=== PATIENT | female | born 1990 | race American Indian/Alaskan Native ===

== ENCOUNTER 2018-05-05 17:46 | Emergency (ER) | payer OTHER, SELFPAY ==
--- NOTE | 2018-05-05 17:47 | ED.FEMALEGU ---
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 She denies any urinary symptoms. No flank pain. No nausea or vomiting. Positive p.o. intake. She denies any vaginal discharge or bleeding. She denies any changes in sexual partners. She reports that her last menstrual period was last month. She denies any relievers or stressors of the pain. Pain is limited to the pelvic region. No other concerns or complaints at this time. Related Data Home Medications Medication Instructions Recorded Confirmed methocarbamol 750 mg PO QIDP PRN #0 02/27/17 Previous Rx's Medication Instructions Recorded ibuprofen 600 mg PO Q6HP PRN #20 tab 11/20/16 hydrocodone-acetaminophen [Mecca] 1 tab PO Q6HP PRN #10 tab 02/27/17 fluticasone 1 spray INTRANASAL BID #16 gm 12/24/17 loratadine [Claritin] 10 mg PO QDAY 30 Days #0 tab 12/24/17 Allergies Allergy/AdvReac Type Severity Reaction Status Date / Time latex [LATEX] Allergy Unknown Unverified 02/05/18 12:24 oxycodone [OXYCODONE] AdvReac Mild ITCHY Unverified 02/05/18 12:24 Review of Systems <LUCIE Stewart - Last Filed: 05/05/18 22:24> Review of Systems Constitutional Denies chills, Denies fever(s), Denies lethargy and Denies weakness Eyes Denies change in vision, Denies eye discharge, Denies irritation and Denies loss of vision ENT Ears, Nose, Mouth, and Throat: Denies change in voice, Denies neck pain and Denies sore throat Cardiovascular Denies chest pain, Denies irregular heart rhythm, Denies lightheadedness, Denies palpitations, Denies dyspnea, Denies dyspnea on exertion and Denies orthopnea Respiratory Denies cough, Denies dyspnea, Denies dyspnea on exertion and Denies wheezing Gastrointestinal Comments: Pelvic pain Genitourinary Denies hematuria, Denies flank pain, Denies urinary incontinence and Denies urinary urgency Musculoskeletal Denies neck pain Integumentary/Breasts Denies pruritus, Denies erythema, Denies rash and Denies wounds Neurologic Denies confusion, Denies loss of vision and Denies weakness Psychiatric Denies anxiety, Denies confusion, Denies depression, Denies homicidal ideation and Denies suicidal ideation Endocrine Denies palpitations Hematologic/Lymphatic Denies easy bruising Allergic/Immunologic Denies wheezing Exam <LUCIE Stewart - Last Filed: 05/05/18 22:24> Initial Vital Signs Initial Vital Signs: Vital Signs Temperature 98.5 F 05/05/18 17:52 Pulse Rate 105 H 05/05/18 17:52 Respiratory Rate 18 05/05/18 17:52 Blood Pressure 106/71 05/05/18 17:52 Pulse Oximetry 100 05/05/18 17:52 Const General: cooperative and well developed Nutritional Appearance: well nourished Orientation: alert, awake, oriented x3 and not confused HENMT Face and sinus: no sinus tenderness Mouth: oral mucosae normal and moist mucous membranes Eyes Conjunctivae: conjunctivae normal Sclera: sclerae normal Pupils: PERRL EOM: EOM intact bilaterally Resp Effort & Inspection: normal respiratory effort, able to speak in complete sentences, no respiratory distress and no use of accessory muscles Auscultation: clear to auscultation bilaterally, no rales, no rhonchi and no wheezes Cardio Rate: regular rate Rhythm: regular rhythm Heart Sounds: no click, no gallops, no murmurs and no rubs GI Inspection: non-distended Palpation: soft, no hepatosplenomegaly, No guarding, No pulsatile mass and tender (Tenderness to pelvic region) Auscultation: normal bowel sounds Skin General: no rashes or lesions noted, No jaundice and No petechiae <Lance Boswell DO - Last Filed: 05/05/18 23:30> Initial Vital Signs Initial Vital Signs: Vital Signs Temperature 98.5 F 05/05/18 17:52 Pulse Rate 105 H 05/05/18 17:52 Respiratory Rate 18 05/05/18 17:52 Blood Pressure 106/71 05/05/18 17:52 Pulse Oximetry 100 05/05/18 17:52 Course <LUCIE Stewart - Last Filed: 05/05/18 22:24> Orders Ordered: ED Orders 05/05/18 18:15 US pelvic complete Stat 05/05/18 19:15 Complete Blood Count AUTO DIFF Stat Comprehensive Metabolic Panel Stat 05/05/18 20:05 CT abdomen pelvis w con Stat Vital Signs - 8 hr 05/05/18 17:52 Temperature 98.5 F Pulse Rate 105 H Respiratory Rate 18 Blood Pressure 106/71 Pulse Oximetry 100 <Lance Boswell DO - Last Filed: 05/05/18 23:30> Orders Ordered: ED Orders 05/05/18 18:15 US pelvic complete Stat 05/05/18 19:15 Complete Blood Count AUTO DIFF Stat Comprehensive Metabolic Panel Stat 05/05/18 20:05 CT abdomen pelvis w con Stat Vital Signs - 8 hr 05/05/18 17:52 Temperature 98.5 F Pulse Rate 105 H Respiratory Rate 18 Blood Pressure 106/71 Pulse Oximetry 100 MDM - Female Genitourinary <LUCIE Stewart - Last Filed: 05/05/18 22:24> Lab Data Result diagrams: 05/05/18 19:15 05/05/18 19:15 Lab Results 05/05/18 05/05/18 Range/Units 19:15 19:15 WBC 13.7 H (4.5-11.0) X10^3/uL RBC 4.62 (4.0-5.2) X10^6/uL Hgb 13.1 (12.0-16.0) g/dL Hct 39.0 (36-46) % MCV 84.5 (80-100) fL MCH 28.4 (26-34) PG MCHC 33.6 (30-36) % RDW 13.6 (11.6-14.8) % Plt Count 334 (150-400) X10^3/uL Neut % (Auto) 60.0 (50-75) % Lymph % (Auto) 28.4 (25-40) % Labette % (Auto) 5.8 (3-14) % Eos % (Auto) 5.1 H (2-4) % Baso % (Auto) 0.7 (0-2) % Neut # (Auto) 8300 H (2025-1907) /uL Sodium 140 (137-145) mmol/L Potassium 3.7 (3.4-5.1) mmol/L Chloride 107 (98-107) mmol/L Carbon Dioxide 25 (22-32) mmol/L BUN 9 (7-17) mg/dL Creatinine 0.70 (0.52-1.04) mg/dL Estimated GFR > 60.0 (>60) mL/min BUN/Creatinine Ratio 12.9 (6-22) Glucose 92 (70-100) mg/dL Calcium 8.4 (8.4-10.2) mg/dL Total Bilirubin 0.4 (0.2-1.3) mg/dL AST 27 (14-36) IU/L ALT 39 (9-52) IU/L Alkaline Phosphatase 100 (38-126) U/L Total Protein 6.8 (6.3-8.2) g/dL Albumin 3.8 (3.5-5.0) g/dL Globulin 3.0 (1.7-4.1) g/dL Albumin/Globulin Ratio 1.3 (1.0-2.8) Imaging Data CT scan - abdomen: Radiologist's impression: PROCEDURE: CT ABDOMEN PELVIS W CON INDICATIONS: Bilateral lower abdominal pain, elevated white count TECHNIQUE: After the administration of intravenous contrast, 5 mm thick sections acquired from the diaphragm to the symphysis. 5 mm coronal and sagittal reformats were acquired. For radiation dose reduction, the following was used: automated exposure control, adjustment of mA and/or kV according to patient size. COMPARISON: None. FINDINGS: Image quality: Excellent. ABDOMEN: Lung bases: Lung bases are clear. Heart size is normal. Solid organs: Liver is normal in size and enhancement. Gallbladder is surgically absent. Biliary system is non dilated. Pancreas enhances normally. Spleen is normal in size and enhancement. No adrenal nodules. Kidneys demonstrate normal size and enhancement, without hydronephrosis. Peritoneum and bowel: Bowel loops demonstrate normal wall thickness and caliber. No free fluid or air. Normal appendix. Nodes and vessels: No retroperitoneal or mesenteric adenopathy by size criteria. Aorta and inferior vena cava are normal in size. Miscellaneous: No ventral hernias. PELVIS: Genitourinary: Urinary bladder is decompressed. Miscellaneous: No inguinal hernias or adenopathy. Bones: No suspicious bony lesions. No vertebral body compression fractures. IMPRESSION: 1. No acute process. 2. Normal appendix. Dictated by: Gwendolyn Gamez M.D. on 05/05/2018 at 20:45 Approved by: Gwendolyn Gamez M.D. on 05/05/2018 at 20: pelvic us: Radiologist's impression: MDM Narrative Medical decision making narrative: CBC shows elevated white count of 13.7. Urinalysis was negative for urinary tract infection. CBC and Chem panel were otherwise unremarkable. Pelvic ultrasound was obtained and was negative for any acute findings. Due to elevated white count CT of the abdomen was obtained and was also negative for any acute findings. test was negative. Patient denies any vaginal discharge however discussed with patient do a pelvic to rule out bacterial vaginosis and PID patient requested to actually be able to see her primary care provider in the next couple of days for pelvic exam. [id number] Tylenol Motrin as needed for any discomfort. Differential of starting menstrual cycle causing her discomfort. For any worsening symptoms return to the emergency room. <Lance Boswell DO - Last Filed: 05/05/18 23:30> Lab Data Lab Results 05/05/18 05/05/18 Range/Units 19:15 19:15 WBC 13.7 H (4.5-11.0) X10^3/uL RBC 4.62 (4.0-5.2) X10^6/uL Hgb 13.1 (12.0-16.0) g/dL Hct 39.0 (36-46) % MCV 84.5 (80-100) fL MCH 28.4 (26-34) PG MCHC 33.6 (30-36) % RDW 13.6 (11.6-14.8) % Plt Count 334 (150-400) X10^3/uL Neut % (Auto) 60.0 (50-75) % Lymph % (Auto) 28.4 (25-40) % Labette % (Auto) 5.8 (3-14) % Eos % (Auto) 5.1 H (2-4) % Baso % (Auto) 0.7 (0-2) % Neut # (Auto) 8300 H (3157-4145) /uL Sodium 140 (137-145) mmol/L Potassium 3.7 (3.4-5.1) mmol/L Chloride 107 (98-107) mmol/L Carbon Dioxide 25 (22-32) mmol/L BUN 9 (7-17) mg/dL Creatinine 0.70 (0.52-1.04) mg/dL Estimated GFR > 60.0 (>60) mL/min BUN/Creatinine Ratio 12.9 (6-22) Glucose 92 (70-100) mg/dL Calcium 8.4 (8.4-10.2) mg/dL Total Bilirubin 0.4 (0.2-1.3) mg/dL AST 27 (14-36) IU/L ALT 39 (9-52) IU/L Alkaline Phosphatase 100 (38-126) U/L Total Protein 6.8 (6.3-8.2) g/dL Albumin 3.8 (3.5-5.0) g/dL Globulin 3.0 (1.7-4.1) g/dL Albumin/Globulin Ratio 1.3 (1.0-2.8) Discharge Plan Departure Patient Disposition: Home, Self-Care Clinical Impression: Pelvic pain Discharge Date/Time: 05/05/18 21:31 Interventions: ED Discharge Assessment Last Done: 05/05/18 21:29 Instructions: DI for Pelvic Pain Activity Restrictions/Additional Instructions: Laboratory results indicate elevated serum white count which could indicate infection or inflammation. Other laboratory results and imaging were unremarkable. test was negative. Follow up with her primary care provider in the next couple of days for further evaluation such as a pelvic exam to rule out infection to the pelvic region. Other causes of the discomfort may be due to starting a menstrual cycle. Use [id number] Tylenol Motrin as needed for any discomfort. Return emergency room for any worsening symptoms. Prescriptions: No Action ibuprofen 600 MG tablet 600 mg PO Q6HP PRNQty: 20 RF: 0 methocarbamol 750 MG tablet 750 mg PO QIDP PRNQty: 0 RF: 0 hydrocodone-acetaminophen [Mecca] 5 MG/325 MG tablet 1 tab PO Q6HP PRNQty: 10 RF: 0 fluticasone 16 GM spray,suspension 1 spray Intranasal BID Qty: 16 RF: 0 loratadine [Claritin] 10 MG tablet 10 mg PO QDAY 30 Days Qty: 0 RF: 0 Referrals: [facility] [Provider Group] <Lance Boswell DO - Last Filed: 05/05/18 23:30> Cosign ED Attending Joseature Attestation: I was immediately available in the department for consultation. Documentation has been reviewed. I agree with assessment and plan.
[2018-05-05 17:52] VITALS: BP 106/71; PULSE 105; RESP 18; TEMP 36.9; O2SAT 100
--- NOTE | 2018-05-05 18:01 | PC.NURSE ---
States she is feeling crampy in her pelvic area and is 3 days late for her period - is sexually active - breasts are tender
--- NOTE | 2018-05-05 18:15 | DI.US.S_ITS ---
PROCEDURE: US PELVIC COMPLETE INDICATIONS: Left pelvic pain TECHNIQUE: Real-time scanning was performed of the pelvic organs, with image documentation. Additional endovaginal scanning was necessary due to incomplete visualization of the adnexal and endometrial structures by transabdominal scanning. COMPARISON: None. FINDINGS: Transabdominal scanning: Limited scanning through the kidneys shows no hydronephrosis. No pathologic free abdominal or pelvic fluid. Endovaginal scanning: Uterus: Uterus is normal in size at 8.3 x 4.0 x 5.4 cm. The endometrium measures 15 mm in combined thickness. Ovaries: Right ovary is within normal limits. Left ovary not seen. IMPRESSION: Nonvisualization of the left ovary. Otherwise negative pelvic ultrasound. Dictated by: Gwendolyn Gamez M.D. on 05/05/2018 at 19:35 Approved by: Gwendolyn Gamez M.D. on 05/05/2018 at 19:36
[2018-05-05 19:25] LABS: Add Manual Diff / Slide Review NO; Basophils Percent Auto 0.7 % (0-2); Eosinophils Percent Auto 5.1 % (2-4); Hemoglobin 13.1 g/dL (12.0-16.0); Lymphocytes Percent Auto 28.4 % (25-40); Mean Corpuscular HGB Conc 33.6 % (30-36); Mean Corpuscular Hemoglobin 28.4 PG (26-34); Mean Corpuscular Volume 84.5 fL (80-100); Monocytes Percent Auto 5.8 % (3-14); Neutrophils Absolute Auto 8300 /uL (3000-5900); Platelet Count 334 X10^3/uL (150-400); Red Blood Cell Count 4.62 X10^6/uL (4.0-5.2); Red Cell Distribution Width 13.6 % (11.6-14.8); White Blood Cell Count 13.7 X10^3/uL (4.5-11.0)
[2018-05-05 19:33] LABS: Alanine Aminotransferase 39 IU/L (9-52); Albumin 3.8 g/dL (3.5-5.0); Albumin Globulin Ratio 1.3 (1.0-2.8); Alkaline Phosphatase 100 U/L (38-126); Aspartate Aminotransferase 27 IU/L (14-36); BUN Creatinine Ratio 12.9 (6-22); Bilirubin Total 0.4 mg/dL (0.2-1.3); Blood Urea Nitrogen 9 mg/dL (7-17); Calcium 8.4 mg/dL (8.4-10.2); Carbon Dioxide 25 mmol/L (22-32); Chloride 107 mmol/L (98-107); Estimated Glomerular Filt Rate > 60.0 mL/min (>60); Glucose 92 mg/dL (70-100); HEMOLYSIS < 15 (0-50); Potassium 3.7 mmol/L (3.4-5.1); Sodium 140 mmol/L (137-145); Total Protein 6.8 g/dL (6.3-8.2)
--- NOTE | 2018-05-05 20:05 | DI.CT.S_ITS ---
PROCEDURE: CT ABDOMEN PELVIS W CON INDICATIONS: Bilateral lower abdominal pain, elevated white count TECHNIQUE: After the administration of intravenous contrast, 5 mm thick sections acquired from the diaphragm to the symphysis. 5 mm coronal and sagittal reformats were acquired. For radiation dose reduction, the following was used: automated exposure control, adjustment of mA and/or kV according to patient size. COMPARISON: None. FINDINGS: Image quality: Excellent. ABDOMEN: Lung bases: Lung bases are clear. Heart size is normal. Solid organs: Liver is normal in size and enhancement. Gallbladder is surgically absent. Biliary system is non dilated. Pancreas enhances normally. Spleen is normal in size and enhancement. No adrenal nodules. Kidneys demonstrate normal size and enhancement, without hydronephrosis. Peritoneum and bowel: Bowel loops demonstrate normal wall thickness and caliber. No free fluid or air. Normal appendix. Nodes and vessels: No retroperitoneal or mesenteric adenopathy by size criteria. Aorta and inferior vena cava are normal in size. Miscellaneous: No ventral hernias. PELVIS: Genitourinary: Urinary bladder is decompressed. Miscellaneous: No inguinal hernias or adenopathy. Bones: No suspicious bony lesions. No vertebral body compression fractures. IMPRESSION: 1. No acute process. 2. Normal appendix. Dictated by: Gwendolyn Gamez M.D. on 05/05/2018 at 20:45 Approved by: Gwendolyn Gamez M.D. on 05/05/2018 at 20:47
== END 2018-05-05 21:31 | disposition home or self-care (01) ==
PROVIDERS: Emergency Provider Nurse Practitioner Family
DX: R10.2 Pelvic and perineal pain (principal)
CPT/HCPCS: 36591; 74177; 76830; 76856; 80053; 81003; 81025; 85025; 99282; 99284

== ENCOUNTER 2018-05-15 15:27 | Emergency (ER) | payer OTHER, SELFPAY ==
[2018-05-15 15:47] VITALS: BP 112/73; PULSE 91; RESP 18; TEMP 36.4; O2SAT 99
--- NOTE | 2018-05-15 16:18 | ED.FEMALEGU ---
HPI - Female Genitourinary General Chief complaint: Vaginal Bleeding Stated complaint: VAG BLEEDING Time Seen by Provider: 05/15/18 16:18 Source: patient Mode of arrival: ambulatory Limitations: no limitations History of Present Illness HPI Narrative: Patient is a 27-year-old female who presents with vaginal bleeding she says that she is about 5 weeks she [facility] a [facility]. She has some mild cramping as well. No nausea or vomiting. She actually had a pelvic ultrasound and a CT which were all negative on 05/05/2018. She had a negative test at that time. Complaint: vaginal bleeding Related Data Home Medications Medication Instructions Recorded Confirmed No Known Home Medications 05/15/18 05/15/18 Allergies Allergy/AdvReac Type Severity Reaction Status Date / Time latex [LATEX] Allergy Unknown Verified 05/15/18 15:52 oxycodone [OXYCODONE] AdvReac Mild ITCHY Verified 05/15/18 15:52 Review of Systems Review of Systems GENERAL: Denies chills, fatigue, malaise, fever, sweats, travel HEENT: Denies sinus pain, ear pain, sore throat, difficulty swallowing, neck pain RESPIRATORY: Denies dyspnea, cough, wheezing, hemoptysis, sputum. CARDIOVASCULAR: Denies chest pain, palpitations, orthopnea, edema GASTROINTESTINAL: Denies nausea, vomiting, abdominal pain, diarrhea, constipation, melena. : Denies dysuria, frequency, incontinence, hematuria, urinary retention, flank pain. 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 12 point review of systems is negative except for those stated above and HPI All systems reviewed & are unremarkable except as noted in HPI and below PFSH Social History Smoking Status: Former smoker Comment: A AB1 Mc 1 Exam Initial Vital Signs Initial Vital Signs: Vital Signs Temperature 97.5 F L 05/15/18 15:47 Pulse Rate 91 H 05/15/18 15:47 Respiratory Rate 18 05/15/18 15:47 Blood Pressure 112/73 05/15/18 15:47 Pulse Oximetry 99 05/15/18 15:47 GENERAL: Well-appearing, well-nourished and in no acute distress. HEENT: Head atraumatic,EOMI, pupils reactive, face symmetric CARDIOVASCULAR: Regular rate and rhythm without murmurs, rubs or gallops. RESPIRATORY: Breath sounds equal bilaterally, no wheezes rales or rhonchi. ABDOMEN: Soft, obese mild lower suprapubic pain no without guarding or rebound EXTREMITIES: Normal range of motion, no clubbing or edema. Neurovascularly intact NEUROLOGICAL: Alert and oriented x4.Normal gait and speech. SKIN: Warm, dry, no laceration, no petechiae, no rashes or lesions. Course Orders Ordered: ED Orders 05/15/18 16:30 Urine Microscopic Stat 05/15/18 16:42 US OB <= 14 weeks fetus Stat 05/15/18 16:57 ABO RH Type Stat Complete Blood Count AUTO DIFF Stat Comprehensive Metabolic Panel Stat HCG Quantitative Stat Vital Signs - 8 hr 05/15/18 15:47 Temperature 97.5 F L Pulse Rate 91 H Respiratory Rate 18 Blood Pressure 112/73 Pulse Oximetry 99 MDM - Female Genitourinary Lab Data Result diagrams: 05/15/18 16:57 05/15/18 16:57 Lab Results 05/15/18 05/15/18 05/15/18 Range/Units 16:30 16:57 16:57 WBC 12.2 H (4.5-11.0) X10^3/uL RBC 4.15 (4.0-5.2) X10^6/uL Hgb 11.7 L (12.0-16.0) g/dL Hct 35.4 L (36-46) % MCV 85.4 (80-100) fL MCH 28.2 (26-34) PG MCHC 33.1 (30-36) % RDW 14.4 (11.6-14.8) % Plt Count 327 (150-400) X10^3/uL Neut % (Auto) 62.1 (50-75) % Lymph % (Auto) 27.7 (25-40) % Delta % (Auto) 5.7 (3-14) % Eos % (Auto) 3.7 (2-4) % Baso % (Auto) 0.8 (0-2) % Neut # (Auto) 7600 H (8347-1424) /uL Sodium 139 (137-145) mmol/L Potassium 3.7 (3.4-5.1) mmol/L Chloride 106 (98-107) mmol/L Carbon Dioxide 26 (22-32) mmol/L BUN 9 (7-17) mg/dL Creatinine 0.80 (0.52-1.04) mg/dL Estimated GFR > 60.0 (>60) mL/min BUN/Creatinine Ratio 11.3 (6-22) Glucose 90 (70-100) mg/dL Calcium 8.6 (8.4-10.2) mg/dL Total Bilirubin 0.2 (0.2-1.3) mg/dL AST 18 (14-36) IU/L ALT 37 (9-52) IU/L Alkaline Phosphatase 80 (38-126) U/L Total Protein 6.8 (6.3-8.2) g/dL Albumin 3.8 (3.5-5.0) g/dL Globulin 3.0 (1.7-4.1) g/dL Albumin/Globulin Ratio 1.3 (1.0-2.8) HCG, Quant 59133 mIU/mL Urine RBC 1-5/hpf (0-5/HPF) Urine WBC 0-1/hpf (0-5/HPF) Ur Squamous Epith Cells 0-1 /hpf Urine Bacteria None seen (None) Ur Culture Indicated? Cult not indicated Micro UA Comment Not Reportable Blood Type 05/15/18 Range/Units 16:57 WBC (4.5-11.0) X10^3/uL RBC (4.0-5.2) X10^6/uL Hgb (12.0-16.0) g/dL Hct (36-46) % MCV (80-100) fL MCH (26-34) PG MCHC (30-36) % RDW (11.6-14.8) % Plt Count (150-400) X10^3/uL Neut % (Auto) (50-75) % Lymph % (Auto) (25-40) % Delta % (Auto) (3-14) % Eos % (Auto) (2-4) % Baso % (Auto) (0-2) % Neut # (Auto) (7519-4543) /uL Sodium (137-145) mmol/L Potassium (3.4-5.1) mmol/L Chloride (98-107) mmol/L Carbon Dioxide (22-32) mmol/L BUN (7-17) mg/dL Creatinine (0.52-1.04) mg/dL Estimated GFR (>60) mL/min BUN/Creatinine Ratio (6-22) Glucose (70-100) mg/dL Calcium (8.4-10.2) mg/dL Total Bilirubin (0.2-1.3) mg/dL AST (14-36) IU/L ALT (9-52) IU/L Alkaline Phosphatase (38-126) U/L Total Protein (6.3-8.2) g/dL Albumin (3.5-5.0) g/dL Globulin (1.7-4.1) g/dL Albumin/Globulin Ratio (1.0-2.8) HCG, Quant mIU/mL Urine RBC (0-5/HPF) Urine WBC (0-5/HPF) Ur Squamous Epith Cells Urine Bacteria (None) Ur Culture Indicated? Micro UA Comment Blood Type O Positive Imaging Data Pelvic US: Radiologist's impression: PROCEDURE: US OB <= 14 WEEKS FETUS INDICATIONS: spotting preg pain OUTSIDE/PRIOR DATING DATA: Last menstrual period (LMP): 04/05/2018. LMP-based estimated date of delivery (DOREEN): 01/10/2019. First dating scan (date and location): 05/15/2018. Estimated date of delivery (DOREEN) from first dating scan: 01/06/2019. TECHNIQUE: Real-time scanning was performed of the fetus and maternal pelvic organs, with image documentation. Endovaginal scanning was also performed to better visualize the fetus and maternal ovaries. COMPARISON: None. FINDINGS: Embryo: There is an intrauterine gestational sac and a normal appearing yolk sac. No pole is identified. Estimated gestational age is a 6 weeks and 2 days based on the MGSD. Measurement variability in dating: +/- 4 weeks by LMP, +/- 7 days by mean sac diameter (use before 6 weeks gestation if crown-rump length not able to be measured), +/- 5 days by crown-rump length (up to 8 weeks 6 days gestation), +/- 7 days by crown-rump length (up to 13 weeks 6 days gestation). Maternal organs: Right ovary is normal. There is a 1.6 cm corpus with a cyst in the left ovary. Limited images through the kidneys demonstrate no hydronephrosis. IMPRESSION: 1. A single living intrauterine gestation with the estimated gestational age of 6 weeks 2 days. A pole is not visualized. There is a normal-appearing yolk sac. Please correlate with quantitative serum beta hCG. Followup imaging may be obtained if clinically indicated. 2. A corpus luteal cyst in the left ovary. Dictated by: Britta Ash M.D. on 05/15/2018 at 19:10 Approved by: Britta Ash M.D. on 05/15/2018 at 19:13 Discharge Plan Departure Patient Disposition: Home, Self-Care Clinical Impression: , threatened Discharge Date/Time: 05/15/18 18:44 Interventions: ED Discharge Assessment Last Done: 05/15/18 18:44 Instructions: Threatened Activity Restrictions/Additional Instructions: [facility] [id number] *You have been diagnosed with threatened *What to do: You should have a off labs rechecked in 2 days they should be going up -Pelvic rest- nothing in or out of vagina *Continue to take medications as directed *Follow up with your primary care provider in 2-3 days, 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
--- NOTE | 2018-05-15 16:42 | DI.US.S_ITS ---
PROCEDURE: US OB <= 14 WEEKS FETUS INDICATIONS: spotting preg pain OUTSIDE/PRIOR DATING DATA: Last menstrual period (LMP): 04/05/2018. LMP-based estimated date of delivery (DOREEN): 01/10/2019. First dating scan (date and location): 05/15/2018. Estimated date of delivery (DOREEN) from first dating scan: 01/06/2019. TECHNIQUE: Real-time scanning was performed of the fetus and maternal pelvic organs, with image documentation. Endovaginal scanning was also performed to better visualize the fetus and maternal ovaries. COMPARISON: None. FINDINGS: Embryo: There is an intrauterine gestational sac and a normal appearing yolk sac. No pole is identified. Estimated gestational age is a 6 weeks and 2 days based on the MGSD. Measurement variability in dating: +/- 4 weeks by LMP, +/- 7 days by mean sac diameter (use before 6 weeks gestation if crown-rump length not able to be measured), +/- 5 days by crown-rump length (up to 8 weeks 6 days gestation), +/- 7 days by crown-rump length (up to 13 weeks 6 days gestation). Maternal organs: Right ovary is normal. There is a 1.6 cm corpus with a cyst in the left ovary. Limited images through the kidneys demonstrate no hydronephrosis. IMPRESSION: 1. A single living intrauterine gestation with the estimated gestational age of 6 weeks 2 days. A pole is not visualized. There is a normal-appearing yolk sac. Please correlate with quantitative serum beta hCG. Followup imaging may be obtained if clinically indicated. 2. A corpus luteal cyst in the left ovary. Dictated by: Britta Ash M.D. on 05/15/2018 at 19:10 Approved by: Britta Ash M.D. on 05/15/2018 at 19:13
[2018-05-15 17:00] LABS: Bacteria Urine None Seen
[2018-05-15 17:09] LABS: Add Manual Diff / Slide Review NO; Basophils Percent Auto 0.8 % (0-2); Eosinophils Percent Auto 3.7 % (2-4); Hematocrit 35.4 % (36-46); Hemoglobin 11.7 g/dL (12.0-16.0); Lymphocytes Percent Auto 27.7 % (25-40); Mean Corpuscular HGB Conc 33.1 % (30-36); Mean Corpuscular Hemoglobin 28.2 PG (26-34); Mean Corpuscular Volume 85.4 fL (80-100); Monocytes Percent Auto 5.7 % (3-14); Neutrophils Absolute Auto 7600 /uL (3000-5900); Neutrophils Percent Auto 62.1 % (50-75); Platelet Count 327 X10^3/uL (150-400); Red Blood Cell Count 4.15 X10^6/uL (4.0-5.2); Red Cell Distribution Width 14.4 % (11.6-14.8); White Blood Cell Count 12.2 X10^3/uL (4.5-11.0)
[2018-05-15 17:12] LABS: Culture Indicated Urine Cult Not Indicated; RBC Urine 1-5/HPF (0-5/HPF); Squamous Epithelial Cell Urine 0-1 /HPF; WBC Urine 0-1/HPF (0-5/HPF)
[2018-05-15 17:21] LABS: Alanine Aminotransferase 37 IU/L (9-52); Albumin 3.8 g/dL (3.5-5.0); Albumin Globulin Ratio 1.3 (1.0-2.8); Alkaline Phosphatase 80 U/L (38-126); Aspartate Aminotransferase 18 IU/L (14-36); BUN Creatinine Ratio 11.3 (6-22); Bilirubin Total 0.2 mg/dL (0.2-1.3); Blood Urea Nitrogen 9 mg/dL (7-17); Calcium 8.6 mg/dL (8.4-10.2); Carbon Dioxide 26 mmol/L (22-32); Chloride 106 mmol/L (98-107); Estimated Glomerular Filt Rate > 60.0 mL/min (>60); Glucose 90 mg/dL (70-100); HEMOLYSIS < 15 (0-50); Potassium 3.7 mmol/L (3.4-5.1); Sodium 139 mmol/L (137-145); Total Protein 6.8 g/dL (6.3-8.2)
[2018-05-15 17:38] LABS: HCG Quantitative /Beta subunit 14449 mIU/mL
--- NOTE | 2018-05-15 18:24 | ED_ITS ---
HPI - Female Genitourinary General Chief complaint: Vaginal Bleeding Stated complaint: VAG BLEEDING Time Seen by Provider: 05/15/18 16:18 Source: patient Mode of arrival: ambulatory Limitations: no limitations History of Present Illness HPI Narrative: Patient is a 27-year-old female who presents with vaginal bleeding she says that she is about 5 weeks she [facility] a [facility]. She has some mild cramping as well. No nausea or vomiting. She actually had a pelvic ultrasound and a CT which were all negative on 2017. She had a negative test at that time. Complaint: vaginal bleeding Related Data Home Medications Medication Instructions Recorded Confirmed No Known Home Medications 05/15/18 05/15/18 Allergies Allergy/AdvReac Type Severity Reaction Status Date / Time latex [LATEX] Allergy Unknown Verified 05/15/18 15:52 oxycodone [OXYCODONE] AdvReac Mild ITCHY Verified 05/15/18 15:52 Review of Systems Review of Systems GENERAL: Denies chills, fatigue, malaise, fever, sweats, travel HEENT: Denies sinus pain, ear pain, sore throat, difficulty swallowing, neck pain RESPIRATORY: Denies dyspnea, cough, wheezing, hemoptysis, sputum. CARDIOVASCULAR: Denies chest pain, palpitations, orthopnea, edema GASTROINTESTINAL: Denies nausea, vomiting, abdominal pain, diarrhea, constipation, melena. : Denies dysuria, frequency, incontinence, hematuria, urinary retention, flank pain. SPINNING MULE TENDER: See HPI MUSCULOSKELETAL: Denies weakness, joint pain, or bony pain SKIN: No rash, no erythema, no pruritus NEUROLOGIC: Denies weakness, dizziness, headache, numbness, change in speech, confusion PSYCHIATRIC: No concerning psychosocial issues. 12 point review of systems is negative except for those stated above and HPI All systems reviewed & are unremarkable except as noted in HPI and below PFSH Social History Smoking Status: Former smoker Comment: A AB1 Mc 1 Exam Initial Vital Signs Initial Vital Signs: Vital Signs Temperature 97.5 F L 05/15/18 15:47 Pulse Rate 91 H 05/15/18 15:47 Respiratory Rate 18 05/15/18 15:47 Blood Pressure 112/73 05/15/18 15:47 Pulse Oximetry 99 05/15/18 15:47 GENERAL: Well-appearing, well-nourished and in no acute distress. HEENT: Head atraumatic,EOMI, pupils reactive, face symmetric CARDIOVASCULAR: Regular rate and rhythm without murmurs, rubs or gallops. RESPIRATORY: Breath sounds equal bilaterally, no wheezes rales or rhonchi. ABDOMEN: Soft, obese mild lower suprapubic pain no without guarding or rebound EXTREMITIES: Normal range of motion, no clubbing or edema. Neurovascularly intact NEUROLOGICAL: Alert and oriented x4.Normal gait and speech. SKIN: Warm, dry, no laceration, no petechiae, no rashes or lesions. Course Orders Ordered: ED Orders 05/15/18 16:30 Urine Microscopic Stat 05/15/18 16:42 US OB <= 14 weeks fetus Stat 05/15/18 16:57 ABO RH Type Stat Complete Blood Count AUTO DIFF Stat Comprehensive Metabolic Panel Stat HCG Quantitative Stat Vital Signs - 8 hr 05/15/18 15:47 Temperature 97.5 F L Pulse Rate 91 H Respiratory Rate 18 Blood Pressure 112/73 Pulse Oximetry 99 MDM - Female Genitourinary Lab Data Result diagrams: 05/15/18 16:57 05/15/18 16:57 Lab Results 05/15/18 05/15/18 05/15/18 Range/Units 16:30 16:57 16:57 WBC 12.2 H (4.5-11.0) X10^3/uL RBC 4.15 (4.0-5.2) X10^6/uL Hgb 11.7 L (12.0-16.0) g/dL Hct 35.4 L (36-46) % MCV 85.4 (80-100) fL MCH 28.2 (26-34) PG MCHC 33.1 (30-36) % RDW 14.4 (11.6-14.8) % Plt Count 327 (150-400) X10^3/uL Neut % (Auto) 62.1 (50-75) % Lymph % (Auto) 27.7 (25-40) % [place] % (Auto) 5.7 (3-14) % Eos % (Auto) 3.7 (2-4) % Baso % (Auto) 0.8 (0-2) % Neut # (Auto) 7600 H (2800-0080) /uL Sodium 139 (137-145) mmol/L Potassium 3.7 (3.4-5.1) mmol/L Chloride 106 (98-107) mmol/L Carbon Dioxide 26 (22-32) mmol/L BUN 9 (7-17) mg/dL Creatinine 0.80 (0.52-1.04) mg/dL Estimated GFR > 60.0 (>60) mL/min BUN/Creatinine Ratio 11.3 (6-22) Glucose 90 (70-100) mg/dL Calcium 8.6 (8.4-10.2) mg/dL Total Bilirubin 0.2 (0.2-1.3) mg/dL AST 18 (14-36) IU/L ALT 37 (9-52) IU/L Alkaline Phosphatase 80 (38-126) U/L Total Protein 6.8 (6.3-8.2) g/dL Albumin 3.8 (3.5-5.0) g/dL Globulin 3.0 (1.7-4.1) g/dL Albumin/Globulin Ratio 1.3 (1.0-2.8) HCG, Quant 55636 mIU/mL Urine RBC 1-5/hpf (0-5/HPF) Urine WBC 0-1/hpf (0-5/HPF) Ur Squamous Epith Cells 0-1 /hpf Urine Bacteria None seen (None) Ur Culture Indicated? Cult not indicated Micro UA Comment Not Reportable Blood Type 05/15/18 Range/Units 16:57 WBC (4.5-11.0) X10^3/uL RBC (4.0-5.2) X10^6/uL Hgb (12.0-16.0) g/dL Hct (36-46) % MCV (80-100) fL MCH (26-34) PG MCHC (30-36) % RDW (11.6-14.8) % Plt Count (150-400) X10^3/uL Neut % (Auto) (50-75) % Lymph % (Auto) (25-40) % [place] % (Auto) (3-14) % Eos % (Auto) (2-4) % Baso % (Auto) (0-2) % Neut # (Auto) (3037-1357) /uL Sodium (137-145) mmol/L Potassium (3.4-5.1) mmol/L Chloride (98-107) mmol/L Carbon Dioxide (22-32) mmol/L BUN (7-17) mg/dL Creatinine (0.52-1.04) mg/dL Estimated GFR (>60) mL/min BUN/Creatinine Ratio (6-22) Glucose (70-100) mg/dL Calcium (8.4-10.2) mg/dL Total Bilirubin (0.2-1.3) mg/dL AST (14-36) IU/L ALT (9-52) IU/L Alkaline Phosphatase (38-126) U/L Total Protein (6.3-8.2) g/dL Albumin (3.5-5.0) g/dL Globulin (1.7-4.1) g/dL Albumin/Globulin Ratio (1.0-2.8) HCG, Quant mIU/mL Urine RBC (0-5/HPF) Urine WBC (0-5/HPF) Ur Squamous Epith Cells Urine Bacteria (None) Ur Culture Indicated? Micro UA Comment Blood Type O Positive Imaging Data Pelvic US: Radiologist's impression: PROCEDURE: US OB <= 14 WEEKS FETUS INDICATIONS: spotting preg pain OUTSIDE/PRIOR DATING DATA: Last menstrual period (LMP): 04/05/2018. LMP-based estimated date of delivery (DOREEN): 01/10/2019. First dating scan (date and location): 05/15/2018. Estimated date of delivery (DOREEN) from first dating scan: 01/06/2019. TECHNIQUE: Real-time scanning was performed of the fetus and maternal pelvic organs, with image documentation. Endovaginal scanning was also performed to better visualize the fetus and maternal ovaries. COMPARISON: None. FINDINGS: Embryo: There is an intrauterine gestational sac and a normal appearing yolk sac. No pole is identified. Estimated gestational age is a 6 weeks and 2 days based on the MGSD. Measurement variability in dating: +/- 4 weeks by LMP, +/- 7 days by mean sac diameter (use before 6 weeks gestation if crown-rump length not able to be measured), +/ - 5 days by crown-rump length (up to 8 weeks 6 days gestation), +/- 7 days by crown-rump length (up to 13 weeks 6 days gestation). Maternal organs: Right ovary is normal. There is a 1.6 cm corpus with a cyst in the left ovary. Limited images through the kidneys demonstrate no hydronephrosis. IMPRESSION: 1. A single living intrauterine gestation with the estimated gestational age of 6 weeks 2 days. A pole is not visualized. There is a normal-appearing yolk sac. Please correlate with quantitative serum beta hCG. Followup imaging may be obtained if clinically indicated. 2. A corpus luteal cyst in the left ovary. Dictated by: Britta Ash M.D. on 05/15/2018 at 19:10 Approved by: Britta Ash M.D. on 05/15/2018 at 19:13 Discharge Plan Departure Patient Disposition: Home, Self-Care Clinical Impression: , threatened Discharge Date/Time: 05/15/18 18:44 Interventions: ED Discharge Assessment Last Done: 05/15/18 18:44 Instructions: Threatened Activity Restrictions/Additional Instructions: [facility]= [id number] *You have been diagnosed with threatened *What to do: You should have a off labs rechecked in 2 days they should be going up -Pelvic rest- nothing in or out of vagina *Continue to take medications as directed *Follow up with your primary care provider in 2-3 days, 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
[2018-05-15 18:36] VITALS: BP 117/57; PULSE 88; RESP 18; O2SAT 100
== END 2018-05-15 18:44 | disposition home or self-care (01) ==
PROVIDERS: Emergency Provider Emergency Medicine
DX: O20.0 Threatened abortion (principal); Z3A.01 Less than 8 weeks gestation of pregnancy
CPT/HCPCS: 36415; 76801; 76817; 80053; 81003; 81015; 81025; 84702; 85025; 86900; 86901; 99282; 99284

== ENCOUNTER 2018-06-17 23:43 | Emergency (ER) | payer OTHER, SELFPAY ==
[2018-06-17 23:53] VITALS: BP 111/65; PULSE 90; RESP 16; TEMP 36.7; O2SAT 100; BMI 52.8
[2018-06-18 03:06] LABS: Add Manual Diff / Slide Review NO; Basophils Percent Auto 0.7 % (0-2); Hematocrit 35.4 % (36-46); Hemoglobin 12.2 g/dL (12.0-16.0); Lymphocytes Percent Auto 25.5 % (25-40); Mean Corpuscular HGB Conc 34.4 % (30-36); Mean Corpuscular Hemoglobin 28.8 PG (26-34); Mean Corpuscular Volume 83.7 fL (80-100); Monocytes Percent Auto 5.2 % (3-14); Neutrophils Absolute Auto 8300 /uL (3000-5900); Neutrophils Percent Auto 63.6 % (50-75); Platelet Count 324 X10^3/uL (150-400); Red Blood Cell Count 4.23 X10^6/uL (4.0-5.2); Red Cell Distribution Width 13.9 % (11.6-14.8)
[2018-06-18] MEDS: ONDANSETRON 4 MG/2 ML INJ IV (03:08)
[2018-06-18] MEDS: SODIUM CHLORIDE 0.9% 1,000 ML 1000 ML IV (03:08)
[2018-06-18 03:20] LABS: WBC Urine None Seen (0-5/HPF)
[2018-06-18 03:22] LABS: Blood Urea Nitrogen 6 mg/dL (7-17); Calcium 8.6 mg/dL (8.4-10.2); Carbon Dioxide 23 mmol/L (22-32); Chloride 106 mmol/L (98-107); Estimated Glomerular Filt Rate > 60.0 mL/min (>60); Glucose 101 mg/dL (70-100); HEMOLYSIS < 15 (0-50); Potassium 4.1 mmol/L (3.4-5.1); Sodium 139 mmol/L (137-145)
[2018-06-18 03:27] LABS: Ketones (Beta-Hydroxybutyrate) 0.068 mmol/L (<0.27)
[2018-06-18 03:41] LABS: RBC Urine 1-5/HPF (0-5/HPF); Squamous Epithelial Cell Urine 1-5 /HPF
[2018-06-18 03:42] LABS: Bacteria Urine Few (2-10); Culture Indicated Urine Cult Not Indicated
[2018-06-18] MEDS: ONDANSETRON 4 MG ODT PREPACK 1 BOTTLE MISC (04:11)
--- NOTE | 2018-06-18 04:11 | ED_ITS ---
HPI - General Chief complaint: OB/Uterine Contractions Stated complaint: 10 weeks , fever vomiting Time Seen by Provider: 06/17/18 23:58 Source: patient and family Mode of arrival: ambulatory Limitations: no limitations History of Present Illness HPI Narrative: Patient is a at 10 weeks with a chief complaint of nausea and vomiting for the past 6 weeks. She has become dizzy, weak and lightheaded upon standing. She denies fever or chills. She has had no diarrhea or constipation. She denies dysuria, frequency or urgency. She is under the care of Dr. Wang Related Data Previous Rx's Medication Instructions Recorded ondansetron [Zofran ODT] 4 mg PO Q6H PRN #14 tab 06/18/18 Allergies Allergy/AdvReac Type Severity Reaction Status Date / Time latex [LATEX] Allergy Unknown Verified 05/15/18 15:52 oxycodone [OXYCODONE] AdvReac Mild ITCHY Verified 05/15/18 15:52 Review of Systems Review of Systems All systems reviewed & are unremarkable except as noted in HPI and below Constitutional Denies chills, Denies fever(s), Denies lethargy and Denies weakness Eyes Denies change in vision, Denies eye discharge, Denies irritation and Denies loss of vision ENT Ears, Nose, Mouth, and Throat: Denies change in voice, Denies neck pain and Denies sore throat Cardiovascular Denies chest pain, Denies irregular heart rhythm, Denies lightheadedness, Denies palpitations, Denies dyspnea, Denies dyspnea on exertion and Denies orthopnea Respiratory Denies cough, Denies dyspnea, Denies dyspnea on exertion and Denies wheezing Gastrointestinal Gastrointestinal: Denies abdominal pain, Denies change in bowel habits, Denies diarrhea, Reports nausea and Reports vomiting Genitourinary Denies hematuria, Denies flank pain, Denies urinary incontinence and Denies urinary urgency Musculoskeletal Denies neck pain Integumentary/Breasts Denies pruritus, Denies erythema, Denies rash and Denies wounds Neurologic Denies confusion, Denies loss of vision and Denies weakness Psychiatric Denies anxiety, Denies confusion, Denies depression, Denies homicidal ideation and Denies suicidal ideation Endocrine Denies palpitations Hematologic/Lymphatic Denies easy bruising Allergic/Immunologic Denies wheezing PMFSH - Past Medical History Medical history: Reports non-contributory Surgical history: Reports non-contributory IT INTEGRATION ARCHITECT history: Reports Spontaneous Psychiatric history: Reports no psych history Family history: Reports no significant family history Exam Initial Vital Signs Initial Vital Signs: Vital Signs Temperature 98.0 F 06/17/18 23:53 Pulse Rate 90 06/17/18 23:53 Respiratory Rate 16 06/17/18 23:53 Blood Pressure 111/65 06/17/18 23:53 Pulse Oximetry 100 06/17/18 23:53 Const General: cooperative and well developed Nutritional Appearance: well nourished Orientation: alert, awake, oriented x3 and not confused HENID Head: normocephalic and atraumatic Ears: external ears normal and TM's normal bilaterally Nose: external nose normal and No nasal discharge Face and sinus: sinuses nontender, face symmetric, no sinus tenderness and No dry mucous membranes Mouth: oral mucosae normal and moist mucous membranes Teeth and gingiva: dentition normal Throat: tonsils normal and uvula midline Eyes General: appearance normal, both eyes and all related structures Eyelids: eyelids normal Conjunctivae: conjunctivae normal Sclera: sclerae normal Pupils: PERRL EOM: EOM intact bilaterally Neck Neck: normal visual inspection, trachea midline, No lymphadenopathy, No midline deformity and No JVD Lymphatic: No lymphedema Chest Chest: normal inspection of the chest Resp Effort & Inspection: normal respiratory effort, able to speak in complete sentences, no respiratory distress and no use of accessory muscles Auscultation: clear to auscultation bilaterally, no rales, no rhonchi and no wheezes Cardio Rate: regular rate Rhythm: regular rhythm Heart Sounds: no click, no gallops, no murmurs and no rubs Pulses: normal peripheral pulses GI Inspection: non-distended Palpation: soft, no hepatosplenomegaly, No guarding, No pulsatile mass and No tender Auscultation: normal bowel sounds Back/Spine/Pelvis Back: No CVA tenderness Cervical Spine: cervical ROM normal and No pain with cervical ROM Thoracic/Lumbar Spine: thoracic and lumbar spine normal to inspection Skin General: no rashes or lesions noted, No jaundice and No petechiae Neuro General: alert, oriented x3, gait normal and no focal motor deficits Speech: speech normal Extrem General: full ROM, no clubbing, cyanosis or edema, no pedal edema and no calf tenderness Psych Appearance: well kempt Mental Status: mental status grossly normal Attitude: cooperative Thought Content: normal and suicidality Judgment: judgment good Course Orders Ordered: ED Orders 06/18/18 02:48 Urine Microscopic Stat 06/18/18 02:55 Basic Metabolic Panel Stat Complete Blood Count AUTO DIFF Stat Ketones (Beta-Hydroxybutyrate) Stat Ondansetron HCl (Zofran) 4 mg IV Q4HR PRN PRN Reason: Nausea And Vomiting Last Admin: 06/18/18 03:08 Dose: 4 mg Discontinued Medications Sodium Chloride (Normal Saline 0.9%) 1,000 mls @ 1,000 mls/hr IV BOLUS ONE Stop: 06/18/18 03:36 Last Admin: 06/18/18 03:08 Dose: 1,000 mls/hr Ondansetron HCl (Zofran Odt Prepack) 1 bottle MISC SEEINSTR ONE Stop: 06/18/18 02:38 Vital Signs - 8 hr 06/17/18 23:53 Temperature 98.0 F Pulse Rate 90 Respiratory Rate 16 Blood Pressure 111/65 Pulse Oximetry 100 MDM - OB/Uterine Contractions Medical Records Attestation: I reviewed the patient's medical records. Lab Data Result diagrams: 06/18/18 02:55 06/18/18 02:55 Lab Results 06/18/18 06/18/18 06/18/18 Range/Units 02:48 02:55 02:55 WBC 13.0 H (4.5-11.0) X10^3/uL RBC 4.23 (4.0-5.2) X10^6/uL Hgb 12.2 (12.0-16.0) g/dL Hct 35.4 L (36-46) % MCV 83.7 (80-100) fL MCH 28.8 (26-34) PG MCHC 34.4 (30-36) % RDW 13.9 (11.6-14.8) % Plt Count 324 (150-400) X10^3/uL Neut % (Auto) 63.6 (50-75) % Lymph % (Auto) 25.5 (25-40) % [place] % (Auto) 5.2 (3-14) % Eos % (Auto) 5.0 H (2-4) % Baso % (Auto) 0.7 (0-2) % Neut # (Auto) 8300 H (2204-6252) /uL Sodium (137-145) mmol/L Potassium (3.4-5.1) mmol/L Chloride (98-107) mmol/L Carbon Dioxide (22-32) mmol/L BUN (7-17) mg/dL Creatinine (0.52-1.04) mg/dL Estimated GFR (>60) mL/min BUN/Creatinine Ratio (6-22) Glucose (70-100) mg/dL Calcium (8.4-10.2) mg/dL Urine RBC 1-5/hpf (0-5/HPF) Urine WBC None seen (0-5/HPF) Ur Squamous Epith Cells 1-5 /hpf Urine Bacteria Few (2-10) H (None) Ur Culture Indicated? Cult not indicated Micro UA Comment Not Reportable Ketones 0.068 (<0.27) mmol/L 06/18/18 Range/Units 02:55 WBC (4.5-11.0) X10^3/uL RBC (4.0-5.2) X10^6/uL Hgb (12.0-16.0) g/dL Hct (36-46) % MCV (80-100) fL MCH (26-34) PG MCHC (30-36) % RDW (11.6-14.8) % Plt Count (150-400) X10^3/uL Neut % (Auto) (50-75) % Lymph % (Auto) (25-40) % [place] % (Auto) (3-14) % Eos % (Auto) (2-4) % Baso % (Auto) (0-2) % Neut # (Auto) (0778-4330) /uL Sodium 139 (137-145) mmol/L Potassium 4.1 (3.4-5.1) mmol/L Chloride 106 (98-107) mmol/L Carbon Dioxide 23 (22-32) mmol/L BUN 6 L (7-17) mg/dL Creatinine 0.60 (0.52-1.04) mg/dL Estimated GFR > 60.0 (>60) mL/min BUN/Creatinine Ratio 10.0 (6-22) Glucose 101 H (70-100) mg/dL Calcium 8.6 (8.4-10.2) mg/dL Urine RBC (0-5/HPF) Urine WBC (0-5/HPF) Ur Squamous Epith Cells Urine Bacteria (None) Ur Culture Indicated? Micro UA Comment Ketones (<0.27) mmol/L Discharge Plan Departure Patient Disposition: Home Clinical Impression: Vomiting Instructions: DI for Vomiting -- Adult Activity Restrictions/Additional Instructions: 1. Drink plenty of fluids with frequent small sips. 2. For the next 24 hours a clear liquid diet is advised. After that please employ a brat diet which would include bananas, rice, apples, toast. 3. Please take medications as directed. Your prescription has been electronically transmitted to the with [facility] based on prior preference 4. Please follow-up with your doctor in the next 1-2 days. Call the office for an appointment. 5. Please return to the emergency Department for any worsening or persistent symptoms, such as increasing pain or fever. Prescriptions: New ondansetron [Zofran ODT] 4 mg tablet,disintegrating 4 mg PO Q6H PRN (Reason: nausea and vomiting) Qty: 14 RF: 0
[2018-06-18 04:46] VITALS: BP 112/60; PULSE 90; RESP 14; TEMP 36.7; O2SAT 100
== END 2018-06-18 04:18 | disposition home or self-care (01) ==
PROVIDERS: Emergency Provider Emergency Medicine
DX: O21.9 Vomiting of pregnancy, unspecified (principal); Z3A.10 10 weeks gestation of pregnancy
CPT/HCPCS: 36591; 80048; 81003; 81015; 82009; 85025; 96361; 96374; 99283; 99284; J2405

== ENCOUNTER → 2018-07-23 17:02 | Outpatient (CLI) | payer MEDICAID, SELFPAY | PROVIDERS: Visit Provider Obstetrics & Gynecology | DX: Z34.82 Encounter for supervision of other normal pregnancy, second trimester (principal) | CPT/HCPCS: 87086 ==

== ENCOUNTER → 2018-08-25 13:49 | Outpatient (CLI) | payer MEDICAID, SELFPAY ==
--- NOTE | 2018-08-25 14:24 | DI.US.S_ITS ---
PROCEDURE: US OB >= 14 WEEKS FETUS INDICATIONS: Anatomy Survey OUTSIDE/PRIOR DATING DATA: Last menstrual period (LMP): 04/05/18. LMP-based estimated date of delivery (DOREEN): 01/10/19. First dating scan (date and location): 05/15/18. Estimated date of delivery (DOREEN) from first dating scan: 01/06/19. TECHNIQUE: Real-time scanning was performed of the fetus, with image documentation and biometric measurements. Endovaginal scanning: Not requested. COMPARISON: [facility], , OB <= 14 WEEKS FETUS, 06/27/2018, 13:26. FINDINGS: General: A single living intrauterine gestation is present. Presentation: Breech. Placenta: Placental position is posterior, without previa. Amniotic fluid index: 13.5 cm, normal range is 5-24 cm. heart rate: 153 beats per minute. Maternal cervical canal: 5.7 cm long. Normal lower limit is 2.5 cm. biometrics: Biparietal diameter: 19 weeks 6 days Head circumference: 20 weeks 4 days Abdominal circumference: 20 weeks 2 days Femur length: 20 weeks 5 days Estimated gestational age from initial scan: 20 weeks 3 days Composite gestational age from present scan: 20 weeks 3 days Estimated weight and percentile: 356 g, 47 percentile Measurement variability for biometric dating: +/- 7 days from 14 weeks to 15 weeks 6 days gestation, +/- 10 days from 16 weeks to 21 weeks 6 days gestation, +/- 2 weeks from 22 weeks to 27 weeks 6 days gestation, +/- 3 weeks for 28 weeks gestation or later. weight reference: 4500 g or EFW >90/95% is considered macrosomia or large for gestational age. EFW <10% is small for gestational age. EFW 5% or less is considered intra-uterine growth restriction. Anatomic survey: Neuro: Ventricles are non-dilated at less than 10 mm. Cisterna magna is normal at 3-11 mm. Cerebellum is normal in size and morphology. Nuchal skin fold: Normal at less than 6 mm between 14-21 weeks gestational age. Face: Nose and lips, facial profile are normal. Spine: No evidence for spina bifida. Heart: 4-chambered heart is present, with normal ventricular outflow tracts. Diaphragm: Diaphragm is intact. Stomach: Left-sided stomach is present. Kidneys: No hydronephrosis. Normal is less than 5 mm in 2nd trimester, less than 7 mm in 3rd trimester. Cord: 3-vessel cord has orthotopic insertion. Bladder: Normal in size. Extremities: All 4 extremities identified. IMPRESSION: Normal interval growth and normal anatomic survey. Dictated by: Jayjay Mar [facility] Interpreted: Cuate Gore MD on 08/27/2018 at 16:57 Approved by: Cuate Gore M.D. on 08/27/2018 at 17:19
== END ==
PROVIDERS: Visit Provider Obstetrics & Gynecology
DX: Z34.82 Encounter for supervision of other normal pregnancy, second trimester (principal); Z36.89 Encounter for other specified antenatal screening; Z3A.20 20 weeks gestation of pregnancy
CPT/HCPCS: 76811

== ENCOUNTER → 2018-08-28 11:44 | Outpatient (CLI) | payer MEDICAID, SELFPAY ==
[2018-08-28 12:33] LABS: Add Manual Diff / Slide Review NO; Basophils Percent Auto 0.5 % (0-2); Eosinophils Percent Auto 2.3 % (2-4); Hematocrit 35.4 % (36-46); Hemoglobin 11.8 g/dL (12.0-16.0); Lymphocytes Percent Auto 21.7 % (25-40); Mean Corpuscular HGB Conc 33.2 % (30-36); Mean Corpuscular Hemoglobin 28.9 PG (26-34); Mean Corpuscular Volume 86.9 fL (80-100); Monocytes Percent Auto 4.7 % (3-14); Neutrophils Absolute Auto 8000 /uL (3000-5900); Neutrophils Percent Auto 70.8 % (50-75); Platelet Count 373 X10^3/uL (150-400); Red Blood Cell Count 4.08 X10^6/uL (4.0-5.2); Red Cell Distribution Width 13.5 % (11.6-14.8); White Blood Cell Count 11.3 X10^3/uL (4.5-11.0)
[2018-08-28 15:27] LABS: Hepatitis B Surface Antigen NEGATIVE s/c (NEGATIVE); Rubella Antibody IgG 15.4 IU/mL (>15)
[2018-08-28 15:36] LABS: HIV 1 and 2 Antibody NEGATIVE (NEGATIVE); Hep C Virus Ab w/Reflex Quant NEGATIVE s/c (NEGATIVE)
[2018-08-29 14:55] LABS: HSV 2 IGG AB 6.79 index (< 0.90)
[2018-08-30 15:43] LABS: RPR Screen Nonreactive (Nonreactive)
[2018-09-04 15:48] LABS: AFP, Serum 47.5 ng/mL; Calc Gestational Age 20.7; Cigarette Smoker N; Donated Egg NOT GIVEN; Donor Egg Age NOT GIVEN; Estriol, Free 1.53 ng/mL; Inhibin A, Dimeric 145 pg/mL; Maternal Ethnicity OTHER; Maternal Weight 281 lbs; Number of Fetuses 1; Previous Pregnancy Down Syndro NOT GIVEN; hCG, MoM 0.57; hCG, Serum 8.1 IU/mL
== END ==
PROVIDERS: Visit Provider Obstetrics & Gynecology
DX: Z34.91 Encounter for supervision of normal pregnancy, unspecified, first trimester (principal); Z34.82 Encounter for supervision of other normal pregnancy, second trimester; Z3A.20 20 weeks gestation of pregnancy
CPT/HCPCS: 36415; 80055; 82105; 82677; 84702; 86336; 86695; 86696; 86703; 86787; 86803; 86850; 86900; 86901; 87086

== ENCOUNTER 2018-09-09 23:41 | Emergency (ER) | payer MEDICAID, SELFPAY ==
[2018-09-09 23:54] VITALS: BP 119/78; PULSE 101; RESP 20; TEMP 37.1; O2SAT 100
--- NOTE | 2018-09-10 00:48 | ED.EAR ---
HPI - Ear Problem General Chief complaint: Ear Stated complaint: right ear pain Time Seen by Provider: 09/10/18 00:39 Source: patient Mode of arrival: ambulatory Limitations: no limitations History of Present Illness HPI Narrative: this is a 27-year-old female comes to the emergency department with complaint of right ear pain. Patient states she has had upper respiratory symptoms with nasal congestion, no fevers, no chills that she is aware of. She feels like something might be draining out of the right ear but has not seen any actual drainage. Patient states symptoms have been going on for the last day or 2. Had feels like her sounds like she is underwater. The left side not causing any issues. Patient has had no sinus pressure. She has had other sick contacts. She has not had prior ear infections or issues. She is 5 months . She has had some nausea but states this has been more related to her . No rashes or skin changes. She has had a mild headache. Related Data Previous Rx's Medication Instructions Recorded ondansetron [Zofran ODT] 4 mg PO Q6H PRN #14 tab 06/18/18 amoxicillin 500 mg PO TID #30 cap 09/10/18 fluticasone [Flonase Allergy 1 spray NASAL DAILY PRN #9.9 gram 09/10/18 Relief] Allergies Allergy/AdvReac Type Severity Reaction Status Date / Time latex [LATEX] Allergy Unknown Verified 05/15/18 15:52 oxycodone [OXYCODONE] AdvReac Mild ITCHY Verified 05/15/18 15:52 Review of Systems Review of Systems All systems reviewed & are unremarkable except as noted in HPI and below Constitutional Denies chills, Denies fever(s) and Reports headache(s) ENT Ears, Nose, Mouth, and Throat: Reports dizziness, Reports headache(s), Reports nasal congestion, Denies sinus pain, Denies sinus pressure, Denies sore throat and Denies throat swelling Cardiovascular Denies chest pain and Denies dyspnea Respiratory Denies chest congestion, Reports cough, Denies excessive phlegm production and Denies dyspnea Gastrointestinal Gastrointestinal: Denies abdominal pain, Denies change in stool character, Denies constipation, Denies diarrhea and Reports nausea Genitourinary Denies other (urinary issues) Integumentary/Breasts Denies rash Neurologic Reports dizziness and Reports headache(s) Allergic/Immunologic Denies throat swelling [facility] Social History Smoking Status: Former smoker Exam Narrative Exam Narrative: GEN: Obese, well-appearing female, alert and oriented x 3, patient appears to be in mild distress. HEENT: Atraumatic, pupils are equal round reactive to light, extraocular movements are intact, mild nasal congestion, right TM is bulging with some opacification by fluid. Left TM is also bulging with opacification of the TM with fluid. There is pain with motion of the right ear, there is no swelling of the ear canal or erythema with the external canal, patient has some erythema of the right TM, there is no conjunctival pallor. Throat is clear without any exudates, erythema, tonsillar enlargement or uvular deviation, no sinus tenderness. HEART: Regular rate and rhythm without murmur, clicks, rubs. LUNGS:Lungs clear to auscultation, no wheezes, rales, crackles, chest moves symmetrically ABD:bowel sounds normal, gravid, soft, non-tender, no guarding, rebound, rigidity, no masses noted, no hepatosplenomegaly MSCL: Non-tender NEURO: CN 2-12 intact Initial Vital Signs Initial Vital Signs: Vital Signs Temperature 98.8 F 09/09/18 23:54 Pulse Rate 101 H 09/09/18 23:54 Respiratory Rate 20 09/09/18 23:54 Blood Pressure 119/78 09/09/18 23:54 Pulse Oximetry 100 09/09/18 23:54 Course Orders Ordered: Discontinued Medications Amoxicillin ( Trimox 250mg Prepack) 1 bottle [facility] SEEINSTR ONE Stop: 09/10/18 00:55 Last Admin: 09/10/18 01:00 Dose: 1 bottle Vital Signs - 8 hr 09/09/18 23:54 Temperature 98.8 F Pulse Rate 101 H Respiratory Rate 20 Blood Pressure 119/78 Pulse Oximetry 100 Discharge Plan Departure Patient Disposition: Home Clinical Impression: Acute ear infection, URI (upper respiratory infection) Discharge Date/Time: 09/10/18 01:05 Interventions: ED Discharge Assessment Last Done: 09/10/18 01:05 Instructions: Middle Ear Infection Activity Restrictions/Additional Instructions: Follow-up in the next 3-5 days if her symptoms are not completely resolving. Return to the emergency department for persistent fevers, increasing ear pain, drainage from the ear, swelling of the ear or face, difficulty swallowing or other new or concerning symptoms. You may use Flonase 1-2 sprays to bilateral nostrils in the morning or evening. Take amoxicillin until completely finished. You may take Tylenol up to a 1000 mg every 8 hr as needed for pain Prescriptions: New amoxicillin 500 mg capsule 500 mg PO TID Qty: 30 RF: 0 fluticasone [Flonase Allergy Relief] 50 mcg/actuation spray,suspension 1 spray NASAL DAILY PRN (Reason: nasal congestion) Qty: 9.9 RF: 0 No Action ondansetron [Zofran ODT] 4 mg tablet,disintegrating 4 mg PO Q6H PRN (Reason: nausea and vomiting) Qty: 14 RF: 0
[2018-09-10] MEDS: AMOXICILLIN 250 MG PREPACK 1 BOTTLE MISC (01:00)
== END 2018-09-10 01:05 | disposition home or self-care (01) ==
PROVIDERS: Emergency Provider Emergency Medicine
DX: H66.91 Otitis media, unspecified, right ear (principal); J06.9 Acute upper respiratory infection, unspecified
CPT/HCPCS: 99282

== ENCOUNTER → 2018-11-04 10:28 | Outpatient (CLI) | payer MEDICAID, SELFPAY ==
[2018-11-04 12:12] LABS: Hematocrit 35.4 % (36-46); Hemoglobin 11.6 g/dL (12.0-16.0)
[2018-11-04 12:24] LABS: GTT (PREG) 1 Hour PP 50gm Dose 96 mg/dL (76-139)
== END ==
PROVIDERS: Visit Provider Obstetrics & Gynecology
DX: Z34.82 Encounter for supervision of other normal pregnancy, second trimester (principal)
CPT/HCPCS: 36415; 82950; 85014; 85018

== ENCOUNTER 2018-11-07 20:46 | Outpatient (CLI) | payer MEDICAID, SELFPAY ==
--- NOTE | 2018-11-07 | DI.US.S_ITS ---
PROCEDURE: US OB TRANSVAGINAL INDICATIONS: VAGINAL PAIN ? CERVICAL LENGTH OUTSIDE/PRIOR DATING DATA: Last menstrual period (LMP): 04/05/18. LMP-based estimated date of delivery (DOREEN): 01/10/19. First dating scan (date and location): 05/15/18. Estimated date of delivery (DOREEN) from first dating scan: 01/09/19. TECHNIQUE: Real-time scanning was performed of the fetus, with image documentation. COMPARISON: [facility], , OB >= 14 WEEKS FETUS, 10/01/2018, 12:17. [facility], US OB >= 14 WEEKS FETUS, 08/25/2018, 14:33. [facility], , US OB <= 14 WEEKS FETUS, 06/27/2018, 13:26. FINDINGS: This is a limited exam for cervical length only. Cervical length measures 4.3 cm. IMPRESSION: Limited exam demonstrating cervical length of 4.3 cm. Dictated by: Asha Chavez M.D. on 11/07/2018 at 22:25 Approved by: Asha Chavez M.D. on 11/07/2018 at 22:28
== END 2018-11-07 22:15 | disposition home or self-care (01) ==
LOC: OB 11-10 14:49
PROVIDERS: Visit Provider Family Medicine
DX: Z34.83 Encounter for supervision of other normal pregnancy, third trimester (principal); Z3A.30 30 weeks gestation of pregnancy; R10.2 Pelvic and perineal pain
CPT/HCPCS: 59025; 76817; G0378; G0379

== ENCOUNTER 2018-12-10 20:57 | Outpatient (CLI) | payer MEDICAID, SELFPAY | END 2018-12-10 21:35 | disposition home or self-care (01) | LOC: OB 12-11 11:40 | PROVIDERS: PCP Obstetrics & Gynecology | DX: O36.8130 Decreased fetal movements, third trimester, not applicable or unspecified (principal); Z3A.35 35 weeks gestation of pregnancy | CPT/HCPCS: 59025; G0378; G0379 ==

== ENCOUNTER 2018-12-14 16:23 | Outpatient (CLI) | payer MEDICAID, SELFPAY ==
[2018-12-14] MEDS: MORPHINE 10 MG/ML INJ IM (17:25)
== END 2018-12-14 17:30 | disposition home or self-care (01) ==
LOC: LABOR 17:19 → OB 12-15 13:11
PROVIDERS: PCP Obstetrics & Gynecology
DX: O60.03 Preterm labor without delivery, third trimester (principal); Z3A.36 36 weeks gestation of pregnancy
CPT/HCPCS: 59025; G0378; G0379; J2270

== ENCOUNTER → 2018-12-16 11:03 | Outpatient (CLI) | payer MEDICAID, SELFPAY ==
[2018-12-17 14:31] LABS: Strep Grp B PCR POS for Grp B Strep
== END ==
PROVIDERS: PCP Obstetrics & Gynecology; Visit Provider Obstetrics & Gynecology
DX: Z34.83 Encounter for supervision of other normal pregnancy, third trimester (principal)
CPT/HCPCS: 87653

== ENCOUNTER 2018-12-24 05:13 | Outpatient (CLI) | payer MEDICAID, SELFPAY | END 2018-12-24 06:15 | disposition home or self-care (01) | LOC: OB 12:56 | PROVIDERS: PCP Obstetrics & Gynecology; Visit Provider Obstetrics & Gynecology | DX: O47.1 False labor at or after 37 completed weeks of gestation (principal); Z3A.37 37 weeks gestation of pregnancy | CPT/HCPCS: 59025; 59050; G0378; G0379 ==

== ENCOUNTER 2018-12-28 01:05 | Outpatient (CLI) | payer MEDICAID, SELFPAY ==
--- NOTE | 2018-12-28 09:12 | PM.OBTRLD ---
Visit Information Visit Information Date of evaluation: 12/28/18 Primary OB Provider: Glory Wang On-call OB Provider: Neyda Ford Reason for Evaluation: Yes rule out labor [facility] Social History Smoking Status: Former smoker Evaluation Evaluation Baseline heart rate: 140 Variability: Moderate (11-25) monitor accelerations: Present monitor decelerations: Absent Contraction Frequency (minutes): 0 Cervical dilation (cm): 3 Cervical effacement (%): 70 station: -1 Diagnosis, Plan/Disposition Final Diagnosis (1) Premature uterine contractions, antepartum: Current Visit: No Status: Acute Plan/Disposition Plan: Patient with no active contractions and no change in her cervix. OB Disposition: home
--- NOTE | 2018-12-28 09:16 | P.TNLD_ITS ---
Visit Information Visit Information Date of evaluation: 12/28/18 Primary OB Provider: Glory Wang On-call OB Provider: Neyda Ford Reason for Evaluation: Yes rule out [facility] Social History Smoking Status: Former smoker Evaluation Evaluation Baseline heart rate: 140 Variability: Moderate (11-25) monitor accelerations: Present monitor decelerations: Absent Contraction Frequency (minutes): 0 Cervical dilation (cm): 3 Cervical effacement (%): 70 station: -1 Diagnosis, Plan/Disposition Final Diagnosis (1) Premature uterine contractions, antepartum: Current Visit: No Status: Acute Plan/Disposition Plan: Patient with no active contractions and no change in her cervix. OB Disposition: home
== END 2018-12-28 02:00 | disposition home or self-care (01) ==
LOC: LABOR 01:14 → OB 12-29 10:51
PROVIDERS: PCP Obstetrics & Gynecology; Visit Provider Specialist
DX: O47.03 False labor before 37 completed weeks of gestation, third trimester (principal); Z3A.33 33 weeks gestation of pregnancy
CPT/HCPCS: 59025; G0378; G0379

== ENCOUNTER 2018-12-31 10:43 | Inpatient (IN) | payer MEDICAID, SELFPAY ==
[2018-12-31] MEDS: LACTATED RINGERS 1,000 ML 125 ML IV ×2 (11:35→15:05)
[2018-12-31] MEDS: PENICILLIN G POTASSIUM 5,000,000 UNIT in DEXTROSE 5% IN WATER 250 ML IV (11:35)
[2018-12-31 12:02] LABS: Add Manual Diff / Slide Review NO; Basophils Absolute Auto 100 /uL (0-100); Basophils Percent Auto 0.4 % (0-2); Eosinophils Absolute Auto 400 /uL (0-450); Eosinophils Percent Auto 3.3 % (2-4); Hematocrit 35.5 % (36-46); Hemoglobin 11.5 g/dL (12.0-16.0); Lymphocytes Absolute Auto 2400 /uL (1100-4500); Lymphocytes Percent Auto 17.8 % (25-40); Mean Corpuscular HGB Conc 32.5 % (30-36); Mean Corpuscular Hemoglobin 27.2 PG (26-34); Mean Corpuscular Volume 83.8 fL (80-100); Monocytes Absolute Auto 700 /uL (0-900); Monocytes Percent Auto 5.5 % (3-14); Neutrophils Absolute Auto 9900 /uL (1500-7000); Platelet Count 387 X10^3/uL (150-400); Red Blood Cell Count 4.24 X10^6/uL (4.0-5.2); Red Cell Distribution Width 15.2 % (11.6-14.8); White Blood Cell Count 13.5 X10^3/uL (4.5-11.0)
[2018-12-31 14:25] VITALS: BP 124/60
[2018-12-31] MEDS: OXYTOCIN PREMIX 30 UNIT/500 ML PLAST..BAG IV (14:48)
[2018-12-31] MEDS: PENICILLIN G POTASSIUM 3,000,000 UNIT/50 ML FROZ.PIGGY 100 UNIT IV (15:33)
[2018-12-31] MEDS: IBUPROFEN 600 MG TABLET PO (19:54)
[2018-12-31] MEDS: DERMOPLAST SPRAY 20% 60 ML 1 SPRAY TOP (23:23)
[2019-01-01] MEDS: IBUPROFEN 600 MG TABLET PO ×2 (02:38→15:00)
[2019-01-01 06:45] LABS: Hematocrit 32.7 % (36-46); Hemoglobin 10.7 g/dL (12.0-16.0)
--- NOTE | 2019-01-01 09:51 | P.PN_ITS ---
Subjective Date Patient Seen: 01/01/19 Time Patient Seen: 09:50 Interval history: Baby boy is a one day . Has Latched this morning. Objective Labs Result Diagrams: 01/01/19 06:20 Labs: Laboratory Results - last 24 hr 12/31/18 12/31/18 01/01/19 11:45 11:45 06:20 WBC 13.5 H RBC 4.24 Hgb 11.5 L 10.7 L Hct 35.5 L 32.7 L MCV 83.8 MCH 27.2 MCHC 32.5 RDW 15.2 H Plt Count 387 Neut % (Auto) 73.0 Lymph % (Auto) 17.8 L [place] % (Auto) 5.5 Eos % (Auto) 3.3 Baso % (Auto) 0.4 Neut # (Auto) 9900 H Lymph # (Auto) 2400 [place] # (Auto) 700 Eos # (Auto) 400 Baso # (Auto) 100 Blood Type O Positive Antibody Screen Negative
--- NOTE | 2019-01-01 12:25 | PM.OBHP.1 ---
OB HPI Date/Time Date of admission: 12/31/18 Date Patient Seen: 12/31/18 Time Patient Seen: 13:00 History of Present Condition Chief complaint: LABOR AND DELIVERY : 4 Para: 1 Estimated Date of Delivery: 01/10/19 Estimated Gestational Age (weeks): 38+4 Narrative: Ni Rios is a 28 year old female 4 para 1 at 38-,4/7 weeks gestation who presents in active labor No leakage of fluid. History of Present care: good care, initiated at week # (11), number of visits (10) and pounds weight gain (10#) Dating criteria: LMP confirmed by 1st trimester US Ultrasounds: normal 1st trimester US and normal mid trimester US Obstetrical complications: none Medical complications: none Preadmission Labs Blood type: O (+) positive -: Antibody screen: negative, GBS status: positive, HBsAG: negative, HIV: negative, HSV 1: positive, HSV 2: positive and RPR/VDLR: negative -: Chlamydia screen: not detected and Gonorrhea screen: not detected -: Rubella: equivocal and Varicella: immune HCT: 35.4 HCAB: negative PAP: Normal Quad screen: Normal Urine: Negative 1 hr GTT: 96 Prior (ies) History: 2 SABs 08/20/14 7#7oz [address] Wang Evaluation Evaluation Baseline heart rate: 135 Variability: Moderate (11-25) monitor accelerations: Present monitor decelerations: Absent Contraction Frequency (minutes): 3 Uterine Contraction Intensity: Strong/Firm Category of Tracing: I Cervical dilation (cm): 5 Cervical effacement (%): 100 station: -1 Laboratory results: Laboratory Tests 12/31/18 12/31/18 01/01/19 11:45 11:45 06:20 WBC 13.5 H RBC 4.24 Hgb 11.5 L 10.7 L Hct 35.5 L 32.7 L MCV 83.8 MCH 27.2 MCHC 32.5 RDW 15.2 H Plt Count 387 Neut % (Auto) 73.0 Lymph % (Auto) 17.8 L [place] % (Auto) 5.5 Eos % (Auto) 3.3 Baso % (Auto) 0.4 Neut # (Auto) 9900 H Lymph # (Auto) 2400 [place] # (Auto) 700 Eos # (Auto) 400 Baso # (Auto) 100 Blood Type O Positive Antibody Screen Negative PFSH Social History Smoking Status: Former smoker Meds Home Medications Medication Instructions Recorded Confirmed Type fluticasone [Flonase Allergy 1 spray NASAL DAILY PRN #9.9 gram 09/10/18 12/31/18 Rx Relief] ibuprofen 600 mg PO TID PRN #30 tab 01/01/19 Rx Allergies Allergy/AdvReac Type Severity Reaction Status Date / Time latex [LATEX] Allergy Unknown Verified 05/15/18 15:52 oxycodone [OXYCODONE] AdvReac Mild ITCHY Verified 05/15/18 15:52 Exam Vital Signs (past 8 hours): Generally: Patient comfortable with epidural Lungs: Clear to auscultation bilaterally Cardiovascular: Regular rate and rhythm Fundal height: 40 cm Estimated weight 7 and 0.5 lb Extremities: Trace edema, negative [place] Objective Labs Result Diagrams: 01/01/19 06:20 Labs: Laboratory Results - last 24 hr 12/31/18 01/01/19 11:45 06:20 Hgb 10.7 L Hct 32.7 L Blood Type O Positive Antibody Screen Negative
--- NOTE | 2019-01-01 12:34 | PM.OBPRVD ---
Delivery date: 12/31/18 Intrapartal events: None Cervical ripening method: none Induction method: none Delivery augmentation: pitocin Delivery monitor: external FHT and external uterine Route of delivery: Episiotomy description: None L&D Laceration Description: Superficial (Right labial and perineal) Delivery repair: chromic Estimated blood loss (mL): 150 Anesthesia type: Epidural Complications: None Narrative: Artificial rupture of membranes was performed at 1638 when patient was at 9 cm. She progressed to complete dilation at 4:51 p.m.. Patient pushed with 2-3 contractions and had a spontaneous vaginal delivery at 5:30 p.m. of a live male infant. No nuchal cord. The remainder of the body delivered without difficulty and was placed on mom's abdomen. The cord was double clamped and cut. Cord bloods were obtained. The placenta delivered intact with a 3 vessel cord at 5:35 p.m.. Apgars 9 at 1 min and 9 at 5 min. Estimated blood loss 150 cc. Patient had a superficial tear of the right labia and perineum. This was repaired in the usual fashion with 3 0 chromic. Hemostasis was achieved. Weight 7 lb 6.49 oz. Epidural analgesia. and bottle feeding. Mom and infant stable to recovery. Plan for aftercare: To routine care
--- NOTE | 2019-01-01 12:37 | PM.OBDS.1 ---
Discharge Providers Date of admission: 12/31/18 10:43 Discharge Date: 01/01/19 Primary care physician: Glory Wang MD Consults: 12/31/18 17:44 Consult to Livestock Nutrition Territory Manager Routine Comment: Discharge provider: Glory Wang MD Summary Date Patient Seen: 01/01/19 Time Patient Seen: 12:37 Procedures: Epidural analgesia Artificial rupture of membranes Spontaneous vaginal delivery Repair of superficial right labial and perineal lacerations Hospital Course: Patient is a 28-year-old 2 para 2 who presented in active labor on 07/03/2018. She was 5 cm on admission. She received an epidural for pain management. She was augmented with Pitocin when contractions spaced after the epidural. She had an artificial rupture of membranes at 9 cm. She had a spontaneous vaginal delivery without complication. She had superficial lacerations which were repaired. Her course was unremarkable and she is discharged home on postop day # 1. Peripartum Data Delivery Method: Natural Vaginal Laceration description: Superficial (Right labial and perineal) Episiotomy description: None Procedures: Spontaneous vaginal delivery Repair of right labial and perineal superficial lacerations Artificial rupture membranes Pitocin augmentation of labor Epidural analgesia complications: none Discharge Diagnosis (1) 38 weeks gestation of : Status: Acute (2) Active labor: Status: Acute (3) Normal spontaneous vaginal delivery: Status: Acute Status at Discharge Cognitive/behavioral status at discharge: oriented Functional status at discharge: independent ambulation Overall status at discharge: patient is progressing back to baseline Time Spent with Patient Total time spent providing and/or coordinating discharge services: Less than 30 minutes Objective Labs Result Diagrams: 01/01/19 06:20 Labs: Laboratory Results - last 24 hr 12/31/18 01/01/19 11:45 06:20 Hgb 10.7 L Hct 32.7 L Blood Type O Positive Antibody Screen Negative Discharge Plan Discharge Plan Patient Disposition: Home Discharge comment: Call with fever, chills or bleeding vaginally more than a pad in an hour Discharge Med Rec/Prescriptions Prescriptions: New ibuprofen 600 mg tablet 600 mg PO TID PRN (Reason: pain) Qty: 30 RF: 2 Continued fluticasone [Flonase Allergy Relief] 50 mcg/actuation spray,suspension 1 spray NASAL DAILY PRN (Reason: nasal congestion) Qty: 9.9 RF: 0 Discontinued hydrocodone-acetaminophen [[place]] 5-325 mg tablet 1 tab PO Q4-6H PRN (Reason: pain with contractions ) Qty: 14 RF: 0 Follow up/Referrals: Glory Wang MD [Primary Care Provider] - 6 Weeks Provider Discharge Instructions Diet: Diet as Tolerated Activity: No intercourse Skin/Wound/Dressing Care Report to your healthcare provider any signs of infection, such as:: chills, fever, increased pain and unusual drainage Visit Report/Discharge Packet Instructions: DI for Labor and Delivery, Vaginal Discharge Data Primary Care Provider: Glory Wang Attending Provider: Glory Wang Admit Date/Time: 12/31/18 10:43
[2019-01-01 20:39] VITALS: BP 124/60; PULSE 78; RESP 16; TEMP 36.9
== END 2019-01-01 20:15 | disposition home or self-care (01) | DRG 807 ==
PROVIDERS: Admitting Provider Obstetrics & Gynecology; PCP Obstetrics & Gynecology; Visit Provider Obstetrics & Gynecology
DX: O99.824 Streptococcus B carrier state complicating childbirth (principal); Z37.0 Single live birth; Z3A.38 38 weeks gestation of pregnancy; O70.0 First degree perineal laceration during delivery
CPT/HCPCS: 01967; 36415; 59050; 59409; 85014; 85018; 85025; 86850; 86900; 86901; G0379; J2540; J2590

== ENCOUNTER 2019-05-16 23:20 | Emergency (ER) | payer MEDICAID, SELFPAY ==
[2019-05-16 23:25] VITALS: BP 116/79; PULSE 102; RESP 16; TEMP 36.7; O2SAT 100; BMI 48.0
[2019-05-16 23:47] VITALS: PULSE 88
--- NOTE | 2019-05-17 00:27 | ED_ITS ---
HPI - GI Bleed General Chief complaint: GI Bleed Stated complaint: blood in stool this evening Time Seen by Provider: 05/17/19 00:13 Source: patient Mode of arrival: ambulatory Limitations: no limitations History of Present Illness HPI Narrative: Patient is a 28-year-old female who presents with blood in stool. She had a bowel movement she said the stool was blood streaked and also when she wiped she had blood on toilet paper. She has no abdominal pain cramping dizziness lightheadedness nausea or vomiting. MD complaint: blood on toilet paper and blood streaked stool Related Data Previous Rx's Medication Instructions Recorded fluticasone propionate [Flonase 1 spray NASAL DAILY PRN #9.9 gram 09/10/18 Allergy Relief] ibuprofen 600 mg PO TID PRN #30 tab 01/01/19 medroxyprogesterone 10 mg tablet 10 mg PO DAILY #60 tab 02/04/19 Allergies Allergy/AdvReac Type Severity Reaction Status Date / Time latex [LATEX] Allergy Unknown Verified 05/15/18 15:52 oxycodone [OXYCODONE] AdvReac Mild ITCHY Verified 05/15/18 15:52 Review of Systems Review of Systems GENERAL: Denies chills, fatigue, malaise, fever, sweats, travel HEENT: Denies sinus pain, ear pain, sore throat, difficulty swallowing, neck pain RESPIRATORY: Denies dyspnea, cough, wheezing, hemoptysis, sputum. CARDIOVASCULAR: Denies chest pain, palpitations, orthopnea, edema GASTROINTESTINAL: See HPI : Denies dysuria, frequency, incontinence, hematuria, urinary retention, flank pain. MUSCULOSKELETAL: Denies weakness, joint pain, or bony pain SKIN: No rash, no erythema, no pruritus NEUROLOGIC: Denies weakness, dizziness, headache, numbness, change in speech, confusion PSYCHIATRIC: No concerning psychosocial issues. 12 point review of systems is negative except for those stated above and HPI [facility] Medical History Patient denies significant medical history (Acute) Social History Smoking Status: Current every day smoker Social History Smoking Status: Current every day smoker Exam Initial Vital Signs Initial Vital Signs: Vital Signs Temperature 98.0 F 05/16/19 23:25 Pulse Rate 102 H 05/16/19 23:25 Respiratory Rate 16 05/16/19 23:25 Blood Pressure 116/79 05/16/19 23:25 Pulse Oximetry 100 05/16/19 23:25 GENERAL: Overweight well-appearing young female no acute distress HEENT: Head atraumatic,EOMI, pupils reactive, CARDIOVASCULAR: Regular rate and rhythm without murmurs, rubs or gallops. RESPIRATORY: Breath sounds equal bilaterally, no wheezes rales or rhonchi. ABDOMEN: Soft, nontender. Normoactive bowel sounds all 4 quadrants. No guarding or rebound. RECTAL: Hemorrhoid noted Hemoccult-negative, no stool no gross blood EXTREMITIES: Normal range of motion, no clubbing or edema. Neurovascularly intact NEUROLOGICAL: Alert and oriented x4.Normal gait and speech. Cranial nerves II through XII grossly intact. SKIN: Warm, dry, no laceration, no petechiae, no rashes or lesions. Course Vital Signs - 8 hr 05/16/19 23:25 05/16/19 23:47 05/17/19 00:43 Temperature 98.0 F Pulse Rate 102 H 88 94 H Respiratory Rate 16 16 Blood Pressure 116/79 118/68 Pulse Oximetry 100 99 MDM - GI Bleed MDM Narrative Medical decision making narrative: At this time patient is hemodynamically stable. She had 1 episode of blood on the toilet paper and stool streaked. This is likely fissure and she has a notable hemorrhoid. At this time there is no indication for any blood work or further testing. Discharge Plan Departure Patient Disposition: Home Clinical Impression: Hemorrhoids Qualifiers: Hemorrhoid type: unspecified Qualified Code(s): K64.9 - Unspecified hemorrhoids Discharge Date/Time: 05/17/19 00:43 Interventions: ED Discharge Assessment Last Done: 05/17/19 00:43 Instructions: DI for Hemorrhoids Activity Restrictions/Additional Instructions: *You have been diagnosed with hemorrhoids *What to do: Waiting today was probably from her hemorrhoid. *Continue to take medications as directed May use a and D ointment [id number] take as directed MiraLax take once daily to help keep stool soft *Follow up with your primary care provider in 2-3 days *Return to ER if you should have multiple bowel movements in blood. Abdominal pain, dizziness lightheadedness or any new, worsening or concerning symptoms Prescriptions: No Action medroxyprogesterone [Provera] 10 mg tablet 10 mg PO DAILY Qty: 60 RF: 1 fluticasone propionate [Flonase Allergy Relief] 50 mcg/actuation spray,suspension 1 spray NASAL DAILY PRN (Reason: nasal congestion) Qty: 9.9 RF: 0 ibuprofen 600 mg tablet 600 mg PO TID PRN (Reason: pain) Qty: 30 RF: 2 Referrals: Glory Wang MD [Primary Care Provider] -
[2019-05-17 00:43] VITALS: BP 118/68; PULSE 94; RESP 16; O2SAT 99
== END 2019-05-17 00:43 | disposition home or self-care (01) ==
PROVIDERS: Emergency Provider Emergency Medicine; PCP Obstetrics & Gynecology
DX: K64.9 Unspecified hemorrhoids (principal)
CPT/HCPCS: 99282

== ENCOUNTER 2019-12-16 00:24 | Emergency (ER) | payer MEDICAID, SELFPAY ==
[2019-12-16 00:35] VITALS: BP 124/72; PULSE 100; RESP 18; TEMP 36.7; O2SAT 99
--- NOTE | 2019-12-16 00:46 | ED_ITS ---
HPI - General Chief complaint: Abdominal Pain Stated complaint: stabbing pain in right side /unknown lengt Time Seen by Provider: 12/16/19 00:44 Source: patient Mode of arrival: Ambulatory Limitations: no limitations History of Present Illness HPI Narrative: This is a 29-year-old female comes emergency department with complaint of lower abdominal pain. Patient states pain started several days ago and has been slowly increasing. She states occasionally feels stabbing. Patient states no fevers. No nausea or vomiting. She has not had any changes with bowel movements no black or bloody stools. No dysuria, frequency or urgency. She denies any vaginal bleeding or discharge. She states she took a home test the end of October. She states her last menstrual period was October 26, 2019. She has follow-up arranged for December 28 but has not seen can doffer or had any care so far. She has P5 with two prior deliveries and two unsuccessful pregnancies. Patient denies any other medical issues. States she has had her gallbladder removed. States she is allergic to Percocet but can take Tylenol without issue. No tobacco, alcohol or illicit. Patient : Yes Expected Date of Delivery: 08/01/20 Related Data Previous Rx's Medication Instructions Recorded fluticasone propionate [Flonase 1 spray NASAL DAILY PRN #9.9 gram 09/10/18 Allergy Relief] ibuprofen 600 mg PO TID PRN #30 tab 01/01/19 medroxyprogesterone 10 mg tablet 10 mg PO DAILY #60 tab 02/04/19 Allergies Allergy/AdvReac Type Severity Reaction Status Date / Time latex [LATEX] Allergy Unknown Verified 05/15/18 15:52 oxycodone [OXYCODONE] AdvReac Mild ITCHY Verified 05/15/18 15:52 Review of Systems Review of Systems ROS Unobtainable: All systems reviewed & are unremarkable except as noted in HPI and below PMFSH - Past Medical History Medical history: Reports no medical history Surgical history: Reports cholecystectomy Patient : Yes Expected Date of Delivery: 08/01/20 Psychiatric history: Reports no psych history Family History Family history: Reports no significant family history Exam Narrative Exam Narrative: GENERAL: Alert and oriented x three, obese female in mild distress HEENT: Head normocephalic, atraumatic, EOMI, pupils reactive, face symmetric, moist mucous membranes NECK: Supple, full range of motion CARDIOVASCULAR: Regular rate and rhythm without murmurs, rubs or gallops. RESPIRATORY: Breath sounds equal bilaterally, no wheezes rales or rhonchi. ABDOMEN: Soft, positive for right lower abdominal tenderness. Normoactive bowel sounds all 4 quadrants. No guarding or rebound, rigidity, no mass : No CVA tenderness EXTREMITIES: Normal range of motion, no clubbing or edema. Neurovascularly intact NEUROLOGICAL: Cranial nerves II through XII grossly intact. Moving all extremities SKIN: Warm, dry, no petechiae, no rashes or lesions. Initial Vital Signs Initial Vital Signs: Vital Signs Temperature 98.1 F 12/16/19 00:35 Pulse Rate 100 H 12/16/19 00:35 Respiratory Rate 18 12/16/19 00:35 Blood Pressure 124/72 12/16/19 00:35 Pulse Oximetry 99 12/16/19 00:35 Course Orders Ordered: ED Orders 12/16/19 00:44 Urine Culture Stat Urine Microscopic Stat 12/16/19 00:58 US OB <= 14 weeks fetus Stat 12/16/19 01:00 ABO RH Type Stat Complete Blood Count AUTO DIFF Stat Comprehensive Metabolic Panel Stat HCG Quantitative /Beta subunit Stat Vital Signs Vital signs: Vital Signs - 8 hr 12/16/19 00:35 Temperature 98.1 F Pulse Rate [Left] 100 H Respiratory Rate 18 Blood Pressure [Left Arm] 124/72 Pulse Oximetry 99 MDM - OB/Uterine Contractions Lab Data Attestation: I reviewed the patient's lab results. Result diagrams: 12/16/19 01:00 12/16/19 01:00 Labs: Lab Results 12/16/19 12/16/19 12/16/19 Range/Units 00:44 01:00 01:00 WBC 11.5 H (4.5-11.0) X10^3/uL RBC 4.31 (4.0-5.2) X10^6/uL Hgb 11.8 L (12.0-16.0) g/dL Hct 35.8 L (36-46) % MCV 83.1 (80-100) fL MCH 27.4 (26-34) PG MCHC 32.9 (30-36) % RDW 14.6 (11.6-14.8) % Plt Count 396 (150-400) X10^3/uL Neut % (Auto) 59.7 (50-75) % Lymph % (Auto) 28.3 (25-40) % [place] % (Auto) 6.0 (3-14) % Eos % (Auto) 4.9 H (2-4) % Baso % (Auto) 1.1 (0-2) % Neut # (Auto) 6900 (2241-0856) /uL Lymph # (Auto) 3300 (9861-6226) /uL [place] # (Auto) 700 (0-900) /uL Eos # (Auto) 600 H (0-450) /uL Baso # (Auto) 100 (0-100) /uL Sodium 139 (137-145) mmol/L Potassium 3.4 (3.4-5.1) mmol/L Chloride 107 (98-107) mmol/L Carbon Dioxide 27 (22-32) mmol/L BUN 6 L (7-17) mg/dL Creatinine 0.80 (0.52-1.04) mg/dL Estimated GFR > 60.0 (>60) mL/min BUN/Creatinine Ratio 7.5 (6-22) Glucose 100 (70-100) mg/dL Calcium 8.1 L (8.4-10.2) mg/dL Total Bilirubin 0.2 (0.2-1.3) mg/dL AST 23 (14-36) IU/L ALT 16 (<35) IU/L Alkaline Phosphatase 102 (38-126) U/L Total Protein 7.3 (6.3-8.2) g/dL Albumin 3.7 (3.5-5.0) g/dL Globulin 3.6 (1.7-4.1) g/dL Albumin/Globulin Ratio 1.0 (1.0-2.8) HCG, Quant mIU/mL Urine RBC 0-1/hpf (0-5/HPF) Urine WBC 1-5/hpf (0-5/HPF) Ur Squamous Epith Cells 1-5 /hpf (0-5/HPF) Urine Bacteria Few (2-10) H (None) Ur Culture Indicated? Specimen cultured Blood Type 12/16/19 12/16/19 Range/Units 01:00 01:00 WBC (4.5-11.0) X10^3/uL RBC (4.0-5.2) X10^6/uL Hgb (12.0-16.0) g/dL Hct (36-46) % MCV (80-100) fL MCH (26-34) PG MCHC (30-36) % RDW (11.6-14.8) % Plt Count (150-400) X10^3/uL Neut % (Auto) (50-75) % Lymph % (Auto) (25-40) % [place] % (Auto) (3-14) % Eos % (Auto) (2-4) % Baso % (Auto) (0-2) % Neut # (Auto) (5094-7656) /uL Lymph # (Auto) (0693-9421) /uL [place] # (Auto) (0-900) /uL Eos # (Auto) (0-450) /uL Baso # (Auto) (0-100) /uL Sodium (137-145) mmol/L Potassium (3.4-5.1) mmol/L Chloride (98-107) mmol/L Carbon Dioxide (22-32) mmol/L BUN (7-17) mg/dL Creatinine (0.52-1.04) mg/dL Estimated GFR (>60) mL/min BUN/Creatinine Ratio (6-22) Glucose (70-100) mg/dL Calcium (8.4-10.2) mg/dL Total Bilirubin (0.2-1.3) mg/dL AST (14-36) IU/L ALT (<35) IU/L Alkaline Phosphatase (38-126) U/L Total Protein (6.3-8.2) g/dL Albumin (3.5-5.0) g/dL Globulin (1.7-4.1) g/dL Albumin/Globulin Ratio (1.0-2.8) HCG, Quant 3931.4 mIU/mL Urine RBC (0-5/HPF) Urine WBC (0-5/HPF) Ur Squamous Epith Cells (0-5/HPF) Urine Bacteria (None) Ur Culture Indicated? Blood Type O Positive Point of Care Testing Test Results Positive Urine Dip Bedside Urine Glucose Negative Bedside Urine Bilirubin - Negative Bedside Urine Ketone - Negative Urine Specific [place] 1.015 Bedside Urine Occult Blood +/- Bedside Urine pH 6.0 Bedside Urine Protein +/- 15 Bedside Urine Urobilinogen +/- 1mg Bedside Urine Nitrite - Negative Bedside Urine Leukocytes ++ 125 Esterase Imaging Data US - OB: Radiologist's Impression: Intrauterine gestational sac at 5 weeks 5 days without identified yolk sac or pole yolk sac should be identified 5 weeks 5 days on transvaginal, follow-up will require assess for viability. Left ovaries not identified. No adnexal masses. No free fluid. Cervix is closed. MDM Narrative Medical decision making narrative: Patient has a wbc of 11.5 patient is often elevated on prior visits, with hgb of 11.8 that is consistent with priors. She has elevated eosinophils at 4.9. Patient's electrolytes and renal function are normal, LFTs are normal range. HCG is 3931, patient ultrasound shows a gestational sac and is dated at 5 weeks and 5 days although by dates per patient she would be 7 weeks. Discussed with patient, plan for follow up with OB. Recommended closer follow up with abdominal pain and to call for follow up, serial imaging of . Discussed findings with patient, watchful waiting and we did discuss there is some discrepancies between dates putting into question the viability of but is not definitive. Patient has no active bleeding. Discharge Plan Departure Patient Disposition: Home Clinical Impression: Abdominal pain affecting Discharge Date/Time: 12/16/19 02:58 Instructions: DI for Abdominal Pain -- Early Activity Restrictions/Additional Instructions: Follow up with your recreation therapy aides teacher, call this morning for an earlier appointment than December 28. I would recommend in the next week for serial imaging and recheck. There is not a clear cause of your abdominal pain today, this may be related to your or possibly other causes such as early appendictis or other causes. Continue with vitamins. You may take tylenol up to 1000mg every 8 hours as needed for pain. Return to ER for fevers greater 100.4 F, new or worsening abdominal pain, vaginal bleeding, passing out, lightheadedness, new chest pain or shortness of breath, black or bloody stools persistent vomiting or other new or concerning symptoms. Prescriptions: No Action medroxyprogesterone [Provera] 10 mg tablet 10 mg PO DAILY Qty: 60 RF: 1 fluticasone propionate [Flonase Allergy Relief] 50 mcg/actuation spray,suspension 1 spray NASAL DAILY PRN (Reason: nasal congestion) Qty: 9.9 RF: 0 ibuprofen 600 mg tablet 600 mg PO TID PRN (Reason: pain) Qty: 30 RF: 2 Referrals: Glory Wang MD [Primary Care Provider] -
--- NOTE | 2019-12-16 00:58 | DI.US.S_ITS ---
PROCEDURE: US OB <= 14 WEEKS FETUS INDICATIONS: PAIN OUTSIDE/PRIOR DATING DATA: Last menstrual period (LMP): 10/26/2019. LMP-based estimated date of delivery (DOREEN): 08/01/2020. First dating scan (date and location): 12/16/2019 [facility]. Estimated date of delivery (DOREEN) from first dating scan: 08/12/2020. TECHNIQUE: Real-time scanning was performed of the fetus and maternal pelvic organs, with image documentation. Endovaginal scanning was also performed to better visualize the fetus and maternal ovaries. COMPARISON: [facility], , US PELVIC COMPLETE, 02/04/2019, 16:35. [facility], , US OB <= 14 WEEKS FETUS, 06/27/2018, 13:26. FINDINGS: Embryo: Intrauterine gestational sac measuring 0.9 cm. This corresponds to estimated gestational age of 5 weeks 5 days. pole or yolk sac not identified at this time. No perigestational hemorrhage demonstrated. Measurement variability in dating: +/- 4 weeks by LMP, +/- 7 days by mean sac diameter (use before 6 weeks gestation if crown-rump length not able to be measured), +/- 5 days by crown-rump length (up to 8 weeks 6 days gestation), +/- 7 days by crown-rump length (up to 13 weeks 6 days gestation). Maternal organs: Ovaries are within normal limits. Right corpus luteum measuring 1.7 cm. Limited images through the kidneys demonstrate no hydronephrosis. IMPRESSION: 1. Intrauterine gestational sac with an estimated gestational age of 5 weeks 5 days. No pole or yolk sac demonstrated at this time. Recommend short term interval followup ultrasound to document the crown-rump length. 2. No perigestational hemorrhage demonstrated. This report is concordant with the overnight preliminary interpretation. Dictated by: Ramesh Martínez M.D. on 12/16/2019 at 8:43 Approved by: Ramesh Martínez M.D. on 12/16/2019 at 8:47
[2019-12-16 01:19] LABS: Add Manual Diff / Slide Review NO; Basophils Absolute Auto 100 /uL (0-100); Basophils Percent Auto 1.1 % (0-2); Eosinophils Absolute Auto 600 /uL (0-450); Eosinophils Percent Auto 4.9 % (2-4); Hematocrit 35.8 % (36-46); Hemoglobin 11.8 g/dL (12.0-16.0); Lymphocytes Absolute Auto 3300 /uL (1100-4500); Lymphocytes Percent Auto 28.3 % (25-40); Mean Corpuscular HGB Conc 32.9 % (30-36); Mean Corpuscular Hemoglobin 27.4 PG (26-34); Mean Corpuscular Volume 83.1 fL (80-100); Monocytes Absolute Auto 700 /uL (0-900); Neutrophils Absolute Auto 6900 /uL (1500-7000); Neutrophils Percent Auto 59.7 % (50-75); Platelet Count 396 X10^3/uL (150-400); Red Blood Cell Count 4.31 X10^6/uL (4.0-5.2); Red Cell Distribution Width 14.6 % (11.6-14.8); White Blood Cell Count 11.5 X10^3/uL (4.5-11.0)
[2019-12-16 01:32] LABS: Bacteria Urine Few (2-10); Culture Indicated Urine Specimen Cultured; RBC Urine 0-1/HPF (0-5/HPF); Squamous Epithelial Cell Urine 1-5 /HPF (0-5/HPF); WBC Urine 1-5/HPF (0-5/HPF)
[2019-12-16 01:34] LABS: Alanine Aminotransferase 16 IU/L (<35); Albumin 3.7 g/dL (3.5-5.0); Alkaline Phosphatase 102 U/L (38-126); Aspartate Aminotransferase 23 IU/L (14-36); BUN Creatinine Ratio 7.5 (6-22); Bilirubin Total 0.2 mg/dL (0.2-1.3); Blood Urea Nitrogen 6 mg/dL (7-17); Calcium 8.1 mg/dL (8.4-10.2); Carbon Dioxide 27 mmol/L (22-32); Chloride 107 mmol/L (98-107); Estimated Glomerular Filt Rate > 60.0 mL/min (>60); Globulin 3.6 g/dL (1.7-4.1); Glucose 100 mg/dL (70-100); HEMOLYSIS < 15 (0-50); Potassium 3.4 mmol/L (3.4-5.1); Sodium 139 mmol/L (137-145); Total Protein 7.3 g/dL (6.3-8.2)
[2019-12-16 01:52] LABS: HCG Quantitative /Beta subunit 3931.4 mIU/mL
== END 2019-12-16 02:58 | disposition home or self-care (01) ==
PROVIDERS: Emergency Provider Emergency Medicine; PCP Obstetrics & Gynecology
DX: O26.891 Other specified pregnancy related conditions, first trimester (principal); R10.30 Lower abdominal pain, unspecified; Z3A.01 Less than 8 weeks gestation of pregnancy
CPT/HCPCS: 76801; 76817; 80053; 81003; 81015; 81025; 84702; 85025; 86900; 86901; 87086; 99284

== ENCOUNTER → 2019-12-18 11:23 | Outpatient (CLI) | payer MEDICAID, SELFPAY ==
[2019-12-18 13:06] LABS: HCG Quantitative /Beta subunit 5670.8 mIU/mL
== END ==
PROVIDERS: PCP Obstetrics & Gynecology; Referring Provider Obstetrics & Gynecology; Visit Provider Obstetrics & Gynecology
DX: O26.899 Other specified pregnancy related conditions, unspecified trimester (principal); R10.9 Unspecified abdominal pain; Z3A.01 Less than 8 weeks gestation of pregnancy
CPT/HCPCS: 36415; 84702

== ENCOUNTER → 2019-12-21 15:23 | Outpatient (CLI) | payer MEDICAID, SELFPAY ==
[2019-12-21 18:23] LABS: HCG Quantitative /Beta subunit 8380 mIU/mL
== END ==
PROVIDERS: PCP Obstetrics & Gynecology; Referring Provider Obstetrics & Gynecology; Visit Provider Obstetrics & Gynecology
DX: O26.899 Other specified pregnancy related conditions, unspecified trimester (principal); R10.9 Unspecified abdominal pain
CPT/HCPCS: 36415; 84702

== ENCOUNTER 2019-12-28 07:03 | Emergency (ER) | payer MEDICAID, SELFPAY ==
[2019-12-28 07:10] VITALS: BP 123/57; PULSE 97; RESP 19; TEMP 37.1; O2SAT 98; BMI 51.3
--- NOTE | 2019-12-28 07:10 | ED.GENADULT ---
HPI - General Adult General Chief complaint: OB/Uterine Contractions Stated complaint: miscarriage/bleeding sent by md Time Seen by Provider: 12/28/19 07:05 Source: patient Mode of arrival: Ambulatory Limitations: no limitations History of Present Illness HPI narrative: 29-year-old female with 2 prior spontaneous abortions. Is Rh positive per prior note here for evaluation of vaginal bleeding that started 5-6 hours ago. Is also having cramping. No urinary or bowel symptoms. Related Data Previous Rx's Medication Instructions Recorded fluticasone propionate [Flonase 1 spray NASAL DAILY PRN #9.9 gram 09/10/18 Allergy Relief] Allergies Allergy/AdvReac Type Severity Reaction Status Date / Time latex [LATEX] Allergy Unknown Verified 12/21/19 14:22 oxycodone [OXYCODONE] AdvReac Mild ITCHY Verified 12/21/19 14:22 Review of Systems Constitutional Constitutional: Denies fever(s) Cardiovascular Cardiovascular: Denies chest pain and Denies dyspnea Respiratory Respiratory: Denies dyspnea Gastrointestinal Gastrointestinal: Reports cramping and Denies vomiting Genitourinary Genitourinary: Denies dysuria and Reports vaginal discharge Musculoskeletal Musculoskeletal: Denies myalgias and Denies arthralgias Integumentary/Breasts Skin/Breast: Denies rash Hematologic/Lymphatic Hematologic/Lymphatic: Denies easy bleeding and Denies easy bruising Patient History Medical History 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) Patient denies significant medical history (Acute) Surgical History History of dilatation and curettage (Acute ~2014) History of dilation and curettage (Acute ~2012) Hx of cholecystectomy (Acute) Family History (Updated 12/21/19 @ 14:16 by Omayra Arango RN) Family/Other Stroke Grandmother Diabetes mellitus Social History Smoking Status: Current every day smoker Smoking Status: Current every day smoker alcohol intake frequency: holidays/special occasions only Substance Use Type: does not use Exam Initial Vital Signs Initial Vital Signs: Vital Signs Temperature 98.7 F 12/28/19 07:10 Pulse Rate 97 H 12/28/19 07:10 Respiratory Rate 19 12/28/19 07:10 Blood Pressure 123/57 L 12/28/19 07:10 Pulse Oximetry 98 12/28/19 07:10 Const General: cooperative and comfortable Limitations: mental status not altered HENCT Head: normal to inspection and normocephalic Resp Effort & Inspection: normal respiratory effort Cardio Rate: regular rate GI Inspection: non-distended Palpation: soft Other: Bleeding from the vaginal vault. No clots in the cervix. No other lacerations. Skin Lesions: no lesions Rashes: no rashes Extrem General: normal to inspection Psych Appearance: grossly normal and well kempt Course Orders Ordered: ED Orders 12/28/19 07:19 US pelvic complete Stat 12/28/19 07:32 Basic Metabolic Panel Stat Complete Blood Count AUTO DIFF Stat HCG Quantitative /Beta subunit Stat Vital Signs Vital signs: Vital Signs - 8 hr 12/28/19 07:10 Temperature 98.7 F Pulse Rate 97 H Respiratory Rate 19 Blood Pressure 123/57 L Pulse Oximetry 98 Medical Decision Making Lab Data Lab results reviewed: Yes I reviewed the patient's lab results. Result diagrams: 12/28/19 07:32 12/28/19 07:32 Labs: Lab Results 12/28/19 12/28/19 12/28/19 Range/Units 07:32 07:32 07:32 WBC 11.2 H (4.5-11.0) X10^3/uL RBC 4.05 (4.0-5.2) X10^6/uL Hgb 11.2 L (12.0-16.0) g/dL Hct 33.7 L (36-46) % MCV 83.4 (80-100) fL MCH 27.7 (26-34) PG MCHC 33.2 (30-36) % RDW 14.6 (11.6-14.8) % Plt Count 382 (150-400) X10^3/uL Neut % (Auto) 64.2 (50-75) % Lymph % (Auto) 24.7 L (25-40) % [place] % (Auto) 5.6 (3-14) % Eos % (Auto) 4.6 H (2-4) % Baso % (Auto) 0.9 (0-2) % Neut # (Auto) 7200 H (3328-2051) /uL Lymph # (Auto) 2800 (7932-7453) /uL [place] # (Auto) 600 (0-900) /uL Eos # (Auto) 500 H (0-450) /uL Baso # (Auto) 100 (0-100) /uL Sodium 141 (137-145) mmol/L Potassium 3.6 (3.4-5.1) mmol/L Chloride 109 H (98-107) mmol/L Carbon Dioxide 25 (22-32) mmol/L BUN 9 (7-17) mg/dL Creatinine 0.80 (0.52-1.04) mg/dL Estimated GFR > 60.0 (>60) mL/min BUN/Creatinine Ratio 11.3 (6-22) Glucose 119 H (70-100) mg/dL Calcium 8.5 (8.4-10.2) mg/dL HCG, Quant 5846.9 mIU/mL Imaging Data US - OB: Radiologist's Impression: [place] [address] Ultrasound Report Signed Patient: Ni Rios RMR#: [id number] : 1990Acct:[id number] Age/Sex: te of Service: 12/28/19 Loc: ED Accession Number: [id number] Procedure: US pelvic complete Ordering Provider: Alessandro Izquierdo D.O. PROCEDURE: US PELVIC COMPLETE INDICATIONS: AB IN PROGRESS TECHNIQUE: Real-time scanning was performed of the pelvic organs, with image documentation. Additional endovaginal scanning was necessary due to incomplete visualization of the adnexal and endometrial structures by transabdominal scanning. COMPARISON: [facility], US, US OB <= 14 WEEKS FETUS, 12/21/2019, 14:58. [facility], US, US PELVIC COMPLETE, 02/04/2019, 16:35. FINDINGS: Transabdominal scanning: Limited scanning through the kidneys shows no hydronephrosis. No pathologic free abdominal or pelvic fluid. Endovaginal scanning: Uterus: Uterus is normal in size at 10.0 x 4.2 x 5.1 cm. in the lower uterine segment, there is probable clot measuring 4.3 x 1.6 x 2.8 cm. No intrauterine . Previously, there was a irregular gestational sac in the uterus. Ovaries: None visualized. No ectopic identified. IMPRESSION: Spontaneous in progress. Dictated by: Jared Murguia M.D. on 12/28/2019 at 8:44 Approved by: Jared Murguia M.D. on 12/28/2019 at 8:5 MDM Narrative Medical decision making narrative: Patient's vital signs unremarkable. Not anemic. She is Rh positive so no indication for RhoGAM. Ultrasound does show what looks like a miscarriage in progress. I did discuss this with the patient. We did discuss the expected course of her symptoms over the next several hours/days. We did discuss return precautions and follow-up instructions. She expressed understanding and agreement. She does have follow-up with OB in 48 hours already scheduled. Discharge Plan Departure Patient Disposition: Home Clinical Impression: Miscarriage Instructions: DI for Miscarriage Activity Restrictions/Additional Instructions: Keep your scheduled medical appointments. Expect some continued bleeding over the next 24-48 hours. If you start to get lightheaded or have bleeding more than 4 pads an hour for multiple hours in a row please return to the emergency department. Prescriptions: No Action fluticasone propionate [Flonase Allergy Relief] 50 mcg/actuation spray,suspension 1 spray NASAL DAILY PRN (Reason: nasal congestion) Qty: 9.9 RF: 0 Referrals: Glory Wang MD [Primary Care Provider] -
--- NOTE | 2019-12-28 07:19 | DI.US.S_ITS ---
PROCEDURE: US PELVIC COMPLETE INDICATIONS: AB IN PROGRESS TECHNIQUE: Real-time scanning was performed of the pelvic organs, with image documentation. Additional endovaginal scanning was necessary due to incomplete visualization of the adnexal and endometrial structures by transabdominal scanning. COMPARISON: [facility], US, US OB <= 14 WEEKS FETUS, 12/21/2019, 14:58. [facility], US, US PELVIC COMPLETE, 02/04/2019, 16:35. FINDINGS: Transabdominal scanning: Limited scanning through the kidneys shows no hydronephrosis. No pathologic free abdominal or pelvic fluid. Endovaginal scanning: Uterus: Uterus is normal in size at 10.0 x 4.2 x 5.1 cm. in the lower uterine segment, there is probable clot measuring 4.3 x 1.6 x 2.8 cm. No intrauterine . Previously, there was a irregular gestational sac in the uterus. Ovaries: None visualized. No ectopic identified. IMPRESSION: Spontaneous in progress. Dictated by: Jared Murguia M.D. on 12/28/2019 at 8:44 Approved by: Jared Murguia M.D. on 12/28/2019 at 8:54
[2019-12-28 07:54] LABS: Add Manual Diff / Slide Review NO; Basophils Absolute Auto 100 /uL (0-100); Basophils Percent Auto 0.9 % (0-2); Eosinophils Absolute Auto 500 /uL (0-450); Eosinophils Percent Auto 4.6 % (2-4); Hematocrit 33.7 % (36-46); Hemoglobin 11.2 g/dL (12.0-16.0); Lymphocytes Absolute Auto 2800 /uL (1100-4500); Lymphocytes Percent Auto 24.7 % (25-40); Mean Corpuscular HGB Conc 33.2 % (30-36); Mean Corpuscular Hemoglobin 27.7 PG (26-34); Mean Corpuscular Volume 83.4 fL (80-100); Monocytes Absolute Auto 600 /uL (0-900); Monocytes Percent Auto 5.6 % (3-14); Neutrophils Absolute Auto 7200 /uL (1500-7000); Neutrophils Percent Auto 64.2 % (50-75); Platelet Count 382 X10^3/uL (150-400); Red Blood Cell Count 4.05 X10^6/uL (4.0-5.2); Red Cell Distribution Width 14.6 % (11.6-14.8); White Blood Cell Count 11.2 X10^3/uL (4.5-11.0)
[2019-12-28 08:03] LABS: BUN Creatinine Ratio 11.3 (6-22); Blood Urea Nitrogen 9 mg/dL (7-17); Calcium 8.5 mg/dL (8.4-10.2); Carbon Dioxide 25 mmol/L (22-32); Chloride 109 mmol/L (98-107); Estimated Glomerular Filt Rate > 60.0 mL/min (>60); Glucose 119 mg/dL (70-100); HEMOLYSIS < 15 (0-50); Potassium 3.6 mmol/L (3.4-5.1); Sodium 141 mmol/L (137-145)
[2019-12-28 08:20] LABS: HCG Quantitative /Beta subunit 5846.9 mIU/mL
[2019-12-28 09:20] VITALS: BP 127/80; PULSE 96; RESP 18; O2SAT 100
== END 2019-12-28 09:31 | disposition home or self-care (01) ==
PROVIDERS: Emergency Provider Emergency Medicine; PCP Obstetrics & Gynecology
DX: O03.9 Complete or unspecified spontaneous abortion without complication (principal)
CPT/HCPCS: 36415; 76830; 76856; 80048; 84702; 85025; 99281; 99284

== ENCOUNTER → 2019-12-31 15:24 | Outpatient (CLI) | payer MEDICAID, SELFPAY ==
--- NOTE | 2019-12-31 15:26 | DI.US.S_ITS ---
PROCEDURE: US PELVIC COMPLETE INDICATIONS: S/P SAB 12/26, PT STILL CRAMPING, EVAL RPOC, ?POC CLOT ON US TECHNIQUE: Real-time scanning was performed of the pelvic organs, with image documentation. Additional endovaginal scanning was necessary due to incomplete visualization of the adnexal and endometrial structures by transabdominal scanning. COMPARISON: [facility], , OB >= 14 WEEKS FETUS, 12/31/2019, 14:58. [facility], OB TRANSVAGINAL, 11/07/2018, 21:44. [facility], OB <= 14 WEEKS FETUS, 12/16/2019, 1:24. [facility], OB <= 14 WEEKS FETUS, 12/21/2019, 14:58. [facility], PELVIC COMPLETE, 12/28/2019, 8:10. [facility], PELVIC COMPLETE, 02/04/2019, 16:35. FINDINGS: Transabdominal scanning: Limited scanning through the kidneys shows no hydronephrosis. No pathologic free abdominal or pelvic fluid. Endovaginal scanning: Uterus: Uterus is normal in size at 4.0 x 5.6 x 9.7 cm. there is a masslike structure within the endometrial canal, virtually identical in appearance to that present 12/28/19. This raises concern that there are retained products of conception including potential molar . Ovaries: Not seen. IMPRESSION: There is a prominently abnormal appearance to the endometrial canal, raising concern for retained products of conception given what appears to be low-level internal blood flow within a masslike structure previously identified and virtually identical in appearance to the abnormality present in this area. Maximal dimension is 2.7 cm. Molar is a potential etiology of this finding. Findings discussed in detail with . Dictated by: Jason Bustamante M.D. on 12/31/2019 at 16:56 Approved by: Jason Bustamante M.D. on 12/31/2019 at 17:13
== END ==
PROVIDERS: PCP Obstetrics & Gynecology; Referring Provider Obstetrics & Gynecology; Visit Provider Obstetrics & Gynecology
DX: O03.9 Complete or unspecified spontaneous abortion without complication (principal)
CPT/HCPCS: 76830; 76856

== ENCOUNTER 2020-01-01 12:01 | Day surgery (SDC) | payer MEDICAID, SELFPAY ==
[2020-01-01] VITALS (10 sets, daily range): BP systolic 101–117; BP diastolic 48–78; PULSE 79–90; RESP 12–16; TEMP 36.1–36.3; O2SAT 99–100; BMI 52.5
--- NOTE | 2020-01-01 | PATH_ITS ---
[facility] Accession Number: [id number] . 01 Material submitted: . product of conception - PRODUCTS OF CONCEPTION . 01 Clinical history: . SUCTION D/C . 02 Diagnosis: Products Of Conception: Scant, degenerated products of conception identified. [facility] 01/04/2020 1019 Local . 02 Electronically signed: . Delia Whyte MD, Pathologist NPI- [id number] . 01 Gross description: . Received in formalin, labeled products of conception, are multiple fragments of red-brown spongy tissue (20 grams, 6.5 x 5.5 x 1.5 cm in aggregate. No tissue is identified. Can Line Operator tissue is submitted in cassettes A1-A4. ([id number]) /MRV 01/03/2020 2117 Local . 02 Pathologist provided ICD-10: O02.1 . 02 CPT . 984167 Performed at: 01 [facility] [address] [facility], [place], [place] [id number] MD Malik Steele MD Phone: [phone] Performed at: 02 [facility] [address] [place], [place] [id number] MD Sara Marroquin MD Phone: [phone]
--- NOTE | 2020-01-01 13:10 | PM.PREOP ---
Pre-operative Note Interval Note History & Physical reviewed/Exam performed by Physician: Yes Changes to H&P: No H&P completed within 30 days and has changed as indicated here:: Patient denied changes to H&P. We discussed the procedure of a suction D&C and the risks of perforation of the uterus with damage to bowel and bladder, bleeding, and infection. We discussed the alternative of vaginal cytotec. The patient vocalized understanding and wishes to proceed with D&C.
[2020-01-01] MEDS: ACETAMINOPHEN 325 MG TABLET 975 MG PO (13:15)
[2020-01-01] MEDS: SCOPOLAMINE 1 PATCH TOP (13:16)
[2020-01-01] MEDS: CELECOXIB 200 MG CAPSULE 400 MG PO (13:16)
[2020-01-01 13:17] LABS: Add Manual Diff / Slide Review NO; Basophils Absolute Auto 100 /uL (0-100); Basophils Percent Auto 0.7 % (0-2); Eosinophils Absolute Auto 500 /uL (0-450); Eosinophils Percent Auto 5.2 % (2-4); Hematocrit 29.7 % (36-46); Hemoglobin 9.8 g/dL (12.0-16.0); Lymphocytes Absolute Auto 2700 /uL (1100-4500); Lymphocytes Percent Auto 30.1 % (25-40); Mean Corpuscular HGB Conc 33.1 % (30-36); Mean Corpuscular Hemoglobin 27.4 PG (26-34); Mean Corpuscular Volume 82.8 fL (80-100); Monocytes Absolute Auto 600 /uL (0-900); Monocytes Percent Auto 6.4 % (3-14); Neutrophils Absolute Auto 5200 /uL (1500-7000); Neutrophils Percent Auto 57.6 % (50-75); Platelet Count 385 X10^3/uL (150-400); Red Blood Cell Count 3.59 X10^6/uL (4.0-5.2); Red Cell Distribution Width 14.4 % (11.6-14.8)
[2020-01-01] MEDS: LACTATED RINGERS 1,000 ML 42 ML IV (13:17)
[2020-01-01] MEDS: GABAPENTIN 300 MG CAPSULE PO (13:19)
--- NOTE | 2020-01-01 13:27 | SUR.OPER ---
Lithotomy on padded OR bed, head on pillow, arms secured on padded arm boards at <90 degrees abduction. Legs secured in padded yellow fins stirrups.
[2020-01-01] MEDS: DOXYCYCLINE 100 MG VIAL INJ (13:58)
--- NOTE | 2020-01-01 14:23 | PM.OP.1 ---
Operative Date/Time/Diagnoses Date of procedure: 01/01/20 Time of procedure: 14:23 Pre-op diagnosis: incomplete Post-op diagnosis: same Procedure & Clinicians Procedure: suction dilation and curettage Same procedure as scheduled: Yes Indications: cramping, bleeding, products of conception on ultrasound Surgeon: Pauly Street Click Yes if Unassisted: Yes Anesthesia Type: General Operative Notes Findings: Normal vulva, vagina. Cervix dilated to 1cm, with products of conception protruding from cervical os. Specimen(s): other (products of conception) Estimated Blood Loss (mL): 50 Blood products transfused: none Procedure in detail: After informed consent was obtained, the patient was taken to the operating room. She was placed in the dorsal lithotomy position and prepped and draped in the normal sterile fashion. Wallace speculum was inserted into the vagina, and the above findings noted. Products of conception were noted to be protruding from the dilated cervix, and ring forceps was used to gently grasp these and tease them out. Clot and products of conception measuring 1 cm x 3 cm in total were removed from the cervix. The cervix was grasped on the anterior lip with a single tooth tenaculum, and was noted to be already dilated 1 cm. A 6 mm suction curette tip was gently inserted into the uterus and advanced slowly to the fundus. Suction was applied until the green and used to remove a small amount of clot and products of conception remaining in the uterus in 2 passes. The suction tip was removed, and gentle curettage performed. A further pass with the suction curette produced no further clots and minimal further bleeding. The tenaculum was removed from the cervix with spontaneous hemostasis at the tenaculum sites. Bimanual exam of the uterus was limited by body habitus, but the uterus felt <6 weeks in size. There was minimal further bleeding. The speculum was removed from the vagina, and the patient taken to PACU in stable condition. All counts were correct. The patient received 100 mg of doxycycline prior to the procedure, and 100 mg of doxycycline postoperatively. Complications: none Post-operative Condition: stable Disposition: same day surgery Plan for aftercare: Routine post D&C discharge instructions discussed. Patient and partner vocalized understanding, will call with any new symptoms and follow up in the office in 1-2 weeks.
[2020-01-01] MEDS: DOXYCYCLINE HYCLATE 100 MG TABLET PO (14:45)
--- NOTE | 2020-01-01 14:50 | SUR.PHASEI ---
Patient awake but drowsy. Tolerating PO juice without difficulty. VSS. Denies pain at this time.
== END 2020-01-01 15:45 | disposition home or self-care (01) ==
PROVIDERS: Obstetrics & Gynecology; PCP Obstetrics & Gynecology; Referring Provider Obstetrics & Gynecology; Visit Provider Obstetrics & Gynecology
PROC: (CPT 58120; principal; 2020-01-01 14:00)
DX: O02.1 Missed abortion (principal); F17.210 Nicotine dependence, cigarettes, uncomplicated; Z3A.00 Weeks of gestation of pregnancy not specified
CPT/HCPCS: 59820; 85025; J1100; J2250; J2405; J2704

== ENCOUNTER → 2020-01-19 16:11 | Outpatient (CLI) | payer MEDICAID, SELFPAY | PROVIDERS: PCP Obstetrics & Gynecology; Visit Provider Physician Assistant | DX: J02.9 Acute pharyngitis, unspecified (principal) | CPT/HCPCS: 87070; 87147 ==

== ENCOUNTER → 2020-04-13 11:36 | Outpatient (CLI) | payer MEDICAID, SELFPAY ==
[2020-04-13 13:10] LABS: Add Manual Diff / Slide Review NO; Basophils Absolute Auto 100 /uL (0-100); Basophils Percent Auto 0.6 % (0-2); Eosinophils Absolute Auto 300 /uL (0-450); Eosinophils Percent Auto 3.3 % (2-4); Hematocrit 34.5 % (36-46); Hemoglobin 11.4 g/dL (12.0-16.0); Lymphocytes Absolute Auto 2600 /uL (1100-4500); Lymphocytes Percent Auto 28.1 % (25-40); Mean Corpuscular HGB Conc 33.1 % (30-36); Mean Corpuscular Hemoglobin 24.8 PG (26-34); Monocytes Absolute Auto 500 /uL (0-900); Monocytes Percent Auto 5.1 % (3-14); Neutrophils Absolute Auto 5800 /uL (1500-7000); Neutrophils Percent Auto 62.9 % (50-75); Platelet Count 389 X10^3/uL (150-400); Red Cell Distribution Width 17.7 % (11.6-14.8); White Blood Cell Count 9.2 X10^3/uL (4.5-11.0)
[2020-04-13 13:24] LABS: Hemoglobin A1C% w Est Avg Glu 5.1 % (4.0-6.0)
[2020-04-13 15:06] LABS: Urine N gonorrhoeae NOT DETECTED
[2020-04-13 15:09] LABS: Urine Chlamydia NOT DETECTED
[2020-04-14 04:40] LABS: RPR Screen Non Reactive (Non Reactive)
[2020-04-14 08:11] LABS: Varicella IgG Antibody 725 index (Immune >165)
[2020-04-14 16:02] LABS: Hepatitis B Surface Antigen NEGATIVE s/c (NEGATIVE); Rubella Antibody IgG 16.7 IU/mL (>15)
[2020-04-14 16:17] LABS: HIV 1 & 2 Ab/Ag 4th Gen Combo NEGATIVE (NEGATIVE); Hep C Virus Ab w/Reflex Quant NEGATIVE s/c (NEGATIVE)
== END ==
PROVIDERS: Visit Provider Obstetrics & Gynecology
DX: Z34.81 Encounter for supervision of other normal pregnancy, first trimester (principal); Z11.3 Encounter for screening for infections with a predominantly sexual mode of transmission; Z3A.09 9 weeks gestation of pregnancy
CPT/HCPCS: 36415; 80055; 83036; 86787; 86803; 86850; 86900; 86901; 87389; 87491; 87591

== ENCOUNTER → 2020-05-11 11:21 | Outpatient (CLI) | payer MEDICAID, SELFPAY ==
[2020-05-11 12:45] LABS: Appearance Urine UA CLEAR; Bilirubin Urine UA NEGATIVE (NEGATIVE); Color Urine UA YELLOW; Glucose Urine UA NEGATIVE (Negative); Ketones Urine UA NEGATIVE (NEGATIVE); Leukocyte Esterase Urine UA NEGATIVE (NEGATIVE); Nitrite Urine UA NEGATIVE (Negative); Occult Blood Urine UA 3+ (Negative); Protein Urine UA 1+ (Negative); Specific Gravity Urine UA 1.015 (1.000-1.035); Urobilinogen Urine UA 0.2 E.U./dL (0.2)
[2020-05-11 12:50] LABS: Bacteria Urine None Seen; WBC Urine None Seen (0-5/HPF)
[2020-05-11 12:54] LABS: Culture Indicated Urine Cult Not Indicated; RBC Urine 10-30/HPF (0-5/HPF)
== END ==
PROVIDERS: Referring Provider Obstetrics & Gynecology; Visit Provider Obstetrics & Gynecology
DX: Z34.81 Encounter for supervision of other normal pregnancy, first trimester (principal); Z36.0 Encounter for antenatal screening for chromosomal anomalies; Z3A.13 13 weeks gestation of pregnancy
CPT/HCPCS: 36415; 81003; 81015; 84163; 84702; 87086

== ENCOUNTER → 2020-06-03 15:54 | Outpatient (CLI) | payer MEDICAID, SELFPAY ==
[2020-06-03 16:38] LABS: Add Manual Diff / Slide Review NO; Basophils Absolute Auto 0 /uL (0-100); Basophils Percent Auto 0.3 % (0-2); Eosinophils Absolute Auto 200 /uL (0-450); Eosinophils Percent Auto 2.4 % (2-4); Hematocrit 32.9 % (36-46); Hemoglobin 11.3 g/dL (12.0-16.0); Lymphocytes Absolute Auto 2800 /uL (1100-4500); Lymphocytes Percent Auto 27.3 % (25-40); Mean Corpuscular HGB Conc 34.5 % (30-36); Mean Corpuscular Hemoglobin 26.8 PG (26-34); Mean Corpuscular Volume 77.6 fL (80-100); Monocytes Absolute Auto 600 /uL (0-900); Monocytes Percent Auto 5.7 % (3-14); Neutrophils Absolute Auto 6600 /uL (1500-7000); Neutrophils Percent Auto 64.3 % (50-75); Platelet Count 381 X10^3/uL (150-400); Red Blood Cell Count 4.23 X10^6/uL (4.0-5.2); Red Cell Distribution Width 16.5 % (11.6-14.8); White Blood Cell Count 10.2 X10^3/uL (4.5-11.0)
[2020-06-03 16:52] LABS: Aspartate Aminotransferase 13 IU/L (14-36); BUN Creatinine Ratio 6.3 (6-22); Blood Urea Nitrogen 4 mg/dL (7-17); Estimated Glomerular Filt Rate > 60.0 mL/min (>60); Uric Acid 2.8 mg/dL (2.5-6.2)
[2020-06-03 17:47] LABS: Creatinine Urine Random 340.3 mg/dL; Protein (Total) Urine Random 20 mg/dL (0-12); Protein Creatinine Ratio Urine 0.05 GRAM/24H
== END ==
PROVIDERS: Referring Provider Obstetrics & Gynecology; Visit Provider Obstetrics & Gynecology
DX: Z34.90 Encounter for supervision of normal pregnancy, unspecified, unspecified trimester (principal)
CPT/HCPCS: 36415; 82570; 84156; 84450; 84550; 85025

== ENCOUNTER → 2020-06-29 13:52 | Outpatient (CLI) | payer MEDICAID, SELFPAY ==
--- NOTE | 2020-06-29 13:53 | DI.US.S_ITS ---
PROCEDURE: US OB >= 14 WEEKS FETUS INDICATIONS: 20 week anatomy scan OUTSIDE/PRIOR DATING DATA: Last menstrual period (LMP): Not available. LMP-based estimated date of delivery (DOREEN): Not available . First dating scan (date and location): This study . Estimated date of delivery (DOREEN) from first dating scan: 11/12/19 . TECHNIQUE: Real-time scanning was performed of the fetus, with image documentation and biometric measurements. Endovaginal scanning: Not needed COMPARISON: [facility], OB >= 14 WEEKS FETUS, 06/03/2020, 15:42. [facility], , OB >= 14 WEEKS FETUS, 12/31/2019, 14:58. FINDINGS: General: A single living intrauterine gestation is present. Presentation: Breech. Placenta: Placental position is anterior fundal , without previa. Lower placental edge 2 cm or less from internal cervical os qualifies as low lying placenta. Amniotic fluid index: 12.0 cm, normal range is 5-24 cm. heart rate: 147 beats per minute. Maternal cervical canal: 5.4 cm long. Normal lower limit is 2.5 cm. biometrics: Biparietal diameter: 4.9 cm, 20 weeks 5 days Head circumference: 18.4 cm, 20 weeks 5 days Abdominal circumference: 16.5 cm, 21 weeks 4 days Femur length: 3.7 cm, 21 weeks 4 days Estimated gestational age from initial scan: not applicable. Composite gestational age from present scan: 20 weeks 1 day Estimated weight and percentile: 426 g, 89th percentile Measurement variability for biometric dating: +/- 7 days from 14 weeks to 15 weeks 6 days gestation, +/- 10 days from 16 weeks to 21 weeks 6 days gestation, +/- 2 weeks from 22 weeks to 27 weeks 6 days gestation, +/- 3 weeks for 28 weeks gestation or later. weight reference: 4500 g or EFW >90/95% is considered macrosomia or large for gestational age. EFW <10% is small for gestational age. EFW 5% or less is considered intra-uterine growth restriction. Anatomic survey: Neuro: Ventricles are non-dilated at less than 10 mm. Cisterna magna is normal at 3-11 mm. Cerebellum is normal in size and morphology. Nuchal skin fold: Normal at less than 6 mm between 14-21 weeks gestational age. Face: Nose and lips, facial profile are normal. Spine: No evidence for spina bifida. Heart: 4-chambered heart is present, with normal ventricular outflow tracts. Diaphragm: Diaphragm is intact. Stomach: Left-sided stomach is present. Kidneys: No hydronephrosis. Normal is less than 5 mm in 2nd trimester, less than 7 mm in 3rd trimester. Cord: 3-vessel cord has orthotopic insertion. Bladder: Normal in size. Extremities: All 4 extremities identified. IMPRESSION: Normal survey of anatomy. Normal amniotic fluid volume. The delivery date is projected to be centered on 11/12/20. Breech presentation at this time. Dictated by: Jason Bustamante M.D. on 06/30/2020 at 11:40 Approved by: Jason Bustamante M.D. on 06/30/2020 at 11:49
== END ==
PROVIDERS: Referring Provider Obstetrics & Gynecology; Visit Provider Obstetrics & Gynecology
DX: Z34.82 Encounter for supervision of other normal pregnancy, second trimester (principal); Z3A.20 20 weeks gestation of pregnancy
CPT/HCPCS: 76811

== ENCOUNTER → 2020-08-26 14:21 | Outpatient (CLI) | payer MEDICAID, SELFPAY ==
[2020-08-26 16:24] LABS: Hematocrit 30.1 % (36-46); Hemoglobin 9.7 g/dL (12.0-16.0)
[2020-08-26 17:26] LABS: GTT (PREG) 1 Hour PP 50gm Dose 113 mg/dL (76-139)
== END ==
PROVIDERS: PCP Obstetrics & Gynecology; Referring Provider Obstetrics & Gynecology; Visit Provider Obstetrics & Gynecology
DX: Z34.82 Encounter for supervision of other normal pregnancy, second trimester (principal); Z3A.24 24 weeks gestation of pregnancy
CPT/HCPCS: 36415; 82950; 85014; 85018

== ENCOUNTER 2020-08-31 16:35 | Outpatient (CLI) | payer MEDICAID, SELFPAY ==
--- NOTE | 2020-08-31 17:02 | PM.OBTRLD ---
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) Migraine (Acute) Normal spontaneous vaginal delivery (Inactive) Patient denies significant medical history (Acute) (spontaneous vaginal delivery) (Acute ~2018) Surgical History (Updated 04/05/20 @ 14:13 by Omayra Arango, RN) History of dilatation and curettage (Acute ~2014) History of dilation and curettage (Acute ~2012) Hx of cholecystectomy (Acute ~2014) S/P dilatation and curettage (Acute ~01/01/20) S/P foot surgery, right (Acute ~2011) Family History (Updated 04/05/20 @ 14:08 by Omayra Arango, PEREZ) Family/Other Stroke Myocardial infarction Grandmother Unknown whether patient has any health problems Family estrangement Grandmother Diabetes mellitus Myocardial infarction Grandfather Unknown whether patient has any health problems Father Family estrangement Unknown whether patient has any health problems Grandmother Unknown whether patient has any health problems Family estrangement Mother Rheumatoid arthritis Social History marital status: number of children: 2 household members: spouse and children pets and animals: Yes (outside cat and a dog) education level: high school (completing HS currently) occupational status: unemployed current occupational exposures/hazards: No Previous occupational history: prior employment at the [employer] special edy needs: No Smoking Status: Current every day smoker (smoked right up until 03/23 Viability) Tobacco: How many years used: 11 second hand exposure: No alcohol intake: former (pre- : rare occasions) substance use type: does not use Review of Systems Review of Systems Narrative: Patient was in the car and had a gush of fluid that she was concerned might be leakage of bag of water. She was also concerned because she felt something quite low in her pelvis like a hand. No further leakage since the initial gush. No abdominal pain or bleeding. Good movement. No contractions. She is occasionally having issues with constipation. Exam Narrative Exam Narrative: Ultrasound was performed and the fetus is in the breech position with normal amniotic fluid. Speculum exam does not reveal any fluid in the vagina. AmniSure was performed and is negative. Cervix is long, close, presenting part is high. Evaluation Evaluation Baseline heart rate: 140 Variability: Moderate (11-25) monitor accelerations: Present monitor decelerations: Absent Contraction Frequency (minutes): 0 Category of Tracing: Reactive Cervical dilation (cm): 0 Cervical effacement (%): 0 station: -4 Non-invasive Membranes Rupture Test: negative Diagnosis, Plan/Disposition Final Diagnosis (1) False labor: Status: Acute Plan/Disposition Plan: No evidence of rupture membranes or labor. Patient was discharged home. Call for any concerns otherwise keep her normal OB appointment. OB Disposition: home
== END 2020-08-31 17:20 | disposition home or self-care (01) ==
LOC: LABOR 16:48 → OB 09-01 10:02
PROVIDERS: PCP Obstetrics & Gynecology; Referring Provider Specialist; Visit Provider Specialist
DX: O26.893 Other specified pregnancy related conditions, third trimester (principal); N89.8 Other specified noninflammatory disorders of vagina; O26.23 Pregnancy care for patient with recurrent pregnancy loss, third trimester; O32.1XX0 Maternal care for breech presentation, not applicable or unspecified; Z3A.29 29 weeks gestation of pregnancy
CPT/HCPCS: 59025; 76815; 84112; G0378; G0379

== ENCOUNTER 2020-09-30 18:35 | Outpatient (CLI) | payer MEDICAID, SELFPAY | END 2020-09-30 19:58 | disposition home or self-care (01) | LOC: LABOR 19:10 → OB 10-03 10:36 | PROVIDERS: Referring Provider Obstetrics & Gynecology; Visit Provider Obstetrics & Gynecology | DX: O26.23 Pregnancy care for patient with recurrent pregnancy loss, third trimester (principal); O21.9 Vomiting of pregnancy, unspecified; N89.8 Other specified noninflammatory disorders of vagina; Z3A.33 33 weeks gestation of pregnancy | CPT/HCPCS: 59025; 84112; G0378; G0379 ==

== ENCOUNTER → 2020-10-18 16:24 | Outpatient (CLI) | payer MEDICAID, SELFPAY ==
[2020-10-19 13:06] LABS: Strep Grp B PCR POS for Grp B Strep
== END ==
PROVIDERS: Visit Provider Obstetrics & Gynecology
DX: Z34.83 Encounter for supervision of other normal pregnancy, third trimester (principal); Z3A.36 36 weeks gestation of pregnancy
CPT/HCPCS: 87653

== ENCOUNTER 2020-11-01 17:25 | Outpatient (CLI) | payer MEDICAID, SELFPAY ==
--- NOTE | 2020-11-01 18:09 | PM.OBTRLD ---
Visit Information Visit Information Date of evaluation: 11/01/20 Primary OB Provider: Pauly Street Reason for Evaluation: Yes non-stress test Comments/Additional reasons for admission: Patient sent for NST due to inability to feel movement. 06/04 BPP in clinic. Vital Signs Vital Signs: 107/64, hr 102 PFSH Medical History HSV-2 (herpes simplex virus 2) infection Migraine Normal spontaneous vaginal delivery Patient denies significant medical history (spontaneous vaginal delivery) (~2018) Surgical History History of dilatation and curettage (~2014) History of dilation and curettage (~2012) Hx of cholecystectomy (~2014) S/P dilatation and curettage (~01/01/20) S/P foot surgery, right (~2011) Family History Family/Other Stroke Myocardial infarction Grandmother Unknown whether patient has any health problems Family estrangement Grandmother Diabetes mellitus Myocardial infarction Grandfather Unknown whether patient has any health problems Father Family estrangement Unknown whether patient has any health problems Grandmother Unknown whether patient has any health problems Family estrangement Mother Rheumatoid arthritis Social History marital status: number of children: 2 household members: spouse and children pets and animals: Yes (outside cat and a dog) education level: high school (completing HS currently) occupational status: unemployed current occupational exposures/hazards: No Previous occupational history: prior employment at the [employer] special edy needs: No Smoking Status: Current every day smoker (smoked right up until 03/23 Viability) Tobacco: How many years used: 11 second hand exposure: No alcohol intake: former (pre- : rare occasions) substance use type: does not use Evaluation Evaluation Baseline heart rate: 150 Variability: Moderate (11-25) monitor accelerations: Present monitor decelerations: Absent Category of Tracing: Reactive Status: Category l Diagnosis, Plan/Disposition Plan/Disposition Plan: Home with routine precautions. Importance of presenting with decreased movement, loss of fluid, vaginal bleeding, or frequent contractions stressed. Planning induction at 39 weeks. OB Disposition: home
== END 2020-11-01 17:58 | disposition home or self-care (01) ==
LOC: OB 11-03 08:41
PROVIDERS: Referring Provider Obstetrics & Gynecology; Visit Provider Obstetrics & Gynecology
DX: O36.8130 Decreased fetal movements, third trimester, not applicable or unspecified (principal); Z3A.38 38 weeks gestation of pregnancy
CPT/HCPCS: 59025; G0378; G0379

== ENCOUNTER → 2020-11-04 13:34 | Outpatient (CLI) | payer MEDICAID, SELFPAY ==
[2020-11-04 14:11] LABS: COVID19 -Nasal RAPID Negative (Negative)
== END ==
PROVIDERS: Visit Provider Obstetrics & Gynecology
DX: Z20.822 Contact with and (suspected) exposure to COVID-19 (principal); Z01.812 Encounter for preprocedural laboratory examination
CPT/HCPCS: 87635; C9803

== ENCOUNTER 2020-11-07 05:02 | Inpatient (IN) | payer MEDICAID, SELFPAY ==
[2020-11-07] MEDS: LACTATED RINGERS 1,000 ML 100 ML IV (05:46)
[2020-11-07] MEDS: PENICILLIN G POTASSIUM 5,000,000 UNIT in DEXTROSE 5% IN WATER 250 ML IV (05:46)
[2020-11-07 05:53] LABS: Add Manual Diff / Slide Review NO; Basophils Absolute Auto 100 /uL (0-100); Basophils Percent Auto 0.7 % (0-2); Eosinophils Absolute Auto 200 /uL (0-450); Eosinophils Percent Auto 1.6 % (2-4); Hematocrit 34.3 % (36-46); Hemoglobin 10.7 g/dL (12.0-16.0); Lymphocytes Absolute Auto 3100 /uL (1100-4500); Lymphocytes Percent Auto 22.1 % (25-40); Mean Corpuscular HGB Conc 31.3 % (30-36); Mean Corpuscular Hemoglobin 23.7 PG (26-34); Mean Corpuscular Volume 75.7 fL (80-100); Monocytes Absolute Auto 600 /uL (0-900); Monocytes Percent Auto 4.3 % (3-14); Neutrophils Absolute Auto 10100 /uL (1500-7000); Neutrophils Percent Auto 71.3 % (50-75); Platelet Count 488 X10^3/uL (150-400); Red Blood Cell Count 4.53 X10^6/uL (4.0-5.2); Red Cell Distribution Width 16.6 % (11.6-14.8); White Blood Cell Count 14.1 X10^3/uL (4.5-11.0)
--- NOTE | 2020-11-07 10:48 | P.PCNOB_ITS ---
Labor & Delivery Delivery date: 11/07/20 Intrapartal events: Acceleration and Deceleration Delivery augmentation: rupture of membranes Delivery monitor: external FHT and external uterine Route of delivery: L&D Laceration Description: Perineal - 1st Degree Estimated blood loss (mL): 300 Anesthesia Type: Epidural Narrative: This patient presented for her scheduled induction of labor, in active labor. She received no augmentation and progressed rapidly to fully dilated, with the reassuring status. She was found to be fully dilated, +2, intact, and had AROM for thin meconium. After 1 contraction 2nd stage, the patient was delivered of a healthy baby girl, Apgars 8 and 9, weight 6 lb 11 oz, shoulders delivered with ease and no nuchal cord. The infant was immediately placed on the maternal abdomen, and delayed cord clamping for 45 seconds was undertaken. Placenta delivered shortly after delivery, intact and with a three-vessel cord. The patient had persistent lower uterine segment atony, and received 0.2 micro g of IM Methergine along with 30 milliunits of Pitocin in 500 cc of lactated Ringer's. A first-degree perineal laceration was spontaneously hemostatic with no sutures required. The patient's intrapartum and immediate recovery were otherwise uncomplicated. [place] Baby Becky Anne: Infant gender: Female Presentation: vertex Position: Left Occiput Anterior Placenta delivery description: Spontaneous Cord Vessel Description: 3 Vessels score (1 min): 8 score (5 min): 9 Plan for aftercare: Routine care
--- NOTE | 2020-11-07 10:48 | P.HPOB_ITS ---
OB HPI Date/Time Date of admission: 11/07/20 Date Patient Seen: 11/07/20 Time Patient Seen: 09:00 History of Present Condition Chief complaint: Evaluation of Labor : 6 Para: 2 Estimated Date of Delivery: 11/12/20 Estimated Gestational Age (weeks): 39 Narrative: Ni Rios is a 30 year old 032 at 39 weeks 1 day presenting in active labor. The patient had been previously scheduled for induction, but presented a few hours before her scheduled induction was to begin and made rapid change. The patient denies loss of fluid or vaginal bleeding, denies preeclampsia symptoms, and has had a otherwise complicated by morbid obesity though no diabetes or hypertension. She is proven to 7 lb 8 oz, and this baby is approximately the same. She has a history of 2 otherwise uncomplicated vaginal deliveries and 3 SABs. Patient had negative integrated screen during this . History of Present care: good care Dating criteria: LMP confirmed by 1st trimester US Ultrasounds: normal 1st trimester US and normal mid trimester US Preadmission Labs Blood type: O (+) positive -: Antibody screen: negative, GBS status: positive, HBsAG: negative, HIV: negative, HSV 1: positive (Patient started on Valtrex at 36 weeks), HSV 2: positive and RPR/VDLR: negative -: Chlamydia screen: not detected and Gonorrhea screen: not detected -: Rubella: immune and Varicella: immune PAP: Normal Integrated screen: Normal Urine: No growth 1 hr GTT: 113 Prior (ies) History: G1: 03/30/13, 10 wk SAB G2: 08/20/14, 39 wks, 7#9, Female, epidural G3: 10/28/14, SAB, 8 weeks G4: 12/31/18, , 38+4, 7#6, M G5: 12/28/19, SAB, 8 weeks Evaluation Evaluation Baseline heart rate: 140 Variability: Moderate (11-25) monitor accelerations: Present monitor decelerations: Absent Contraction Frequency (minutes): 3 Uterine Contraction Intensity: Strong/Firm Category of Tracing: Reactive Status: Category l Cervical dilation (cm): 10 Cervical effacement (%): 100 station: +3 Laboratory results: Laboratory Tests 11/07/20 11/07/20 05:05 05:05 WBC 14.1 H RBC 4.53 Hgb 10.7 L Hct 34.3 L MCV 75.7 L MCH 23.7 L MCHC 31.3 RDW 16.6 H Plt Count 488 H Neut % (Auto) 71.3 Lymph % (Auto) 22.1 L [place] % (Auto) 4.3 Eos % (Auto) 1.6 L Baso % (Auto) 0.7 Neut # (Auto) 69061 H Lymph # (Auto) 3100 [place] # (Auto) 600 Eos # (Auto) 200 Baso # (Auto) 100 Blood Type O Positive Antibody Screen Negative Comments: AROM for thin mec just prior to delivery [facility] Medical History HSV-2 (herpes simplex virus 2) infection Migraine Normal spontaneous vaginal delivery Patient denies significant medical history (spontaneous vaginal delivery) (~2018) Surgical History History of dilatation and curettage (~2014) History of dilation and curettage (~2012) Hx of cholecystectomy (~2014) S/P dilatation and curettage (~01/01/20) S/P foot surgery, right (~2011) Family History Family/Other Stroke Myocardial infarction Grandmother Unknown whether patient has any health problems Family estrangement Grandmother Diabetes mellitus Myocardial infarction Grandfather Unknown whether patient has any health problems Father Family estrangement Unknown whether patient has any health problems Grandmother Unknown whether patient has any health problems Family estrangement Mother Rheumatoid arthritis Social History marital status: number of children: 2 household members: spouse and children pets and animals: Yes (outside cat and a dog) education level: high school (completing HS currently) occupational status: unemployed current occupational exposures/hazards: No Previous occupational history: prior employment at the [employer] special edy needs: No Smoking Status: Former smoker Tobacco: How many years used: 11 second hand exposure: No alcohol intake: former (pre- : rare occasions) substance use type: does not use Meds Home Medications and Allergies Home Medications Medication Instructions Recorded Confirmed Type prenat.vits,drew,zsr-olwn-prpon 1 tab PO DAILY 04/05/20 07/29/20 History ondansetron 4 mg disintegrating 4 mg PO Q8H PRN #20 tab 04/13/20 07/29/20 Rx tablet valacyclovir 500 mg tablet 500 mg PO DAILY #60 tab 10/18/20 11/07/20 Rx Allergies Allergy/AdvReac Type Severity Reaction Status Date / Time latex [LATEX] Allergy Severe Hives and Verified 11/07/20 05:21 Rash oxycodone [OXYCODONE] AdvReac Mild ITCHY Verified 11/07/20 05:21 Review of Systems Constitutional Constitutional: Reports system reviewed and no additional complaints, except as documented Cardiovascular Cardiovascular: Reports system reviewed and no additional complaints, except as documented Respiratory Respiratory: Reports system reviewed and no additional complaints, except as documented Gastrointestinal Gastrointestinal: Reports system reviewed and no additional complaints, except as documented Genitourinary Genitourinary: Reports system reviewed and no additional complaints, except as documented Neurologic Neurologic: Reports system reviewed and no additional complaints, except as documented Exam Vital Signs (past 8 hours): 110s-130s/70s-80s Resp Effort & Inspection: normal respiratory effort Auscultation: clear to auscultation bilaterally Cardio Rate: regular rate Rhythm: regular rhythm GI Inspection: large pannus External Female Exam: normal external appearance Objective Labs Result Diagrams: 11/07/20 05:05 Labs: Laboratory Results - last 24 hr 11/07/20 11/07/20 05:05 05:05 WBC 14.1 H RBC 4.53 Hgb 10.7 L Hct 34.3 L MCV 75.7 L MCH 23.7 L MCHC 31.3 RDW 16.6 H Plt Count 488 H Neut % (Auto) 71.3 Lymph % (Auto) 22.1 L [place] % (Auto) 4.3 Eos % (Auto) 1.6 L Baso % (Auto) 0.7 Neut # (Auto) 31480 H Lymph # (Auto) 3100 [place] # (Auto) 600 Eos # (Auto) 200 Baso # (Auto) 100 Blood Type O Positive Antibody Screen Negative Assessment and Plan Assessment and Plan Assessment and Plan narrative: This patient presented in labor, progressed rapidly, and had an uncomplicated vaginal delivery of a healthy baby girl. Patient is for routine care.
[2020-11-07] MEDS: ACETAMINOPHEN 325 MG TABLET 650 MG PO (23:40)
[2020-11-07] MEDS: IBUPROFEN 600 MG TABLET PO (23:40)
[2020-11-08] MEDS: ACETAMINOPHEN 325 MG TABLET 650 MG PO ×2 (06:11→11:52)
[2020-11-08] MEDS: IBUPROFEN 600 MG TABLET PO ×2 (06:12→11:51)
--- NOTE | 2020-11-08 07:52 | PM.OBDS.1 ---
Discharge Providers Provider Date of admission: 11/07/20 05:02 Discharge Date: 11/08/20 Primary care physician: Doctor Derek MD Consults: 11/08/20 10:47 Consult to Sculpture Instructor Routine Comment: Discharge provider: Pauly Street MD Summary Hospital Course Date Patient Seen: 11/08/20 Time Patient Seen: 07:45 Procedures: Hospital Course: This patient was admitted in early labor, and progressed rapidly and spontaneously. After a short 2nd stage, she was delivered of a healthy baby girl without complication, apgars 8+9, weight 6#11oz. She had no intrapartum or immediate complications, and was discharged on PPD#1 wit routine precautions. Peripartum Data Infant Delivery Method: Natural Vaginal Laceration Description: Perineal - 1st Degree Procedures: complications: none [place] 1: Disposition of : home Discharge Diagnosis (1) Vaginal delivery: Status: Acute Status at Discharge Cognitive/behavioral status at discharge: oriented Functional status at discharge: independent ambulation Overall status at discharge: patient is progressing back to baseline Time Spent with Patient Time attestation: Total time spent providing and/or coordinating discharge services: Objective Labs Result Diagrams: 11/07/20 05:05 Exam Vital Signs (past 8 hours): 115/73, HR 89, afebrile Const General: cooperative, healthy appearing and comfortable Resp Effort & Inspection: normal respiratory effort Cardio Rate: regular rate Rhythm: regular rhythm GI Inspection: large pannus and obesity Palpation: soft and No tender Other: fundus firm, uterus well contraction. Relation to umbilicus c/b large pannus. Extrem General: normal to inspection (no edema, no redness, non tender) Discharge Plan Discharge Plan Patient Disposition: Home Discharge orders & Medications Prescriptions: Continued valacyclovir [Valtrex] 500 mg tablet 500 mg PO DAILY Qty: 60 RF: 0 ondansetron 4 mg tablet,disintegrating 4 mg PO Q8H PRN (Reason: nausea and vomiting) Qty: 20 RF: 0 prenat.vits,drew,[id number] Tablet 1 tab PO DAILY RF: 0 Follow up/Referrals: Pauly Street MD [Physician] - 6 Weeks (Follow up with Dr. Street on SaturdayDecember 20 at 2:00pm) Diet/Activity/Treatments Diet: Regular Activity: Nothing in the vagina for 6 weeks. Avoid heavy lifting for 6 weeks. If you have increasing bleeding, fevers, chills, nausea, vomiting, headaches, visual changes, or any other symptoms or concerns, call the clinic or come to the emergency room. Skin/Wound/Dressing Care Report to your healthcare provider any signs of infection, such as:: chills, fever, night sweats, increased pain, unusual drainage and unusual redness Visit Report/Discharge Packet Instructions: Labor and Delivery, Vaginal Stand Alone Forms: Discharge: Care Discharge Data Primary Care Provider: Miscellaneous,Doctor
[2020-11-08] MEDS: valACYclovir 500 MG TABLET PO (09:15)
[2020-11-08] MEDS: PRENATAL VIT,CALC/IRON/FOLIC 1 TABLET 1 TAB PO (09:15)
== END 2020-11-08 12:50 | disposition home or self-care (01) | DRG 806 ==
PROVIDERS: Admitting Provider Obstetrics & Gynecology; Referring Provider Obstetrics & Gynecology; Visit Provider Obstetrics & Gynecology
DX: O99.824 Streptococcus B carrier state complicating childbirth (principal); O98.32 Other infections with a predominantly sexual mode of transmission complicating childbirth; Z37.0 Single live birth; B00.9 Herpesviral infection, unspecified; Z3A.39 39 weeks gestation of pregnancy; O70.0 First degree perineal laceration during delivery; O77.0 Labor and delivery complicated by meconium in amniotic fluid
CPT/HCPCS: 01967; 36415; 59050; 59409; 85025; 86850; 86900; 86901; G0379; J2540

== ENCOUNTER 2021-12-22 23:52 | Emergency (ER) | payer MEDICAID, SELFPAY ==
[2021-12-23] VITALS: BP 150/76; PULSE 105; RESP 18; TEMP 37.2; O2SAT 99; BMI 49.4
--- NOTE | 2021-12-23 00:34 | ED_ITS ---
HPI - URI/Sore Throat General Chief Complaint: Upper Respiratory Symptoms Stated Complaint: cold chills, headaches, balance issue Time Seen by Provider: 12/22/21 23:53 Source: patient Mode of arrival: Ambulatory History of Present Illness HPI Narrative: 31F daily smoker without chronic medical history presents with and child with a chief complaint of about 24 hours nasal congestion, runny nose, sore throat with difficulty swallowing, body aches and fatigue. She denies any exposure to those with known COVID. She denies any chest pain significant cough or chest pain. She denies nausea, vomiting or diarrhea. She had her 1st 2 vaccinations but is boosted against COVID yet. Other family members have similar symptoms Related Data Home Medications Medication Instructions Recorded Confirmed prenat.vits,drew,fav-utps-iyjhy 1 tab PO DAILY 04/05/20 11/07/20 Previous Rx's Medication Instructions Recorded ondansetron 4 mg disintegrating 4 mg PO Q8H PRN #20 tab 04/13/20 tablet valacyclovir 500 mg tablet 500 mg PO DAILY #60 tab 10/18/20 (Valtrex) Allergies Allergy/AdvReac Type Severity Reaction Status Date / Time latex [LATEX] Allergy Severe Hives and Verified 11/07/20 05:21 Rash oxycodone [OXYCODONE] AdvReac Mild ITCHY Verified 11/07/20 05:21 Review of Systems Review of Systems Narrative: GENERAL: See HPI HEENT: See HPI RESPIRATORY: See HPI CARDIOVASCULAR: Denies chest pain, palpitations, orthopnea, edema, GASTROINTESTINAL: See HPI : Denies dysuria, frequency, incontinence, hematuria, urinary retention. MUSCULOSKELETAL: denies weakness, joint pain, or bony pain SKIN: Denies rash, skin lesions, or other NEUROLOGIC: Denies weakness, headache, numbness, change in speech, confusion, seizures, incoordination. PSYCHIATRIC: No concerning psychosocial issues. 12 point review of systems is negative except for those stated above Patient History Medical History HSV-2 (herpes simplex virus 2) infection Migraine Normal spontaneous vaginal delivery Patient denies significant medical history (spontaneous vaginal delivery) (~2018) Surgical History History of dilatation and curettage (~2014) History of dilation and curettage (~2012) Hx of cholecystectomy (~2014) S/P dilatation and curettage (~01/01/20) S/P foot surgery, right (~2011) Family History Family/Other Stroke Myocardial infarction Grandmother Unknown whether patient has any health problems Family estrangement Grandmother Diabetes mellitus Myocardial infarction Grandfather Unknown whether patient has any health problems Father Family estrangement Unknown whether patient has any health problems Grandmother Unknown whether patient has any health problems Family estrangement Mother Rheumatoid arthritis Social History marital status: number of children: 2 household members: spouse and children pets and animals: Yes (outside cat and a dog) education level: high school (completing HS currently) occupational status: unemployed current occupational exposures/hazards: No Previous occupational history: prior employment at the [employer] needs: No Smoking Status: Current every day smoker Tobacco: How many years used: 11 second hand exposure: No alcohol intake: former (pre- : rare occasions) substance use type: does not use Smoking Status: Current every day smoker alcohol intake frequency: holidays/special occasions only Substance Use Type: does not use Exam Narrative Exam Narrative: GENERAL: [31 year old patient appears stated age. Well-developed patient, in mild distress. HEAD: Atraumatic. Normocephalic. EYES: Pupils equal round and reactive. Extraocular motions intact. No scleral icterus. No injection or drainage. ENT: Nose without bleeding, purulent drainage. Throat without erythema, tonsillar hypertrophy or exudate. Airway patent. NECK: Trachea midline. Non tender CARDIOVASCULAR: Regular rate and rhythm without murmurs, gallops, or rubs. RESPIRATORY: Clear to auscultation. Breath sounds equal bilaterally. No wheezes, rales, or rhonchi. GASTROINTESTINAL: Abdomen soft, non-tender, nondistended. EXTREMITIES: No edema or joint tenderness. BACK: Nontender without deformity or crepitance. No flank tenderness. NEURO: AOx3. SKIN: No rash or erythema of visible areas Initial Vital Signs Initial Vital Signs: Vital Signs Temperature 99 F 12/23/21 00:00 Pulse Rate 105 H 12/23/21 00:00 Respiratory Rate 18 12/23/21 00:00 Blood Pressure 150/76 H 12/23/21 00:00 Pulse Oximetry 99 12/23/21 00:00 Course Orders Ordered: ED Orders 12/23/21 00:15 Covid-19 + FLU A/B by PCR Stat Vital Signs Vital signs: Vital Signs - 8 hr 12/23/21 00:00 Temperature 99 F Pulse Rate 105 H Respiratory Rate 18 Blood Pressure 150/76 H Pulse Oximetry 99 MDM - URI/Sore Throat Lab Data Labs: Lab Results 12/23/21 Range/Units 00:15 SARS-CoV-2 (PCR) Positive H (Negative) Influenza A (RT-PCR) Flu a negative (NEGATIVE) Influenza B (RT-PCR) Flu b negative (NEGATIVE) Point of Care Testing Rapid Strep A Negative MDM Narrative Medical decision making narrative: Reassuring history and physical exam. She has stable vitals and a very reassuri ng story. She is well hydrated demonstrates no signs of respiratory distress. She has no increased work of breathing, conversational dyspnea, hypoxemia or need for supplemental oxygen. There is no indication of the significant workup and certainly not hospitalization. Return precautions discussed and questions answered to her apparent satisfaction Discharge Plan Departure Patient Disposition: Home Clinical Impression: COVID-19 Instructions: Coronavirus Disease 2019 Activity Restrictions/Additional Instructions: *You have been diagnosed with [ COVID-19] *What to do: * per recommendations from the CDC and the [facility] Department of Health * stay home except to get medical care. Restrict activities outside your home, except for getting medical care. Do not go to work, school, or public areas. Avoid using public transportation, ride sharing, or taxis. * separate yourself from other people in your home. * call ahead before visiting your doctor * Wear a facemask * Cover your coughs and sneezes * Clean your hands often * Avoid sharing household items * Clean all high-touch services every day * Monitor your symptoms and seek prompt medical attention if your illness is worsening, particularly with difficulty in breathing. You may discontinue your isolation when: 1. You have been fever-free for at least 24 hours without the use of fever reducing medication, AND 2. Your symptoms are getting better, AND 3. At least 5 days have passed since symptoms first appeared 4. If you have fever, continue to stay home until fever resolves Individuals with laboratory confirmed COVID-19 who have not had any symptoms may discontinue home isolation when at least 5 days have passed since the date of their first COVID-19 diagnostic test and have had no subsequent illness You should notifiy any friends and family that have been in close contact *If up to date on COVID Vaccines, then they do not need to quarantine unless symptoms develop. Get tested on day 5 (or sooner if symptoms develop). Take precautions and watch for symptoms until day 10 *If NOT up to date on COVID Vaccines, then CDC recommends quarantine for at least 5 full days. Wear a well fitted mask at home if you must be around others. If they develop symptoms they should get tested. If they remain asymptomatic they should get tested on day 5. They should take precautions and monitor for symptoms until day 10. Prescriptions: No Action valacyclovir [Valtrex] 500 mg tablet 500 mg PO DAILY Qty: 60 0RF Rx Instructions: Take once daily until after delivery. ondansetron 4 mg tablet,disintegrating 4 mg PO Q8H PRN (Reason: nausea and vomiting) Qty: 20 0RF Rx Instructions: Take one as needed, no more often than every 8 hours. prenat.vits,drew,[id number] Tablet 1 tab PO DAILY 0RF Referrals: Miscellaneous,Doctor, MD [Primary Care Provider] -
--- NOTE | 2021-12-23 00:43 | PC.NURSE ---
pt resp even and unlabored, no drooling or muffled voice, pt appears in nad
[2021-12-23 01:05] LABS: Influenza A - CEPHEID Flu A NEGATIVE (NEGATIVE); Influenza B - CEPHEID Flu B NEGATIVE (NEGATIVE)
[2021-12-23 01:10] LABS: COVID-19 CEPHEID PCR (VTM/NP) POSITIVE (Negative)
== END 2021-12-23 01:22 | disposition home or self-care (01) ==
PROVIDERS: Emergency Provider Emergency Medicine
DX: U07.1 COVID-19 (principal)
CPT/HCPCS: 87635; 87880; 99282; C9803

== ENCOUNTER 2022-07-15 00:30 | Emergency (ER) | payer MEDICAID, SELFPAY ==
[2022-07-15 00:40] VITALS: BP 147/86; PULSE 104; RESP 16; TEMP 36.2; O2SAT 100; BMI 48.4
--- NOTE | 2022-07-15 01:15 | ED_ITS ---
HPI - General Adult General Chief complaint: OB/Uterine Contractions Stated complaint: 12 weeks /cramping Time Seen by Provider: 07/15/22 00:51 Source: patient Mode of arrival: Ambulatory History of Present Illness HPI narrative: 31-year-old at approximately 12 weeks gestational age presents with pelvic cramping. 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 Approximately 2 hours prior to the end of her shift she was having significant increased lower abdominal cramping and was unable to have anybody come in and cover her. When she was done with work she came to the emergency department for further evaluation. She describes significant bilateral low pelvic cramping without specific back pain. She is having no vaginal discharge bleeding or fluid leaking. She describes no fevers cough chest pain, palpitations, vomiting or diarrhea. Related Data Home Medications Medication Instructions Recorded Confirmed prenat.vits,drew,[id number] 1 tab PO DAILY 04/05/20 06/19/22 Previous Rx's Medication Instructions Recorded ondansetron 4 mg disintegrating 4 mg PO Q6H PRN nausea and 06/19/22 tablet vomiting #20 tabs Allergies Allergy/AdvReac Type Severity Reaction Status Date / Time latex [LATEX] Allergy Severe Hives and Verified 06/19/22 11:34 Rash oxycodone [OXYCODONE] AdvReac Mild ITCHY Verified 06/19/22 11:34 Review of Systems Review of Systems Narrative: Remainder of complete review of systems is otherwise unremarkable except for that included in the HPI. Patient History Medical History (Updated 07/15/22 @ 02:27 by Deisi Cisneros MD) Anxiety as acute reaction to exceptional stress Costochondritis COVID-19 HSV-2 (herpes simplex virus 2) infection Migraine Normal spontaneous vaginal delivery (spontaneous vaginal delivery) (~2018) Surgical History History of dilatation and curettage (~2014) History of dilation and curettage (~2012) Hx of cholecystectomy (~2014) S/P dilatation and curettage (~01/01/20) S/P foot surgery, right (~2011) Family History Family/Other Stroke Myocardial infarction End stage renal failure on dialysis Grandmother Unknown whether patient has any health problems Family estrangement Grandmother Diabetes mellitus Myocardial infarction Grandfather Unknown whether patient has any health problems Father Family estrangement Unknown whether patient has any health problems Grandmother Unknown whether patient has any health problems Family estrangement Mother Rheumatoid arthritis Social History marital status: number of children: 3 household members: spouse, family (brother, parents) and children lives independently: Yes housing: house pets and animals: Yes (outside dog) education level: high school (completing HS currently) occupational status: employed current occupational exposures/hazards: Yes Previous occupational history: prior employment at [employer] special edy needs: No seatbelt use: always water heater temp set < 120 deg: Yes working smoke detector in home: Yes fire extinguisher in home: Yes carbon monox detector in home: Yes firearms in home: No do you feel safe at home: Yes Smoking Status: Former smoker Tobacco: How many years used: 11 second hand exposure: No alcohol intake: former (pre- : rare occasions) substance use type: does not use during the past year weight has: increased > 10 lbs well-balanced diet: rarely or never daily servings fruits/ve-1 (Encouraged to apply for WIC ) caffeine: Yes (Aware of 200 mg limit) Type(s) of exercise: none Smoking Status: Former smoker alcohol intake frequency: holidays/special occasions only Substance Use Type: does not use Exam Initial Vital Signs Initial Vital Signs: Vital Signs Temperature 97.1 F L 07/15/22 00:40 Pulse Rate 104 H 07/15/22 00:40 Respiratory Rate 16 07/15/22 00:40 Blood Pressure 147/86 H 07/15/22 00:40 Pulse Oximetry 100 07/15/22 00:40 Oxygen Delivery Method 07/15/22 00:40 General: Healthy appearing, moderate pain, more comfortable with both knees pulled up to her abdomen. Exceptionally fatigued and actually falls asleep mid sentence. HEENT: Moist mucous membranes, normal sclera with reactive pupils, Respiratory: Lungs are clear to auscultation, no wheezing no rales no rhonchi. Full and symmetrical air movement Cardiac: Regular rate and rhythm no murmurs no bruits Abdomen: Soft, obese, mild lower abdominal tenderness without rebound or guar ding, good bowel tones, no flank pain Skin: Warm and dry, no rashes Neurologic: Grossly neurologically intact with no obvious asymmetries or abnormalities Extremities: No trauma, well perfused Psych: Cooperative, appropriate insight and affect Course Orders Ordered: ED Orders 07/15/22 01:29 US OB <= 14 weeks fetus Stat 07/15/22 01:50 Beta HCG, Quant [HCG Quantitative /Beta subunit] Stat Complete Blood Count AUTO DIFF Stat Comprehensive Metabolic Panel Stat Discontinued Medications Acetaminophen (Acetaminophen 325 Mg Tablet) 975 mg PO NOW ONE Stop: 07/15/22 01:30 Last Admin: 07/15/22 01:42 Dose: 975 mg Documented By: MARIYA Sodium Chloride (Normal Saline 0.9%) 1,000 mls @ 1,000 mls/hr IV BOLUS ONE Stop: 07/15/22 02:28 Last Admin: 07/15/22 01:43 Dose: 1,000 mls/hr Documented By: MARIYA Vital Signs Vital signs: Vital Signs - 8 hr 07/15/22 00:40 07/15/22 02:46 Temperature 97.1 F L Pulse Rate 104 H 97 H Respiratory Rate 16 16 Blood Pressure 147/86 H 128/64 Pulse Oximetry 100 96 Oxygen Delivery Method Room Air Room Air Medical Decision Making Lab Data Result diagrams: 07/15/22 01:50 07/15/22 01:50 Labs: Lab Results 07/15/22 07/15/22 Range/Units 01:50 01:50 WBC 11.4 H (4.5-11.0) X10^3/uL RBC 4.34 (4.0-5.2) X10^6/uL Hgb 12.1 (12.0-16.0) g/dL Hct 35.8 L (36-46) % MCV 82.5 (80-100) fL MCH 27.8 (26-34) PG MCHC 33.7 (30-36) % RDW 14.1 (11.6-14.8) % Plt Count 332 (150-400) X10^3/uL Neut % (Auto) 66.9 (50-75) % Lymph % (Auto) 23.6 L (25-40) % [place] % (Auto) 6.1 (3-14) % Eos % (Auto) 2.4 (2-4) % Baso % (Auto) 1.0 (0-2) % Neut # (Auto) 7600 H (9779-3053) /uL Lymph # (Auto) 2700 (3760-1767) /uL [place] # (Auto) 700 (0-900) /uL Eos # (Auto) 300 (0-450) /uL Baso # (Auto) 100 (0-100) /uL Sodium 137 (137-145) mmol/L Potassium 3.6 (3.4-5.1) mmol/L Chloride 104 (98-107) mmol/L Carbon Dioxide 23 (22-32) mmol/L BUN 7 (7-17) mg/dL Creatinine 0.72 (0.52-1.04) mg/dL Estimated GFR > 60 (>60) mL/min BUN/Creatinine Ratio 9.7 (6-22) Glucose 83 (70-100) mg/dL Calcium 8.4 (8.4-10.2) mg/dL Total Bilirubin 0.4 (0.2-1.3) mg/dL AST 14 (14-36) IU/L ALT 10 (<35) IU/L Alkaline Phosphatase 133 H (38-126) U/L Total Protein 7.8 (6.3-8.2) g/dL Albumin 3.8 (3.5-5.0) g/dL Globulin 4.0 (1.7-4.1) g/dL Albumin/Globulin Ratio 1.0 (1.0-2.8) HCG, Quant 31917 mIU/mL Urine Dip Bedside Urine Glucose Negative Bedside Urine Bilirubin - Negative Bedside Urine Ketone - Negative Urine Specific [place] 1.010 Bedside Urine Occult Blood ++ Bedside Urine pH 6.0 Bedside Urine Protein - Negative Bedside Urine Urobilinogen - Negative Bedside Urine Nitrite - Negative Bedside Urine Leukocytes - Negative Esterase Point of care testing: Urine Dip Bedside Urine Glucose Negative Bedside Urine Bilirubin - Negative Bedside Urine Ketone - Negative Urine Specific [place] 1.010 Bedside Urine Occult Blood ++ Bedside Urine pH 6.0 Bedside Urine Protein - Negative Bedside Urine Urobilinogen - Negative Bedside Urine Nitrite - Negative Bedside Urine Leukocytes - Negative Esterase Imaging Data Pelvic ultrasound: Radiologist's Impression: Preliminary: Viable intrauterine consistent with no days. Ovaries were not able to be visualized. MDM Narrative Medical decision making narrative: 31-year-old woman who presents with low abdominal cramping after a long work shift. Pelvic ultrasound reveals viable intrauterine fetus with no obvious explanations for the pain. She does not have any obvious infection, kidney function is unremarkable. She does not have a surgical abdomen on re- examination. She is significantly relieved to find that she has a viable intrauterine fetus. She has previous pattern of miscarriage, miscarriage and was concerned that that pattern was repeating. After ruling out other significant pathology most likely explanation is a combination of low back strain and long work shift along with significant fatigue and at 12 weeks of . Reassurance is given we discussed using Tylenol for pain control and returning to the emergency department if there are new symptoms. She is safe for home discharge Discharge Plan Departure Patient Disposition: Home Clinical Impression: Pelvic cramping, Low back pain Instructions: DI for Low Back Pain Activity Restrictions/Additional Instructions: Thank you for coming in today Your baby looks like it is doing just fine. There is a normal heartbeat and no evidence of miscarriage. Your blood work was reassuring, I do not see signs of overwhelming infection. 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 I am going to suggest that you go home and could had a good night's sleep. It is okay to use Tylenol for this pain. If you find that it is getting worse or your having new symptoms please feel free to return to the emergency department Prescriptions: No Action prenat.vits,drew,[id number] Tablet 1 tab PO DAILY ondansetron 4 mg tablet,disintegrating 4 mg PO Q6H PRN (Reason: nausea and vomiting) Qty: 20 2RF Referrals: Glory Wang MD [Primary Care Provider] - Visit Report Forms: Patient Portal/API
--- NOTE | 2022-07-15 01:29 | DI.US.S_ITS ---
PROCEDURE: US OB <= 14 WEEKS FETUS INDICATIONS: CRAMPING OUTSIDE/PRIOR DATING DATA: Last menstrual period (LMP): 04/21/2022. LMP-based estimated date of delivery (DOREEN): 01/26/2023. First dating scan (date and location): 06/19/2022. Estimated date of delivery (DOREEN) from first dating scan: 01/31/2023. TECHNIQUE: Real-time scanning was performed of the fetus and maternal pelvic organs, with image documentation. Endovaginal scanning was also performed to better visualize the fetus and maternal ovaries. COMPARISON: [facility], , OB <= 14 WEEKS FETUS, 06/19/2022, 12:20. FINDINGS: Single live intrauterine consistent of a gestational sac containing yolk sac and pole. [place]-rump length 5.0 cm corresponding with an 11 week 5 day gestation. heart rate 153 beats per minute. No evidence of subchorionic bleed. IMPRESSION: 1. Single live intrauterine corresponds with an 11 week 5 day gestation Note: Final report is concordant with preliminary interpretation by [facility], [facility] Approved by: Abiel Smith M.D. on 07/15/2022 at 6:31
[2022-07-15] MEDS: ACETAMINOPHEN 325 MG TABLET 975 MG PO (01:42)
[2022-07-15] MEDS: SODIUM CHLORIDE 0.9% 1,000 ML 1000 ML IV (01:43)
[2022-07-15 02:01] LABS: Add Manual Diff / Slide Review NO; Basophils Absolute Auto 100 /uL (0-100); Eosinophils Absolute Auto 300 /uL (0-450); Eosinophils Percent Auto 2.4 % (2-4); Hematocrit 35.8 % (36-46); Hemoglobin 12.1 g/dL (12.0-16.0); Lymphocytes Absolute Auto 2700 /uL (1100-4500); Lymphocytes Percent Auto 23.6 % (25-40); Mean Corpuscular HGB Conc 33.7 % (30-36); Mean Corpuscular Hemoglobin 27.8 PG (26-34); Mean Corpuscular Volume 82.5 fL (80-100); Monocytes Absolute Auto 700 /uL (0-900); Monocytes Percent Auto 6.1 % (3-14); Neutrophils Absolute Auto 7600 /uL (1500-7000); Neutrophils Percent Auto 66.9 % (50-75); Platelet Count 332 X10^3/uL (150-400); Red Blood Cell Count 4.34 X10^6/uL (4.0-5.2); Red Cell Distribution Width 14.1 % (11.6-14.8); White Blood Cell Count 11.4 X10^3/uL (4.5-11.0)
[2022-07-15 02:11] LABS: Alanine Aminotransferase 10 IU/L (<35); Albumin 3.8 g/dL (3.5-5.0); Alkaline Phosphatase 133 U/L (38-126); Aspartate Aminotransferase 14 IU/L (14-36); BUN Creatinine Ratio 9.7 (6-22); Bilirubin Total 0.4 mg/dL (0.2-1.3); Blood Urea Nitrogen 7 mg/dL (7-17); Calcium 8.4 mg/dL (8.4-10.2); Carbon Dioxide 23 mmol/L (22-32); Chloride 104 mmol/L (98-107); Estimated Glomerular Filt Rate > 60 mL/min (>60); Glucose 83 mg/dL (70-100); HEMOLYSIS < 15 (0-50); Potassium 3.6 mmol/L (3.4-5.1); Sodium 137 mmol/L (137-145); Total Protein 7.8 g/dL (6.3-8.2)
[2022-07-15 02:46] VITALS: BP 128/64; PULSE 97; RESP 16; O2SAT 96
[2022-07-15 02:52] LABS: HCG Quantitative /Beta subunit 35556 mIU/mL
== END 2022-07-15 02:47 | disposition home or self-care (01) ==
PROVIDERS: Emergency Provider Emergency Medicine; PCP Obstetrics & Gynecology
DX: O26.91 Pregnancy related conditions, unspecified, first trimester (principal); R10.2 Pelvic and perineal pain; M54.50 Low back pain, unspecified; Z3A.12 12 weeks gestation of pregnancy
CPT/HCPCS: 36415; 76801; 76817; 80053; 81003; 84702; 85025; 99284

== ENCOUNTER → 2022-07-20 10:02 | Outpatient (CLI) | payer MEDICAID, SELFPAY ==
[2022-07-20 11:13] LABS: Bilirubin Urine UA NEGATIVE (NEGATIVE); Glucose Urine UA NEGATIVE (Negative); Ketones Urine UA NEGATIVE (NEGATIVE); Leukocyte Esterase Urine UA NEGATIVE (NEGATIVE); Nitrite Urine UA NEGATIVE (Negative); Occult Blood Urine UA 2+ (Negative); Protein Urine UA TRACE (Negative); Urobilinogen Urine UA 0.2 E.U./dL (0.2)
[2022-07-20 11:22] LABS: Appearance Urine UA Slightly Cloudy; Color Urine UA Amber; pH Urine UA 6.5 (4.5-8.0)
[2022-07-20 11:23] LABS: Amorphous Sediment Urine 2+; Bacteria Urine None Seen; Culture Indicated Urine Cult Not Indicated; Mucus Urine 1+ (Negative); RBC Urine 1-5/HPF (0-5/HPF); Squamous Epithelial Cell Urine 1-5 /HPF (0-5/HPF); WBC Urine 0-1/HPF (0-5/HPF)
[2022-07-20 12:12] LABS: Add Manual Diff / Slide Review NO; Basophils Absolute Auto 0 /uL (0-100); Basophils Percent Auto 0.3 % (0-2); Eosinophils Absolute Auto 300 /uL (0-450); Eosinophils Percent Auto 3.3 % (2-4); Hemoglobin 12.2 g/dL (12.0-16.0); Lymphocytes Absolute Auto 2500 /uL (1100-4500); Lymphocytes Percent Auto 27.8 % (25-40); Mean Corpuscular HGB Conc 34.8 % (30-36); Mean Corpuscular Hemoglobin 28.5 PG (26-34); Mean Corpuscular Volume 81.9 fL (80-100); Monocytes Absolute Auto 400 /uL (0-900); Monocytes Percent Auto 4.7 % (3-14); Neutrophils Absolute Auto 5800 /uL (1500-7000); Neutrophils Percent Auto 63.9 % (50-75); Platelet Count 381 X10^3/uL (150-400); Red Blood Cell Count 4.28 X10^6/uL (4.0-5.2); Red Cell Distribution Width 13.6 % (11.6-14.8)
[2022-07-20 13:34] LABS: Hepatitis B Surface Antigen NEGATIVE s/c (NEGATIVE); Rubella Antibody IgG 17.8 IU/mL (>15)
[2022-07-20 13:53] LABS: HIV 1 & 2 Ab/Ag 4th Gen Combo NEGATIVE (NEGATIVE); Hep C Virus Ab w/Reflex Quant NEGATIVE s/c (NEGATIVE)
[2022-07-21 07:26] LABS: RPR Screen Non Reactive (Non Reactive)
[2022-07-21 09:26] LABS: Varicella IgG Antibody 776 index (Immune >165)
== END ==
PROVIDERS: Referring Provider Obstetrics & Gynecology; Visit Provider Obstetrics & Gynecology
DX: Z34.81 Encounter for supervision of other normal pregnancy, first trimester (principal)
CPT/HCPCS: 36415; 80055; 81003; 81015; 86787; 86803; 86850; 86900; 86901; 87086; 87389

== ENCOUNTER 2022-07-26 22:03 | Emergency (ER) | payer MEDICAID, SELFPAY ==
[2022-07-26 22:10] VITALS: BP 112/54; PULSE 99; RESP 18; TEMP 36.2; O2SAT 95; BMI 49.2
--- NOTE | 2022-07-26 22:14 | DI.US.S_ITS ---
PROCEDURE: US OB <= 14 WEEKS FETUS INDICATIONS: 13 weeks, left sided pain OUTSIDE/PRIOR DATING DATA: Last menstrual period (LMP): 04/21/2022. LMP-based estimated date of delivery (DOREEN): 01/26/2023. First dating scan (date and location): 06/19/2022. Estimated date of delivery (DOREEN) from first dating scan: 01/31/2023. TECHNIQUE: Real-time scanning was performed of the fetus and maternal pelvic organs, with image documentation. Endovaginal scanning was also performed to better visualize the fetus and maternal ovaries. COMPARISON: [facility], , OB <= 14 WEEKS FETUS, 06/19/2022, 12:20. formerly [facility], OB <= 14 WEEKS FETUS, 07/15/2022, 1:56. [facility], , OB <= 14 WEEKS FETUS, 07/20/2022, 10:01. FINDINGS: Embryo: There is an intrauterine redemonstrated with a pole demonstrating a crown-rump length of 7.2 cm corresponding to gestational age of 13 weeks 2 days. There is heart motion with a rate of 173 beats per minute. No discrete subchorionic hematoma. Maternal organs: The right ovary demonstrates a slightly thick-walled cystic measuring approximately 1.7 cm likely representing a corpus luteal cyst. The left ovary was not discretely visualized. The maternal left kidney demonstrates no hydronephrosis. IMPRESSION: 1. Single living intrauterine demonstrating interval growth with composite gestational age of 13 weeks 2 days. 2. Maternal left ovary not visualized. We strive to produce accurate, complete, and clear reports of imaging services. To assist us in improving patient care, this report was composed using standard report templates and voice recognition software. Therefore, it may contain abnormal punctuation, insertions and/or omissions. Occasional wrong-word or sound-alike substitutions may occur. Though we review the report and make efforts to correct it, we do recommend that the report be read carefully in proper context to recognize any text inaccuracies. Dictated by: Malik Allison M.D. on 07/27/2022 at 1:58 Approved by: Malik Allison M.D. on 07/27/2022 at 2:02
[2022-07-26 22:23] LABS: Add Manual Diff / Slide Review NO; Basophils Absolute Auto 100 /uL (0-100); Eosinophils Absolute Auto 300 /uL (0-450); Eosinophils Percent Auto 2.7 % (2-4); Hematocrit 34.2 % (36-46); Hemoglobin 11.8 g/dL (12.0-16.0); Lymphocytes Absolute Auto 3200 /uL (1100-4500); Lymphocytes Percent Auto 25.9 % (25-40); Mean Corpuscular HGB Conc 34.5 % (30-36); Mean Corpuscular Hemoglobin 28.3 PG (26-34); Mean Corpuscular Volume 82.1 fL (80-100); Monocytes Absolute Auto 600 /uL (0-900); Monocytes Percent Auto 4.6 % (3-14); Neutrophils Absolute Auto 8200 /uL (1500-7000); Neutrophils Percent Auto 65.8 % (50-75); Platelet Count 374 X10^3/uL (150-400); Red Blood Cell Count 4.17 X10^6/uL (4.0-5.2); White Blood Cell Count 12.4 X10^3/uL (4.5-11.0)
[2022-07-26 22:36] LABS: Alanine Aminotransferase 10 IU/L (<35); Albumin 3.8 g/dL (3.5-5.0); Alkaline Phosphatase 127 U/L (38-126); Aspartate Aminotransferase 20 IU/L (14-36); BUN Creatinine Ratio 9.6 (6-22); Bilirubin Total 0.3 mg/dL (0.2-1.3); Blood Urea Nitrogen 8 mg/dL (7-17); Calcium 7.9 mg/dL (8.4-10.2); Carbon Dioxide 18 mmol/L (22-32); Chloride 110 mmol/L (98-107); Estimated Glomerular Filt Rate > 60 mL/min (>60); Globulin 3.8 g/dL (1.7-4.1); Glucose 105 mg/dL (70-100); HEMOLYSIS < 15 (0-50); Potassium 3.7 mmol/L (3.4-5.1); Sodium 137 mmol/L (137-145); Total Protein 7.6 g/dL (6.3-8.2)
[2022-07-26 23:08] LABS: HCG Quantitative /Beta subunit 29532 mIU/mL
--- NOTE | 2022-07-26 23:32 | ED_ITS ---
HPI - Abdominal Pain General Chief Complaint: Abdominal Pain Stated Complaint: lt sided bad pain Time Seen by Provider: 07/26/22 22:13 Source: patient Mode of arrival: Wheelchair History of Present Illness HPI narrative: 31-year-old female former smoker at 13 weeks presents with a chief complaint of some left-sided abdominal pain with associated nausea. She states that she was at work when there were some clients that became aggressive and yelling and she came a bit upset when she was trying to separate them and started developing some left-sided abdominal pain. She denies any trauma was not kicked, punched or pushed over. She states that the pain just sort of came on. She denies any obvious provocation, palliation or radiation. She is nauseated but no more so than normal. She denies any vomiting or diarrhea. She has no vaginal bleeding or leakage of fluid. She denies dysuria, frequency or urgency. Related Data Home Medications Medication Instructions Recorded Confirmed prenat.vits,drew,[id number] 1 tab PO DAILY 04/05/20 07/20/22 Previous Rx's Medication Instructions Recorded ondansetron 4 mg disintegrating 4 mg PO Q6H PRN nausea and 06/19/22 tablet vomiting #20 tabs Allergies Allergy/AdvReac Type Severity Reaction Status Date / Time latex [LATEX] Allergy Severe Hives and Verified 07/20/22 09:43 Rash oxycodone [OXYCODONE] AdvReac Mild ITCHY Verified 07/20/22 09:43 Review of Systems Review of Systems Narrative: GENERAL: Denies chills, fatigue, malaise, fever, sweats. HEENT: Denies sinus pain, ear pain, sore throat, difficulty swallowing, dizziness. RESPIRATORY: Denies dyspnea, cough, wheezing, hemoptysis, sputum. CARDIOVASCULAR: Denies chest pain, palpitations, orthopnea, edema, GASTROINTESTINAL: See HPI : Denies dysuria, frequency, incontinence, hematuria, urinary retention. MUSCULOSKELETAL: denies weakness, joint pain, or bony pain SKIN: Denies rash, skin lesions, or other NEUROLOGIC: Denies weakness, headache, numbness, change in speech, confusion, seizures, incoordination. PSYCHIATRIC: No concerning psychosocial issues. 12 point review of systems is negative except for those stated above Patient History Medical History Anxiety as acute reaction to exceptional stress Costochondritis COVID-19 HSV-2 (herpes simplex virus 2) infection Migraine Normal spontaneous vaginal delivery (spontaneous vaginal delivery) (~2018) Surgical History History of dilatation and curettage (~2014) History of dilation and curettage (~2012) Hx of cholecystectomy (~2014) S/P dilatation and curettage (~01/01/20) S/P foot surgery, right (~2011) Family History Family/Other Stroke Myocardial infarction End stage renal failure on dialysis Grandmother Unknown whether patient has any health problems Family estrangement Grandmother Diabetes mellitus Myocardial infarction Grandfather Unknown whether patient has any health problems Father Family estrangement Unknown whether patient has any health problems Grandmother Unknown whether patient has any health problems Family estrangement Mother Rheumatoid arthritis Social History marital status: number of children: 3 household members: spouse, family (brother, parents) and children lives independently: Yes housing: house pets and animals: Yes (outside dog) education level: high school (completing HS currently) occupational status: employed current occupational exposures/hazards: Yes Previous occupational history: prior employment at the [employer] special edy needs: No seatbelt use: always water heater temp set < 120 deg: Yes working smoke detector in home: Yes fire extinguisher in home: Yes carbon monox detector in home: Yes firearms in home: No do you feel safe at home: Yes Smoking Status: Former smoker Tobacco: How many years used: 11 second hand exposure: No alcohol intake: former (pre- : rare occasions) substance use type: does not use during the past year weight has: increased > 10 lbs well-balanced diet: rarely or never daily servings fruits/ve-1 (Encouraged to apply for WIC ) caffeine: Yes (Aware of 200 mg limit) Type(s) of exercise: none Smoking Status: Former smoker alcohol intake frequency: holidays/special occasions only Substance Use Type: does not use Exam Narrative Exam Narrative: GENERAL: [31] year old patient appears stated age. Well-developed patient, in mild distress. HEAD: Atraumatic. Normocephalic. EYES: Pupils equal round and reactive. Extraocular motions intact. No scleral icterus. No injection or drainage. ENT: Nose without bleeding, purulent drainage. Throat without erythema, tonsillar hypertrophy or exudate. Airway patent. NECK: Trachea midline. Non tender CARDIOVASCULAR: Regular rate and rhythm without murmurs, gallops, or rubs. RESPIRATORY: Clear to auscultation. Breath sounds equal bilaterally. No wheezes, rales, or rhonchi. GASTROINTESTINAL: Abdomen soft, non-tender, nondistended. EXTREMITIES: No edema or joint tenderness. BACK: Nontender without deformity or crepitance. No flank tenderness. NEURO: AOx3. SKIN: No rash or erythema of visible areas Initial Vital Signs Initial Vital Signs: Vital Signs Temperature 97.1 F L 07/26/22 22:10 Pulse Rate 99 H 07/26/22 22:10 Respiratory Rate 18 07/26/22 22:10 Blood Pressure 112/54 L 07/26/22 22:10 Pulse Oximetry 95 07/26/22 22:10 Oxygen Delivery Method 07/26/22 22:10 Course Orders Ordered: ED Orders 07/26/22 22:14 US OB <= 14 weeks fetus Stat 07/26/22 22:15 Complete Blood Count AUTO DIFF Stat Comprehensive Metabolic Panel Stat HCG Quantitative /Beta subunit Stat Vital Signs Vital signs: Vital Signs - 8 hr 07/26/22 22:10 07/26/22 23:44 07/26/22 23:45 Temperature 97.1 F L Pulse Rate 99 H 80 Respiratory Rate 18 Blood Pressure 112/54 L 102/51 L 102/51 L Pulse Oximetry 95 100 Oxygen Delivery Method Room Air 07/26/22 23:45 07/27/22 00:00 07/27/22 00:00 Temperature Pulse Rate 82 81 Respiratory Rate Blood Pressure 103/55 L Pulse Oximetry 100 100 Oxygen Delivery Method 07/27/22 00:30 07/27/22 00:30 07/27/22 01:00 Temperature Pulse Rate 82 Respiratory Rate Blood Pressure 117/56 L 117/57 L Pulse Oximetry 100 Oxygen Delivery Method 07/27/22 01:00 07/27/22 01:30 07/27/22 01:30 Temperature Pulse Rate 83 81 Respiratory Rate Blood Pressure 121/61 Pulse Oximetry 99 98 Oxygen Delivery Method 07/27/22 02:32 Temperature Pulse Rate 80 Respiratory Rate 18 Blood Pressure 118/64 Pulse Oximetry 98 Oxygen Delivery Method Room Air MDM - Abdominal Pain Lab Data Result diagrams: 07/26/22 22:15 07/26/22 22:15 Labs: Lab Results 07/26/22 07/26/22 07/26/22 Range/Units 22:15 22:15 22:15 WBC 12.4 H (4.5-11.0) X10^3/uL RBC 4.17 (4.0-5.2) X10^6/uL Hgb 11.8 L (12.0-16.0) g/dL Hct 34.2 L (36-46) % MCV 82.1 (80-100) fL MCH 28.3 (26-34) PG MCHC 34.5 (30-36) % RDW 14.0 (11.6-14.8) % Plt Count 374 (150-400) X10^3/uL Neut % (Auto) 65.8 (50-75) % Lymph % (Auto) 25.9 (25-40) % [place] % (Auto) 4.6 (3-14) % Eos % (Auto) 2.7 (2-4) % Baso % (Auto) 1.0 (0-2) % Neut # (Auto) 8200 H (0651-4648) /uL Lymph # (Auto) 3200 (4490-2589) /uL [place] # (Auto) 600 (0-900) /uL Eos # (Auto) 300 (0-450) /uL Baso # (Auto) 100 (0-100) /uL Sodium 137 (137-145) mmol/L Potassium 3.7 (3.4-5.1) mmol/L Chloride 110 H (98-107) mmol/L Carbon Dioxide 18 L (22-32) mmol/L BUN 8 (7-17) mg/dL Creatinine 0.83 (0.52-1.04) mg/dL Estimated GFR > 60 (>60) mL/min BUN/Creatinine Ratio 9.6 (6-22) Glucose 105 H (70-100) mg/dL Calcium 7.9 L (8.4-10.2) mg/dL Total Bilirubin 0.3 (0.2-1.3) mg/dL AST 20 (14-36) IU/L ALT 10 (<35) IU/L Alkaline Phosphatase 127 H (38-126) U/L Total Protein 7.6 (6.3-8.2) g/dL Albumin 3.8 (3.5-5.0) g/dL Globulin 3.8 (1.7-4.1) g/dL Albumin/Globulin Ratio 1.0 (1.0-2.8) HCG, Quant 46315 mIU/mL Point of care testing: Urine Dip Bedside Urine Glucose Negative Bedside Urine Bilirubin - Negative Bedside Urine Ketone - Negative Urine Specific [place] 1.020 Bedside Urine Occult Blood + Bedside Urine pH 6.0 Bedside Urine Protein + 30 Bedside Urine Urobilinogen - Negative Bedside Urine Nitrite - Negative Bedside Urine Leukocytes - Negative Esterase Imaging Data US - OB: Radiologist's Impression: Ni Rios??31??F??1990 ? Allergy/Adv: latex, oxycodone Close Ultrasound (Signed) Malik Allison - 07/26/22 Ultrasound (Signed) Abiel Smith - 07/15/22 DI Result CC 08/10/20 Ultrasound (Signed) Jason Bustamante - 06/29/20 Pelvis Ultrasound (Signed) Jason Bustamante - 12/31/19 Pelvis Ultrasound (Signed) Jared Murguia - 12/28/19 Ultrasound (Signed) Ramesh Martínez - 12/16/19 Transvaginal Ultrasound (Signed) Asha Chavez - 11/07/18 Ultrasound (Signed) Cuate Gore - 08/25/18 Ultrasound (Signed) Bry Ash - 05/15/18 Abdomen/Pelvis CT (Signed) Gwendolyn Gamez - 05/05/18 Pelvis Ultrasound (Signed) Gwendolyn Gamez - 05/05/18 Launch?[address] [address] Ultrasound Report Signed Patient: Ni Rios MR#: [id number] : 1990 Acct:[id number] Age/Sex: 31 / F Date of Service: 07/26/22 Loc: ED Accession Number: [id number] ?? Procedure: US OB <= 14 weeks fetus Ordering Provider: Lance Boswell D.O. PROCEDURE:? US OB <= 14 WEEKS FETUS ? INDICATIONS:? 13 weeks, left sided pain ? OUTSIDE/PRIOR DATING DATA:? Last menstrual period (LMP):? 04/21/2022.? LMP-based estimated date of delivery (DOREEN):? 01/26/2023.? First dating scan (date and location):? 06/19/2022.? Estimated date of delivery (DOREEN) from first dating scan:? 01/31/2023. ? TECHNIQUE:? Real-time scanning was performed of the fetus and maternal pelvic organs, with image documentation.? Endovaginal scanning was also performed to better visualize the fetus and maternal ovaries.? ? COMPARISON:? [facility], OB <= 14 WEEKS FETUS, 06/19/2022, 12:20.? [facility] OB <= 14 WEEKS FETUS, 07/15/2022, 1:56.? [facility], OB <= 14 WEEKS FETUS, 07/20/2022, 10:01. ? FINDINGS:? ? Embryo:? There is an intrauterine redemonstrated with a pole demonstrating a crown-rump length of 7.2 cm corresponding to gestational age of 13 weeks 2 days.? There is heart motion with a rate of 173 beats per minute. No discrete subchorionic hematoma. ? Maternal organs:? The right ovary demonstrates a slightly thick-walled cystic measuring approximately 1.7 cm likely representing a corpus luteal cyst.? The left ovary was not discretely visualized.? The maternal left kidney demonstrates no hydronephrosis. ? ? IMPRESSION:? ? 1. Single living intrauterine demonstrating interval growth with composite gestational age of 13 weeks 2 days. ? 2. Maternal left ovary not visualized. ? We strive to produce accurate, complete, and clear reports of imaging services. To assist us in improving patient care, this report was composed using standard report templates and voice recognition software. Therefore, it may contain abnormal punctuation, insertions and/or omissions. Occasional wrong-word or sound-alike substitutions may occur. Though we review the report and make efforts to correct it, we do recommend that the report be read carefully in proper context to recognize any text inaccuracies. ? ? ? Dictated by: Malik Allison M.D. on 07/27/2022 at 1:58 ? ? Approved by: Malik Allison M.D. on 07/27/2022 at 2:02 ? [facility] Narrative Medical decision making narrative: Multiple etiologies for patient's symptoms considered including: [Miscarriage versus urinary tract infection versus other] Patient's symptoms improved over duration of stay with above-stated therapies. Findings and discharge diagnosis discussed with patient/family followed by verbalization of understanding Return precautions discussed with patient/family whom verbalize understanding. Discharge Plan Departure Patient Disposition: Home Clinical Impression: Left lateral abdominal pain Instructions: DI for Abdominal Pain-Adult Activity Restrictions/Additional Instructions: *You have been diagnosed with [left-sided abdominal pain. As we discussed your history and physical exam as well as labs and ultrasound are very reassuring. There is no evidence of any significant abnormal findings that would require specific medication or therapy] *What to do: *Please continue to take your regular medications as directed. [ ] New medication prescriptions sent to your pharmacy: [ ] [ ] New medication written as a paper prescription [x ] No new medications given *Please follow up with your primary care provider in 2-3 days, call for an appointment. Let them know you were seen in the Emergency Department and that we ask that you be seen in follow up. We will electronically transmit a record of today's note if your PCP is in our system *If you do not have a primary care provider please contact the [facility] Resource line at [phone]. They will ask some questions about your medical history and help get you set up with a doctor in the community. *Return to Emergency Department if you should have any new, worsening or concerning symptoms, such as [fever greater than 101 F, shaking chills, worsening pain, persistent vomiting or other bothersome symptoms] Prescriptions: No Action prenat.vits,drew,[id number] Tablet 1 tab PO DAILY ondansetron 4 mg tablet,disintegrating 4 mg PO Q6H PRN (Reason: nausea and vomiting) Qty: 20 2RF Referrals: Glory Wang MD [Primary Care Provider] - Visit Report Forms: Patient Portal/API
[2022-07-26 23:44] VITALS: BP 102/51; PULSE 80; O2SAT 100
[2022-07-26 23:45] VITALS: BP 102/51; PULSE 82; O2SAT 100
[2022-07-27] VITALS: BP 103/55; PULSE 81; O2SAT 100
[2022-07-27 00:30] VITALS: BP 117/56; PULSE 82; O2SAT 100
[2022-07-27 01:00] VITALS: BP 117/57; PULSE 83; O2SAT 99
[2022-07-27 01:30] VITALS: BP 121/61; PULSE 81; O2SAT 98
[2022-07-27 02:32] VITALS: BP 118/64; PULSE 80; RESP 18; O2SAT 98
== END 2022-07-27 02:33 | disposition home or self-care (01) ==
PROVIDERS: Emergency Provider Emergency Medicine; PCP Obstetrics & Gynecology
DX: O26.891 Other specified pregnancy related conditions, first trimester (principal); R10.9 Unspecified abdominal pain; Z3A.13 13 weeks gestation of pregnancy
CPT/HCPCS: 36415; 76801; 80053; 81003; 84702; 85025; 99284

== ENCOUNTER → 2022-08-16 14:35 | Outpatient (CLI) | payer MEDICAID, SELFPAY ==
[2022-08-20 13:51] LABS: AFP, Serum 27.9 ng/mL (.); Estriol, Free 0.83 ng/mL (.); Inhibin A, Dimeric 120.12 pg/mL (.); Inhibin A, MoM 1.09 (.); Maternal Ethnicity Other (.); Maternal Weight 286 lbs (.); Number of Fetuses No (.); OSBR Risk 1 IN 10000 (.); Results Report (.); Test Results *Screen Negative* (.); hCG, MoM 0.86 (.); hCG, Serum 21965 mIU/mL (.)
== END ==
PROVIDERS: PCP Obstetrics & Gynecology; Referring Provider Obstetrics & Gynecology; Visit Provider Obstetrics & Gynecology
DX: Z34.82 Encounter for supervision of other normal pregnancy, second trimester (principal); Z3A.16 16 weeks gestation of pregnancy
CPT/HCPCS: 36415; 82105; 82677; 84702; 86336

== ENCOUNTER 2022-09-08 03:15 | Emergency (ER) | payer MEDICAID, SELFPAY ==
[2022-09-08 03:36] VITALS: BP 119/79; PULSE 108; RESP 20; TEMP 35.9; O2SAT 100; BMI 49.6
--- NOTE | 2022-09-08 03:41 | ED_ITS ---
HPI - URI/Sore Throat General Chief Complaint: Upper Respiratory Symptoms Stated Complaint: sob/ER VISIT 09/02 Time Seen by Provider: 09/08/22 03:32 Source: patient Mode of arrival: Ambulatory History of Present Illness HPI Narrative: Patient here with cough cold congestion for the past 9 days. She is 20 weeks . Followed by OBGYN Dr. Wang. Has been doing well with . Her daughter is sick as well. Daughter was seen here 6 days ago and tested positive for RSV. Mother denies any previous lung disease. No asthma. No fever chills. Related Data Home Medications Medication Instructions Recorded Confirmed prenat.vits,drew,[id number] 1 tab PO DAILY 04/05/20 08/16/22 Previous Rx's Medication Instructions Recorded ondansetron 4 mg disintegrating 4 mg PO Q6H PRN nausea and 06/19/22 tablet vomiting #20 tabs Allergies Allergy/AdvReac Type Severity Reaction Status Date / Time latex [LATEX] Allergy Severe Hives and Verified 08/16/22 13:48 Rash oxycodone [OXYCODONE] AdvReac Mild ITCHY Verified 08/16/22 13:48 Review of Systems Review of Systems Narrative: GENERAL: Denies chills, fatigue, malaise, fever, sweats. HEENT: Denies sinus pain, ear pain, sore throat, positive congestion RESPIRATORY: Denies dyspnea, positive cough CARDIOVASCULAR: Denies chest pain, palpitations GASTROINTESTINAL: Denies nausea, vomiting, abdominal pain : Denies dysuria, frequency, hematuria MUSCULOSKELETAL: denies muscle or bony pain SKIN: Denies rash, skin lesions NEUROLOGIC: Denies weakness, numbness ROS Unobtainable: All systems reviewed & are unremarkable except as noted in HPI and below Patient History Medical History Anxiety as acute reaction to exceptional stress Costochondritis COVID-19 HSV-2 (herpes simplex virus 2) infection Migraine Normal spontaneous vaginal delivery (spontaneous vaginal delivery) (~2018) Surgical History History of dilatation and curettage (~2014) History of dilation and curettage (~2012) Hx of cholecystectomy (~2014) S/P dilatation and curettage (~01/01/20) S/P foot surgery, right (~2011) Family History Family/Other Stroke Myocardial infarction End stage renal failure on dialysis Grandmother Unknown whether patient has any health problems Family estrangement Grandmother Diabetes mellitus Myocardial infarction Grandfather Unknown whether patient has any health problems Father Family estrangement Unknown whether patient has any health problems Grandmother Unknown whether patient has any health problems Family estrangement Mother Rheumatoid arthritis Social History marital status: number of children: 3 household members: spouse, family (brother, parents) and children lives independently: Yes housing: house pets and animals: Yes (outside dog) education level: high school (completing HS currently) occupational status: employed current occupational exposures/hazards: Yes Previous occupational history: prior employment at the [employer] special edy needs: No seatbelt use: always water heater temp set < 120 deg: Yes working smoke detector in home: Yes fire extinguisher in home: Yes carbon monox detector in home: Yes firearms in home: No do you feel safe at home: Yes Smoking Status: Former smoker Tobacco: How many years used: 11 second hand exposure: No alcohol intake: former (pre- : rare occasions) substance use type: does not use during the past year weight has: increased > 10 lbs well-balanced diet: rarely or never daily servings fruits/ve-1 (Encouraged to apply for WIC ) caffeine: Yes (Aware of 200 mg limit) Type(s) of exercise: none Smoking Status: Former smoker alcohol intake frequency: holidays/special occasions only Substance Use Type: does not use Exam Narrative Exam Narrative: GENERAL: in no distress, not toxic not dyspneic HEAD: Normocephalic. EYES: Pupils equal round No scleral icterus. ENT: Mucous membranes moist. NECK: Trachea midline. CARDIOVASCULAR: Tachycardic, Regular rate and rhythm without murmurs RESPIRATORY: Clear to auscultation. Breath sounds equal bilaterally. No wheezes, rales, or rhonchi. Has dry cough on exam. Speaks full sentences. However sounds nasally congested GASTROINTESTINAL: Abdomen soft, non-tender EXTREMITIES: No gross deformities. BACK: No flank tenderness. NEURO: AOx4. SKIN: Warm and dry PSYCH: Not anxious, is cooperative Initial Vital Signs Initial Vital Signs: Vital Signs Temperature 96.7 F L 09/08/22 03:36 Pulse Rate 108 H 09/08/22 03:36 Respiratory Rate 20 09/08/22 03:36 Blood Pressure 119/79 09/08/22 03:36 Pulse Oximetry 100 09/08/22 03:36 Oxygen Delivery Method 09/08/22 03:36 Course Course Course Narrative: No new issues during course of stay Orders Ordered: ED Orders 09/08/22 03:37 Respiratory Panel (Film Array) Stat Discontinued Medications Albuterol (Albuterol 2.5 Mg/3 Ml Neb (Adult)) 2.5 mg INH NOW ONE Stop: 09/08/22 03:38 Last Admin: 09/08/22 03:51 Dose: 2.5 mg Documented By: SHEA Albuterol (Albuterol Hfa Prepack) 1 box MISC SEEINSTR ONE Stop: 09/08/22 03:59 Last Admin: 09/08/22 04:03 Dose: 1 box Reevaluation(s) Reevaluation #1: Patient feels much better after nebulizing albuterol treatment. No cough. No shortness of breath. Respiratory therapy teaching how to do albuterol inhaler. Patient states she has appointment with her OBGYN Dr. Wang next week, September 13. She has ultrasound appointment this upcoming SaturdaySeptember 10. Patient and desire discharge home, they do not want to wait for results of the respiratory panel. Their daughter is here being seen as a patient as well and they are all tired and desire discharge home Time: 04:00 Vital Signs Vital signs: Vital Signs - 8 hr 09/08/22 03:36 09/08/22 03:51 09/08/22 04:22 Temperature 96.7 F L Pulse Rate 108 H 99 H Respiratory Rate 20 18 Blood Pressure 119/79 135/77 Pulse Oximetry 100 100 97 Oxygen Delivery Method Room Air Room Air Room Air MDM - URI/Sore Throat Lab Data Labs: Lab Results 09/08/22 Range/Units 03:41 Chlamy pneumoniae PCR Not detected (Not Detect) Adenovirus (PCR) Not detected (Not Detect) B. pertussis DNA (PCR) Not detected (Not Detecte) B.parapertussis DNA PCR Not detected (Not Detecte) Coronavirus OC43 (PCR) Not detected (Not Detect) Coronavirus HKU1 (PCR) Not detected (Not Detect) Coronavirus 229E (PCR) Not detected (Not Detect) SARS-CoV-2 (PCR) Not detected (Not Detecte) Coronavirus NL63 (PCR) Not detected (Not Detect) Human Metapneumovir PCR Not detected (Not Detect) Influenza Type A (PCR) Not detected (Not Detect) Influenza Type B (PCR) Not detected (Not Detect) M. pneumoniae (PCR) Not detected (Not Detect) Parainfluenza 1 (PCR) Not detected (Not Detect) Parainfluenza 2 (PCR) Not detected (Not Detect) Parainfluenza 3 (PCR) Not detected (Not Detect) Parainfluenza 4 (PCR) Not detected (Not Detect) RSV (PCR) Detected H (Not Detect) Entero/Rhino (PCR) Not detected (Not Detect) MDM Narrative Medical decision making narrative: Appropriate for discharge home. Exam and laboratory studies otherwise reassuring. Patient responded very well to albuterol treatment. Home inhaler instructions given. Return precautions reviewed with her. She desires discharge home. Patient in no respiratory distress. Reviewed with patient and . Patient likely has RSV just like her daughter has. No blood work or imaging indicated at this time. Feeling better with breathing treatment. Return precautions reviewed with patient. Anything worsening or trouble breathing to return. Denies any abdominal cramping or vaginal bleeding Discharge Plan Departure Patient Disposition: Home Clinical Impression: Respiratory syncytial virus (RSV) infection Activity Restrictions/Additional Instructions: See family doctor next week for re-evaluation. See your OBGYN doctor as well. May use inhaler 2 puffs every 4 hours as needed for cough or for shortness of breath. Return if worse for any questions or concerns or for any trouble breathing. Prescriptions: No Action prenat.vits,drew,[id number] Tablet 1 tab PO DAILY ondansetron 4 mg tablet,disintegrating 4 mg PO Q6H PRN (Reason: nausea and vomiting) Qty: 20 2RF Referrals: Glory Wang MD [Primary Care Provider] - Stand Alone Forms: Work Release Note Visit Report Forms: Patient Portal/API
[2022-09-08 03:51] VITALS: O2SAT 100
[2022-09-08] MEDS: ALBUTEROL 2.5 MG/3 ML NEB (ADULT) INH (03:51)
[2022-09-08] MEDS: ALBUTEROL HFA PREPACK 1 BOX MISC (04:03)
[2022-09-08 04:22] VITALS: BP 135/77; PULSE 99; RESP 18; O2SAT 97
[2022-09-08 05:09] LABS: Adenovirus Not Detected (Not Detect); B. parapertussis Not Detected (Not Detecte); Bordetella pertussis Not Detected (Not Detecte); Chlamydophila pneumoniae Not Detected (Not Detect); Coronavirus 229E Not Detected (Not Detect); Coronavirus HKU1 Not Detected (Not Detect); Coronavirus NL 63 Not Detected (Not Detect); Coronavirus OC43 Not Detected (Not Detect); Human Metapneumovirus Not Detected (Not Detect); Human Rhinovirus/Enterovirus Not Detected (Not Detect); Influenza A Not Detected (Not Detect); Influenza B Not Detected (Not Detect); Mycoplasma pneumoniae Not Detected (Not Detect); Parainfluenza Virus 1 Not Detected (Not Detect); Parainfluenza Virus 2 Not Detected (Not Detect); Parainfluenza Virus 3 Not Detected (Not Detect); Parainfluenza Virus 4 Not Detected (Not Detect); Respiratory Syncytial Virus Detected (Not Detect); SARS- CoV-2 Not Detected (Not Detecte)
== END 2022-09-08 04:23 | disposition home or self-care (01) ==
PROVIDERS: Emergency Provider Emergency Medicine; PCP Obstetrics & Gynecology
DX: J06.9 Acute upper respiratory infection, unspecified (principal); B97.4 Respiratory syncytial virus as the cause of diseases classified elsewhere; Z20.822 Contact with and (suspected) exposure to COVID-19
CPT/HCPCS: 87633; 94640; 99283; J7613

== ENCOUNTER → 2022-09-10 14:13 | Outpatient (CLI) | payer MEDICAID, SELFPAY ==
--- NOTE | 2022-09-10 14:15 | DI.US.S_ITS ---
PROCEDURE: US OB >= 14 WEEKS FETUS INDICATIONS: ANATOMY OUTSIDE/PRIOR DATING DATA: Last menstrual period (LMP): 04/21/2022 LMP-based estimated date of delivery (DOREEN): 01/26/2023 First dating scan (date and location): 06/19/2022 Estimated date of delivery (DOREEN) from first dating scan: 01/31/2023. The calculations are made using the working DOREEN of 01/26/2023. TECHNIQUE: Real-time scanning was performed of the fetus, with image documentation and biometric measurements. Endovaginal scanning: Not indicated. COMPARISON: [facility], , OB >= 14 WEEKS FETUS, 08/16/2022, 14:16. FINDINGS: General: A single living intrauterine gestation is present. Presentation: Vertex Placenta: Placental position is posterior, without previa. Amniotic fluid index: 16.8 cm, normal range is 5-24 cm. Single deepest vertical pocket is 4.5 cm. heart rate: 135 beats per minute. Maternal cervical canal: 3.1 cm long. Normal lower limit is 2.5 cm. biometrics: Biparietal diameter: 4.6 cm, 19 weeks, 5 days. Head circumference: 17.5 cm, 20 weeks, 0 day. Abdominal circumference: 15.5 cm, 20 weeks, 5 days. Femur length: 3.0 cm, 19 weeks, 3 days. Clinically estimated gestational age: 19 weeks, 4 days. Composite gestational age from present scan: 20 weeks, 0 day. Estimated weight and percentile: 330 g, 74th percentile. Anatomic survey: Neuro: Ventricles are non-dilated at less than 10 mm. Cisterna magna is normal at 3-11 mm. Cerebellum is normal in size and morphology. Nuchal skin fold: Normal at less than 6 mm between 14-21 weeks gestational age. Face: Nose and lips, facial profile are not well seen due to position. Spine: No evidence for spina bifida. Heart: 4-chambered heart is present, with normal ventricular outflow tracts. Diaphragm: Diaphragm is intact. Stomach: Left-sided stomach is present. Kidneys: No hydronephrosis. Normal is less than 5 mm in 2nd trimester, less than 7 mm in 3rd trimester. Cord: 3-vessel cord has orthotopic insertion. Bladder: Normal in size. Extremities: All 4 extremities identified. IMPRESSION: 1. Single live intrauterine gestation with fetus in vertex presentation. heart rate is 135 beats per minute. Normal amount of amniotic fluid. Normal growth. Estimated weight is at 74th percentile. 2. facial profile is not well seen on this study due to position. Rest of the anatomic survey is within normal limits. We strive to produce accurate, complete, and clear reports of imaging services. To assist us in improving patient care, this report was composed using standard report templates and voice recognition software. Therefore, it may contain abnormal punctuation, insertions and/or omissions. Occasional wrong-word or sound-alike substitutions may occur. Though we review the report and make efforts to correct it, we do recommend that the report be read carefully in proper context to recognize any text inaccuracies. Dictated by: Cuate Gore M.D. on 09/10/2022 at 17:05 Approved by: Cuate Gore M.D. on 09/10/2022 at 17:08
== END ==
PROVIDERS: Referring Provider Obstetrics & Gynecology; Visit Provider Obstetrics & Gynecology
DX: Z34.82 Encounter for supervision of other normal pregnancy, second trimester (principal); Z3A.20 20 weeks gestation of pregnancy
CPT/HCPCS: 76811

== ENCOUNTER 2022-09-30 00:06 | Emergency (ER) | payer MEDICAID, SELFPAY ==
[2022-09-30 00:10] VITALS: BP 130/79; PULSE 106; RESP 20; TEMP 36.2; O2SAT 100; BMI 47.7
--- NOTE | 2022-09-30 00:29 | DI.RAD.S_ITS ---
PROCEDURE: XR KNEE RT 3V INDICATIONS: fall at work, pain TECHNIQUE: 3 views of the knee were acquired. COMPARISON: None. FINDINGS: Bones: No fractures or dislocations. No suspicious bony lesions. Soft tissues: No joint effusion. No suspicious soft tissue calcifications. IMPRESSION: No trauma found. Dictated by: Jason Bustamante M.D. on 09/30/2022 at 1:07 Approved by: Jason Bustamante M.D. on 09/30/2022 at 1:07
--- NOTE | 2022-09-30 02:11 | ED_ITS ---
HPI - Extremity Injury (Lower) General Chief Complaint: Extremity Injury, Lower Stated Complaint: fell on right knee and stomach/23 weeks Time Seen by Provider: 09/30/22 02:10 Mode of arrival: Wheelchair History of Present Illness HPI Narrative: Patient is a 31 year old female who is currently 23 weeks presenting today with right knee pain. She was at work she when out she slipped she fell and is having knee pain. She is able to ambulate. No head injury she is having some mild abdominal pain but no vaginal bleeding. She has not yet taken anything for pain. Related Data Home Medications Medication Instructions Recorded Confirmed prenat.vits,drew,yse-[id number] 1 tab PO DAILY 04/05/20 09/13/22 Previous Rx's Medication Instructions Recorded ondansetron 4 mg disintegrating 4 mg PO Q6H PRN nausea and 06/19/22 tablet vomiting #20 tabs Allergies Allergy/AdvReac Type Severity Reaction Status Date / Time latex [LATEX] Allergy Severe Hives and Verified 09/13/22 13:27 Rash oxycodone [OXYCODONE] AdvReac Mild ITCHY Verified 09/13/22 13:27 Review of Systems Review of Systems Narrative: GENERAL: Denies chills,fever HEENT: Denies throat pain RESPIRATORY: Denies dyspnea, cough, wheezing CARDIOVASCULAR: Denies chest pain, palpitations GASTROINTESTINAL: Denies nausea, vomiting MUSCULOSKELETAL: See HPI SKIN: No rash, no laceration, no pruritus NEUROLOGIC: Denies weakness, dizziness, headache, numbness 8 point review of systems is negative except for those stated above and HPI Patient History Medical History Anxiety as acute reaction to exceptional stress Costochondritis COVID-19 HSV-2 (herpes simplex virus 2) infection Migraine Normal spontaneous vaginal delivery (spontaneous vaginal delivery) (~2018) Surgical History History of dilatation and curettage (~2014) History of dilation and curettage (~2012) Hx of cholecystectomy (~2014) S/P dilatation and curettage (~01/01/20) S/P foot surgery, right (~2011) Family History Family/Other Stroke Myocardial infarction End stage renal failure on dialysis Grandmother Unknown whether patient has any health problems Family estrangement Grandmother Diabetes mellitus Myocardial infarction Grandfather Unknown whether patient has any health problems Father Family estrangement Unknown whether patient has any health problems Grandmother Unknown whether patient has any health problems Family estrangement Mother Rheumatoid arthritis Social History marital status: number of children: 3 household members: spouse, family (brother, parents) and children lives independently: Yes housing: house pets and animals: Yes (outside dog) education level: high school (completing HS currently) occupational status: employed current occupational exposures/hazards: Yes Previous occupational history: prior employment at [employer] special edy needs: No seatbelt use: always water heater temp set < 120 deg: Yes working smoke detector in home: Yes fire extinguisher in home: Yes carbon monox detector in home: Yes firearms in home: No do you feel safe at home: Yes Smoking Status: Former smoker Tobacco: How many years used: 11 second hand exposure: No alcohol intake: former (pre- : rare occasions) substance use type: does not use during the past year weight has: increased > 10 lbs well-balanced diet: rarely or never daily servings fruits/ve-1 (Encouraged to apply for WIC ) caffeine: Yes (Aware of 200 mg limit) Type(s) of exercise: none Smoking Status: Former smoker alcohol intake frequency: holidays/special occasions only Substance Use Type: does not use Exam Initial Vital Signs Initial Vital Signs: Vital Signs Temperature 97.1 F L 09/30/22 00:10 Pulse Rate 106 H 09/30/22 00:10 Respiratory Rate 20 09/30/22 00:10 Blood Pressure 130/79 09/30/22 00:10 Pulse Oximetry 100 09/30/22 00:10 Oxygen Delivery Method 09/30/22 00:10 GENERAL: Alert pleasant 31-year-old female BMI 47 HEENT: Head atraumatic,EOMI, pupils reactive, face symmetric, moist mucous membranes CARDIOVASCULAR: Regular rate and rhythm without murmurs, rubs or gallops. RESPIRATORY: Breath sounds equal bilaterally, no wheezes rales or rhonchi. ABDOMEN: Soft, nontender. Normoactive bowel sounds all 4 quadrants. No guarding or rebound. Bedside ultrasound by myself does show fetus moving around heart rate 145 EXTREMITIES: Normal range of motion, no clubbing or edema. Neurovascularly intact NEUROLOGICAL: Alert and oriented x4. SKIN: Warm, dry, no laceration, no petechiae, no rashes or lesions. Course Orders Ordered: ED Orders 09/30/22 00:29 XR knee RT 3V Stat Discontinued Medications Acetaminophen (Acetaminophen 325 Mg Tablet) 975 mg PO NOW ONE Stop: 09/30/22 02:24 Last Admin: 09/30/22 02:39 Dose: 975 mg Documented By: CTS Vital Signs Vital signs: Vital Signs - 8 hr 09/30/22 00:10 Temperature 97.1 F L Pulse Rate 106 H Respiratory Rate 20 Blood Pressure 130/79 Pulse Oximetry 100 Oxygen Delivery Method Room Air MDM - Extremity Injury (Lower) Imaging Data Extremity x-ray #1: Radiologist's Impression: KENDY Michelle [id number] XRay Report Signed Patient: Ni Rios MR#: [id number] : 1990 Acct:[id number] Age/Sex: 31 / F Date of Service: 09/30/22 Loc: ED Accession Number: [id number] ?? Procedure: XR knee RT 3V Ordering Provider: Elsa Mcgarry D.O. PROCEDURE:? XR KNEE RT 3V ? INDICATIONS:? fall at work, pain ? TECHNIQUE:? 3 views of the knee were acquired.? ? COMPARISON:? None. ? FINDINGS:? ? Bones:? No fractures or dislocations.? No suspicious bony lesions.? ? Soft tissues:? No joint effusion.? No suspicious soft tissue calcifications.? ? ? IMPRESSION:? No trauma found. ? ? Dictated by: Jason Bustamante M.D. on 09/30/2022 at 1:07 ? ? [facility] Narrative Medical decision making narrative: Patient had a ground level fall complaining of right knee pain. X-rays negative probable knee sprain. Currently 23 weeks . Bedside ultrasound shows good movement baby. heart tone 145. She is given Tylenol here in the ED. recommend crutches supportive care and follow-up. Discharge Plan Departure Patient Disposition: Home Clinical Impression: Knee sprain Instructions: DI for Knee Sprain Activity Restrictions/Additional Instructions: *You have been diagnosed with right knee sprain *What to do: At this time use crutches as needed. Elevate and ice *Continue to take medications as directed Tylenol 1000 mg every 6 hours if needed for qskw-au-clbrsnaa pain *Follow up with your primary care provider in 2-3 days or call [phone] *Return to ER if you should have decrease eat pain swelling numbness tingling w ill pain vaginal bleeding or any new, worsening or concerning symptoms Prescriptions: No Action prenat.vits,drew,jfd-hski-eciem Tablet 1 tab PO DAILY ondansetron 4 mg tablet,disintegrating 4 mg PO Q6H PRN (Reason: nausea and vomiting) Qty: 20 2RF Referrals: Glory Wang MD [Physician] - Miscellaneous,MD Moraima [Primary Care Provider] - Stand Alone Forms: Work Release Note Visit Report Forms: Patient Portal/API
[2022-09-30] MEDS: ACETAMINOPHEN 325 MG TABLET 975 MG PO (02:39)
== END 2022-09-30 02:41 | disposition home or self-care (01) ==
PROVIDERS: Emergency Provider Emergency Medicine
DX: S83.91XA Sprain of unspecified site of right knee, initial encounter (principal); R10.9 Unspecified abdominal pain; W01.0XXA Fall on same level from slipping, tripping and stumbling without subsequent striking against object, initial encounter; Z3A.23 23 weeks gestation of pregnancy
CPT/HCPCS: 73562; 99283; 99284

== ENCOUNTER → 2022-10-12 11:44 | Outpatient (CLI) | payer MEDICAID, SELFPAY ==
[2022-10-12 15:41] LABS: Urine N gonorrhoeae NOT DETECTED
[2022-10-12 16:08] LABS: Urine Chlamydia NOT DETECTED
== END ==
PROVIDERS: Visit Provider Obstetrics & Gynecology
DX: Z34.82 Encounter for supervision of other normal pregnancy, second trimester (principal); Z3A.24 24 weeks gestation of pregnancy
CPT/HCPCS: 87491; 87591

== ENCOUNTER → 2022-10-24 07:01 | Outpatient (CLI) | payer MEDICAID, OTHER, SELFPAY ==
--- NOTE | 2022-10-24 07:02 | DI.US.S_ITS ---
PROCEDURE: US OB LIMITED INDICATIONS: RE-EVALUATE PROFILE OUTSIDE/PRIOR DATING DATA: Last menstrual period (LMP): 04/21/2022 LMP-based estimated date of delivery (DOREEN): 01/26/2023 First dating scan (date and location): 06/19/2022 Estimated date of delivery (DOREEN) from first dating scan: 01/31/2023. The calculations are made using the study generated DOREEN of 01/31/2023. TECHNIQUE: Real-time scanning was performed of the fetus, with image documentation . Endovaginal scanning: Not indicated. COMPARISON: [facility], OB >= 14 WEEKS FETUS, 08/16/2022, 14:16. [facility] OB >= 14 WEEKS FETUS, 09/10/2022, 14:21. [facility], [facility], 03/19/2014, 22:22. FINDINGS: General: A single living intrauterine gestation is present. Presentation: Vertex Placenta: Placental position is posterior, without previa. Amniotic fluid index: 13.0 cm, normal range is 5-24 cm. Single deepest vertical pocket is 4.3 cm. heart rate: 125 beats per minute. Maternal cervical canal: 3.5 cm long. Normal lower limit is 2.5 cm. Delete Clinically estimated gestational age: 25 weeks, 6 days facial profile is well visualized on the current study and is within normal limits. IMPRESSION: 1. Single live intrauterine gestation with fetus in vertex presentation. heart rate is 125 beats per minute. Normal amount of amniotic fluid. 2. facial profile is seen on the current study and is within normal limits. We strive to produce accurate, complete, and clear reports of imaging services. To assist us in improving patient care, this report was composed using standard report templates and voice recognition software. Therefore, it may contain abnormal punctuation, insertions and/or omissions. Occasional wrong-word or sound-alike substitutions may occur. Though we review the report and make efforts to correct it, we do recommend that the report be read carefully in proper context to recognize any text inaccuracies. Dictated by: Cuate Gore M.D. on 10/24/2022 at 8:46 Approved by: Cuate Gore M.D. on 10/24/2022 at 8:48
== END ==
PROVIDERS: Referring Provider Physician Assistant Medical; Visit Provider Physician Assistant Medical
DX: Z36.2 Encounter for other antenatal screening follow-up (principal); Z3A.25 25 weeks gestation of pregnancy
CPT/HCPCS: 76815

== ENCOUNTER 2022-11-17 18:27 | Outpatient (CLI) | payer MEDICAID, OTHER, SELFPAY ==
[2022-11-17 19:16] LABS: Appearance Urine UA CLEAR; Bilirubin Urine UA NEGATIVE (NEGATIVE); Color Urine UA LT. YELLOW; Glucose Urine UA NEGATIVE (Negative); Ketones Urine UA NEGATIVE (NEGATIVE); Leukocyte Esterase Urine UA NEGATIVE (NEGATIVE); Nitrite Urine UA NEGATIVE (Negative); Occult Blood Urine UA TRACE-INTACT (Negative); Protein Urine UA NEGATIVE (Negative); Urobilinogen Urine UA 0.2 E.U./dL (0.2)
[2022-11-17 19:29] LABS: Bacteria Urine None Seen; RBC Urine 0-1/HPF (0-5/HPF); WBC Urine 0-1/HPF (0-5/HPF)
[2022-11-17 19:30] LABS: Culture Indicated Urine Cult Not Indicated; Squamous Epithelial Cell Urine 1-5 /HPF (0-5/HPF)
--- NOTE | 2022-11-17 19:41 | DI.US.S_ITS ---
PROCEDURE: US OB LIMITED INDICATIONS: ABDOMINAL PAIN. GROWTH AND BIOPHYSICAL PROFILE. OUTSIDE/PRIOR DATING DATA: Last menstrual period (LMP): 04/21/2022. LMP-based estimated date of delivery (DOREEN): 01/26/2023. First dating scan (date and location): 06/19/2022. Estimated date of delivery (DOREEN) from first dating scan: 01/31/2023. The calculations are made using the ultrasound DOREEN of 01/31/2023. TECHNIQUE: Real-time scanning was performed of the fetus, with image documentation and biometric measurements. Biophysical profile was also obtained. COMPARISON: [facility], OB >= 14 WEEKS FETUS, 09/10/2022, 14:21. [facility], OB >= 14 WEEKS FETUS, 08/16/2022, 14:16. [facility], OB <= 14 WEEKS FETUS, 07/26/2022, 23:55. [facility], OB <= 14 WEEKS FETUS, 07/20/2022, 10:01. [facility], OB <= 14 WEEKS FETUS, 07/15/2022, 1:56. [facility], OB <= 14 WEEKS FETUS, 06/19/2022, 12:20. [facility], OB LIMITED, 10/24/2022, 7:38. FINDINGS: General: A single live intrauterine gestation is present. Presentation: Vertex. Placenta: Placental position is posterior, without previa. Overall evaluation of the placenta is limited, secondary to the posterior location of the placenta and the depth of placenta. No findings of placental abruption are seen. Amniotic fluid index: 10.6 cm, normal range is 5-24 cm. Single deepest vertical pocket is 3.8 cm. heart rate: 150 beats per minute. Maternal cervical canal: 4.4 cm long. Normal lower limit is 2.5 cm. biometrics: Biparietal diameter: 7.5 cm equals 30 weeks 1 day Head circumference: 27.2 cm equals 29 weeks 5 days Abdominal circumference: 26.2 cm equals 30 weeks 2 days Femur length: 5.8 cm equals 30 weeks 2 days Clinically estimated gestational age: 30 weeks 0 days Composite gestational age from present scan: 30 weeks 1 day Estimated weight and percentile: 1534 g, 45th percentile Biophysical profile: Tone: 2 points. Movement: 2 points. Respiration: 2 points. Largest pocket of fluid: 2 points. The visualized anatomy is considered to be within normal limits. This study is limited by maternal body habitus. IMPRESSION: Normal biophysical profile, 8/8 points. Limited evaluation, yet without findings of placental abruption. Normal interval growth when compared to the prior ultrasound examination. We strive to produce accurate, complete, and clear reports of imaging services. To assist us in improving patient care, this report was composed using standard report templates and voice recognition software. Therefore, it may contain abnormal punctuation, insertions and/or omissions. Occasional wrong-word or sound-alike substitutions may occur. Though we review the report and make efforts to correct it, we do recommend that the report be read carefully in proper context to recognize any text inaccuracies. Dictated by: Stevie Pack M.D. on 11/17/2022 at 20:12 Approved by: Stevie Pack M.D. on 11/17/2022 at 20:16
[2022-11-17 21:08] VITALS: BP 117/71; PULSE 85; RESP 18
== END 2022-11-17 21:00 | disposition home or self-care (01) ==
LOC: LABOR 18:33 → OB 11-19 10:37
PROVIDERS: Referring Provider Obstetrics & Gynecology; Visit Provider Obstetrics & Gynecology
DX: O60.03 Preterm labor without delivery, third trimester (principal); Z3A.30 30 weeks gestation of pregnancy
CPT/HCPCS: 59025; 59050; 76815; 76819; 81001; G0378; G0379

== ENCOUNTER 2022-11-19 16:32 | Outpatient (CLI) | payer MEDICAID, OTHER, SELFPAY | END 2022-11-19 17:29 | disposition home or self-care (01) | LOC: LABOR 16:39 → OB 11-23 13:50 | PROVIDERS: Referring Provider Obstetrics & Gynecology; Visit Provider Obstetrics & Gynecology | DX: O46.93 Antepartum hemorrhage, unspecified, third trimester (principal); O99.333 Smoking (tobacco) complicating pregnancy, third trimester; F17.210 Nicotine dependence, cigarettes, uncomplicated; O99.213 Obesity complicating pregnancy, third trimester; Z3A.30 30 weeks gestation of pregnancy | CPT/HCPCS: 59025; G0378; G0379 ==

== ENCOUNTER → 2022-12-05 15:18 | Outpatient (CLI) | payer MEDICAID, OTHER, SELFPAY ==
[2022-12-05 17:41] LABS: Hematocrit 31.6 % (36-46); Hemoglobin 10.6 g/dL (12.0-16.0)
[2022-12-05 18:24] LABS: GTT (PREG) 1 Hour PP 50gm Dose 82 mg/dL (76-139)
== END ==
PROVIDERS: Referring Provider Obstetrics & Gynecology; Visit Provider Obstetrics & Gynecology
DX: Z34.82 Encounter for supervision of other normal pregnancy, second trimester (principal); Z3A.26 26 weeks gestation of pregnancy
CPT/HCPCS: 36415; 82950; 85014; 85018

== ENCOUNTER 2022-12-30 10:24 | Observation (INO) | payer MEDICAID, OTHER, SELFPAY ==
[2022-12-30 11:46] VITALS: BP 132/82
[2022-12-30] MEDS: MORPHINE 10 MG/ML INJ IM (12:08)
[2022-12-30] MEDS: hydrOXYzine 50 MG/ML INJ IM (12:09)
--- NOTE | 2022-12-30 12:22 | PM.OBTRLD ---
Visit Information Visit Information Date of evaluation: 12/30/22 Primary OB Provider: Glory Wang On-call OB Provider: Vicente Guerrier Reason for Evaluation: Yes rule out labor Comments/Additional reasons for admission: Patient presents with new onset of severe vaginal pressure. Denies any arrhythmic contractions. She is 7 para 3 with morbid obesity Vital Signs Vital Signs: Vital Signs - 8 hr 12/30/22 11:46 Blood Pressure 132/82 PFSH Medical History Anxiety as acute reaction to exceptional stress Costochondritis COVID-19 HSV-2 (herpes simplex virus 2) infection Migraine Normal spontaneous vaginal delivery (spontaneous vaginal delivery) (~2018) Surgical History History of dilatation and curettage (~2014) History of dilation and curettage (~2012) Hx of cholecystectomy (~2014) S/P dilatation and curettage (~01/01/20) S/P foot surgery, right (~2011) Family History Family/Other Stroke Myocardial infarction End stage renal failure on dialysis Grandmother Unknown whether patient has any health problems Family estrangement Grandmother Diabetes mellitus Myocardial infarction Grandfather Unknown whether patient has any health problems Father Family estrangement Unknown whether patient has any health problems Grandmother Unknown whether patient has any health problems Family estrangement Mother Rheumatoid arthritis Social History marital status: number of children: 3 household members: spouse, family (brother, parents) and children lives independently: Yes housing: house pets and animals: Yes (outside dog) education level: high school (completing HS currently) occupational status: employed current occupational exposures/hazards: Yes Previous occupational history: prior employment at the [employer] special edy needs: No seatbelt use: always water heater temp set < 120 deg: Yes working smoke detector in home: Yes fire extinguisher in home: Yes carbon monox detector in home: Yes firearms in home: No do you feel safe at home: Yes Smoking Status: Unknown if ever smoked Tobacco: How many years used: 11 second hand exposure: No alcohol intake: former (pre- : rare occasions) substance use type: does not use during the past year weight has: increased > 10 lbs well-balanced diet: rarely or never daily servings fruits/ve-1 (Encouraged to apply for WIC ) caffeine: Yes (Aware of 200 mg limit) Type(s) of exercise: none Exam Vital Signs (past 8 hours): - 12/30/22 11:46 Blood Pressure 132/82 Const General: cooperative Nutritional Appearance: obese morbidly obese Orientation: oriented x3 Other: Exam per RN shows cervix is long closed and thick Psych Mood: anxious mood Affect: anxious affect Evaluation Evaluation Baseline heart rate: 140 Variability: Average (6-10) Cervical dilation (cm): 1 Cervical effacement (%): 0 station: -3 Comments: Exam per RN Diagnosis, Plan/Disposition Final Diagnosis (1) Obesity affecting : Status: Acute (2) Morbid obesity: Status: Acute (3) Third trimester at less than 36 weeks: Status: Acute Plan/Disposition Plan: Patient given intramuscular morphine and Phenergan, which greatly ring lacks the patient OB Disposition: home (Patient will go home after an hour of observation from the narcotic injection. She lives relatively close hospital and told to return if she has definite contractions 10-,1/2 an hour)
[2022-12-30 12:28] LABS: Appearance Urine UA CLEAR; Bilirubin Urine UA NEGATIVE (NEGATIVE); Color Urine UA YELLOW; Glucose Urine UA NEGATIVE (Negative); Ketones Urine UA NEGATIVE (NEGATIVE); Leukocyte Esterase Urine UA NEGATIVE (NEGATIVE); Nitrite Urine UA NEGATIVE (Negative); Occult Blood Urine UA 1+ (Negative); Protein Urine UA NEGATIVE (Negative); Specific Gravity Urine UA <=1.005 (1.000-1.035); Urobilinogen Urine UA 0.2 E.U./dL (0.2); pH Urine UA 6.5 (4.5-8.0)
[2022-12-30 12:33] LABS: RBC Urine 0-1/HPF (0-5/HPF)
[2022-12-30 12:34] LABS: Amorphous Sediment Urine 1+; Bacteria Urine None Seen; Culture Indicated Urine Cult Not Indicated; Squamous Epithelial Cell Urine 0-1 /HPF (0-5/HPF); WBC Urine None Seen (0-5/HPF)
--- NOTE | 2022-12-30 14:25 | PM.OBTRLD ---
Visit Information Visit Information Date of evaluation: 12/30/22 Primary OB Provider: Glory Wang On-call OB Provider: Vicente Guerrier Reason for Evaluation: Yes pre-term labor Comments/Additional reasons for admission: 7 para 3 estimated date of confinement January 26 now 36 weeks presented having new onset of extreme vaginal pain this morning Vital Signs Vital Signs: Vital Signs - 8 hr 12/30/22 11:46 Blood Pressure 132/82 PFSH Medical History Anxiety as acute reaction to exceptional stress Costochondritis COVID-19 HSV-2 (herpes simplex virus 2) infection Migraine Normal spontaneous vaginal delivery (spontaneous vaginal delivery) (~2018) Surgical History History of dilatation and curettage (~2014) History of dilation and curettage (~2012) Hx of cholecystectomy (~2014) S/P dilatation and curettage (~01/01/20) S/P foot surgery, right (~2011) Family History Family/Other Stroke Myocardial infarction End stage renal failure on dialysis Grandmother Unknown whether patient has any health problems Family estrangement Grandmother Diabetes mellitus Myocardial infarction Grandfather Unknown whether patient has any health problems Father Family estrangement Unknown whether patient has any health problems Grandmother Unknown whether patient has any health problems Family estrangement Mother Rheumatoid arthritis Social History marital status: number of children: 3 household members: spouse, family (brother, parents) and children lives independently: Yes housing: house pets and animals: Yes (outside dog) education level: high school (completing HS currently) occupational status: employed current occupational exposures/hazards: Yes Previous occupational history: prior employment at the [employer] special edy needs: No seatbelt use: always water heater temp set < 120 deg: Yes working smoke detector in home: Yes fire extinguisher in home: Yes carbon monox detector in home: Yes firearms in home: No do you feel safe at home: Yes Smoking Status: Unknown if ever smoked Tobacco: How many years used: 11 second hand exposure: No alcohol intake: former (pre- : rare occasions) substance use type: does not use during the past year weight has: increased > 10 lbs well-balanced diet: rarely or never daily servings fruits/ve-1 (Encouraged to apply for WIC ) caffeine: Yes (Aware of 200 mg limit) Type(s) of exercise: none Exam Vital Signs (past 8 hours): - 12/30/22 11:46 Blood Pressure 132/82 Objective Labs Labs: Laboratory Results - last 24 hr 12/30/22 12:10 Urine Color Yellow Urine Appearance Clear Urine pH 6.5 Ur Specific [place] <=1.005 Urine Protein Negative Urine Glucose (UA) Negative Urine Ketones Negative Urine Occult Blood 1+ H Urine Nitrate Negative Urine Bilirubin Negative Urine Urobilinogen 0.2 Ur Leukocyte Esterase Negative Urine RBC 0-1/hpf Urine WBC None seen Ur Squamous Epith Cells 0-1 /hpf Amorphous Sediment 1+ Urine Bacteria None seen Ur Culture Indicated? Cult not indicated Evaluation Evaluation Baseline heart rate: 156 Comments: Patient was evaluated her strip looked fine she had a negative urinalysis she was extremely anxious she was treated with intramuscular morphine and Phenergan which calmed her down and she slept. The monitor strip was fine she had no detectable contractions. Due to morbid obesity the toco had to be manually held on her abdomen Her cervix is 1.5 cm 50% effaced soft midposition and-2 station At time of discharge patient was not having any contractions her pain was remarkably reduced patient was instructed to return if she had at least 10 contractions in a 30 minute period of time and keep her next regular clinic appointment Diagnosis, Plan/Disposition Final Diagnosis (1) Obesity affecting : Status: Acute (2) Morbid obesity: Status: Acute (3) Third trimester at less than 36 weeks: Status: Acute Plan/Disposition OB Disposition: home Anxiety Panic attacks: No Generalized anxiety: Yes Generalized anxiety: easily fatigued and irritability Acute stress disorder: Yes
== END 2022-12-30 14:30 | disposition home or self-care (01) ==
PROVIDERS: Admitting Provider Obstetrics & Gynecology; Referring Provider Obstetrics & Gynecology; Visit Provider Obstetrics & Gynecology
DX: O26.893 Other specified pregnancy related conditions, third trimester (principal); R10.2 Pelvic and perineal pain; O99.213 Obesity complicating pregnancy, third trimester; E66.01 Morbid (severe) obesity due to excess calories; Z3A.36 36 weeks gestation of pregnancy
CPT/HCPCS: 59025; 59050; 81001; 96372; G0378; G0379; J2270; J3410

== ENCOUNTER → 2023-01-03 13:14 | Outpatient (CLI) | payer MEDICAID, OTHER, SELFPAY ==
[2023-01-04 13:56] LABS: Strep Grp B PCR NEG for Grp B Strep
== END ==
PROVIDERS: Visit Provider Physician Assistant Medical
DX: Z34.83 Encounter for supervision of other normal pregnancy, third trimester (principal); Z3A.36 36 weeks gestation of pregnancy
CPT/HCPCS: 87653

== ENCOUNTER 2023-01-03 14:09 | Outpatient (CLI) | payer MEDICAID, OTHER, SELFPAY | END 2023-01-03 16:59 | disposition home or self-care (01) | LOC: LABOR 14:22 → OB 01-07 08:21 | PROVIDERS: Referring Provider Obstetrics & Gynecology; Visit Provider Obstetrics & Gynecology | DX: O47.03 False labor before 37 completed weeks of gestation, third trimester (principal); Z3A.36 36 weeks gestation of pregnancy; Z34.83 Encounter for supervision of other normal pregnancy, third trimester | CPT/HCPCS: 59025; 87653; G0378; G0379 ==

== ENCOUNTER 2023-01-24 11:59 | Outpatient (CLI) | payer MEDICAID, OTHER, SELFPAY ==
[2023-01-24 13:14] LABS: Add Manual Diff / Slide Review NO; Basophils Absolute Auto 100 /uL (0-100); Basophils Percent Auto 0.7 % (0-2); Eosinophils Absolute Auto 400 /uL (0-450); Eosinophils Percent Auto 2.6 % (2-4); Hematocrit 34.9 % (36-46); Hemoglobin 11.5 g/dL (12.0-16.0); Lymphocytes Absolute Auto 1900 /uL (1100-4500); Lymphocytes Percent Auto 13.3 % (25-40); Mean Corpuscular HGB Conc 32.9 % (30-36); Mean Corpuscular Hemoglobin 28.3 PG (26-34); Mean Corpuscular Volume 86.3 fL (80-100); Monocytes Absolute Auto 800 /uL (0-900); Monocytes Percent Auto 5.4 % (3-14); Neutrophils Absolute Auto 11200 /uL (1500-7000); Platelet Count 344 X10^3/uL (150-400); Red Blood Cell Count 4.05 X10^6/uL (4.0-5.2); Red Cell Distribution Width 18.6 % (11.6-14.8); White Blood Cell Count 14.4 X10^3/uL (4.5-11.0)
[2023-01-24 13:41] LABS: Aspartate Aminotransferase 19 IU/L (14-36); BUN Creatinine Ratio 10.5 (6-22); Blood Urea Nitrogen 8 mg/dL (7-17); Estimated Glomerular Filt Rate > 60 mL/min (>60); Uric Acid 3.6 mg/dL (2.5-6.2)
[2023-01-24 15:18] LABS: Creatinine Urine Random 141.8 mg/dL; Protein (Total) Urine Random 33 mg/dL (0-12); Protein Creatinine Ratio Urine 0.23 GRAM/24H
== END 2023-01-24 14:07 | disposition home or self-care (01) ==
LOC: LABOR 12:22 → OB 16:53
PROVIDERS: Specialist; Referring Provider Obstetrics & Gynecology; Visit Provider Obstetrics & Gynecology
DX: O16.3 Unspecified maternal hypertension, third trimester (principal); O47.1 False labor at or after 37 completed weeks of gestation; Z3A.39 39 weeks gestation of pregnancy
CPT/HCPCS: 36415; 59025; 82570; 84156; 84450; 84550; 85025; G0378; G0379

== ENCOUNTER 2023-01-25 08:43 | Inpatient (IN) | payer MEDICAID, OTHER, SELFPAY ==
[2023-01-25] MEDS: LACTATED RINGERS 1,000 ML 100 ML IV ×2 (11:15→13:31)
[2023-01-25 11:41] LABS: Add Manual Diff / Slide Review NO; Basophils Absolute Auto 100 /uL (0-100); Basophils Percent Auto 0.6 % (0-2); Eosinophils Absolute Auto 600 /uL (0-450); Eosinophils Percent Auto 3.6 % (2-4); Hematocrit 36.8 % (36-46); Lymphocytes Absolute Auto 2000 /uL (1100-4500); Lymphocytes Percent Auto 12.6 % (25-40); Mean Corpuscular HGB Conc 32.5 % (30-36); Mean Corpuscular Hemoglobin 28.7 PG (26-34); Mean Corpuscular Volume 88.1 fL (80-100); Monocytes Absolute Auto 700 /uL (0-900); Monocytes Percent Auto 4.6 % (3-14); Neutrophils Absolute Auto 12800 /uL (1500-7000); Neutrophils Percent Auto 78.6 % (50-75); Platelet Count 342 X10^3/uL (150-400); Red Blood Cell Count 4.18 X10^6/uL (4.0-5.2); Red Cell Distribution Width 19.3 % (11.6-14.8); White Blood Cell Count 16.2 X10^3/uL (4.5-11.0)
[2023-01-25] MEDS: FENT 2MCG/ML BUPIV 0.125% EPI 200 MCG/100 ML PLAST..BAG 6 MCG EPIDURAL (12:05)
--- NOTE | 2023-01-25 13:16 | P.HPOB_ITS ---
OB HPI Date/Time Date of admission: 01/25/23 Date Patient Seen: 01/25/23 Time Patient Seen: 12:20 History of Present Condition Chief complaint: Labor : 7 Para: 4 Estimated Date of Delivery: 01/26/23 Estimated Gestational Age (weeks): 39 Narrative: Ni Riso is a 32 year old female admitted in active labor History of Present care: good care, initiated at week # (8), number of visits (12) and pounds weight gain (10) Dating criteria: LMP confirmed by 1st trimester US Ultrasounds: normal mid trimester US Obstetrical complications: none Medical complications: none Preadmission Labs Blood type: O (+) positive -: Antibody screen: negative, GBS status: negative, HBsAG: negative, HIV: negative, HSV 1: negative, HSV 2: positive and RPR/VDLR: negative -: Chlamydia screen: not detected and Gonorrhea screen: not detected -: Rubella: immune and Varicella: immune HCAB: negative Quad screen: Normal 1 hr GTT: 82 Prior (ies) History: Del. DateGA/WeeksLabor LgthBirth WtSexRouteOutcomeAnesthesiaPlace DelvBreastfeedPreg CompName 03/30/13 10 spontaneous [facility] [place] spontaneous 08/20/14 39 8 7 lb 9 oz Femalevaginallive - full termepiduralIH Dr Hernandez 1 week : unsuccessfulotherSeraphine 10/28/14 8 spontaneous [facility] spontaneous 12/31/18 38.4 36 7 lb 6 oz Malevaginallive - full termepiduralIH Dr Evangelista X 1 weeknoneTrevor 12/28/19 8 spontaneous [place] spontaneous 11/07/20 39.2 7 6 lb 11 oz Femalevaginallive - full term IHAttemptednoneArlene Evaluation Evaluation Baseline heart rate: 130 Variability: Moderate (11-25) monitor accelerations: Present Monitor Decelerations: Absent Contraction Frequency (minutes): 5 Uterine Contraction Intensity: Strong/Firm Category of Tracing: Reactive Status: Category l Dilation (cm): 5 Effacement (%): 90 station: -1 [facility] Medical History Anxiety as acute reaction to exceptional stress Costochondritis COVID-19 HSV-2 (herpes simplex virus 2) infection Migraine Normal spontaneous vaginal delivery (spontaneous vaginal delivery) (~2018) Surgical History History of dilatation and curettage (~2014) History of dilation and curettage (~2012) Hx of cholecystectomy (~2014) S/P dilatation and curettage (~01/01/20) S/P foot surgery, right (~2011) Family History Family/Other Stroke Myocardial infarction End stage renal failure on dialysis Grandmother Unknown whether patient has any health problems Family estrangement Grandmother Diabetes mellitus Myocardial infarction Grandfather Unknown whether patient has any health problems Father Family estrangement Unknown whether patient has any health problems Grandmother Unknown whether patient has any health problems Family estrangement Mother Rheumatoid arthritis Social History marital status: number of children: 3 household members: spouse, family (brother, parents) and children lives independently: Yes housing: house pets and animals: Yes (outside dog) education level: high school (completing HS currently) occupational status: employed current occupational exposures/hazards: Yes Previous occupational history: prior employment at the [employer] special edy needs: No seatbelt use: always water heater temp set < 120 deg: Yes working smoke detector in home: Yes fire extinguisher in home: Yes carbon monox detector in home: Yes firearms in home: No do you feel safe at home: Yes Smoking Status: Unknown if ever smoked Tobacco: How many years used: 11 second hand exposure: No alcohol intake: former (pre- : rare occasions) substance use type: does not use during the past year weight has: increased > 10 lbs well-balanced diet: rarely or never daily servings fruits/ve-1 (Encouraged to apply for WIC ) caffeine: Yes (Aware of 200 mg limit) Type(s) of exercise: none Meds Home Medications and Allergies Home Medications Medication Instructions Recorded Confirmed Type prenat.vits,drew,cwa-rxpw-bdxno 1 tab PO DAILY 04/05/20 01/24/23 History ondansetron 4 mg disintegrating 4 mg PO Q6H PRN nausea and 06/19/22 01/24/23 Rx tablet vomiting #20 tabs ferrous sulfate 325 mg (65 mg 325 mg PO DAILY #30 tabs 12/20/22 01/24/23 Rx iron) tablet valacyclovir 500 mg tablet 500 mg PO BID #60 tabs 12/20/22 01/24/23 Rx (Valtrex) Allergies Allergy/AdvReac Type Severity Reaction Status Date / Time latex [LATEX] Allergy Severe Hives and Verified 01/24/23 11:28 Rash oxycodone [OXYCODONE] AdvReac Mild ITCHY Verified 01/24/23 11:28 Review of Systems Review of Systems Narrative: Patient denies leakage of fluid. No headaches, scotomata, epigastric pain. Good movement. Patient is having increasing contractions. OB Exam Vital signs Blood Pressure: 133/76 Pulse Rate: 89 Temperature: 36.4 F Narrative Exam Narrative: HEENT exam within normal limits. Lungs are clear to auscultation percussion. Heart is regular rate and rhythm no S3-S4 murmurs. No thyromegaly. Abdomen is gravid. Fetus is vertex. Extremities with trace edema and nontender. Objective Labs 01/25/23 11:15 Labs: Laboratory Results - last 24 hr 01/25/23 01/25/23 11:15 11:15 WBC 16.2 H RBC 4.18 Hgb 12.0 Hct 36.8 MCV 88.1 MCH 28.7 MCHC 32.5 RDW 19.3 H Plt Count 342 Neut % (Auto) 78.6 H Lymph % (Auto) 12.6 L [place] % (Auto) 4.6 Eos % (Auto) 3.6 Baso % (Auto) 0.6 Neut # (Auto) 12225 H Lymph # (Auto) 2000 [place] # (Auto) 700 Eos # (Auto) 600 H Baso # (Auto) 100 Blood Type O Positive Antibody Screen Negative Assessment and Plan Assessment and Plan Assessment and Plan narrative: 39 week 6 day gestation in active labor. Patient received an epidural catheter for pain control. She was AROM for clear fluid. Anticipate vaginal delivery. Although the patient would like to have a tubal ligation due to unavailability of or suite time this will likely need to be delayed until 6 weeks .
[2023-01-25 13:23] VITALS: BP 133/76; PULSE 89; TEMP 2.4; TEMP 36.4
[2023-01-25] MEDS: OXYTOCIN 10 UNIT/ML VIAL IM (14:45)
--- NOTE | 2023-01-25 14:48 | PM.OBPRVD ---
Labor & Delivery Delivery date: 01/25/23 Intrapartal Events: None Cervical ripening method: none Induction method: none Delivery monitor: external FHT and external uterine Route of delivery: L&D Laceration Description: None Estimated blood loss (mL): 200 Anesthesia Type: Epidural [place] Baby Becky Anne: Infant gender: Female Presentation: vertex Position: Right Occiput Anterior Placenta delivery description: Spontaneous Cord Vessel Description: 3 Vessels and Nuchal Cord score (1 min): 8 score (5 min): 9 weight: 6 lb 13 oz Narrative: Patient arrived on Labor and delivery in active labor. She received an epidural catheter for pain control. heart tones category 1 to category 2 throughout labor. The patient delivered spontaneously, over an intact perineum and the viable female infant was placed on the maternal abdomen. After the cord stopped pulsating the cord was clamped, cut, and cord bloods obtained. Placenta delivered spontaneously, intact, with 3 vessels. Estimated blood loss 200 cc. Both infant and mother doing well. Routine care. 1: gender: Female Plan for aftercare: Routine care
[2023-01-25] MEDS: IBUPROFEN 600 MG TABLET PO ×2 (15:53→22:35)
[2023-01-25] MEDS: ACETAMINOPHEN 325 MG TABLET 650 MG PO (22:35)
[2023-01-26] MEDS: ACETAMINOPHEN 325 MG TABLET 650 MG PO ×2 (04:34→10:43)
[2023-01-26] MEDS: IBUPROFEN 600 MG TABLET PO (04:35)
[2023-01-26 06:33] LABS: Add Manual Diff / Slide Review NO; Basophils Absolute Auto 100 /uL (0-100); Basophils Percent Auto 0.5 % (0-2); Eosinophils Absolute Auto 500 /uL (0-450); Eosinophils Percent Auto 4.1 % (2-4); Hematocrit 29.6 % (36-46); Hemoglobin 9.9 g/dL (12.0-16.0); Lymphocytes Absolute Auto 2700 /uL (1100-4500); Mean Corpuscular HGB Conc 33.3 % (30-36); Mean Corpuscular Hemoglobin 28.7 PG (26-34); Mean Corpuscular Volume 86.2 fL (80-100); Monocytes Absolute Auto 800 /uL (0-900); Neutrophils Absolute Auto 8600 /uL (1500-7000); Neutrophils Percent Auto 68.4 % (50-75); Platelet Count 286 X10^3/uL (150-400); Red Blood Cell Count 3.44 X10^6/uL (4.0-5.2); White Blood Cell Count 12.6 X10^3/uL (4.5-11.0)
--- NOTE | 2023-01-26 08:17 | PM.OBDS.1 ---
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 Voiding, ambulating and bottle feeding independently. Tolerating a general diet. Significant cramping pain is moderately controlled with PO medication. Vaginal bleeding is decreasing to light, without clots. Feeling ready for discharge t abrahame today. Peripartum Data Delivery Method: Natural Vaginal Laceration Description: None Episiotomy description: None Procedures: O80 complications: none 1: Gender: Female Disposition of : home Discharge Diagnosis (1) Vaginal delivery: Status: Acute Problem Details: Routine course Status at Discharge Cognitive/behavioral status at discharge: oriented and calm Functional status at discharge: independent ambulation Overall status at discharge: patient is progressing back to baseline Time Spent with Patient Time attestation: Total time spent providing and/or coordinating discharge services: Time spent: Less than 30 minutes Objective Labs 01/26/23 06:25 Labs: Laboratory Results - last 24 hr 01/25/23 01/25/23 01/26/23 11:15 11:15 06:25 WBC 16.2 H 12.6 H RBC 4.18 3.44 L Hgb 12.0 9.9 L Hct 36.8 29.6 L MCV 88.1 86.2 MCH 28.7 28.7 MCHC 32.5 33.3 RDW 19.3 H 19.0 H Plt Count 342 286 Neut % (Auto) 78.6 H 68.4 Lymph % (Auto) 12.[address] [place] % (Auto) 4.6 6.0 Eos % (Auto) 3.6 4.1 H Baso % (Auto) 0.6 0.5 Neut # (Auto) 61270 H 8600 H Lymph # (Auto) [address] [place] # (Auto) 700 800 Eos # (Auto) 600 H 500 H Baso # (Auto) 100 100 Blood Type O Positive Antibody Screen Negative Exam Vital Signs (past 8 hours): BP 106/66mmHg, HR 85bpm, RR 18/min, T 98.1F Oral, SpO2 100% on RA Other: Fundus midline and firm @ u-1, lochia scant, no clots. Perineum intact. Discharge Plan Discharge Plan Patient Disposition: Home Discharge orders & Medications Prescriptions: New acetaminophen 325 mg Tablet 650 mg PO Q6HR PRN (Reason: Pain, Mild (1-3)) 14 Days Qty: 60 0RF ibuprofen 600 mg Tablet 600 mg PO Q6HR PRN (Reason: Pain, Mild (1-3)) 14 Days Qty: 60 0RF Continued prenat.vits,drew,ivt-uieq-osgsw Tablet 1 tab PO DAILY Discontinued ferrous sulfate 325 mg (65 mg iron) tablet 325 mg PO DAILY Qty: 30 1RF valacyclovir [Valtrex] 500 mg tablet 500 mg PO BID Qty: 60 1RF ondansetron 4 mg tablet,disintegrating 4 mg PO Q6H PRN (Reason: nausea and vomiting) Qty: 20 2RF Follow up/Referrals: Glory Wang MD [Physician] - (Call on Saturday to schedule a 6 week follow-up appointment) Diet/Activity/Treatments Diet: Diet as Tolerated and Regular Activity: no driving x 2 weeks. no heavy lifting x4 weeks. pelvic rest x6 weeks. Skin/Wound/Dressing Care Report to your healthcare provider any signs of infection, such as:: chills, fever, increased pain, unusual drainage and unusual redness Visit Report/Discharge Packet Instructions: DI for Depression Stand Alone Forms: Patient Portal/API, Stroke Signs & Symptoms Discharge Data Attending Provider: Glory Wang Admit Date/Time: 01/25/23 08:43
[2023-01-26] MEDS: PRENATAL VIT,CALC/IRON/FOLIC 1 TABLET 1 TAB PO (09:04)
[2023-01-26] MEDS: FERROUS SULFATE 325 MG TABLET PO (09:04)
[2023-01-26] MEDS: KETOROLAC 30 MG/ML VIAL IV (10:42)
[2023-01-26 12:14] VITALS: BP 109/65; PULSE 78; RESP 16; TEMP 2.4; TEMP 36.4
[2023-01-26] MEDS: MEASLES,MUMPS,RUBELLA VACC/PF 0.5 ML VIAL SUBCUT (13:03)
== END 2023-01-26 14:23 | disposition home or self-care (01) | DRG 806 ==
PROVIDERS: Obstetrics & Gynecology; Specialist; Admitting Provider Obstetrics & Gynecology; Referring Provider Obstetrics & Gynecology; Visit Provider Obstetrics & Gynecology
DX: O76 Abnormality in fetal heart rate and rhythm complicating labor and delivery (principal); O16.3 Unspecified maternal hypertension, third trimester; Z37.0 Single live birth; O98.52 Other viral diseases complicating childbirth; O47.1 False labor at or after 37 completed weeks of gestation; Z3A.39 39 weeks gestation of pregnancy; B00.9 Herpesviral infection, unspecified
CPT/HCPCS: 36415; 59025; 59050; 59409; 82570; 84156; 84450; 84550; 85025; 86850; 86900; 86901; G0378; G0379; J1885; J2590

== ENCOUNTER 2023-04-05 00:11 | Emergency (ER) | payer MEDICAID, OTHER, SELFPAY ==
[2023-04-05 00:22] VITALS: BP 124/75; PULSE 96; RESP 18; TEMP 36.3; O2SAT 100; BMI 47.9
--- NOTE | 2023-04-05 00:28 | DI.RAD.S_ITS ---
PROCEDURE: XR ANKLE LT MIN 3V INDICATIONS: injury TECHNIQUE: 3 views of the ankle were acquired. COMPARISON: [facility], CR, XR FOOT RT MIN 3V, 04/05/2023, 0:34. [facility], CR, ANKLE 3 VIEWS LEFT, 03/30/2016, 3:36. FINDINGS: Bones: There is a mildly displaced fracture of the lateral malleolus inferiorly. Ankle mortise is normally aligned. No suspicious bony lesions. Soft tissues: No tibiotalar joint effusion. There is mild periarticular soft tissue swelling. IMPRESSION: 1. Mildly displaced fracture of the lateral malleolus. Dictated by: Malik Allison M.D. on 04/05/2023 at 1:01 Approved by: Malik Allison M.D. on 04/05/2023 at 1:03
--- NOTE | 2023-04-05 00:30 | DI.RAD.S_ITS ---
PROCEDURE: XR FOOT RT MIN 3V INDICATIONS: injury TECHNIQUE: 3 views of the foot were acquired. COMPARISON: [facility], CR, XR ANKLE LT MIN 3V, 04/05/2023, 0:34. [facility], CR, FOOT 3V LEFT, 03/30/2016, 3:36. FINDINGS: Bones: There is a mildly displaced fracture of the lateral malleolus. Deformity of the 1st distal phalanx suggest sequelae of prior trauma. No suspicious bony lesions. Soft tissues: No suspicious soft tissue calcifications. IMPRESSION: 1. Mildly displaced fracture of the lateral malleolus. Recommend correlation with concurrent study of the ankle. 2. No definite acute fracture in the foot. 3. Deformity of the 1st distal phalanx suggesting sequelae of prior trauma. Dictated by: Malik Allison M.D. on 04/05/2023 at 1:03 Approved by: Malik Allison M.D. on 04/05/2023 at 1:07
--- NOTE | 2023-04-05 02:56 | ED_ITS ---
HPI - Extremity Injury (Lower) General Chief Complaint: Extremity Injury, Lower Stated Complaint: fell left ankle pain and 3 toes on rt foot Time Seen by Provider: 04/05/23 02:51 Source: patient Mode of arrival: Wheelchair Limitations: no limitations History of Present Illness HPI Narrative: This is a 32-year-old female 2-1/2 months with no other reported medical issues. Patient states she went running to tell another family member some information, there were some pot holes and she accidentally fell into them. She is complaining of pain at the lateral left ankle and pain over the toes 3 4 and 5 on the right foot. Patient states she is been able to weightbear on the right foot. Much more painful with the left. No numbness, tingling or weakness. She is noticed swelling of the left ankle. She denies any other injuries. She states she is 2 and half months , she is not . Does not co-sleep. Patient states she had an injury to her right foot with a very deep laceration that required tendon repair on the underside of the 1st metatarsal. Patient states she is allergic to oxycodone makes her itchy and rash. She does use tobacco, denies alcohol or illicit. 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 Related Data Home Medications Medication Instructions Recorded Confirmed prenat.vits,drew,edy-cdxr-exqyj 1 tab PO DAILY 04/05/20 03/11/23 Previous Rx's Medication Instructions Recorded tramadol 50 mg tablet 50 mg PO Q6H PRN pain #10 tabs 04/05/23 Allergies Allergy/AdvReac Type Severity Reaction Status Date / Time latex [LATEX] Allergy Severe Hives and Verified 03/11/23 14:36 Rash oxycodone [OXYCODONE] AdvReac Mild ITCHY Verified 03/11/23 14:36 Review of Systems Review of Systems ROS Unobtainable: All systems reviewed & are unremarkable except as noted in HPI and below Patient History Medical History Anxiety as acute reaction to exceptional stress Costochondritis COVID-19 HSV-2 (herpes simplex virus 2) infection Migraine Normal spontaneous vaginal delivery (spontaneous vaginal delivery) (~2019) Surgical History History of dilatation and curettage (~2014) History of dilation and curettage (~2012) Hx of cholecystectomy (~2014) S/P dilatation and curettage (~01/01/20) S/P foot surgery, right (~2011) Family History Family/Other Stroke Myocardial infarction End stage renal failure on dialysis Grandmother Unknown whether patient has any health problems Family estrangement Grandmother Diabetes mellitus Myocardial infarction Grandfather Unknown whether patient has any health problems Father Family estrangement Unknown whether patient has any health problems Grandmother Unknown whether patient has any health problems Family estrangement Mother Rheumatoid arthritis Social History marital status: number of children: 3 household members: spouse, family (brother, parents) and children lives independently: Yes housing: house pets and animals: Yes (outside dog) education level: high school (completing HS currently) occupational status: employed current occupational exposures/hazards: Yes Previous occupational history: prior employment at [employer] special edy needs: No seatbelt use: always water heater temp set < 120 deg: Yes working smoke detector in home: Yes fire extinguisher in home: Yes carbon monox detector in home: Yes firearms in home: No do you feel safe at home: Yes Smoking Status: Current every day smoker Tobacco: How many years used: 11 second hand exposure: No alcohol intake: former (pre- : rare occasions) substance use type: does not use during the past year weight has: increased > 10 lbs well-balanced diet: rarely or never daily servings fruits/ve-1 (Encouraged to apply for WIC ) caffeine: Yes (Aware of 200 mg limit) Type(s) of exercise: none Smoking Status: Current every day smoker tobacco type: cigarettes alcohol intake frequency: holidays/special occasions only Substance Use Type: does not use Exam Narrative Exam Narrative: GENERAL: Alert and oriented x three, obese female in mild distress. HEENT: Head normocephalic, atraumatic, EOMI, pupils reactive, face symmetric, moist mucous membranes NECK: Supple, full range of motion CARDIOVASCULAR: Regular rate and rhythm without murmurs, rubs or gallops. RESPIRATORY: Breath sounds equal bilaterally, no wheezes rales or rhonchi. ABDOMEN: Soft, nontender. Normoactive bowel sounds all 4 quadrants. No guarding or rebound, rigidity, no mass EXTREMITIES: Normal range of motion, patient has edema over the lateral malleoli with small amount ecchymosis. Patient is tender over the lateral malleoli. No other bony tenderness over the medial, midfoot, metatarsals or toes on the left. No tenderness of the knee tibia or upper left leg. Patient's right lower extremity she does not have any skin changes, no contusions. No bony tenderness. Full range of motion. 5/5 muscle strength in both lower extremities. Normal sensation throughout both. 2+ dorsalis pedis both feet. Neurovascularly intact NEUROLOGICAL: Cranial nerves II through XII grossly intact. Moving all extremities SKIN: Warm, dry, no petechiae, no rashes or lesions noted. Initial Vital Signs Initial Vital Signs: Vital Signs Temperature 97.4 F L 04/05/23 00:22 Pulse Rate 96 H 04/05/23 00:22 Respiratory Rate 18 04/05/23 00:22 Blood Pressure 124/75 04/05/23 00:22 Pulse Oximetry 100 04/05/23 00:22 Oxygen Delivery Method Room Air 04/05/23 00:22 Course Orders Ordered: ED Orders 04/05/23 00:28 XR ankle LT min 3V Stat 04/05/23 00:30 XR foot RT min 3V Stat Discontinued Medications Tramadol HCl (Tramadol 50 Mg Prepack) 1 bottle MISC SEEINSTR ONE Stop: 04/05/23 03:14 Last Admin: 04/05/23 03:28 Dose: 1 bottle Documented By: SB Vital Signs Vital signs: Vital Signs - 8 hr 04/05/23 00:22 04/05/23 03:52 Temperature 97.4 F L Pulse Rate 96 H 68 Respiratory Rate 18 18 Blood Pressure 124/75 138/64 Pulse Oximetry 100 97 Oxygen Delivery Method Room Air Room Air MDM - Extremity Injury (Lower) Imaging Data ankle xray Left: Radiologist's Impression: Close Foot X-Ray (Signed) Malik Allison - 04/05/23 Ankle X-Ray (Signed) Malik Allison - 04/05/23 Obstetrics Ultrasound (Signed) Stevie Pack - 11/17/22 Obstetrics Ultrasound (Signed) Cuate Gore - 10/24/22 Knee X-Ray (Signed) Jason Bustamante - 09/30/22 Ultrasound (Signed) Cuate Gore - 09/10/22 Ultrasound (Signed) Malik Allison - 07/26/22 Ultrasound (Signed) Clark Smithic - 07/15/22 DI Result CC 08/10/20 Ultrasound (Signed) Jason Bustamante - 06/29/20 Pelvis Ultrasound (Signed) Jason Bustamante - 12/31/19 Pelvis Ultrasound (Signed) Jared Murguia - 12/28/19 Ultrasound (Signed) Bin Martínezn - 12/16/19 Transvaginal Ultrasound (Signed) Asha Chavez - 11/07/18 Ultrasound (Signed) Cuate Gore - 08/25/18 Ultrasound (Signed) NilsaYou winterstresa - 05/15/18 Abdomen/Pelvis CT (Signed) Gwendolyn Gamez - 05/05/18 Pelvis Ultrasound (Signed) Gwendolyn Gamez - 05/05/18 Launch?[place] [address] XRay Report Signed Patient: Ni Rios MR#: [id number] : 1990 Acct:[id number] Age/Sex: 32 / F Date of Service: 04/05/23 Loc: Accession Number: [id number] ?? Procedure: XR ankle LT min 3V Ordering Provider: Adriana Beltran D.O. PROCEDURE:? XR ANKLE LT MIN 3V ? INDICATIONS:? injury ? TECHNIQUE:? 3 views of the ankle were acquired.? ? COMPARISON:? [facility], CR, XR FOOT RT MIN 3V, 04/05/2023, 0:34.? [facility], , ANKLE 3 VIEWS LEFT, 03/30/2016, 3:36. ? FINDINGS:? ? Bones:? There is a mildly displaced fracture of the lateral malleolus inferiorly.? Ankle mortise is normally aligned.? No suspicious bony lesions.? ? Soft tissues:? No tibiotalar joint effusion.? There is mild periarticular soft tissue swelling. ? ? IMPRESSION:? ? 1. Mildly displaced fracture of the lateral malleolus. ? ? Dictated by: Malik Allison M.D. on 04/05/2023 at 1:01 ? ? Approved by: Malik Allison M.D. on 04/05/2023 at 1:03?? Extremity x-ray #2: Radiologist's Impression: [address] [address] XRay Report Signed Patient: Ni Rios MR#: [id number] : 1990 Acct:[id number] Age/Sex: 32 / F Date of Service: 04/05/23 Loc: ED Accession Number: [id number] ?? Procedure: XR foot RT min 3V Ordering Provider: Adriana Beltran D.O. PROCEDURE:? XR FOOT RT MIN 3V ? INDICATIONS:? injury ? TECHNIQUE:? 3 views of the foot were acquired.? ? COMPARISON:? [facility], CR, XR ANKLE LT MIN 3V, 04/05/2023, 0:34.? [facility], CR, FOOT 3V LEFT, 03/30/2016, 3:36. ? FINDINGS:? ? Bones:? There is a mildly displaced fracture of the lateral malleolus.? Deformity of the 1st distal phalanx suggest sequelae of prior trauma.? No suspicious bony lesions.? ? Soft tissues:? No suspicious soft tissue calcifications. ? ? IMPRESSION:? ? 1.? Mildly displaced fracture of the lateral malleolus.? Recommend correlation with concurrent study of the ankle. ? 2. No definite acute fracture in the foot. ? 3. Deformity of the 1st distal phalanx suggesting sequelae of prior trauma. ? ? Dictated by: Malik Allison M.D. on 04/05/2023 at 1:03 ? ? Approved by: Malik Allison M.D. on 04/05/2023 at 1:07?? [facility] Narrative Medical decision making narrative: This is a 32-year-old female with complaint of lateral malleolar pain on the left. Patient has bruising swelling and tenderness, meet [place] ankle rules and x-ray is positive for lateral malleoli fracture. Patient placed in ortho boot, toe-touch weight-bearing with follow-up with orthopedic surgery. Patient had x-ray of her right foot, no obvious changes to the affected toes 3 4 and 5. There is noted to be deformity of the 1st phalanx, patient states no prior fractures but she did have deep tendon injury at that area that required repair. Patient is nontender over that region. Patient is only very mildly tender with normal rate motion and able to weightbear without issue. Crutches as needed. Tylenol/ibuprofen with as needed tramadol. Patient is 2 and half mo nths , babies with her she is not . She does not closely. Discussed that if taking any narcotics have an adult around in case she is sleepy to take the baby for safety. Discharge Plan Departure Patient Disposition: Home Clinical Impression: Ankle fracture, lateral malleolus, closed Instructions: DI for Ankle Fracture Activity Restrictions/Additional Instructions: Please follow-up with Orthopedic surgery in the next week. Please call to set up an appointment morning. Toe-touch weight-bearing as tolerated for the left foot. You may take Tylenol up to a 1000 mg every 6 hours and/or ibuprofen up to 600 mg every 6 hours. If in adequate for pain you can take tramadol 1-2 tablets every 6 hours as needed. This medication can make you sleepy do not drive, perform hazardous activities or make any major decisions while taking it. This medication will make you constipated please take a stool softener once to twice daily until stools are soft and regular. This medication can be sedating, while taking care baby if you are taking tramadol make sure another trusted adult is round and case your sleepy or have decreased mentation to take baby. Prescription sent to [facility]. Splint Care: Keep splint clean and dry. Elevated affected body part to decrease swelling. OK to use ice pack on the affected body part. Use for 15-20 minutes each time, for 5-6x per day. If you develop worsening pain, numbness, tingling, discoloration of the affected body part, loosen the splint by loosening the JESS wrap, and either see your doctor for an urgent re-assessment, or return to the Emergency Department. Return to the Emergency Department for any new or worsening symptoms. Prescriptions: New tramadol 50 mg tablet 50 mg PO Q6H PRN (Reason: pain) Qty: 10 0RF No Action prenat.vits,drew,yra-cqkw-kgygn Tablet 1 tab PO DAILY Referrals: Carlos Longo MD [Physician] - Stand Alone Forms: Patient Portal/API, Work Release Note
[2023-04-05] MEDS: TRAMADOL 50 MG PREPACK 1 BOTTLE MISC (03:28)
[2023-04-05 03:52] VITALS: BP 138/64; PULSE 68; RESP 18; O2SAT 97
== END 2023-04-05 03:55 | disposition home or self-care (01) ==
PROVIDERS: Emergency Provider Emergency Medicine
DX: S82.62XA Displaced fracture of lateral malleolus of left fibula, initial encounter for closed fracture (principal); W18.30XA Fall on same level, unspecified, initial encounter
CPT/HCPCS: 73610; 73630; 99282; 99283

== ENCOUNTER 2023-05-23 06:53 | Day surgery (SDC) | payer MEDICAID, OTHER, SELFPAY ==
[2023-05-23] VITALS (10 sets, daily range): BP systolic 89–117; BP diastolic 56–81; PULSE 80–96; RESP 12–16; TEMP 36.1–36.6; O2SAT 98–100; BMI 50.3
--- NOTE | 2023-05-23 | PATH_ITS ---
[facility] Accession Number: [id number] No. of containers..01 Tissue . 01 Material submitted: . fallopian tube - BILATERAL FALLOPIAN TUBES . 01 Diagnosis: Left And Right Fallopian Tubes, Bilateral Salpingectomy: Two fimbriated fallopian tubes without significant pathologic abnormality. [facility] 05/28/2023 2046 Local . 01 Electronically signed: . Bree Garza MD, Pathologist NPI- [id number] . 01 Gross description: . The specimen is received in formalin labeled with the patient's name, , and isaura fallopian tubes, and consists of two unoriented fimbriated fallopian tubes measuring 6.2 x 0.6 cm and 5.0 x 0.5 cm. The longer fallopian tube has violaceous, smooth serosa with no cystic structures identified. Sectioning reveals an unremarkable stellate lumen. The shorter fallopian tube has lewis smooth serosa with no cystic structures identified. Sectioning reveals an unremarkable stellate lumen. Customer Response Representative sections to include one-half of the bisected fimbriae and cross sections are submitted as follows: A1: Longer fallopian tube. A2: [place] fallopian tube. ([id number]) /FRR 05/25/2023 1831 Local . 01 Pathologist provided ICD-10: Z30.2 . 01 CPT . 297503 Specimen Comment: A courtesy copy of this report has been sent to [phone] Performed at: 01 [facility] [address] [place] [address] [id number] MD Malik Steele MD Phone: [phone]
[2023-05-23] MEDS: LACTATED RINGERS 1,000 ML 84 ML IV (07:20)
--- NOTE | 2023-05-23 07:38 | PM.GYNHP.1 ---
History of Present Illness History of Present Illness Narrative: Ni Rios is a 32 year old female 7 para 4 who presents for a bilateral salpingectomy for sterilization. [facility] Medical History Anxiety as acute reaction to exceptional stress Costochondritis COVID-19 HSV-2 (herpes simplex virus 2) infection Migraine Normal spontaneous vaginal delivery (spontaneous vaginal delivery) (~2018) Surgical History History of dilatation and curettage (~2014) History of dilation and curettage (~2012) Hx of cholecystectomy (~2014) S/P dilatation and curettage (~01/01/20) S/P foot surgery, right (~2011) Family History Family/Other Stroke Myocardial infarction End stage renal failure on dialysis Grandmother Unknown whether patient has any health problems Family estrangement Grandmother Diabetes mellitus Myocardial infarction Grandfather Unknown whether patient has any health problems Father Family estrangement Unknown whether patient has any health problems Grandmother Unknown whether patient has any health problems Family estrangement Mother Rheumatoid arthritis Social History marital status: number of children: 3 household members: spouse, family and children lives independently: Yes housing: house pets and animals: Yes (outside dog) education level: high school (completing HS currently) occupational status: employed current occupational exposures/hazards: Yes Previous occupational history: prior employment at the [employer] special edy needs: No seatbelt use: always water heater temp set < 120 deg: Yes working smoke detector in home: Yes fire extinguisher in home: Yes carbon monox detector in home: Yes firearms in home: No do you feel safe at home: Yes Smoking Status: Current every day smoker Tobacco: How many years used: 11 second hand exposure: No alcohol intake: former substance use type: does not use during the past year weight has: increased > 10 lbs well-balanced diet: rarely or never daily servings fruits/ve-1 (Encouraged to apply for WIC ) caffeine: Yes (Aware of 200 mg limit) Type(s) of exercise: none Meds Home Medications and Allergies Allergies Allergy/AdvReac Type Severity Reaction Status Date / Time latex [LATEX] Allergy Severe Hives and Verified 05/23/23 07:05 Rash oxycodone [OXYCODONE] AdvReac Mild ITCHY Verified 05/23/23 07:05 Exam Vital Signs (past 8 hours): - 05/23/23 07:10 Temperature 97.9 F Pulse Rate 96 H Respiratory Rate 16 Blood Pressure 117/81 Pulse Oximetry 100 Oxygen Delivery Method Room Air Oxygen Delivery Method Room Air Narrative Exam Narrative: HEENT: No thyromegaly, no anterior cervical or supraclavicular lymphadenopathy. Lungs:Clear to auscultation bilaterally, no wheezes. Cardiovascular: Regular rate and rhythm, no murmurs, rubs, or gallops. Abdomen: Well-healed laparoscopy scars. No hepatosplenomegaly. No masses palpable. External genitalia: Normal Vagina: Normal Cervix: Normal Bimanual exam: 6 Week size uterus. Mobile. Extremities: No edema Assessment & Plan Assessment & Plan narrative: Assessment: 32-year-old 7 para 4 who desires permanent sterilization Plan: Laparoscopic bilateral salpingectomy The risks, benefits, and alternatives to the procedure were explained to the patient. The risks including bleeding, infection, injury to the bowel, bladder, or ureters. She understands these risks and agrees to proceed. A full par Q was held and consent form was signed. Time Spent With Patient Time with patient: less than 30 minutes
--- NOTE | 2023-05-23 07:40 | PM.PREOP ---
Pre-operative Note COVID-19 Criteria for continued procedure: Non-surgical alternatives not available or appropriate per current SOC Interval Note History & Physical reviewed/Exam performed by Physician: Yes Changes to H&P: No H&P completed within 30 days and has changed as indicated here:: 05/23/23
--- NOTE | 2023-05-23 08:17 | SUR.OPER ---
Lithotomy on padded OR bed, head on pillow, arms secured on padded arm boards at <90 degrees abduction. Legs secured in padded yellow fins stirrups.
[2023-05-23] MEDS: BUPIVACAINE 0.5% (PF) 30 ML, EPINEPHrine 0.15 MG INJ (08:33)
--- NOTE | 2023-05-23 09:27 | PM.GYNOP.1 ---
Operative Date/Time/Diagnoses Date of procedure: 05/23/23 Time of procedure: 09:27 Pre-op diagnosis: Desires permanent sterilization Multiparity Post-op diagnosis: same Procedure & Clinicians Procedure: Procedures Operation Date: 05/23/23 07:45 Actual Procedure Side Surgeon p Laparoscopic Salpingectomy Bilateral Glory Wang MD Indications: Multiparity Desires permanent sterilization Surgeon: Glory Wang Anesthesia Type: General and Local Operative Notes Findings: 6 week size anteverted uterus Normal tubes and ovaries Closure Type: primary Specimen(s): left tube and right tube Estimated blood loss (mL): 5 Blood products transfused: none Procedure in detail: After informed consent was obtained, the patient was taken to the operating room where she was placed in the dorsal supine position. After adequate general endotracheal anesthesia was achieved, she was placed in the dorsal lithotomy position, and prepped and draped in the usual sterile fashion. A time-out was performed. A bivalve speculum was placed into the vagina and the anterior lip of the cervix was grasped with a single-tooth tenaculum. The cervical os was sequentially dilated until the Zumi uterine manipulator could pass easily into the endometrial cavity. The single-tooth tenaculum was removed from the anterior lip of the cervix. The bivalve speculum was removed from the vagina. Attention was turned to the abdomen where 6 cc of 0.5% Marcaine with epinephrine were injected in the umbilical fold. A 5 mm incision was made using the long Veress needle an attempt was made to enter the peritoneum this was unsuccessful several times. A decision was made to proceed with a Condon open. Allis clamps were placed at the edges of the incision. The incision was extended to 2 cm. A cutdown was performed to the fascia. The fascia was nicked in the midline. Allis clamps were placed on the edges of the fascia. The fascial incision was extended to 3 cm. Blunt dissection was done down to the fascia. The fascia was grasped with hemostat and entered sharply with the Metzenbaum scissors. The Condon with the balloon was placed into the peritoneal cavity and the balloon inflated. Prior to placing the Condon trocar, the fascia was tagged with 0 Vicryl sutures. The abdominal cavity was insufflated with 4.7 L of CO2. Upon inspection with the laparoscope, the uterus tubes and ovaries were normal. The gallbladder had been previously removed. Two other incisions were made 4 cm lateral to the midline after 4 cc of 0.5% Marcaine with epinephrine were injected. Long 5 mm trocars were placed under direct visualization. The uterus was lifted out of the pelvis with the Zumi. The right tube and ovary and left tube and ovary were visualized and were found to be normal. The right tube was grasped with an atraumatic grasper. Using LigaSure, the mesosalpinx was cauterized and cut all the way down to the cornua of the uterus. The tube was amputated at the cornua. Hemostasis was achieved. This was repeated on the patient's left tube. Hemostasis was achieved. The tubes were removed through the lateral trocar under direct visualization. The instruments were removed from the abdomen. The CO2 was allowed to escape. The trocars were removed. The fascia on the umbilical incision was closed with 0 Vicryl in a running fashion. The previously tagged sutures on the fascia were removed. Two simple interrupted sutures were placed in the subcutaneous layer of the umbilical incision. All of the incisions were closed with 4-0 Monocryl in a subcuticular fashion. Steri-Strips and Allevyn dressings were placed. The Zumi uterine manipulator was removed from the uterus. Sponge, lap, and instrument counts were correct x2. The patient tolerated the procedure well, and was taken to PACU in stable condition. Complications: none Post-operative Condition: stable Disposition: PACU Plan for aftercare: Home after recovery
[2023-05-23] MEDS: HYDROCODONE/ACET 5/325 TABLET 1 TAB PO (09:46)
== END 2023-05-23 10:45 | disposition home or self-care (01) ==
PROVIDERS: Referring Provider Obstetrics & Gynecology; Visit Provider Obstetrics & Gynecology
PROC: 0UT74ZZ Resection of Bilateral Fallopian Tubes, Percutaneous Endoscopic Approach (ICD-10-PCS; CPT 58661; principal; 2023-05-23 07:45)
DX: Z30.2 Encounter for sterilization (principal)
CPT/HCPCS: 58661; J0171; J1100; J1170; J2250; J2405; J2704; J3010

== ENCOUNTER 2023-06-11 17:45 | Inpatient (IN) | payer MEDICAID, OTHER, SELFPAY ==
[2023-06-11] VITALS (25 sets, daily range): BP systolic 106–172; BP diastolic 55–99; PULSE 117–137; RESP 15–28; TEMP 38.2–39.5; O2SAT 94–100; BMI 47.9; BMI 47.5
--- NOTE | 2023-06-11 18:04 | DI.RAD.S_ITS ---
PROCEDURE: XR CHEST 1V INDICATIONS: suspected sepsis TECHNIQUE: One view of the chest was acquired. COMPARISON: [facility], , CHEST 2 VIEW, 02/27/2017, 7:29. FINDINGS: Surgical changes and devices: None. Lungs and pleura: An incomplete inspiratory result is noted, causing a crowded appearance to the lung markings. No focal infiltrates are seen. No pneumothorax or significant pleural effusions are seen. Mediastinum: Mediastinal contours appear normal. Heart size is normal. Bones and chest wall: No suspicious bony lesions. Overlying soft tissues appear unremarkable. IMPRESSION: Low lung volumes, without a feng acute abnormality seen by plain film. No focal infiltrates are seen. Dictated by: Stevie Pack M.D. on 06/11/2023 at 17:46 Approved by: Stevie Pack M.D. on 06/11/2023 at 17:47
[2023-06-11] MEDS: ONDANSETRON 4 MG/2 ML INJ IV (18:46)
[2023-06-11] MEDS: cefTRIAXone 1,000 MG in SODIUM CHLORIDE 0.9% 100 ML 200 MG IV (18:47)
[2023-06-11] MEDS: SODIUM CHLORIDE 0.9% 1,000 ML 1000 ML IV (18:47)
[2023-06-11 18:52] LABS: Add Manual Diff / Slide Review NO; Basophils Absolute Auto 100 /uL (0-100); Basophils Percent Auto 0.5 % (0-2); Eosinophils Absolute Auto 300 /uL (0-450); Hemoglobin 11.5 g/dL (12.0-16.0); Lymphocytes Absolute Auto 1400 /uL (1100-4500); Lymphocytes Percent Auto 8.4 % (25-40); Mean Corpuscular HGB Conc 32.9 % (30-36); Mean Corpuscular Hemoglobin 25.4 PG (26-34); Mean Corpuscular Volume 77.3 fL (80-100); Monocytes Absolute Auto 900 /uL (0-900); Monocytes Percent Auto 5.1 % (3-14); Neutrophils Absolute Auto 14200 /uL (1500-7000); Platelet Count 377 X10^3/uL (150-400); Red Blood Cell Count 4.52 X10^6/uL (4.0-5.2); Red Cell Distribution Width 16.4 % (11.6-14.8); White Blood Cell Count 16.9 X10^3/uL (4.5-11.0)
[2023-06-11 19:00] LABS: INR 1.1 (0.9-1.3); Prothrombin Time 12.8 SECONDS (10.1-12.7)
[2023-06-11 19:03] LABS: PTT Partial Thromboplastin Tim 31 SECONDS (26-36)
[2023-06-11 19:05] LABS: Alanine Aminotransferase 31 IU/L (<35); Albumin Globulin Ratio 1.1 (1.0-2.8); Alkaline Phosphatase 163 U/L (38-126); Aspartate Aminotransferase 27 IU/L (14-36); BUN Creatinine Ratio 5.3 (6-22); Bilirubin Total 0.5 mg/dL (0.2-1.3); Blood Urea Nitrogen 5 mg/dL (7-17); Carbon Dioxide 24 mmol/L (22-32); Chloride 104 mmol/L (98-107); Estimated Glomerular Filt Rate > 60 mL/min (>60); Globulin 3.7 g/dL (1.7-4.1); Glucose 108 mg/dL (70-100); HEMOLYSIS < 15 (0-50); Lipase 56 U/L (23-300); Potassium 3.8 mmol/L (3.4-5.1); Sodium 135 mmol/L (137-145); Total Protein 7.7 g/dL (6.3-8.2)
--- NOTE | 2023-06-11 19:19 | ED_ITS ---
HPI - Wound/Laceration General Chief Complaint: Wound/Laceration Stated Complaint: thinks infected umbilicus Time Seen by Provider: 06/11/23 18:17 Source: patient Mode of arrival: Family Vehicle Limitations: no limitations History of Present Illness HPI narrative: Patient is a 32-year-old female approximately 3 weeks ago she underwent a tubal ligation. She is here for evaluation of a couple days of lower abdominal pain and redness and fevers. She denied any urinary symptoms. No change in bowel habits. No vomiting. She was quite a bit of tenderness in her lower abdomen. No vomiting. Related Data Home Medications Medication Instructions Recorded Confirmed No Known Home Medications 06/11/23 06/11/23 Allergies Allergy/AdvReac Type Severity Reaction Status Date / Time latex [LATEX] Allergy Severe Hives and Verified 06/11/23 18:04 Rash oxycodone [OXYCODONE] AdvReac Mild ITCHY Verified 06/11/23 18:04 Review of Systems Review of Systems ROS Unobtainable: All systems reviewed & are unremarkable except as noted in HPI and below Patient History Medical History Anxiety as acute reaction to exceptional stress Costochondritis COVID-19 HSV-2 (herpes simplex virus 2) infection Migraine Normal spontaneous vaginal delivery (spontaneous vaginal delivery) (~2018) Surgical History History of dilatation and curettage (~2014) History of dilation and curettage (~2012) Hx of cholecystectomy (~2014) S/P dilatation and curettage (~01/01/20) S/P foot surgery, right (~2011) Family History Family/Other Stroke Myocardial infarction End stage renal failure on dialysis Grandmother Unknown whether patient has any health problems Family estrangement Grandmother Diabetes mellitus Myocardial infarction Grandfather Unknown whether patient has any health problems Father Family estrangement Unknown whether patient has any health problems Grandmother Unknown whether patient has any health problems Family estrangement Mother Rheumatoid arthritis Social History marital status: number of children: 3 household members: spouse, family and children lives independently: Yes housing: house pets and animals: Yes (outside dog) education level: high school occupational status: employed current occupational exposures/hazards: Yes Previous occupational history: prior employment at the [employer] special edy needs: No seatbelt use: always water heater temp set < 120 deg: Yes working smoke detector in home: Yes fire extinguisher in home: Yes carbon monox detector in home: Yes firearms in home: No do you feel safe at home: Yes Smoking Status: Current every day smoker Tobacco: How many years used: 11 second hand exposure: No alcohol intake: former substance use type: does not use during the past year weight has: increased > 10 lbs well-balanced diet: rarely or never daily servings fruits/ve-1 caffeine: Yes (Aware of 200 mg limit) Type(s) of exercise: none Smoking Status: Current every day smoker tobacco type: cigarettes alcohol intake frequency: holidays/special occasions only Substance Use Type: does not use Exam Initial Vital Signs Initial Vital Signs: Vital Signs Temperature 103 F H 06/11/23 17:57 Pulse Rate 137 H 06/11/23 17:57 Respiratory Rate 22 06/11/23 17:57 Blood Pressure 151/77 H 06/11/23 17:57 Pulse Oximetry 98 06/11/23 17:57 Oxygen Delivery Method Room Air 06/11/23 17:57 Const General: ill appearing HENMT Head: normal to inspection and normocephalic Resp Effort & Inspection: tachypneic Auscultation: clear to auscultation bilaterally Cardio Rate: tachycardic Rhythm: regular rhythm GI Inspection: non-distended Other: Patient has redness in her lower abdomen from just inferior to her umbilicus to her suprapubic area. It is tender to palpation. No masses felt. Skin Other: Some dehiscence from the umbilical surgical wound. She does have erythema from her umbilicus to the suprapubic area. There is no crepitus. No masses felt. No blistering. Neuro General: patient alert, patient awake and moves all extremities Speech: speech normal Extrem General: capillary refill normal Scores GCS [place] coma scale eye opening: Spontaneous [place] coma scale verbal response: Orientated [place] coma scale motor response: Obey commands Katelynn coma scale total score: 15 Course Orders Ordered: ED Orders 06/11/23 18:04 XR chest 1V Stat EKG-12 Lead Stat 06/11/23 18:20 Chlamydia Gonorrhea PCR -URINE Stat Urine Microscopic Stat 06/11/23 18:39 Complete Blood Count AUTO DIFF Stat Comprehensive Metabolic Panel Stat Lactate (Lactic Acid) Stat Lipase Stat PTT Partial Thromboplastin Mychal Stat Procalcitonin Stat Prothrombin Time INR Stat 06/11/23 18:55 Blood Culture Stat 06/11/23 19:22 Consult to Physician Stat 06/11/23 19:29 CT abdomen pelvis w con Stat Acetaminophen (Acetaminophen 325 Mg Tablet) 650 mg PO Q6H PRN PRN Reason: Fever/Mild Pain (1-3) Enoxaparin Sodium (Enoxaparin 40 Mg/0.4 Ml Syringe) 40 mg SUBCUT DAILY PATRICE Sodium Chloride (Normal Saline 0.9%) 1,000 mls @ 150 mls/hr IV CONT PATRICE Last Infusion: 06/11/23 23:02 Dose: 0 mls/hr Documented By: Admin: 06/11/23 19:40 Dose: 150 mls/hr Documented By: DEX Ceftriaxone Sodium 2,000 mg/ (Sodium Chloride) 100 mls @ 200 mls/hr IV Q24H PATRICE Sodium Chloride (Normal Saline 0.45%) 1,000 mls @ 100 mls/hr IV CONT PATRICE Last Admin: 06/11/23 23:01 Dose: 100 mls/hr Documented By: AM Vancomycin HCl/Dextrose (Vancomycin) 2,000 mg in 400 mls @ 200 mls/hr IV Q12H PATRICE Naloxone HCl (Naloxone 0.4 Mg/Ml Vial) 0.2 mg IV Q2MIN PRN PRN Reason: Opiate Reversal Ondansetron HCl (Ondansetron 4 Mg Odt) 4 mg SL NOW PRN PRN Reason: Nausea And Vomiting Discontinued Medications Acetaminophen (Acetaminophen 325 Mg Tablet) 650 mg PO NOW ONE Stop: 06/11/23 20:59 Last Admin: 06/11/23 21:06 Dose: 650 mg Documented By: DEX Sodium Chloride (Normal Saline 0.9%) 1,000 mls @ 1,000 mls/hr IV BOLUS ONE Stop: 06/11/23 19:03 Last Infusion: 06/11/23 21:06 Dose: 0 mls/hr Documented By: Admin: 06/11/23 18:47 Dose: 1,000 mls/hr Documented By: NR Ceftriaxone Sodium 1,000 mg/ (Sodium Chloride) 100 mls @ 200 mls/hr IV NOW ONE Stop: 06/11/23 18:22 Last Infusion: 06/11/23 19:34 Dose: 0 mls/hr Documented By: Admin: 06/11/23 18:47 Dose: 200 mls/hr Documented By: NR Vancomycin HCl (Vancomycin) 1,000 mg in 200 mls @ 200 mls/hr IV NOW ONE Stop: 06/11/23 19:20 Last Infusion: 06/11/23 21:32 Dose: 0 mls/hr Documented By: Admin: 06/11/23 19:34 Dose: 200 mls/hr Documented By: DEX Ceftriaxone Sodium 2,000 mg/ (Sodium Chloride) 100 mls @ 200 mls/hr IV Q24H PATRICE Vancomycin HCl/Dextrose (Vancomycin) 1,500 mg in 300 mls @ 200 mls/hr IV NOW ONE Stop: 06/11/23 23:44 Last Admin: 06/11/23 23:01 Dose: 200 mls/hr Documented By: REYNA Morphine Sulfate (Morphine 4 Mg/Ml Inj) 4 mg IV NOW ONE Stop: 06/11/23 21:08 Last Admin: 06/11/23 21:13 Dose: 4 mg Documented By: DEX Ondansetron HCl (Ondansetron 4 Mg/2 Ml Inj) 4 mg IV NOW PRN PRN Reason: Nausea And Vomiting Last Admin: 06/11/23 18:46 Dose: 4 mg Documented By: SHAHID Vancomycin HCl (Vancomycin Per Pharmacy) 1 request MISC NOW ONE Stop: 06/11/23 21:17 Vital Signs Vital signs: Vital Signs - 8 hr 06/11/23 17:57 06/11/23 18:21 06/11/23 18:30 Temperature 103 F H Pulse Rate 137 H 131 H 123 H Respiratory Rate 22 Blood Pressure 151/77 H Pulse Oximetry 98 97 99 Oxygen Delivery Method Room Air 06/11/23 18:38 06/11/23 18:38 06/11/23 18:40 Temperature Pulse Rate 123 H 121 H Respiratory Rate Blood Pressure 172/96 H Pulse Oximetry 98 99 Oxygen Delivery Method 06/11/23 18:40 06/11/23 18:50 06/11/23 18:50 Temperature Pulse Rate 122 H Respiratory Rate Blood Pressure 166/95 H 156/95 H Pulse Oximetry 97 Oxygen Delivery Method 06/11/23 19:00 06/11/23 19:00 06/11/23 19:10 Temperature Pulse Rate 117 H 123 H Respiratory Rate 26 H 28 H Blood Pressure 161/93 H Pulse Oximetry 97 97 Oxygen Delivery Method 06/11/23 19:10 06/11/23 19:20 06/11/23 19:20 Temperature Pulse Rate 126 H Respiratory Rate 17 Blood Pressure 155/99 H 154/96 H Pulse Oximetry 100 Oxygen Delivery Method 06/11/23 19:30 06/11/23 19:30 06/11/23 19:40 Temperature Pulse Rate 119 H 119 H Respiratory Rate 26 H 24 Blood Pressure 153/91 H Pulse Oximetry 96 96 Oxygen Delivery Method 06/11/23 19:40 Temperature Pulse Rate Respiratory Rate Blood Pressure 163/93 H Pulse Oximetry Oxygen Delivery Method MDM - Wound/Laceration Medical Records Attestation: I reviewed the patient's medical records. Lab Data Attestation: I reviewed the patient's lab results. 06/11/23 18:39 06/11/23 18:39 Labs: Lab Results 06/11/23 06/11/23 06/11/23 Range/Units 18:20 18:20 18:39 WBC 16.9 H (4.5-11.0) X10^3/uL RBC 4.52 (4.0-5.2) X10^6/uL Hgb 11.5 L (12.0-16.0) g/dL Hct 35.0 L (36-46) % MCV 77.3 L (80-100) fL MCH 25.4 L (26-34) PG MCHC 32.9 (30-36) % RDW 16.4 H (11.6-14.8) % Plt Count 377 (150-400) X10^3/uL Neut % (Auto) 84.0 H (50-75) % Lymph % (Auto) 8.4 L (25-40) % [place] % (Auto) 5.1 (3-14) % Eos % (Auto) 2.0 (2-4) % Baso % (Auto) 0.5 (0-2) % Neut # (Auto) 16860 H (8727-8813) /uL Lymph # (Auto) 1400 (3701-6616) /uL [place] # (Auto) 900 (0-900) /uL Eos # (Auto) 300 (0-450) /uL Baso # (Auto) 100 (0-100) /uL PT (10.1-12.7) SECONDS INR (0.9-1.3) APTT (26-36) SECONDS Sodium (137-145) mmol/L Potassium (3.4-5.1) mmol/L Chloride (98-107) mmol/L Carbon Dioxide (22-32) mmol/L BUN (7-17) mg/dL Creatinine (0.52-1.04) mg/dL Estimated GFR (>60) mL/min BUN/Creatinine Ratio (6-22) Glucose (70-100) mg/dL Lactate (0.7-2.1) mmol/L Calcium (8.4-10.2) mg/dL Total Bilirubin (0.2-1.3) mg/dL AST (14-36) IU/L ALT (<35) IU/L Alkaline Phosphatase (38-126) U/L Total Protein (6.3-8.2) g/dL Albumin (3.5-5.0) g/dL Globulin (1.7-4.1) g/dL Albumin/Globulin Ratio (1.0-2.8) Lipase (23-300) U/L Procalcitonin (<0.5) ng/mL Urine RBC 1-5/hpf (0-5/HPF) Urine WBC None seen (0-5/HPF) Ur Squamous Epith Cells 0-1 /hpf (0-5/HPF) Urine Bacteria None seen (None) Ur Culture Indicated? Cult not indicated Ur Chlamydia DNA (PCR) Not detected N gonorrhoeae DNA (PCR) Not detected 06/11/23 06/11/23 06/11/23 Range/Units 18:39 18:39 18:39 WBC (4.5-11.0) X10^3/uL RBC (4.0-5.2) X10^6/uL Hgb (12.0-16.0) g/dL Hct (36-46) % MCV (80-100) fL MCH (26-34) PG MCHC (30-36) % RDW (11.6-14.8) % Plt Count (150-400) X10^3/uL Neut % (Auto) (50-75) % Lymph % (Auto) (25-40) % [place] % (Auto) (3-14) % Eos % (Auto) (2-4) % Baso % (Auto) (0-2) % Neut # (Auto) (4083-4182) /uL Lymph # (Auto) (0227-8911) /uL [place] # (Auto) (0-900) /uL Eos # (Auto) (0-450) /uL Baso # (Auto) (0-100) /uL PT 12.8 H (10.1-12.7) SECONDS INR 1.1 (0.9-1.3) APTT 31 (26-36) SECONDS Sodium 135 L (137-145) mmol/L Potassium 3.8 (3.4-5.1) mmol/L Chloride 104 (98-107) mmol/L Carbon Dioxide 24 (22-32) mmol/L BUN 5 L (7-17) mg/dL Creatinine 0.94 (0.52-1.04) mg/dL Estimated GFR > 60 (>60) mL/min BUN/Creatinine Ratio 5.3 L (6-22) Glucose 108 H (70-100) mg/dL Lactate 1.4 (0.7-2.1) mmol/L Calcium 9.0 (8.4-10.2) mg/dL Total Bilirubin 0.5 (0.2-1.3) mg/dL AST 27 (14-36) IU/L ALT 31 (<35) IU/L Alkaline Phosphatase 163 H (38-126) U/L Total Protein 7.7 (6.3-8.2) g/dL Albumin 4.0 (3.5-5.0) g/dL Globulin 3.7 (1.7-4.1) g/dL Albumin/Globulin Ratio 1.1 (1.0-2.8) Lipase 56 (23-300) U/L Procalcitonin 0.03 (<0.5) ng/mL Urine RBC (0-5/HPF) Urine WBC (0-5/HPF) Ur Squamous Epith Cells (0-5/HPF) Urine Bacteria (None) Ur Culture Indicated? Ur Chlamydia DNA (PCR) N gonorrhoeae DNA (PCR) Imaging Data Chest x-ray: Radiologist's Impression: PROCEDURE:? XR CHEST 1V ? INDICATIONS:? suspected sepsis ? TECHNIQUE:? One view of the chest was acquired.? ? COMPARISON:? [facility], CR, CHEST 2 VIEW, 02/27/2017, 7:29. ? FINDINGS:? ? Surgical changes and devices:? None.? ? Lungs and pleura:? An incomplete inspiratory result is noted, causing a crowded appearance to the lung markings.? No focal infiltrates are seen.? No pneumothorax or significant pleural effusions are seen. ? ? Mediastinum:? Mediastinal contours appear normal.? Heart size is normal.? ? Bones and chest wall:? No suspicious bony lesions.? Overlying soft tissues appear unremarkable.? ? ? IMPRESSION:? Low lung volumes, without a feng acute abnormality seen by plain film. ? No focal infiltrates are seen. CT scan - abdomen/pelvis: Radiologist's Impression: PROCEDURE:? CT ABDOMEN PELVIS W CON ? INDICATIONS:? post op lower abd infection ? TECHNIQUE:? After the administration of IV contrast, axial sections were acquired from the lung bases to the pubic symphysis.? Coronal and sagittal reformats were performed.? For radiation dose reduction, the following was used:? automated exposure control, adjustment of mA and/or kV according to patient size. ? COMPARISON:? [facility], CT, CT ABDOMEN PELVIS W CON, 05/05/2018, 20:17. ? FINDINGS:? Image quality:? Excellent.? ? Lung bases:? There is mild dependent atelectasis.? ? Heart:? Heart is normal in size. ? ? ABDOMEN: Liver:? No mass lesion. Gallbladder:? Surgically absent Biliary ducts:? No biliary ductal dilatation.? ? Pancreas:? Unremarkable.? ? Spleen:? Normal in size.? ? Adrenal Glands:? No adrenal nodules.? ? Kidneys and Ureters:? No hydronephrosis.? ? ? Stomach and Bowel:? Stomach, small bowel loops, and colon are normal in caliber and wall thickness.? Appendix is normal.? Peritoneum:? No abnormal intraperitoneal fluid.? No free air.? No intra- abdominal abscess. ? Ventral Wall: ? There is subcutaneous fat stranding deep to the umbilicus with a lobulated subcutaneous collection measuring approximately 4.2 x 3.6 cm in transverse dimension by 2.6 cm in craniocaudal dimension.? No hernia.? Abdominal Nodes:? No retroperitoneal or mesenteric adenopathy by size criteria.? Vessels:? Aorta and inferior vena cava are normal in size.? ? PELVIS: Pelvic Organs:? Unremarkable.? ? Bladder:? Unremarkable.? ? Pelvic Nodes: No enlarged lymph nodes.? Miscellaneous: No inguinal hernias are seen. ? ? ? Bones:? Visualized osseous structures demonstrate no suspicious focal lesions. ? IMPRESSION:? ? 1. No intra-abdominal free fluid or abscess identified. ? 2. Subcutaneous fat stranding deep to the umbilicus consistent with edema and suggestive of infection.? An associated lobulated subcutaneous fluid collection is suspicious for an abscess. ECG Data Attestation: I personally reviewed and interpreted this ECG as follows: Interpretation: Sinus tachycardia Ventricular rate 124 Normal axis Normal QRS Normal QTC No ST T wave changes MDM Narrative Medical decision making narrative: History and physical exam is consistent with a postoperative infection in her lower abdomen. Antibiotics were started. Cultures were obtained. Will hold on the 30 cc/kilogram of fluid is the patient is not hypotensive. She was given gentle hydration. CT scan was ordered. Does show cellulitis and small abscess. Initially discuss the case with Dr. Fox on-call for supervisor sawing and assembly who evaluated the patient here in the emergency department. He asked that the patient be admitted under the Medicine Service. I then discuss the case with Dr. Abreu on-call for the medicine service who will admit for further evaluation and treatment. Critical Care Time Critical Care Time Critical Care Time: Yes Total Critical Care Time: 35 Attestation: The high probability of a clinically significant, sudden or life threatening deterioration of the [cardiovascular, respiratory] system(s) required my full and direct attention, intervention and personal management. The aggregate critical care time was [35] minutes. This time is in addition to time spent performing reported procedures but includes the following: [x] Data Review and interpretation [x] Patient assessment and monitoring of vital signs [x] Documentation []x Medication orders and management Discharge Plan Departure Patient Disposition: Admitted As Inpatient Clinical Impression: Postoperative infection, Postoperative sepsis Admit Date/Time: 06/11/23 19:47 Admit Provider: Blade Fox
[2023-06-11 19:21] LABS: Procalcitonin 0.03 ng/mL (<0.5)
--- NOTE | 2023-06-11 19:29 | DI.CT.S_ITS ---
PROCEDURE: CT ABDOMEN PELVIS W CON INDICATIONS: post op lower abd infection TECHNIQUE: After the administration of IV contrast, axial sections were acquired from the lung bases to the pubic symphysis. Coronal and sagittal reformats were performed. For radiation dose reduction, the following was used: automated exposure control, adjustment of mA and/or kV according to patient size. COMPARISON: [facility], CT, CT ABDOMEN PELVIS W CON, 05/05/2018, 20:17. FINDINGS: Image quality: Excellent. Lung bases: There is mild dependent atelectasis. Heart: Heart is normal in size. ABDOMEN: Liver: No mass lesion. Gallbladder: Surgically absent Biliary ducts: No biliary ductal dilatation. Pancreas: Unremarkable. Spleen: Normal in size. Adrenal Glands: No adrenal nodules. Kidneys and Ureters: No hydronephrosis. Stomach and Bowel: Stomach, small bowel loops, and colon are normal in caliber and wall thickness. Appendix is normal. Peritoneum: No abnormal intraperitoneal fluid. No free air. No intra-abdominal abscess. Ventral Wall: There is subcutaneous fat stranding deep to the umbilicus with a lobulated subcutaneous collection measuring approximately 4.2 x 3.6 cm in transverse dimension by 2.6 cm in craniocaudal dimension. No hernia. Abdominal Nodes: No retroperitoneal or mesenteric adenopathy by size criteria. Vessels: Aorta and inferior vena cava are normal in size. PELVIS: Pelvic Organs: Unremarkable. Bladder: Unremarkable. Pelvic Nodes: No enlarged lymph nodes. Miscellaneous: No inguinal hernias are seen. Bones: Visualized osseous structures demonstrate no suspicious focal lesions. IMPRESSION: 1. No intra-abdominal free fluid or abscess identified. 2. Subcutaneous fat stranding deep to the umbilicus consistent with edema and suggestive of infection. An associated lobulated subcutaneous fluid collection is suspicious for an abscess. Dictated by: Malik Allison M.D. on 06/11/2023 at 20:41 Approved by: Malik Allison M.D. on 06/11/2023 at 20:45
[2023-06-11 19:30] LABS: Lactate (Lactic Acid) 1.4 mmol/L (0.7-2.1)
[2023-06-11] MEDS: VANCOMYCIN 1,000 MG/200 ML PIGGYBACK 200 MG IV (19:34)
[2023-06-11] MEDS: SODIUM CHLORIDE 0.9% 1,000 ML 150 ML IV (19:40)
[2023-06-11 19:59] LABS: Bacteria Urine None Seen; Culture Indicated Urine Cult Not Indicated; RBC Urine 1-5/HPF (0-5/HPF); Squamous Epithelial Cell Urine 0-1 /HPF (0-5/HPF); WBC Urine None Seen (0-5/HPF)
--- NOTE | 2023-06-11 20:02 | P.CONS_ITS ---
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 She has also noted inflammation and odor coming from the umbilicus as well as other areas of the abdominal wall. It is not painful for her to walk but touching or tensing her abdominal wall is painful. She has experienced normal bowel and bladder function since her laparoscopic bilateral salpingectomy of 05/24/23. In the last 24 hrs. she has experienced fevers, chills, and increasing lower abdominal pain and is admitted through the [facility] ED to the care of the Hospitalist Service for stabilization/initial management until it can be determined whether surgical intervention is indicated in this instance Meds Home Medications and Allergies Home Medications Medication Instructions Recorded Confirmed Type No Known Home Medications 06/11/23 06/11/23 History Allergies Allergy/AdvReac Type Severity Reaction Status Date / Time latex [LATEX] Allergy Severe Hives and Verified 06/11/23 18:04 Rash oxycodone [OXYCODONE] AdvReac Mild ITCHY Verified 06/11/23 18:04 Review of Systems Review of Systems Narrative: Problem-specific ROS positives included in HPI Exam Vital Signs (past 8 hours): - 06/11/23 17:57 06/11/23 18:21 06/11/23 18:30 Temperature 103 F H Pulse Rate 137 H 131 H 123 H Respiratory Rate 22 Blood Pressure 151/77 H Pulse Oximetry 98 97 99 Oxygen Delivery Method Room Air 06/11/23 18:38 06/11/23 18:38 06/11/23 18:40 Temperature Pulse Rate 123 H 121 H Respiratory Rate Blood Pressure 172/96 H Pulse Oximetry 98 99 Oxygen Delivery Method 06/11/23 18:40 06/11/23 18:50 06/11/23 18:50 Temperature Pulse Rate 122 H Respiratory Rate Blood Pressure 166/95 H 156/95 H Pulse Oximetry 97 Oxygen Delivery Method 06/11/23 19:00 06/11/23 19:00 06/11/23 19:10 Temperature Pulse Rate 117 H 123 H Respiratory Rate 26 H 28 H Blood Pressure 161/93 H Pulse Oximetry 97 97 Oxygen Delivery Method 06/11/23 19:10 06/11/23 19:20 06/11/23 19:20 Temperature Pulse Rate 126 H Respiratory Rate 17 Blood Pressure 155/99 H 154/96 H Pulse Oximetry 100 Oxygen Delivery Method Oxygen Delivery Method Room Air Const General: cooperative, ill appearing and lethargic Nutritional Appearance: obese Orientation: alert and awake [facility] Head: normal to inspection, normocephalic and atraumatic Ears: hearing grossly normal bilaterally Nose: external nose normal Face and sinus: normal facial exam Eyes General: appearance normal, both eyes and all related structures Periorbital: periorbital findings normal Eyelids: eyelids normal Sclera: sclerae normal Cornea: corneas normal EOM: EOM intact bilaterally Neck Neck: normal visual inspection Resp Effort & Inspection: normal respiratory effort and able to speak in complete sentences Auscultation: clear to auscultation bilaterally Cardio Rate: regular rate Rhythm: regular rhythm GI Inspection: incision (Healing laparoscopy port incisions), large pannus, scar (Scattered SQ abscess scars), no visible herniation and other (Patchy infrau mbilical SQ erythema, very tender) Palpation: soft, no hepatosplenomegaly, tender (Mid abdomen below umbilicus and into RLQ) and other Auscultation: normal bowel sounds Other: +/- rebound RLQ Psoas negative bilaterally External Female Exam: other (Pelvic exam deferred) Extrem Right lower extremity: normal to inspection Objective Imaging CT ABD/PELVIS: Radiologist's impression: PROCEDURE:? CT ABDOMEN PELVIS W CON ? INDICATIONS:? post op lower abd infection ? TECHNIQUE:? After the administration of IV contrast, axial sections were acquired from the lung bases to the pubic symphysis.? Coronal and sagittal reformats were performed.? For radiation dose reduction, the following was used:? automated exposure control, adjustment of mA and/or kV according to patient size. ? COMPARISON:? [facility], CT, CT ABDOMEN PELVIS W CON, 05/05/2018, 20:17. ? FINDINGS:? Image quality:? Excellent.? ? Lung bases:? There is mild dependent atelectasis.? ? Heart:? Heart is normal in size. ? ? ABDOMEN: Liver:? No mass lesion. Gallbladder:? Surgically absent Biliary ducts:? No biliary ductal dilatation.? ? Pancreas:? Unremarkable.? ? Spleen:? Normal in size.? ? Adrenal Glands:? No adrenal nodules.? ? Kidneys and Ureters:? No hydronephrosis.? ? ? Stomach and Bowel:? Stomach, small bowel loops, and colon are normal in caliber and wall thickness.? Appendix is normal.? Peritoneum:? No abnormal intraperitoneal fluid.? No free air.? No intra- abdominal abscess. ? Ventral Wall: ? There is subcutaneous fat stranding deep to the umbilicus with a lobulated subcutaneous collection measuring approximately 4.2 x 3.6 cm in transverse dimension by 2.6 cm in craniocaudal dimension.? No hernia.? Abdominal Nodes:? No retroperitoneal or mesenteric adenopathy by size criteria.? Vessels:? Aorta and inferior vena cava are normal in size.? ? PELVIS: Pelvic Organs:? Unremarkable.? ? Bladder:? Unremarkable.? ? Pelvic Nodes: No enlarged lymph nodes.? Miscellaneous: No inguinal hernias are seen. ? ? ? Bones:? Visualized osseous structures demonstrate no suspicious focal lesions. ? IMPRESSION:? ? 1. No intra-abdominal free fluid or abscess identified. ? 2. Subcutaneous fat stranding deep to the umbilicus consistent with edema and suggestive of infection.? An associated lobulated subcutaneous fluid collection is suspicious for an abscess. Labs 06/11/23 18:39 06/11/23 18:39 Labs: Laboratory Results - last 24 hr 06/11/23 06/11/23 06/11/23 18:20 18:39 18:39 WBC 16.9 H RBC 4.52 Hgb 11.5 L Hct 35.0 L MCV 77.3 L MCH 25.4 L MCHC 32.9 RDW 16.4 H Plt Count 377 Neut % (Auto) 84.0 H Lymph % (Auto) 8.4 L [place] % (Auto) 5.1 Eos % (Auto) 2.0 Baso % (Auto) 0.5 Neut # (Auto) 94539 H Lymph # (Auto) 1400 [place] # (Auto) 900 Eos # (Auto) 300 Baso # (Auto) 100 PT 12.8 H INR 1.1 APTT 31 Sodium Potassium Chloride Carbon Dioxide BUN Creatinine Estimated GFR BUN/Creatinine Ratio Glucose Lactate Calcium Total Bilirubin AST ALT Alkaline Phosphatase Total Protein Albumin Globulin Albumin/Globulin Ratio Lipase Procalcitonin Urine RBC 1-5/hpf Urine WBC None seen Ur Squamous Epith Cells 0-1 /hpf Urine Bacteria None seen Ur Culture Indicated? Cult not indicated 06/11/23 06/11/23 18:39 18:39 WBC RBC Hgb Hct MCV MCH MCHC RDW Plt Count Neut % (Auto) Lymph % (Auto) [place] % (Auto) Eos % (Auto) Baso % (Auto) Neut # (Auto) Lymph # (Auto) [place] # (Auto) Eos # (Auto) Baso # (Auto) PT INR APTT Sodium 135 L Potassium 3.8 Chloride 104 Carbon Dioxide 24 BUN 5 L Creatinine 0.94 Estimated GFR > 60 BUN/Creatinine Ratio 5.3 L Glucose 108 H Lactate 1.4 Calcium 9.0 Total Bilirubin 0.5 AST 27 ALT 31 Alkaline Phosphatase 163 H Total Protein 7.7 Albumin 4.0 Globulin 3.7 Albumin/Globulin Ratio 1.1 Lipase 56 Procalcitonin 0.03 Urine RBC Urine WBC Ur Squamous Epith Cells Urine Bacteria Ur Culture Indicated? [facility] Medical History Anxiety as acute reaction to exceptional stress Costochondritis COVID-19 HSV-2 (herpes simplex virus 2) infection Migraine Normal spontaneous vaginal delivery (spontaneous vaginal delivery) (~2018) Surgical History History of dilatation and curettage (~2014) History of dilation and curettage (~2012) Hx of cholecystectomy (~2014) S/P dilatation and curettage (~01/01/20) S/P foot surgery, right (~2011) Family History Family/Other Stroke Myocardial infarction End stage renal failure on dialysis Grandmother Unknown whether patient has any health problems Family estrangement Grandmother Diabetes mellitus Myocardial infarction Grandfather Unknown whether patient has any health problems Father Family estrangement Unknown whether patient has any health problems Grandmother Unknown whether patient has any health problems Family estrangement Mother Rheumatoid arthritis Social History marital status: number of children: 3 household members: spouse, family and children lives independently: Yes housing: house pets and animals: Yes (outside dog) education level: high school occupational status: employed current occupational exposures/hazards: Yes Previous occupational history: prior employment at the [employer] needs: No Safety seatbelt use: always water heater temp set < 120 deg: Yes working smoke detector in home: Yes fire extinguisher in home: Yes carbon monox detector in home: Yes firearms in home: No do you feel safe at home: Yes Tobacco & Substance Use Smoking Status: Current every day smoker Tobacco: How many years used: 11 second hand exposure: No alcohol intake: former substance use type: does not use Diet and Exercise during the past year weight has: increased > 10 lbs well-balanced diet: rarely or never daily servings fruits/ve-1 caffeine: Yes (Aware of 200 mg limit) Type(s) of exercise: none Assessment & Plan Assessment and plan (1) Morbid obesity: Status: Acute (2) Postoperative sepsis: Status: Acute (3) Subcutaneous abscess: Status: Acute Plan All sepsis protocol testing has been performed and initial empirical AB therapy initiated. Patient to be admitted to hospitalist service. NPO for umbilical wound exploration and drainage of SQ abscess in AM. Dr. Wang notified Time Spent With Patient Time with patient: 30 to 49 minutes with 50% spent counseling/coordinating care
[2023-06-11] MEDS: ACETAMINOPHEN 325 MG TABLET 650 MG PO (21:06)
[2023-06-11] MEDS: MORPHINE 4 MG/ML INJ IV (21:13)
--- NOTE | 2023-06-11 21:13 | P.HP_ITS ---
History of Present Illness History of Present Illness Chief complaint: thinks infected umbilicus Narrative: Ni is a 33-year-old female who recently underwent a tubal ligation with Dr. Flores of gynecology approximately 3 weeks ago.? For the past 2 weeks, she is experiencing new incisional area pain with associated redness.? Over the course of the past 2 weeks, the redness is spreading and the patient is experiencing subjective fevers and chills.? The redness is spreading superiorly toward the umbilicus.? The patient therefore presented in the emergency room where she was found to be febrile, tachycardic, and with elevated white count.? The patient has clinical abdominal wall cellulitis.? CT of the abdominal wall and pelvis shows early subcutaneous abscess measuring 4 cm in the largest dimension.? Lactate is normal. Broad-spectrum antibiotics were given in the ER.? The patient was discussed with covering [employer] physician overnight who has confirmed that they will relay this information to Dr. Flores in a.m. who will consult. In summary, the patient will be admitted for postoperative wound infection most notably for cellulitis with abscess.? Will start on vancomycin and ceftriaxone IV upfront. The patient denies having any chest pains, shortness of breath, symptoms of severe pain, lower urinary tract symptoms, headache, double vision, blurred vision, itchy eyes or runny nose. [facility] Medical History Anxiety as acute reaction to exceptional stress Costochondritis COVID-19 HSV-2 (herpes simplex virus 2) infection Migraine Normal spontaneous vaginal delivery (spontaneous vaginal delivery) (~2018) Surgical History History of dilatation and curettage (~2014) History of dilation and curettage (~2012) Hx of cholecystectomy (~2014) S/P dilatation and curettage (~01/01/20) S/P foot surgery, right (~2011) Family History Family/Other Stroke Myocardial infarction End stage renal failure on dialysis Grandmother Unknown whether patient has any health problems Family estrangement Grandmother Diabetes mellitus Myocardial infarction Grandfather Unknown whether patient has any health problems Father Family estrangement Unknown whether patient has any health problems Grandmother Unknown whether patient has any health problems Family estrangement Mother Rheumatoid arthritis Social History marital status: number of children: 3 household members: spouse, family and children lives independently: Yes housing: house pets and animals: Yes (outside dog) education level: high school occupational status: employed current occupational exposures/hazards: Yes Previous occupational history: 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 needs: No seatbelt use: always water heater temp set < 120 deg: Yes working smoke detector in home: Yes fire extinguisher in home: Yes carbon monox detector in home: Yes firearms in home: No do you feel safe at home: Yes Smoking Status: Current every day smoker Tobacco: How many years used: 11 second hand exposure: No alcohol intake: former substance use type: does not use during the past year weight has: increased > 10 lbs well-balanced diet: rarely or never daily servings fruits/ve-1 caffeine: Yes (Aware of 200 mg limit) Type(s) of exercise: none Meds Home Medications and Allergies Home Medications Medication Instructions Recorded Confirmed Type No Known Home Medications 06/11/23 06/11/23 History Allergies Allergy/AdvReac Type Severity Reaction Status Date / Time latex [LATEX] Allergy Severe Hives and Verified 06/11/23 18:04 Rash oxycodone [OXYCODONE] AdvReac Mild ITCHY Verified 06/11/23 18:04 Review of Systems Review of Systems Narrative: 14 point ROS negative Exam Vital Signs (past 8 hours): - 06/11/23 17:57 06/11/23 18:21 06/11/23 18:30 Temperature 103 F H Pulse Rate 137 H 131 H 123 H Respiratory Rate 22 Blood Pressure 151/77 H Pulse Oximetry 98 97 99 Oxygen Delivery Method Room Air 06/11/23 18:38 06/11/23 18:38 06/11/23 18:40 Temperature Pulse Rate 123 H 121 H Respiratory Rate Blood Pressure 172/96 H Pulse Oximetry 98 99 Oxygen Delivery Method 06/11/23 18:40 06/11/23 18:50 06/11/23 18:50 Temperature Pulse Rate 122 H Respiratory Rate Blood Pressure 166/95 H 156/95 H Pulse Oximetry 97 Oxygen Delivery Method 06/11/23 19:00 06/11/23 19:00 06/11/23 19:10 Temperature Pulse Rate 117 H 123 H Respiratory Rate 26 H 28 H Blood Pressure 161/93 H Pulse Oximetry 97 97 Oxygen Delivery Method 06/11/23 19:10 06/11/23 19:20 06/11/23 19:20 Temperature Pulse Rate 126 H Respiratory Rate 17 Blood Pressure 155/99 H 154/96 H Pulse Oximetry 100 Oxygen Delivery Method 06/11/23 19:30 06/11/23 19:30 06/11/23 19:40 Temperature Pulse Rate 119 H 119 H Respiratory Rate 26 H 24 Blood Pressure 153/91 H Pulse Oximetry 96 96 Oxygen Delivery Method 06/11/23 19:40 06/11/23 20:01 06/11/23 20:03 Temperature Pulse Rate 122 H 120 H Respiratory Rate 27 H Blood Pressure 163/93 H Pulse Oximetry 97 98 Oxygen Delivery Method 06/11/23 20:03 06/11/23 20:10 06/11/23 20:10 Temperature Pulse Rate 121 H Respiratory Rate 21 Blood Pressure 143/83 H 146/85 H Pulse Oximetry 98 Oxygen Delivery Method 06/11/23 20:20 06/11/23 20:20 06/11/23 21:06 Temperature 103.1 F H 103.1 F H Pulse Rate 124 H Respiratory Rate 15 16 Blood Pressure 116/58 L Pulse Oximetry 97 98 Oxygen Delivery Method Room Air 06/11/23 21:13 Temperature 103.1 F H Pulse Rate Respiratory Rate Blood Pressure Pulse Oximetry Oxygen Delivery Method Oxygen Delivery Method Room Air Narrative Exam Narrative: GEN: A+O X 4 HEENT NC AT CV2 S1S2 + No murmur Lungs clear, mod effort Abd: soft, BS+ Hyperemia + induration from imbilicus to incisions - no blisters EXT WWP no edema Objective Labs 06/11/23 18:39 06/11/23 18:39 Labs: Laboratory Results - last 24 hr 06/11/23 06/11/23 06/11/23 18:20 18:39 18:39 WBC 16.9 H RBC 4.52 Hgb 11.5 L Hct 35.0 L MCV 77.3 L MCH 25.4 L MCHC 32.9 RDW 16.4 H Plt Count 377 Neut % (Auto) 84.0 H Lymph % (Auto) 8.4 L [place] % (Auto) 5.1 Eos % (Auto) 2.0 Baso % (Auto) 0.5 Neut # (Auto) 55890 H Lymph # (Auto) 1400 [place] # (Auto) 900 Eos # (Auto) 300 Baso # (Auto) 100 PT 12.8 H INR 1.1 APTT 31 Sodium Potassium Chloride Carbon Dioxide BUN Creatinine Estimated GFR BUN/Creatinine Ratio Glucose Lactate Calcium Total Bilirubin AST ALT Alkaline Phosphatase Total Protein Albumin Globulin Albumin/Globulin Ratio Lipase Procalcitonin Urine RBC 1-5/hpf Urine WBC None seen Ur Squamous Epith Cells 0-1 /hpf Urine Bacteria None seen Ur Culture Indicated? Cult not indicated 06/11/23 06/11/23 18:39 18:39 WBC RBC Hgb Hct MCV MCH MCHC RDW Plt Count Neut % (Auto) Lymph % (Auto) [place] % (Auto) Eos % (Auto) Baso % (Auto) Neut # (Auto) Lymph # (Auto) [place] # (Auto) Eos # (Auto) Baso # (Auto) PT INR APTT Sodium 135 L Potassium 3.8 Chloride 104 Carbon Dioxide 24 BUN 5 L Creatinine 0.94 Estimated GFR > 60 BUN/Creatinine Ratio 5.3 L Glucose 108 H Lactate 1.4 Calcium 9.0 Total Bilirubin 0.5 AST 27 ALT 31 Alkaline Phosphatase 163 H Total Protein 7.7 Albumin 4.0 Globulin 3.7 Albumin/Globulin Ratio 1.1 Lipase 56 Procalcitonin 0.03 Urine RBC Urine WBC Ur Squamous Epith Cells Urine Bacteria Ur Culture Indicated? Assessment & Plan Assessment & Plan narrative: ACUTE: Postoperative wound infection over the lower anterior abdominal wall status post tubal ligation.? CT evidence of abscess formation maximally 4 cm and located subcutaneously. Nonsevere sepsis secondary to above Plan: Admit to [facility] with telemetry Normal saline 100 MLS per hour Upfront antibiotics will be vancomycin and ceftriaxone IV Blood cultures x2 sets sent from the ER Keep n.p.o. after midnight CONSULTS: Ravin Fox and Sandra of [employer] DVT prophylaxis: Lovenox 40 Full code Time spent 60 mins
[2023-06-11 22:15] LABS: INR 1.2 (0.9-1.3); Prothrombin Time 14.3 SECONDS (10.1-12.7)
[2023-06-11 22:41] LABS: Urine N gonorrhoeae NOT DETECTED
[2023-06-11 22:44] LABS: Urine Chlamydia NOT DETECTED
[2023-06-11] MEDS: SODIUM CHLORIDE 0.45% 1,000 ML 100 ML IV (23:01)
[2023-06-11] MEDS: VANCOMYCIN 1,500 MG/300 ML PIGGYBACK 200 MG IV (23:01)
[2023-06-12] VITALS (12 sets, daily range): BP systolic 93–111; BP diastolic 53–65; PULSE 85–104; RESP 18–22; TEMP 36.4–37.3; O2SAT 95–99
--- NOTE | 2023-06-12 | DI.CT.S_ITS ---
PROCEDURE: CT GUIDED FNA Sedation analgesia for 0 minutes. INDICATIONS: FLUID TECHNIQUE: The indications, alternatives, benefits, risks, and possible complications of the procedure were communicated to the patient. Informed written consent from the patient was obtained and placed in the chart. Continuous EKG and hemodynamic monitoring was started by trained personnel. The patient was brought to the CT suite and supervisor pullet farm spiral CT imaging was performed with localization grid. The appropriate site for percutaneous access to the biopsy target was marked, was prepped and draped sterilely, and was infused with local anaesthesia. Under CT guidance, a core biopsy trocar and needle set was advanced to the biopsy target, and specimen(s) were obtained. The trocar and needle were then removed, and the patient was sent for post-procedure monitoring. COMPARISON: [facility], CT, CT ABDOMEN PELVIS [facility], 06/11/2023, 19:49. FINDINGS: Biopsy site: Anterior abdominal wall fluid collection Needle: 16 gauge biopsy needle with introducer trocar. Number of passes: 1 Medications: 1% lidocaine for local anaesthesia. IV Fentanyl and Versed for conscious sedation for 0 minutes (see nursing record). Complications: None. IMPRESSION: Successful CT-guided fluid aspiration. Fluid was sent to the laboratory for Gram stain, culture and sensitivity. Dictated by: Britta Ash M.D. on 06/12/2023 at 10:00 Approved by: Britta Ash M.D. on 06/12/2023 at 10:01
[2023-06-12] MEDS: SODIUM CHLORIDE 0.9% 1,000 ML 150 ML IV ×3 (02:27→22:20)
[2023-06-12] MEDS: SODIUM CHLORIDE 0.9% 1,000 ML 1000 ML IV ×2 (03:10→04:35)
--- NOTE | 2023-06-12 04:45 | PC.NURSE ---
Pt's urine had one medium sized blood clot, no particulate noted. Pt reports I haven't stopped bleeding since four months ago. Notified PEREZ Snow @[phone]
--- NOTE | 2023-06-12 08:04 | DI.US.S_ITS ---
PROCEDURE: US ABDOMEN LIMITED INDICATIONS: SUBUMBILICAL FLUID COLLECTION TECHNIQUE: Limited soft tissue ultrasound in area of concern was obtained. COMPARISON: None. FINDINGS: At the area of concern, there is a subcutaneous focal fluid collection measuring 2.5 x 2.2 x 2.3 cm within the subcutaneous tissue. No associated vascularity. IMPRESSION: Focal 2.5 cm subcutaneous fluid collection. Approved by: Abiel Smith M.D. on 06/12/2023 at 10:58
--- NOTE | 2023-06-12 08:25 | PM.PN.1 ---
Subjective Subjective Date Patient Seen: 06/12/23 Time Patient Seen: 08:05 Interval history: Patient is tired because she did not get any sleep last night but otherwise feels significantly better than she did upon admission last evening. Her abdominal wall pain is still present but markedly less than it was on admission. She has been NPO since midnight in anticipation of possible wound exploration. Case discussed with Dr. Marni Wang and imaging reviewed with radiology. The suspected abscess is not felt to be large enough to target with a pigtail drain but ultrasound-guided aspiration to be attempted later today instead of surgical exploration. Surgical exploration of the wound will be reserved in case aspiration is not possible and/or the patient does not continue to improve clinically. Exam Vital Signs (past 8 hours): - 06/12/23 02:17 06/12/23 02:31 06/12/23 04:21 Temperature 99.1 F Pulse Rate 103 H Respiratory Rate 18 Blood Pressure 93/53 L 103/54 L 95/56 L Pulse Oximetry 95 Oxygen Delivery Method Oxygen Flow Rate 0 06/12/23 02:17 06/12/23 05:40 Temperature Pulse Rate 104 H Respiratory Rate Blood Pressure 103/64 Pulse Oximetry 95 Oxygen Delivery Method Room Air Oxygen Flow Rate Oxygen Delivery Method Room Air Oxygen Flow Rate 0 Const General: cooperative and comfortable Orientation: alert and oriented x3 HENMT Head: normal to inspection, atraumatic and abrasion Ears: hearing grossly normal bilaterally Face and sinus: face symmetric Eyes General: appearance normal, both eyes and all related structures Conjunctivae: conjunctivae normal Sclera: sclerae normal EOM: EOM intact bilaterally Neck Neck: normal visual inspection Resp Effort & Inspection: normal respiratory effort and able to speak in complete sentences GI Inspection: incision (Laparoscopy incisions intact), large pannus, obesity and other (Patchy erythema of infraumbilical skin but area is not expanding) Palpation: soft, no hepatosplenomegaly and tender (Diffuse periumbilical and infraumbilical tenderness, less than on admission) Auscultation: normal bowel sounds External Female Exam: other (No significant bleeding noted) Extrem General: no calf tenderness Psych Appearance: grossly normal Mental Status: mental status grossly normal Speech and Movement: speech and movement normal Mood: congruent mood Affect: normal affect Attitude: cooperative Thought Process: normal Thought Content: normal Judgment: judgment good Objective Labs 06/11/23 18:39 06/11/23 18:39 Labs: Laboratory Results - last 24 hr 06/11/23 06/11/23 06/11/23 18:20 18:20 18:39 WBC 16.9 H RBC 4.52 Hgb 11.5 L Hct 35.0 L MCV 77.3 L MCH 25.4 L MCHC 32.9 RDW 16.4 H Plt Count 377 Neut % (Auto) 84.0 H Lymph % (Auto) 8.4 L [place] % (Auto) 5.1 Eos % (Auto) 2.0 Baso % (Auto) 0.5 Neut # (Auto) 49685 H Lymph # (Auto) 1400 [place] # (Auto) 900 Eos # (Auto) 300 Baso # (Auto) 100 PT INR APTT Sodium Potassium Chloride Carbon Dioxide BUN Creatinine Estimated GFR BUN/Creatinine Ratio Glucose Lactate Calcium Total Bilirubin AST ALT Alkaline Phosphatase Total Protein Albumin Globulin Albumin/Globulin Ratio Lipase Procalcitonin Urine RBC 1-5/hpf Urine WBC None seen Ur Squamous Epith Cells 0-1 /hpf Urine Bacteria None seen Ur Culture Indicated? Cult not indicated Ur Chlamydia DNA (PCR) Not detected N gonorrhoeae DNA (PCR) Not detected 06/11/23 06/11/23 06/11/23 18:39 18:39 18:39 WBC RBC Hgb Hct MCV MCH MCHC RDW Plt Count Neut % (Auto) Lymph % (Auto) [place] % (Auto) Eos % (Auto) Baso % (Auto) Neut # (Auto) Lymph # (Auto) [place] # (Auto) Eos # (Auto) Baso # (Auto) PT 12.8 H INR 1.1 APTT 31 Sodium 135 L Potassium 3.8 Chloride 104 Carbon Dioxide 24 BUN 5 L Creatinine 0.94 Estimated GFR > 60 BUN/Creatinine Ratio 5.3 L Glucose 108 H Lactate 1.4 Calcium 9.0 Total Bilirubin 0.5 AST 27 ALT 31 Alkaline Phosphatase 163 H Total Protein 7.7 Albumin 4.0 Globulin 3.7 Albumin/Globulin Ratio 1.1 Lipase 56 Procalcitonin 0.03 Urine RBC Urine WBC Ur Squamous Epith Cells Urine Bacteria Ur Culture Indicated? Ur Chlamydia DNA (PCR) N gonorrhoeae DNA (PCR) 06/11/23 22:01 WBC RBC Hgb Hct MCV MCH MCHC RDW Plt Count Neut % (Auto) Lymph % (Auto) [place] % (Auto) Eos % (Auto) Baso % (Auto) Neut # (Auto) Lymph # (Auto) [place] # (Auto) Eos # (Auto) Baso # (Auto) PT 14.3 H INR 1.2 APTT Sodium Potassium Chloride Carbon Dioxide BUN Creatinine Estimated GFR BUN/Creatinine Ratio Glucose Lactate Calcium Total Bilirubin AST ALT Alkaline Phosphatase Total Protein Albumin Globulin Albumin/Globulin Ratio Lipase Procalcitonin Urine RBC Urine WBC Ur Squamous Epith Cells Urine Bacteria Ur Culture Indicated? Ur Chlamydia DNA (PCR) N gonorrhoeae DNA (PCR) PFSH Medical History Anxiety as acute reaction to exceptional stress Costochondritis COVID-19 HSV-2 (herpes simplex virus 2) infection Migraine Normal spontaneous vaginal delivery (spontaneous vaginal delivery) (~2018) Surgical History History of dilatation and curettage (~2014) History of dilation and curettage (~2012) Hx of cholecystectomy (~2014) S/P dilatation and curettage (~01/01/20) S/P foot surgery, right (~2011) Family History Family/Other Stroke Myocardial infarction End stage renal failure on dialysis Grandmother Unknown whether patient has any health problems Family estrangement Grandmother Diabetes mellitus Myocardial infarction Grandfather Unknown whether patient has any health problems Father Family estrangement Unknown whether patient has any health problems Grandmother Unknown whether patient has any health problems Family estrangement Mother Rheumatoid arthritis Social History marital status: number of children: 3 household members: spouse, family and children lives independently: Yes housing: house pets and animals: Yes (outside dog) education level: high school occupational status: employed current occupational exposures/hazards: Yes Previous occupational history: prior employment at the [employer] special edy needs: No seatbelt use: always water heater temp set < 120 deg: Yes working smoke detector in home: Yes fire extinguisher in home: Yes carbon monox detector in home: Yes firearms in home: No do you feel safe at home: Yes Smoking Status: Current every day smoker Tobacco: How many years used: 11 second hand exposure: No alcohol intake: former substance use type: does not use during the past year weight has: increased > 10 lbs well-balanced diet: rarely or never daily servings fruits/ve-1 caffeine: Yes (Aware of 200 mg limit) Type(s) of exercise: none Assessment & Plan Assessment and plan (1) Subcutaneous abscess: Status: Acute (2) Postoperative sepsis: Status: Acute (3) Morbid obesity: Status: Acute Plan Rather than exploring the umbilical incision, order placed for ultrasound or CT-guided aspiration of the abscess cavity for drainage and culture studies pending Patient may have regular diet Will re-evaluate later today regarding possible decision for surgical exploration of the umbilical incision if her clinical improvement does not continue Quality VTE Deep Vein Thrombosis/Pulmonary Embolism Present on Admission: No
[2023-06-12] MEDS: ACETAMINOPHEN 325 MG TABLET 650 MG PO ×2 (10:16→18:37)
[2023-06-12] MEDS: ENOXAPARIN 40 MG/0.4 ML SYRINGE SUBCUT ×2 (10:16→21:22)
[2023-06-12] MEDS: VANCOMYCIN 1,000 MG/200 ML PIGGYBACK 200 MG IV ×2 (10:17→18:38)
[2023-06-12] MEDS: OXYCODONE IR 5 MG TABLET PO (13:53)
--- NOTE | 2023-06-12 16:01 | CM.DANOTE ---
DCP Assessment Note: Patient is a 32yo female here for post op sepsis/infection following a Laparoscopic Salpingectomy May [address] Wang. PCP None at this time. CLINICAL DOCUMENTATION CLERK plan to provide list of PCP in her area. Payer: Medicaid and [facility] CLINICAL DOCUMENTATION CLERK reviewed EMR. CLINICAL DOCUMENTATION CLERK entered room and introduced self and role. Patient was resting in bed, appeared A/Ox4, but was groggy. Patient was accompanied by two children and spouse, Alvin Mendez) [phone]. Patient lives at home with spouse, kids, parents, and brother. Patient is independent at baseline and drives. Patient has a walker she can use but no other DME. Patient reports she has supports at home. Patient has been up to go to bathroom but has had to move slow and the gravity pulling on her when up has been painful. Patient reports she can transport with family and would like to go home/has supports at home. Plan: patient likely to d/c home when medically stable with family. CM team will provide list of PCPs in her area. CM team will continue to follow closely. BOB Jacobo Discharge Planning/Care Management CM Discharge Assessment Start: 06/12/23 15:57 Freq: Status: Active Protocol: Document 06/12/23 15:57 (Rec: 06/12/23 16:01 [id number]) Discharge Planning Assessment Assigned Business Account Leader BOB Avendaño DPOA/Assigned Designee Name Alvin Mendez) spouse Contact Information [phone] Advance Directives? No History Provided By Patient,Medical Record Has Patient been admitted in last 30 No days? Comment Laparoscopic Salpingectomy on 05/23 Prior Living Arrangements House Household Members spouse,family,children Type of transporation used prior to Drives own vehicle admit Independent with ADL's Yes Is patient alert and oriented? Yes: slightly groggy DME Already Rented / Owned FWW / Walker Comment has a walker but doesn't use it Discharge Plan Home Transportation Arrangement family in POV Whiteboard Updated in Patient Room with Yes name and ext. # of Business Account Leader Review Status In Process Next Review Type Continued Stay Review
[2023-06-12] MEDS: cefTRIAXone 2,000 MG in SODIUM CHLORIDE 0.9% 100 ML 200 MG IV (17:37)
[2023-06-12 22:03] LABS: Add Manual Diff / Slide Review NO; Basophils Absolute Auto 100 /uL (0-100); Basophils Percent Auto 0.4 % (0-2); Eosinophils Absolute Auto 300 /uL (0-450); Eosinophils Percent Auto 2.6 % (2-4); Hematocrit 30.4 % (36-46); Lymphocytes Absolute Auto 2200 /uL (1100-4500); Lymphocytes Percent Auto 17.1 % (25-40); Mean Corpuscular HGB Conc 32.9 % (30-36); Mean Corpuscular Hemoglobin 25.6 PG (26-34); Mean Corpuscular Volume 77.9 fL (80-100); Monocytes Absolute Auto 800 /uL (0-900); Monocytes Percent Auto 6.2 % (3-14); Neutrophils Absolute Auto 9300 /uL (1500-7000); Neutrophils Percent Auto 73.7 % (50-75); Platelet Count 328 X10^3/uL (150-400); Red Blood Cell Count 3.91 X10^6/uL (4.0-5.2); Red Cell Distribution Width 16.7 % (11.6-14.8); White Blood Cell Count 12.6 X10^3/uL (4.5-11.0)
[2023-06-12 22:15] LABS: BUN Creatinine Ratio 8.1 (6-22); Blood Urea Nitrogen 6 mg/dL (7-17); Calcium 8.1 mg/dL (8.4-10.2); Carbon Dioxide 22 mmol/L (22-32); Chloride 111 mmol/L (98-107); Estimated Glomerular Filt Rate > 60 mL/min (>60); Glucose 113 mg/dL (70-100); HEMOLYSIS < 15 (0-50); Potassium 3.8 mmol/L (3.4-5.1); Sodium 139 mmol/L (137-145)
[2023-06-13] VITALS (12 sets, daily range): BP systolic 101–122; BP diastolic 53–80; PULSE 80–91; RESP 16–18; TEMP 36.3–36.9; O2SAT 91–100
[2023-06-13] MEDS: VANCOMYCIN 1,000 MG/200 ML PIGGYBACK 200 MG IV ×2 (02:05→10:58)
[2023-06-13] MEDS: ACETAMINOPHEN 325 MG TABLET 650 MG PO ×3 (05:55→20:09)
[2023-06-13] MEDS: OXYCODONE IR 5 MG TABLET PO ×4 (05:58→20:09)
[2023-06-13] MEDS: SODIUM CHLORIDE 0.9% 1,000 ML 150 ML IV ×3 (05:59→20:22)
--- NOTE | 2023-06-13 06:30 | PM.PN.1 ---
Subjective Subjective Date Patient Seen: 06/13/23 Time Patient Seen: 12:30 Interval history: HD #2 for cellulitis of abdominal wall and abscess of umbilical incision from laparoscopic salpingectomy Pt still having some pain in her abdomen. Spoke with Radiologist and he said that he aspirated 5-10 cc of murky fluid. Exam Vital Signs (past 8 hours): - 06/13/23 00:50 06/13/23 02:00 06/13/23 04:18 Temperature 97.8 F 98.4 F Pulse Rate 80 91 H Respiratory Rate 18 18 Blood Pressure 122/54 L 107/53 L Pulse Oximetry 97 99 91 Oxygen Delivery Method Room Air Oxygen Flow Rate 0 06/13/23 06:00 Temperature Pulse Rate Respiratory Rate Blood Pressure Pulse Oximetry 98 Oxygen Delivery Method Room Air Oxygen Flow Rate Oxygen Delivery Method Room Air Oxygen Flow Rate 0 Narrative Exam Narrative: Afebrile Generally: Pt sitting up in chair in no acute distress Lungs: CTA bilat CV: RRR Abdomen: Some increased erythem. Some tenderness to palpation. No guarding or rebound tenderness. Objective Labs 06/13/23 11:15 06/12/23 21:55 Labs: Laboratory Results - last 24 hr 06/12/23 06/12/23 21:55 21:55 WBC 12.6 H RBC 3.91 L Hgb 10.0 L Hct 30.4 L MCV 77.9 L MCH 25.6 L MCHC 32.9 RDW 16.7 H Plt Count 328 Neut % (Auto) 73.7 Lymph % (Auto) 17.1 L [place] % (Auto) 6.2 Eos % (Auto) 2.6 Baso % (Auto) 0.4 Neut # (Auto) 9300 H Lymph # (Auto) 2200 [place] # (Auto) 800 Eos # (Auto) 300 Baso # (Auto) 100 Sodium 139 Potassium 3.8 Chloride 111 H Carbon Dioxide 22 BUN 6 L Creatinine 0.74 Estimated GFR > 60 BUN/Creatinine Ratio 8.1 Glucose 113 H Calcium 8.1 L Blood cultures neg x2 Wound swab + Group A strept PFSH Medical History Anxiety as acute reaction to exceptional stress Costochondritis COVID-19 HSV-2 (herpes simplex virus 2) infection Migraine Normal spontaneous vaginal delivery (spontaneous vaginal delivery) (~2018) Surgical History History of dilatation and curettage (~2014) History of dilation and curettage (~2012) Hx of cholecystectomy (~2014) S/P dilatation and curettage (~01/01/20) S/P foot surgery, right (~2011) Family History Family/Other Stroke Myocardial infarction End stage renal failure on dialysis Grandmother Unknown whether patient has any health problems Family estrangement Grandmother Diabetes mellitus Myocardial infarction Grandfather Unknown whether patient has any health problems Father Family estrangement Unknown whether patient has any health problems Grandmother Unknown whether patient has any health problems Family estrangement Mother Rheumatoid arthritis Social History marital status: number of children: 3 household members: spouse, family and children lives independently: Yes housing: house pets and animals: Yes (outside dog) education level: high school occupational status: employed current occupational exposures/hazards: Yes Previous occupational history: prior employment at the [employer] needs: No seatbelt use: always water heater temp set < 120 deg: Yes working smoke detector in home: Yes fire extinguisher in home: Yes carbon monox detector in home: Yes firearms in home: No do you feel safe at home: Yes Smoking Status: Current every day smoker Tobacco: How many years used: 11 second hand exposure: No alcohol intake: former substance use type: does not use during the past year weight has: increased > 10 lbs well-balanced diet: rarely or never daily servings fruits/ve-1 caffeine: Yes (Aware of 200 mg limit) Type(s) of exercise: none Assessment & Plan Assessment & Plan narrative: Assessment: 3 wks s/p laparoscopic Bilateral salpingectomy Abdominal wall cellulitis and small fluid collection, aspirated under CT guidance yesterday Group A strept Plan: D/C Vancomycin Plan to I&D wound tomorrow NPO after midnight Time Spent With Patient Time with patient: less than 30 minutes Quality VTE Deep Vein Thrombosis/Pulmonary Embolism Present on Admission: No
[2023-06-13 10:27] LABS: Vancomycin Trough 8.6 ug/mL (10-20)
[2023-06-13 11:31] LABS: Add Manual Diff / Slide Review NO; Basophils Absolute Auto 0 /uL (0-100); Basophils Percent Auto 0.3 % (0-2); Eosinophils Absolute Auto 400 /uL (0-450); Eosinophils Percent Auto 2.8 % (2-4); Hematocrit 29.1 % (36-46); Hemoglobin 9.5 g/dL (12.0-16.0); Lymphocytes Absolute Auto 2300 /uL (1100-4500); Lymphocytes Percent Auto 17.6 % (25-40); Mean Corpuscular HGB Conc 32.8 % (30-36); Mean Corpuscular Hemoglobin 25.6 PG (26-34); Monocytes Absolute Auto 800 /uL (0-900); Monocytes Percent Auto 6.5 % (3-14); Neutrophils Absolute Auto 9400 /uL (1500-7000); Neutrophils Percent Auto 72.8 % (50-75); Platelet Count 312 X10^3/uL (150-400); Red Blood Cell Count 3.72 X10^6/uL (4.0-5.2); Red Cell Distribution Width 16.8 % (11.6-14.8); White Blood Cell Count 12.9 X10^3/uL (4.5-11.0)
[2023-06-13] MEDS: cefTRIAXone 2,000 MG in SODIUM CHLORIDE 0.9% 100 ML 200 MG IV (17:19)
[2023-06-14] VITALS (14 sets, daily range): BP systolic 89–136; BP diastolic 56–84; PULSE 84–98; RESP 13–17; TEMP 36–36.6; O2SAT 94–99; BMI 48.0
[2023-06-14] MEDS: SODIUM CHLORIDE 0.9% 1,000 ML 150 ML IV ×3 (03:46→22:01)
[2023-06-14] MEDS: OXYCODONE IR 5 MG TABLET PO ×4 (06:46→20:36)
[2023-06-14] MEDS: ACETAMINOPHEN 325 MG TABLET 650 MG PO (06:47)
[2023-06-14] MEDS: LACTATED RINGERS 1,000 ML 84 ML IV (10:35)
--- NOTE | 2023-06-14 11:53 | PM.PREOP ---
Pre-operative Note Interval Note History & Physical reviewed/Exam performed by Physician: Yes Changes to H&P: No H&P completed within 30 days and has changed as indicated here:: 06/11/23
--- NOTE | 2023-06-14 12:12 | SUR.OPER ---
Supine on padded OR bed, head on pillow, arms secured on padded arm boards at <90 degrees abduction, legs uncrossed, safety belt at thigh, tape over blanket over lower legs. Wedge under torso, blankets under both arms
[2023-06-14] MEDS: SODIUM CHLORIDE IRRIG SOLUTION 1,000 ML, CEFAZOLIN VIAL 1 GM IRR (12:27)
--- NOTE | 2023-06-14 13:22 | SUR.PHASEI ---
holding to give report
[2023-06-14] MEDS: CEFAZOLIN VIAL 3 GM in SODIUM CHLORIDE 0.9% 100 ML IV ×2 (15:53→23:53)
--- NOTE | 2023-06-14 17:31 | PM.GYNOP.1 ---
Operative Date/Time/Diagnoses Date of procedure: 06/14/23 Time of procedure: 12:30 Pre-op diagnosis: Abscess of the subcutaneous layer on the anterior abdominal wall Cellulitis of the anterior abdominal wall Post-op diagnosis: same Procedure & Clinicians Procedure: Procedures Operation Date: 06/12/23 13:45 <No data on this case meets the specified criteria> Operation Date: 06/14/23 11:00 Actual Procedure Side Surgeon p Incision and Drainage abscess umbilical incision Glory Wang MD Indications: No significant improvement in cellulitis after CT-guided drainage of abscess in the anterior abdominal wall Pocket of fluid in the subcutaneous layer in the anterior abdominal wall Cellulitis of the anterior abdominal wall Surgeon: Glory Wang Anesthesia Type: General Operative Notes Findings: 3-4 cm pocket of fluid proximally 6 cm deep to the skin below the umbilical incision Some tracking in the subcutaneous layer parallel to the skin Specimen(s): other (Culture of the abscess) Applied: drain(s) (# 15 Josiah drain placed with grenade) Estimated blood loss (mL): 10 Blood products transfused: none Procedure in detail: After informed consent was obtained, the patient was taken to the operating room where she was placed in the dorsal supine position. After adequate general endotracheal anesthesia was achieved, she was prepped and draped in the usual sterile fashion. A time-out was performed. The previous infraumbilical incision was opened with Metzenbaum scissors. This was bluntly dissected down approximately 6 cm into a pocket of fluid. There was proximally 20 cc of murky yellow fluid. The area was irrigated with a L of fluid. It was then irrigated with a L of fluid with 1 g of Ancef. There was a small tract parallel to the skin just below the anterior abdominal wall. This area was irrigated as well. A #15 Josiah drain was placed into the cavity. 4-0 Monocryl in simple interrupted sutures were used to close the umbilical incision. The drain was placed on suction to a grenade. There was immediately proximally 5-10 cc of serosanguineous fluid. The drain was brought out proximally 3 cm left lateral to the incision. This was kept in place with 2-0 Prolene. Dressings were placed over the drain site and the umbilical incision. Sponge, lap, and instrument counts were correct x2. The patient tolerated the procedure well, and was taken to PACU in stable condition. Complications: none Post-operative Condition: stable Disposition: PACU Plan for aftercare: To acute care after recovery
--- NOTE | 2023-06-14 17:36 | PM.PN.1 ---
Subjective Subjective Date Patient Seen: 06/14/23 Time Patient Seen: 17:36 Interval history: Hospital day # 4 with cellulitis of the anterior abdominal wall and an abscess deep to the infraumbilical incision. Patient taken to surgery today for an incision and drainage of the abscess with placement of a drain. Her pain is well controlled. Exam Vital Signs (past 8 hours): - 06/14/23 10:28 06/14/23 12:49 06/14/23 12:53 Temperature 97.5 F L 96.8 F L Pulse Rate 88 93 H 91 H Respiratory Rate 16 13 14 Blood Pressure 112/73 89/56 L 116/70 Pulse Oximetry 98 94 98 Oxygen Delivery Method Room Air Room Air Room Air Oxygen Flow Rate 06/14/23 13:00 06/14/23 13:20 06/14/23 13:11 Temperature Pulse Rate 88 84 88 Respiratory Rate 16 15 16 Blood Pressure 114/68 107/60 104/71 Pulse Oximetry 98 99 98 Oxygen Delivery Method Room Air Room Air Room Air Oxygen Flow Rate 06/14/23 15:00 06/14/23 14:00 06/14/23 14:30 Temperature 97.8 F Pulse Rate 90 90 96 H Respiratory Rate 17 17 17 Blood Pressure 129/76 129/76 119/72 Pulse Oximetry 97 97 94 Oxygen Delivery Method Oxygen Flow Rate 0 0 0 Oxygen Delivery Method Room Air Oxygen Flow Rate 0 Narrative Exam Narrative: Drain output: Approximately 5-10 cc of serosanguineous fluid Generally: Patient lying in bed, no acute distress Abdomen: Decreased erythema of the anterior abdominal wall. Incisions: Clean dry and intact with Allevyn dressings. Objective Labs 06/13/23 11:15 06/12/23 21:55 [facility] Medical History Anxiety as acute reaction to exceptional stress Costochondritis COVID-19 HSV-2 (herpes simplex virus 2) infection Migraine Normal spontaneous vaginal delivery (spontaneous vaginal delivery) (~2018) Surgical History History of dilatation and curettage (~2014) History of dilation and curettage (~2012) Hx of cholecystectomy (~2014) S/P dilatation and curettage (~01/01/20) S/P foot surgery, right (~2011) Family History Family/Other Stroke Myocardial infarction End stage renal failure on dialysis Grandmother Unknown whether patient has any health problems Family estrangement Grandmother Diabetes mellitus Myocardial infarction Grandfather Unknown whether patient has any health problems Father Family estrangement Unknown whether patient has any health problems Grandmother Unknown whether patient has any health problems Family estrangement Mother Rheumatoid arthritis Social History marital status: number of children: 3 household members: spouse, family and children lives independently: Yes housing: house pets and animals: Yes (outside dog) education level: high school occupational status: employed current occupational exposures/hazards: Yes Previous occupational history: prior employment at [employer] needs: No seatbelt use: always water heater temp set < 120 deg: Yes working smoke detector in home: Yes fire extinguisher in home: Yes carbon monox detector in home: Yes firearms in home: No do you feel safe at home: Yes Smoking Status: Current every day smoker Tobacco: How many years used: 11 second hand exposure: No alcohol intake: former substance use type: does not use during the past year weight has: increased > 10 lbs well-balanced diet: rarely or never daily servings fruits/ve-1 caffeine: Yes (Aware of 200 mg limit) Type(s) of exercise: none Assessment & Plan Assessment & Plan narrative: Assessment: Cellulitis of the anterior abdominal wall, slight improvement Postoperatively doing well after I&D of abscess and drain placement Antibiotic dosing change Plan: Possible discharge 06/15 or 06/16 depending on cellulitis improvement Time Spent With Patient Time with patient: less than 30 minutes Quality VTE Deep Vein Thrombosis/Pulmonary Embolism Present on Admission: No
[2023-06-14] MEDS: ENOXAPARIN 40 MG/0.4 ML SYRINGE SUBCUT (20:38)
[2023-06-15 00:03] VITALS: BP 105/47; PULSE 84; RESP 18; TEMP 36.5; O2SAT 97
[2023-06-15 05:07] VITALS: BP 120/72; PULSE 76; RESP 17; TEMP 36.2; O2SAT 97
[2023-06-15] MEDS: OXYCODONE IR 5 MG TABLET PO ×3 (05:08→20:52)
[2023-06-15] MEDS: SODIUM CHLORIDE 0.9% 1,000 ML 150 ML IV (05:08)
[2023-06-15] MEDS: CEFAZOLIN VIAL 3 GM in SODIUM CHLORIDE 0.9% 100 ML IV ×3 (06:05→23:11)
[2023-06-15 06:45] LABS: Add Manual Diff / Slide Review NO; Basophils Absolute Auto 0 /uL (0-100); Basophils Percent Auto 0.2 % (0-2); Eosinophils Absolute Auto 0 /uL (0-450); Hematocrit 28.2 % (36-46); Hemoglobin 9.4 g/dL (12.0-16.0); Lymphocytes Absolute Auto 1500 /uL (1100-4500); Lymphocytes Percent Auto 11.7 % (25-40); Mean Corpuscular HGB Conc 33.3 % (30-36); Mean Corpuscular Hemoglobin 25.8 PG (26-34); Mean Corpuscular Volume 77.6 fL (80-100); Monocytes Absolute Auto 600 /uL (0-900); Monocytes Percent Auto 4.5 % (3-14); Neutrophils Absolute Auto 10900 /uL (1500-7000); Neutrophils Percent Auto 83.6 % (50-75); Platelet Count 377 X10^3/uL (150-400); Red Blood Cell Count 3.64 X10^6/uL (4.0-5.2); Red Cell Distribution Width 16.3 % (11.6-14.8)
[2023-06-15 09:00] VITALS: BP 111/57; PULSE 72; RESP 17; TEMP 36.6; O2SAT 96
--- NOTE | 2023-06-15 10:21 | P.PN_ITS ---
Subjective Subjective Date Patient Seen: 06/15/23 Time Patient Seen: 10:21 Interval history: Postop day #1 status post incision and drainage of abscess from a previous laparoscopy incision Patient reports feeling much better today. Her pain is decreased. She is able to move around without significant discomfort. The drainage from the bulb is significantly decreased. 20 cc right after surgery, 7.5 cc last evening, there is a proximally 2 cc in the bulb right now. This is serosanguineous. Exam Vital Signs (past 8 hours): - 06/15/23 05:07 Temperature 97.2 F L Pulse Rate 76 Respiratory Rate 17 Blood Pressure 120/72 Pulse Oximetry 97 Oxygen Delivery Method Room Air Oxygen Flow Rate 0 Narrative Exam Narrative: Generally: Patient is sitting up in bed, no acute distress Abdomen: Still with some erythema but significantly decreased. Significantly decreased tenderness. Incisions: Allevyn dressings are clean, dry, and intact. Objective Labs 06/15/23 05:35 06/12/23 21:55 Labs: Laboratory Results - last 24 hr 06/15/23 05:35 WBC 13.0 H RBC 3.64 L Hgb 9.4 L Hct 28.2 L MCV 77.6 L MCH 25.8 L MCHC 33.3 RDW 16.3 H Plt Count 377 Neut % (Auto) 83.6 H Lymph % (Auto) 11.7 L [place] % (Auto) 4.5 Eos % (Auto) 0.0 L Baso % (Auto) 0.2 Neut # (Auto) 37509 H Lymph # (Auto) 1500 [place] # (Auto) 600 Eos # (Auto) 0 Baso # (Auto) 0 PFSH Medical History Anxiety as acute reaction to exceptional stress Costochondritis COVID-19 HSV-2 (herpes simplex virus 2) infection Migraine Normal spontaneous vaginal delivery (spontaneous vaginal delivery) (~2018) Surgical History History of dilatation and curettage (~2014) History of dilation and curettage (~2012) Hx of cholecystectomy (~2014) S/P dilatation and curettage (~01/01/20) S/P foot surgery, right (~2011) Family History Family/Other Stroke Myocardial infarction End stage renal failure on dialysis Grandmother Unknown whether patient has any health problems Family estrangement Grandmother Diabetes mellitus Myocardial infarction Grandfather Unknown whether patient has any health problems Father Family estrangement Unknown whether patient has any health problems Grandmother Unknown whether patient has any health problems Family estrangement Mother Rheumatoid arthritis Social History marital status: number of children: 3 household members: spouse, family and children lives independently: Yes housing: house pets and animals: Yes (outside dog) education level: high school occupational status: employed current occupational exposures/hazards: Yes Previous occupational history: prior employment at [employer] needs: No seatbelt use: always water heater temp set < 120 deg: Yes working smoke detector in home: Yes fire extinguisher in home: Yes carbon monox detector in home: Yes firearms in home: No do you feel safe at home: Yes Smoking Status: Current every day smoker Tobacco: How many years used: 11 second hand exposure: No alcohol intake: former substance use type: does not use during the past year weight has: increased > 10 lbs well-balanced diet: rarely or never daily servings fruits/ve-1 caffeine: Yes (Aware of 200 mg limit) Type(s) of exercise: none Assessment & Plan Assessment & Plan narrative: Assessment: 32-year-old postop day # 1 from an I and D of an abdominal wall abscess Marked improvement in pain and cellulitis Decreased output from drain bulb Afebrile Plan: Will reassess tomorrow morning regarding discharge depending on drain output and cellulitis status Regular diet Ambulate Time Spent With Patient Time with patient: less than 30 minutes Quality VTE Deep Vein Thrombosis/Pulmonary Embolism Present on Admission: No
[2023-06-15 12:51] VITALS: BP 97/47; PULSE 76; RESP 17; TEMP 36.4; O2SAT 99
--- NOTE | 2023-06-15 15:14 | CM.DPC ---
DCP Continued: PAWN BROKER reviewed EMR. Per provider note, patient is feeling better today and patient is able to move around without discomfort. Patient will potentially d/c tomorrow morning after drain output and cellulitis status. PAWN BROKER attempted to give patient list of PCPs. Patient was sleeping heavily. Will connect with patient tomorrow. Plan: d/c home with family when medically stable. PAWN BROKER will give patient PCP list prior to patient d/c. CM team will continue to follow as needed. BOB Osorio
[2023-06-15] MEDS: ACETAMINOPHEN 325 MG TABLET 650 MG PO (16:29)
[2023-06-15 17:00] VITALS: BP 131/80; PULSE 79; RESP 17; TEMP 36.2; O2SAT 95
[2023-06-15 20:41] VITALS: BP 126/68; PULSE 69; RESP 17; TEMP 36.5; O2SAT 94
[2023-06-15] MEDS: ENOXAPARIN 40 MG/0.4 ML SYRINGE SUBCUT (20:53)
[2023-06-16 04:26] VITALS: BP 115/66; PULSE 74; RESP 16; TEMP 36.2; O2SAT 96
[2023-06-16] MEDS: CEFAZOLIN VIAL 3 GM in SODIUM CHLORIDE 0.9% 100 ML IV ×2 (06:32→14:04)
[2023-06-16 06:46] LABS: Add Manual Diff / Slide Review NO; Basophils Absolute Auto 100 /uL (0-100); Basophils Percent Auto 0.7 % (0-2); Eosinophils Absolute Auto 100 /uL (0-450); Eosinophils Percent Auto 1.1 % (2-4); Hematocrit 30.2 % (36-46); Hemoglobin 10.1 g/dL (12.0-16.0); Lymphocytes Absolute Auto 3300 /uL (1100-4500); Lymphocytes Percent Auto 33.6 % (25-40); Mean Corpuscular HGB Conc 33.6 % (30-36); Mean Corpuscular Hemoglobin 26.2 PG (26-34); Mean Corpuscular Volume 77.8 fL (80-100); Monocytes Absolute Auto 500 /uL (0-900); Monocytes Percent Auto 5.3 % (3-14); Neutrophils Absolute Auto 5800 /uL (1500-7000); Neutrophils Percent Auto 59.3 % (50-75); Platelet Count 411 X10^3/uL (150-400); Red Blood Cell Count 3.88 X10^6/uL (4.0-5.2); Red Cell Distribution Width 16.5 % (11.6-14.8); White Blood Cell Count 9.7 X10^3/uL (4.5-11.0)
[2023-06-16 08:00] VITALS: BP 136/87; PULSE 77; RESP 17; TEMP 36.6; O2SAT 98
--- NOTE | 2023-06-16 11:39 | CM.DPC ---
DCP Continued: Per nursing staff, patient will d/c today after 3pm. DIRECTOR OF PHARMACY entered room. Patient was sleeping soundly but DIRECTOR OF PHARMACY spoke with spouse. DIRECTOR OF PHARMACY provided [facility] [place] information to patient spouse as PCP clinic that would accept their insurance. Patient spouse reported verbal understanding. Plan: d/c home today with family in POV. CM team will follow as needed. BOB Osorio
[2023-06-16] MEDS: OXYCODONE IR 5 MG TABLET PO (13:15)
--- NOTE | 2023-06-16 16:31 | PC.NURSE ---
Pt is restful this smorning but A&Ox4, VSS, afebrile on RA. She reports abdominal pain minimal this a.m. She tolerates IV antibiotics well, decreasing redness around abdomen, dressing to abdomen c/d/i. JENNIFER drain with ~2cc serosanguineous fluid. + BS x4. MD at bedside this a.m. evaluating patient, informs nurse and patient she will receive last dose of IV abx this afternoon at 1500 and then will d/c JENNIFER drain and discharge patient home. She tolerates meals, well and ambulates in her room independently. and all four children at bedside since last night. After drain removal at bedside by MD she is cleared to discharge home on oral antibiotics with a follow up to MD office. She verbalizes understanding of site care, medications, activity, what to do if symptoms worsen/s/sx of infection, and follow up appointment. She is escorted by nurse with all of her belongings to private vehicle with her and children at approximately 1615 this afternoon.
--- NOTE | 2023-06-24 10:40 | P.DS_ITS ---
History of Present Illness History of Present Illness Date Patient Seen: 06/16/23 Time Patient Seen: 07:35 Chief complaint: thinks infected umbilicus Narrative: Patient is a 32-year-old who presented to the emergency department 3 weeks out from a laparoscopic bilateral salpingectomy with fever, chills, and abdominal pain. She was found to have a cellulitis of the incision. She was started on antibiotics. Initial white blood count was 17 K, dropped down to 13 K and then down to 9 K by discharge. She initially got better on antibiotics but then the redness on the abdominal wall began to spread. She was taken to the operating room on June 14, 2023 where an incision and drainage of a small abscess was performed. A drain was placed. The drain was removed on June 16, 2023 after minimal drainage in a 24 hour period. She was discharged home on June 16, 2023 as well. She was sent home on Augmentin 875 mg twice a day for 10 more days. She is to follow-up in the office in 4 days. Discharge Providers Provider Date of admission: 06/11/23 19:47 Discharge Date: 06/16/23 Primary care physician: Glory Wang MD Consults: 06/11/23 19:22 Consult to Physician Stat Comment: Consulting Provider: Blade Fox Reason for consultation: Postoperative infection Discharge provider: Glory Wang MD Summary Hospital Course Discharge Diagnosis: Abdominal wall cellulitis Abscess of surgical wound Hospital Course: Patient is a 32-year-old who presented to the emergency department 3 weeks out from a laparoscopic bilateral salpingectomy with fever, chills, and abdominal pain. She was found to have a cellulitis of the incision. She was started on antibiotics. Initial white blood count was 17 K, dropped down to 13 K and then down to 9 K by discharge. She initially got better on antibiotics but then the redness on the abdominal wall began to spread. She was taken to the operating room on June 14, 2023 where an incision and drainage of a small abscess was performed. A drain was placed. The drain was removed on June 16, 2023 after minimal drainage in a 24 hour period. She was discharged home on June 16, 2023 as well. She was sent home on Augmentin 875 mg twice a day for 10 more days. She is to follow-up in the office in 4 days. Status at Discharge Cognitive/behavioral status at discharge: oriented Functional status at discharge: independent ambulation Overall status at discharge: patient is progressing back to baseline Time Spent with Patient Time spent: Less than 30 minutes Exam Vital Signs (past 8 hours): Oxygen Delivery Method Room Air Oxygen Flow Rate 0 Narrative Exam Narrative: Generally: Patient lying in bed, no acute distress Abdomen: Very minimal erythema in the abdominal wall Incision: No drainage. The Josiah drain was removed. Dressings were placed. Objective Labs 06/16/23 06:05 06/12/23 21:55 [facility] Medical History Anxiety as acute reaction to exceptional stress Costochondritis COVID-19 HSV-2 (herpes simplex virus 2) infection Migraine Normal spontaneous vaginal delivery (spontaneous vaginal delivery) (~2018) Surgical History History of dilatation and curettage (~2014) History of dilation and curettage (~2012) Hx of cholecystectomy (~2014) S/P dilatation and curettage (~01/01/20) S/P foot surgery, right (~2011) Family History Family/Other Stroke Myocardial infarction End stage renal failure on dialysis Grandmother Unknown whether patient has any health problems Family estrangement Grandmother Diabetes mellitus Myocardial infarction Grandfather Unknown whether patient has any health problems Father Family estrangement Unknown whether patient has any health problems Grandmother Unknown whether patient has any health problems Family estrangement Mother Rheumatoid arthritis Social History marital status: number of children: 3 household members: spouse, family and children lives independently: Yes housing: house pets and animals: Yes (outside dog) education level: high school occupational status: employed current occupational exposures/hazards: Yes Previous occupational history: prior employment at the [employer] special edy needs: No seatbelt use: always water heater temp set < 120 deg: Yes working smoke detector in home: Yes fire extinguisher in home: Yes carbon monox detector in home: Yes firearms in home: No do you feel safe at home: Yes Smoking Status: Current every day smoker Tobacco: How many years used: 11 second hand exposure: No alcohol intake: former substance use type: does not use during the past year weight has: increased > 10 lbs well-balanced diet: rarely or never daily servings fruits/ve-1 caffeine: Yes (Aware of 200 mg limit) Type(s) of exercise: none Discharge Assessment & Plan Assessment and Plan Assessment: Assessment: 32-year-old with abdominal wall cellulitis and an abscess of a surgical incision Status post IV antibiotics and incision and drainage of the abscess Plan of Treatment: Discharge to home Follow-up in 4 days Complete antibiotic course of Augmentin 875 mg b.i.d. for 10 days Discharge Plan Discharge Plan Patient Disposition: Home Provider Discharge Comment: Call with fever, chills, or worsening redness on the abdominal wall Finish all of the antibiotics Take first dose of oral antibiotics this evening Discharge orders & Medications Prescriptions: New cephalexin 500 mg tablet 500 mg PO Q8H Qty: 30 0RF Rx Instructions: 1 tab 3 times a day for 10 days No Action sulfamethoxazole-trimethoprim [Bactrim DS] 800-160 mg tablet 1 tab PO BID Qty: 20 0RF Follow up/Referrals: Glory Wang MD [Primary Care Provider] - Diet/Activity/Treatments Diet: Regular Activity: As tolerated Skin/Wound/Dressing Care Report to your healthcare provider any signs of infection, such as:: chills, fever, increased pain, unusual drainage and unusual redness Dressing: Remove outer pink dressings with attached gauze in 3 days after morning shower Visit Report/Discharge Packet Instructions: DI for Cellulitis -- Adult, DI for Incision and Drainage Stand Alone Forms: Patient Portal/API, Stroke Signs & Symptoms Discharge Data Primary Care Provider: Glory Wang Discharges patient from system. Discharge Date/Time: 06/16/23 14:15 Quality VTE Deep Vein Thrombosis/Pulmonary Embolism Present on Admission: No
== END 2023-06-16 14:15 | disposition home or self-care (01) | DRG 863 ==
LOC: ED 19:21 → AC 19:48
PROVIDERS: Family Medicine; Admitting Provider Obstetrics & Gynecology; Emergency Provider Emergency Medicine; PCP Obstetrics & Gynecology; Referring Provider Emergency Medicine; Visit Provider Obstetrics & Gynecology
PROC: 0J980ZZ Drainage of Abdomen Subcutaneous Tissue and Fascia, Open Approach (ICD-10-PCS; principal; 2023-06-14 11:00)
DX: T81.41XA Infection following a procedure, superficial incisional surgical site, initial encounter (principal); L03.311 Cellulitis of abdominal wall; B95.0 Streptococcus, group A, as the cause of diseases classified elsewhere
CPT/HCPCS: 10009; 10180; 36415; 71045; 74177; 76705; 80048; 80053; 80202; 81003; 81015; 81025; 83605; 83690; 84145; 85025; 85610; 85730; 87040; 87070; 87075; 87077; 87147; 87186; 87205; 87491; 87591; 93005; 96365; 96366; 96367; 96375; 99231; 99232; 99284; 99291; J0330; J0690; J0696; J1100; J1650; J2250; J2270; J2405; J2704; J3010; J7050; Q9967

== ENCOUNTER 2024-01-13 21:40 | Emergency (ER) | payer MEDICAID, OTHER, SELFPAY ==
[2023-06-11 19:51] VITALS: BMI 47.5
[2024-01-13 22:11] VITALS: BP 128/84; PULSE 99; RESP 20; TEMP 36.2; O2SAT 99; BMI 50.1
--- NOTE | 2024-01-13 22:14 | DI.RAD.S_ITS ---
PROCEDURE: XR TIBIA FIBULA LT 2V INDICATIONS: left ankle injury TECHNIQUE: 2 views of the tibia and fibula were acquired. COMPARISON: None. FINDINGS: Bones: No fractures or dislocations. No suspicious bony lesions. Soft tissues: No suspicious soft tissue calcifications or masses. IMPRESSION: No acute bony abnormality. Dictated by: Dione Magana M.D. on 01/14/2024 at 1:38 Approved by: Dione Magana M.D. on 01/14/2024 at 1:38
--- NOTE | 2024-01-13 22:14 | DI.RAD.S_ITS ---
PROCEDURE: XR FOOT LT MIN 3V INDICATIONS: left ankle injury TECHNIQUE: 3 views of the foot were acquired. COMPARISON: [facility], CR, XR FOOT RT MIN 3V, 04/05/2023, 0:34. FINDINGS: Bones: There is acute appearing avulsion fracture off the proximal lateral corner of the cuboid bone. No other acute fractures are identified. Prominent plantar and mild dorsal calcaneal spurs noted. Bone alignment is maintained. Mild chronic hallux valgus at the 1st MTP joint. Soft tissues: No tibiotalar joint effusion. Achilles tendon appears normal. IMPRESSION: Avulsion fracture off the proximal lateral corner of the cuboid. Dictated by: Dione Magana M.D. on 01/14/2024 at 1:38 Approved by: Dione Magana M.D. on 01/14/2024 at 1:40
--- NOTE | 2024-01-13 22:14 | DI.RAD.S_ITS ---
PROCEDURE: XR ANKLE LT MIN 3V INDICATIONS: left ankle injury TECHNIQUE: 3 views of the ankle were acquired. COMPARISON: [facility], CR, XR ANKLE LT MIN 3V, 04/05/2023, 0:34. FINDINGS: Bones: Well-corticated avulsion fragment off the distal fibula, potentially re-injury of an old fracture. No new fractures are identified. Soft tissues: No tibiotalar joint effusion. Achilles tendon appears normal. IMPRESSION: Minimally displaced distal fibular avulsion fracture, chronicity uncertain as this was present previously and may indicate re-injury or non healed remote injury. Dictated by: Dione Magana M.D. on 01/14/2024 at 1:37 Approved by: Dione Magana M.D. on 01/14/2024 at 1:38
[2024-01-13] MEDS: KETOROLAC 30 MG/ML VIAL IM (22:20)
[2024-01-14 00:13] VITALS: BP 105/58; PULSE 84; O2SAT 99
[2024-01-14 00:30] VITALS: BP 112/59; PULSE 81; O2SAT 98
[2024-01-14 01:00] VITALS: BP 104/57; PULSE 85; O2SAT 96
--- NOTE | 2024-01-14 01:03 | ED.LOWEXIN ---
HPI - Extremity Injury (Lower) General Chief Complaint: Extremity Injury, Lower Stated Complaint: lt ankle injury Time Seen by Provider: 01/14/24 00:08 Source: patient and family Mode of arrival: Wheelchair History of Present Illness HPI Narrative: 33-year-old female here for evaluation of a left ankle injury. Is reported by the patient and family at bedside that she was stepping out of the van when she rolled her left ankle. Had immediate pain on the outside of the ankle and side of her foot. She has been unable to bear weight since then. No interventions prior to arrival. No other injuries from the event. Related Data Previous Rx's Medication Instructions Recorded cephalexin 500 mg tablet 500 mg PO Q8H #30 tabs 06/16/23 sulfamethoxazole 800 1 tab PO BID bacterial infection 06/18/23 mg-trimethoprim 160 mg tablet #20 tabs (Bactrim DS) hydrocodone 5 mg-acetaminophen 325 1 tab PO Q4-6H PRN pain #14 tabs 01/14/24 mg tablet hydrocodone 5 mg-acetaminophen 325 1 tab PO Q4-6H PRN pain #14 tabs 01/14/24 mg tablet Allergies Allergy/AdvReac Type Severity Reaction Status Date / Time latex [LATEX] Allergy Severe Hives and Verified 06/20/23 13:55 Rash Review of Systems Constitutional Constitutional: Reports system reviewed and no additional complaints, except as documented Musculoskeletal Musculoskeletal: Reports system reviewed and no additional complaints, except as documented Integumentary/Breasts Skin/Breast: Reports system reviewed and no additional complaints, except as documented Neurologic Neurologic: Reports system reviewed and no additional complaints, except as documented Patient History Medical History COVID-19 Migraine (spontaneous vaginal delivery) (~2018) HSV-2 (herpes simplex virus 2) infection Normal spontaneous vaginal delivery Anxiety as acute reaction to exceptional stress Costochondritis Surgical History History of dilatation and curettage (~2014) History of dilation and curettage (~2012) Hx of cholecystectomy (~2014) S/P dilatation and curettage (~01/01/20) S/P foot surgery, right (~2011) Family History Family/Other Stroke Myocardial infarction End stage renal failure on dialysis Grandmother Unknown whether patient has any health problems Family estrangement Grandmother Diabetes mellitus Myocardial infarction Grandfather Unknown whether patient has any health problems Father Family estrangement Unknown whether patient has any health problems Grandmother Unknown whether patient has any health problems Family estrangement Mother Rheumatoid arthritis Social History marital status: number of children: 3 household members: spouse, family and children lives independently: Yes housing: house pets and animals: Yes (outside dog) education level: high school occupational status: employed current occupational exposures/hazards: Yes Previous occupational history: prior employment at the [email or web address] special edy needs: No seatbelt use: always water heater temp set < 120 deg: Yes working smoke detector in home: Yes fire extinguisher in home: Yes carbon monox detector in home: Yes firearms in home: No do you feel safe at home: Yes Smoking Status: Current every day smoker Tobacco: How many years used: 11 second hand exposure: No alcohol intake: former substance use type: does not use during the past year weight has: increased > 10 lbs well-balanced diet: rarely or never daily servings fruits/ve-1 caffeine: Yes (Aware of 200 mg limit) Type(s) of exercise: none Smoking Status: Current every day smoker tobacco type: cigarettes alcohol intake frequency: holidays/special occasions only Substance Use Type: does not use Exam Initial Vital Signs Initial Vital Signs: Vital Signs Temperature 97.2 F L 01/13/24 22:11 Pulse Rate 99 H 01/13/24 22:11 Respiratory Rate 20 01/13/24 22:11 Blood Pressure 128/84 01/13/24 22:11 Pulse Oximetry 99 01/13/24 22:11 Oxygen Delivery Method Room Air 01/13/24 22:11 Cardio Pulses: dorsalis pedis present on the left Skin General: no rashes or lesions noted Neuro Sensory Exam: no sensory deficits noted Extrem Other: Patient with discomfort along the lateral aspect of the left ankle and along the lateral malleolus. The Achilles tendon is intact. Medial malleolus is unremarkable. Procedures Orthopedic Splinting/Casting Injury #1: Side: left Lower Extremity Injury Location: ankle and foot Lower Extremity Immobilizer: posterior splint Post splinting neuro exam: intact Post splinting vascular exam: intact Placed by: Nursing Course Orders Ordered: ED Orders 01/13/24 22:14 XR ankle LT min 3V Stat XR foot LT min 3V Stat XR tibia fibula LT 2V Stat Discontinued Medications Hydrocodone Bitart/Acetaminophen (Hydrocodone/Acet 5/325 Tablet) 1 tab PO NOW ONE Stop: 01/14/24 01:04 Last Admin: 01/14/24 01:19 Dose: 1 tab Documented By: Hydrocodone Bitart/Acetaminophen (Hydrocodone/Acet 5/325 Prepack) 1 bottle MISC DIRECTED ONE Stop: 01/14/24 01:04 Last Admin: 01/14/24 01:19 Dose: 1 bottle Documented By: Ketorolac Tromethamine (Ketorolac 30 Mg/Ml Vial) 30 mg IM NOW ONE Stop: 01/13/24 22:17 Last Admin: 01/13/24 22:20 Dose: 30 mg Documented By: MYA Vital Signs Vital signs: Vital Signs - 8 hr 01/13/24 22:11 01/14/24 00:13 01/14/24 00:13 Temperature 97.2 F L Pulse Rate 99 H 84 Respiratory Rate 20 Blood Pressure 128/84 105/58 L Pulse Oximetry 99 99 Oxygen Delivery Method Room Air Room Air 01/14/24 00:30 01/14/24 00:30 01/14/24 01:00 Temperature Pulse Rate 81 85 Respiratory Rate Blood Pressure 112/59 L Pulse Oximetry 98 96 Oxygen Delivery Method Room Air Room Air 01/14/24 01:00 01/14/24 01:30 01/14/24 01:30 Temperature Pulse Rate 89 Respiratory Rate Blood Pressure 104/57 L 106/63 Pulse Oximetry 98 Oxygen Delivery Method Room Air MDM - Extremity Injury (Lower) Imaging Data Extremity x-ray #1: Radiologist's Impression: PROCEDURE: XR ANKLE LT MIN 3V INDICATIONS: left ankle injury TECHNIQUE: 3 views of the ankle were acquired. COMPARISON: [facility], [place], XR ANKLE LT MIN 3V, 04/05/2023, 0:34. FINDINGS: Bones: Well-corticated avulsion fragment off the distal fibula, potentially re-injury of an old fracture. No new fractures are identified. Soft tissues: No tibiotalar joint effusion. Achilles tendon appears normal. IMPRESSION: Minimally displaced distal fibular avulsion fracture, chronicity uncertain as this was present previously and may indicate re-injury or non healed remote injury. Extremity x-ray #2: Radiologist's Impression: PROCEDURE: XR FOOT LT MIN 3V INDICATIONS: left ankle injury TECHNIQUE: 3 views of the foot were acquired. COMPARISON: [facility], CR, XR FOOT RT MIN 3V, 04/05/2023, 0:34. FINDINGS: Bones: There is acute appearing avulsion fracture off the proximal lateral corner of the cuboid bone. No other acute fractures are identified. Prominent plantar and mild dorsal calcaneal spurs noted. Bone alignment is maintained. Mild chronic hallux valgus at the 1st MTP joint. Soft tissues: No tibiotalar joint effusion. Achilles tendon appears normal. IMPRESSION: Avulsion fracture off the proximal lateral corner of the cuboid. Extremity x-ray #3: Radiologist's Impression: PROCEDURE: XR TIBIA FIBULA LT 2V INDICATIONS: left ankle injury TECHNIQUE: 2 views of the tibia and fibula were acquired. COMPARISON: None. FINDINGS: Bones: No fractures or dislocations. No suspicious bony lesions. Soft tissues: No suspicious soft tissue calcifications or masses. IMPRESSION: No acute bony abnormality. MDM Narrative Medical decision making narrative: X-ray of the ankle shows distal fibula fracture that potentially has been present for some time although the patient is tender over this area. Also has tenderness on the lateral aspect of the foot which is consistent with the finding of the cuboid noted on the x-ray. Patient was placed in a posterior splint and will be made nonweightbearing with instructions to follow up with Orthopedic surgery. She was given return precautions and follow-up instructions. She was neurovascularly intact. No other injuries from the event no other indication for further radiologic studies. Discharge Plan Departure Patient Disposition: Home Clinical Impression: Avulsion fracture of ankle Instructions: How to Use Crutches, How to Take Care of Your Splint Activity Restrictions/Additional Instructions: There does appear to be avulsion fractures in your left ankle. The splint should be treated like a cast. You need to keep it on and keep it dry. You do need follow-up with Orthopedics. You can contact them with the number provided below. Return to the emergency department for new symptoms. Prescriptions: New hydrocodone-acetaminophen 5-325 mg tablet 1 tab PO Q4-6H PRN (Reason: pain) Qty: 14 0RF hydrocodone-acetaminophen 5-325 mg tablet 1 tab PO Q4-6H PRN (Reason: pain) Qty: 14 0RF No Action sulfamethoxazole-trimethoprim [Bactrim DS] 800-160 mg tablet 1 tab PO BID Qty: 20 0RF cephalexin 500 mg tablet 500 mg PO Q8H Qty: 30 0RF Rx Instructions: 1 tab 3 times a day for 10 days Referrals: Miscellaneous,DoctorMD [Primary Care Provider] - Abiel Valerio MD [Physician] - Stand Alone Forms: Patient Portal/API, Work Release Note
[2024-01-14] MEDS: HYDROCODONE/ACET 5/325 PREPACK 1 BOTTLE MISC (01:19)
[2024-01-14] MEDS: HYDROCODONE/ACET 5/325 TABLET 1 TAB PO (01:19)
[2024-01-14 01:30] VITALS: BP 106/63; PULSE 89; O2SAT 98
== END 2024-01-14 02:00 | disposition home or self-care (01) ==
PROVIDERS: Emergency Provider Emergency Medicine
DX: S82.402A Unspecified fracture of shaft of left fibula, initial encounter for closed fracture (principal); X50.1XXA Overexertion from prolonged static or awkward postures, initial encounter
CPT/HCPCS: 29515; 73590; 73610; 73630; 96372; 99283; 99284; J1885

== ENCOUNTER 2024-02-29 17:30 | Emergency (ER) | payer MEDICAID, OTHER, SELFPAY ==
[2023-06-11 19:51] VITALS: BMI 47.5
[2024-02-29 17:34] VITALS: BP 151/91; PULSE 87; RESP 16; TEMP 36.3; O2SAT 100; BMI 49.7
--- NOTE | 2024-02-29 17:40 | DI.RAD.S_ITS ---
PROCEDURE: XR ANKLE RT MIN 3V INDICATIONS: injury TECHNIQUE: 3 views of the ankle were acquired. COMPARISON: [facility], CR, XR ANKLE LT MIN 3V, 01/13/2024, 22:22. [facility], CR, XR KNEE RT 3V, 02/29/2024, 17:40. [facility], CR, XR FOOT RT MIN 3V, 02/29/2024, 17:40. [facility], CR, XR ANKLE 3+ VIEWS RIGHT, 01/22/2018, 19:21. FINDINGS: Bones: No acute appearing fractures or dislocations. There is a remote appearing avulsion fracture fragment seen distal to the lateral malleolus. Ankle mortise is normally aligned. No suspicious bony lesions. The talar dome demonstrates no feng abnormality. A moderate plantar calcaneal spur is seen. Soft tissues: No tibiotalar joint effusion. Achilles tendon appears normal. IMPRESSION: Remote avulsion fracture fragment seen distal to the lateral malleolus. No feng acute plain film abnormality is seen. If there is point tenderness (or other clinical suspicion for a fracture not seen on these images) then a dedicated CT could be considered for further evaluation, if clinically appropriate. Dictated by: Stevie Pack M.D. on 02/29/2024 at 17:29 Approved by: Stevie Pack M.D. on 02/29/2024 at 17:30
--- NOTE | 2024-02-29 17:40 | DI.RAD.S_ITS ---
PROCEDURE: XR KNEE RT 3V INDICATIONS: injury TECHNIQUE: 3 views of the knee were acquired. COMPARISON: [facility], CR, XR FOOT RT MIN 3V, 02/29/2024, 17:40. [facility], CR, XR ANKLE RT MIN 3V, 02/29/2024, 17:40. [facility], CR, XR KNEE RT 3V, 09/30/2022, 0:37. FINDINGS: Bones: No fractures or dislocations. No suspicious bony lesions. Soft tissues: There is a mild right knee joint effusion. No suspicious soft tissue calcifications. IMPRESSION: Mild right knee joint effusion. No acute bony abnormality is seen by plain film. If it would be helpful for clinical management decision making, please consider a dedicated, scheduled knee MRI for further evaluation (assuming that there is no contraindication). Dictated by: Stevie Pack M.D. on 02/29/2024 at 17:29 Approved by: Stevie Pack M.D. on 02/29/2024 at 17:29
--- NOTE | 2024-02-29 17:40 | DI.RAD.S_ITS ---
PROCEDURE: XR FOOT RT MIN 3V INDICATIONS: injury TECHNIQUE: 3 views of the foot were acquired. COMPARISON: [facility], CR, XR FOOT RT MIN 3V, 04/05/2023, 0:34. [facility], CR, XR KNEE RT 3V, 02/29/2024, 17:40. [facility], CR, XR ANKLE RT MIN 3V, 02/29/2024, 17:40. [facility], CR, XR FOOT LT MIN 3V, 01/13/2024, 22:22. FINDINGS: Bones: No fractures or dislocations. The previously seen lateral malleolar fracture is no longer seen. There is chronic deformity seen involving the distal aspect of the distal phalanx of the great toe, which is stable compared to the prior examination. No suspicious bony lesions. Generalized degenerative changes are seen, including along the Lisfranc joint and the 1st ray. There is a moderate plantar calcaneal spur. Soft tissues: No tibiotalar joint effusion. Achilles tendon appears normal. IMPRESSION: No acute bony abnormality is seen by plain film. Dictated by: Stevie Pack M.D. on 02/29/2024 at 17:26 Approved by: Stevie Pack M.D. on 02/29/2024 at 17:28
--- NOTE | 2024-02-29 18:18 | ED_ITS ---
HPI - Extremity Injury (Lower) <Courtney Hurtado PA-C - Last Filed: 02/29/24 19:16> General Chief Complaint: Extremity Injury, Lower Stated Complaint: right ankle pain, caught under a swing Time Seen by Provider: 02/29/24 18:02 Source: patient Mode of arrival: Wheelchair History of Present Illness HPI Narrative: 33-year-old female here today for a right leg injury. States she was on a tire swing and tried to stop when her right leg got caught under the swing and she felt 3 pops, in her knee, ankle, and big toe. States mainly the right ankle and big toe are the most painful and she has a little bit of pain behind her right knee. She is unable to bear weight on her right ankle and toe at this time. She has not taken anything yet for pain. No other injuries at this time. Related Data Previous Rx's Medication Instructions Recorded cephalexin 500 mg tablet 500 mg PO Q8H #30 tabs 06/16/23 sulfamethoxazole 800 1 tab PO BID bacterial infection 06/18/23 mg-trimethoprim 160 mg tablet #20 tabs (Bactrim DS) hydrocodone 5 mg-acetaminophen 325 1 tab PO Q4-6H PRN pain #14 tabs 01/14/24 mg tablet hydrocodone 5 mg-acetaminophen 325 1 tab PO Q4-6H PRN pain #14 tabs 01/14/24 mg tablet Allergies Allergy/AdvReac Type Severity Reaction Status Date / Time latex [LATEX] Allergy Severe Hives and Verified 02/29/24 17:37 Rash Review of Systems <Courtney Hurtado PA-C - Last Filed: 02/29/24 19:16> Review of Systems ROS Unobtainable: All systems reviewed & are unremarkable except as noted in HPI and below Patient History <Courtney Hurtado PA-C - Last Filed: 02/29/24 19:16> Medical History COVID-19 Migraine (spontaneous vaginal delivery) (~2018) HSV-2 (herpes simplex virus 2) infection Normal spontaneous vaginal delivery Anxiety as acute reaction to exceptional stress Costochondritis Surgical History History of dilatation and curettage (~2014) History of dilation and curettage (~2012) Hx of cholecystectomy (~2014) S/P dilatation and curettage (~01/01/20) S/P foot surgery, right (~2011) Family History Family/Other Stroke Myocardial infarction End stage renal failure on dialysis Grandmother Unknown whether patient has any health problems Family estrangement Grandmother Diabetes mellitus Myocardial infarction Grandfather Unknown whether patient has any health problems Father Family estrangement Unknown whether patient has any health problems Grandmother Unknown whether patient has any health problems Family estrangement Mother Rheumatoid arthritis Social History marital status: number of children: 3 household members: spouse, family and children lives independently: Yes housing: house pets and animals: Yes (outside dog) education level: high school occupational status: employed current occupational exposures/hazards: Yes Previous occupational history: prior employment at the [email or web address] special edy needs: No seatbelt use: always water heater temp set < 120 deg: Yes working smoke detector in home: Yes fire extinguisher in home: Yes carbon monox detector in home: Yes firearms in home: No do you feel safe at home: Yes Smoking Status: Current every day smoker Tobacco: How many years used: 11 second hand exposure: No alcohol intake: former substance use type: does not use during the past year weight has: increased > 10 lbs well-balanced diet: rarely or never daily servings fruits/ve-1 caffeine: Yes (Aware of 200 mg limit) Type(s) of exercise: none Smoking Status: Current every day smoker tobacco type: cigarettes alcohol intake frequency: holidays/special occasions only Substance Use Type: does not use Exam <Courtney Hurtado PA-C - Last Filed: 02/29/24 19:16> Narrative Exam Narrative: GENERAL: Well-developed, well-nourished, appears stated age. In no acute distress. obese. HEAD: Atraumatic. Normocephalic. EYES: Pupils equal round and reactive. Extraocular motions intact. No scleral icterus. No injection or drainage. ENT: Nose without bleeding, purulent drainage. Airway patent. NECK: Trachea midline. Non tender RESPIRATORY: Respiratory rate and effort normal EXTREMITIES: Normal distal pulses. Normal sensation. Pinpoint tenderness present to the base of the right big toe and the distal 1st metatarsal. Tenderness of the lateral malleolus present. Medial malleolus and Achilles tendon unremarkable as well as the remainder of the digits and metatarsals. Tenderness present to the posterior knee along the hamstring tendon. Otherwise no obvious swelling or deformity of the knee. No ligamentous laxity present. No obvious effusion present NEURO: AOx3. SKIN: No rash or erythema of visible areas Initial Vital Signs Initial Vital Signs: Vital Signs Temperature 97.3 F L 02/29/24 17:34 Pulse Rate 87 02/29/24 17:34 Respiratory Rate 16 02/29/24 17:34 Blood Pressure 151/91 H 02/29/24 17:34 Pulse Oximetry 100 02/29/24 17:34 Oxygen Delivery Method Room Air 02/29/24 17:34 <Alessandro Izquierdo DO - Last Filed: 02/29/24 19:45> Initial Vital Signs Initial Vital Signs: Vital Signs Temperature 97.3 F L 02/29/24 17:34 Pulse Rate 87 02/29/24 17:34 Respiratory Rate 16 02/29/24 17:34 Blood Pressure 151/91 H 02/29/24 17:34 Pulse Oximetry 100 02/29/24 17:34 Oxygen Delivery Method Room Air 02/29/24 17:34 Course <Courtney Hurtado PA-C - Last Filed: 02/29/24 19:16> Orders Ordered: ED Orders 02/29/24 17:40 XR ankle RT min 3V Stat XR foot RT min 3V Stat XR knee RT 3V Stat Discontinued Medications Hydrocodone Bitart/Acetaminophen (Hydrocodone/Acet 5/325 Tablet) 1 tab PO NOW ONE Stop: 02/29/24 18:19 Last Admin: 02/29/24 18:29 Dose: 1 tab Documented By: MANNY Ketorolac Tromethamine (Ketorolac 30 Mg/Ml Vial) 30 mg IM NOW ONE Stop: 02/29/24 18:19 Last Admin: 02/29/24 18:29 Dose: 30 mg Documented By: MANNY Vital Signs Vital signs: Vital Signs - 8 hr 02/29/24 17:34 02/29/24 19:32 Temperature 97.3 F L Pulse Rate 87 82 Respiratory Rate 16 24 Blood Pressure 151/91 H 128/62 Pulse Oximetry 100 99 Oxygen Delivery Method Room Air Room Air <Alessandro Izquierdo DO - Last Filed: 02/29/24 19:45> Orders Ordered: ED Orders 02/29/24 17:40 XR ankle RT min 3V Stat XR foot RT min 3V Stat XR knee RT 3V Stat Discontinued Medications Hydrocodone Bitart/Acetaminophen (Hydrocodone/Acet 5/325 Tablet) 1 tab PO NOW ONE Stop: 02/29/24 18:19 Last Admin: 02/29/24 18:29 Dose: 1 tab Documented By: MANNY Ketorolac Tromethamine (Ketorolac 30 Mg/Ml Vial) 30 mg IM NOW ONE Stop: 02/29/24 18:19 Last Admin: 02/29/24 18:29 Dose: 30 mg Documented By: MANNY Vital Signs Vital signs: Vital Signs - 8 hr 02/29/24 17:34 02/29/24 19:32 Temperature 97.3 F L Pulse Rate 87 82 Respiratory Rate 16 24 Blood Pressure 151/91 H 128/62 Pulse Oximetry 100 99 Oxygen Delivery Method Room Air Room Air MDM - Extremity Injury (Lower) <Courtney Hurtado PA-C - Last Filed: 02/29/24 19:16> Imaging Data Extremity x-ray #1: Radiologist's Impression: [place] [address] XRay Report Signed Patient: Ni Rios MR#: [id number] : 1990 Acct:[id number] Age/Sex: 33 / F Date of Service: 02/29/24 Loc: ED Accession Number: [id number] Procedure: XR knee RT 3V Ordering Provider: Elsa Mcgarry D.O. PROCEDURE: XR KNEE RT 3V INDICATIONS: injury TECHNIQUE: 3 views of the knee were acquired. COMPARISON: [facility], CR, XR FOOT RT MIN 3V, 02/29/2024, 17:40. [facility], CR, XR ANKLE RT MIN 3V, 02/29/2024, 17:40. [facility], CR, XR KNEE RT 3V, 09/30/2022, 0:37. FINDINGS: Bones: No fractures or dislocations. No suspicious bony lesions. Soft tissues: There is a mild right knee joint effusion. No suspicious soft tissue calcifications. IMPRESSION: Mild right knee joint effusion. No acute bony abnormality is seen by plain film. If it would be helpful for clinical management decision making, please consider a dedicated, scheduled knee MRI for further evaluation (assuming that there is no contraindication). Dictated by: Stevie Pack M.D. on 02/29/2024 at 17:29 Approved by: Stevie Pack M.D. on 02/29/2024 at 17:29 Extremity x-ray #2: Radiologist's Impression: [place] [address] XRay Report Signed Patient: Ni iRos MR#: [id number] : 1990 Acct:[id number] Age/Sex: 33 / F Date of Service: 02/29/24 Loc: ED Accession Number: [id number] Procedure: XR foot RT min 3V Ordering Provider: Elsa Mcgarry D.O. PROCEDURE: XR FOOT RT MIN 3V INDICATIONS: injury TECHNIQUE: 3 views of the foot were acquired. COMPARISON: [facility], CR, XR FOOT RT MIN 3V, 04/05/2023, 0:34. [facility], CR, XR KNEE RT 3V, 02/29/2024, 17:40. [facility], CR, XR ANKLE RT MIN 3V, 02/29/2024, 17:40. [facility], CR, XR FOOT LT MIN 3V, 01/13/2024, 22:22. FINDINGS: Bones: No fractures or dislocations. The previously seen lateral malleolar fracture is no longer seen. There is chronic deformity seen involving the distal aspect of the distal phalanx of the great toe, which is stable compared to the prior examination. No suspicious bony lesions. Generalized degenerative changes are seen, including along the Lisfranc joint and the 1st ray. There is a moderate plantar calcaneal spur. Soft tissues: No tibiotalar joint effusion. Achilles tendon appears normal. IMPRESSION: No acute bony abnormality is seen by plain film. Dictated by: Stevie Pack M.D. on 02/29/2024 at 17:26 Approved by: Stevie Pack M.D. on 02/29/2024 at 17:28 Extremity x-ray #3: Radiologist's Impression: [address] [address] XRay Report Signed Patient: Ni Rios MR#: [id number] : 1990 Acct:[id number] Age/Sex: 33 / F Date of Service: 02/29/24 Loc: ED Accession Number: [id number] Procedure: XR ankle RT min 3V Ordering Provider: Elsa Mcgarry D.O. PROCEDURE: XR ANKLE RT MIN 3V INDICATIONS: injury TECHNIQUE: 3 views of the ankle were acquired. COMPARISON: [facility], CR, XR ANKLE LT MIN 3V, 01/13/2024, 22:22. [facility], CR, XR KNEE RT 3V, 02/29/2024, 17:40. [facility], CR, XR FOOT RT MIN 3V, 02/29/2024, 17:40. [facility], CR, XR ANKLE 3+ VIEWS RIGHT, 01/22/2018, 19:21. FINDINGS: Bones: No acute appearing fractures or dislocations. There is a remote appearing avulsion fracture fragment seen distal to the lateral malleolus. Ankle mortise is normally aligned. No suspicious bony lesions. The talar dome demonstrates no feng abnormality. A moderate plantar calcaneal spur is seen. Soft tissues: No tibiotalar joint effusion. Achilles tendon appears normal. IMPRESSION: Remote avulsion fracture fragment seen distal to the lateral malleolus. No feng acute plain film abnormality is seen. If there is point tenderness (or other clinical suspicion for a fracture not s een on these images) then a dedicated CT could be considered for further evaluation, if clinically appropriate. Dictated by: Stevie Pack M.D. on 02/29/2024 at 17:29 Approved by: Stevie Pack M.D. on 02/29/2024 at 17:30 MDM Narrative Medical decision making narrative: Patient here today for complaints of right knee, right ankle, and right great toe pain after her right leg got caught under a tire swing while she was trying to stop herself from swinging. Examination shows tenderness along the posterior knee at the hamstring tendon, tenderness along the lateral malleolus of the right ankle, and tenderness at the base of the right great toe and distal metatarsal. X-rays of all 3 areas reveal no acute fracture, although the right ankle x-ray shows a possible remote avulsion fracture of unknown age. Patient seems to be in significant discomfort from her injuries so she was given Toradol 30 mg and a [place] here in the ED. to assist with stability and pain control patient was placed in a walking boot. She was able to ambulate easily in this boot without the need for crutches. We discussed rest, ice, elevation, and pain control at home and that she should follow up with either her orthopedics (she was just seen today to complete her care for a left ankle fracture) or her PCP to discuss whether she needs additional imaging based on if her pain is improving or not over the next 1-2 weeks. Patient and her father who is present understand and agree with this plan. Discharge Plan Departure Patient Disposition: Home Clinical Impression: Acute right ankle pain, Pain in toe of right foot, Acute pain of right knee Instructions: DI for Ankle Sprain, DI for Toe Sprain, DI for Knee Pain Activity Restrictions/Additional Instructions: Thank you for choosing us to care for you today. You were seen for an injury to your right knee, right ankle, and right big toe. You had x-rays done which did not show any fracture of the knee or big toe. There is a questionable old fracture of the right ankle but it is unclear the age of this fracture and if it has anything to do with your pain today. You were placed in a walking boot which she should continue using whenever you are bearing weight and walking for the next 1-2 weeks until you are able to follow up with your primary care provider or your orthopedic doctor. Please follow up with 1 of these to discuss whether or not you are improving enough to take off the boot and whether you will need any repeat imaging of the areas. Please take ibuprofen 600 mg Q 6-8 hours as needed for pain, but do not start this for the next 12 hours due to receiving Toradol in the ER today. You may take Tylenol in the meantime as needed. As much as possible, please elevate and ice the areas of pain and limit the amount that you are standing and walking. Prescriptions: No Action sulfamethoxazole-trimethoprim [Bactrim DS] 800-160 mg tablet 1 tab PO BID Qty: 20 0RF cephalexin 500 mg tablet 500 mg PO Q8H Qty: 30 0RF Rx Instructions: 1 tab 3 times a day for 10 days hydrocodone-acetaminophen 5-325 mg tablet 1 tab PO Q4-6H PRN (Reason: pain) Qty: 14 0RF hydrocodone-acetaminophen 5-325 mg tablet 1 tab PO Q4-6H PRN (Reason: pain) Qty: 14 0RF Referrals: Miscellaneous,Doctor, MD [Primary Care Provider] - Stand Alone Forms: Patient Portal/API, Work Release Note ED Sign-out <Alessandro Izquierdo, - Last Filed: 02/29/24 19:45> Cosign ED Attending Cosignature Attestation: Dr Izquierdo Co-Sign Statement: I was available for consultation during this patient's emergency department visit. This chart is signed by myself for administrative purposes only. I did not have direct contact with this patient during this visit. They were seen independently by the APC.
[2024-02-29] MEDS: KETOROLAC 30 MG/ML VIAL IM (18:29)
[2024-02-29] MEDS: HYDROCODONE/ACET 5/325 TABLET 1 TAB PO (18:29)
--- NOTE | 2024-02-29 19:11 | PC.NURSE ---
pt tried on previous ortho boot. lacks suffiecient support of ankle. tried out our ortho boot and was able to ambulate well with very little gait change.
[2024-02-29 19:32] VITALS: BP 128/62; PULSE 82; RESP 24; O2SAT 99
== END 2024-02-29 19:20 | disposition home or self-care (01) ==
PROVIDERS: Emergency Provider Physician Assistant
DX: M25.571 Pain in right ankle and joints of right foot (principal); M25.561 Pain in right knee
CPT/HCPCS: 29580; 73562; 73610; 73630; 96372; 99284; J1885

== ENCOUNTER → 2024-03-03 16:19 | Outpatient (CLI) | payer MEDICAID, OTHER, SELFPAY ==
[2023-06-11 19:51] VITALS: BMI 47.5
[2024-03-03 17:02] LABS: Influenza A - CEPHEID Flu A NEGATIVE (NEGATIVE); Influenza B - CEPHEID Flu B NEGATIVE (NEGATIVE); Respiratory Syncytial Virus Negative (Negative)
[2024-03-03 17:13] LABS: COVID-19 CEPHEID 4-PLEX PCR Negative (Negative)
== END ==
PROVIDERS: Visit Provider Physician Assistant
DX: R50.9 Fever, unspecified (principal)
CPT/HCPCS: 87635; 87400 ×2; 87420; 0241U

== ENCOUNTER 2025-04-08 05:43 | Emergency (ER) | payer SELFPAY ==
[2023-06-11 19:51] VITALS: BMI 47.5
[2025-04-08 05:52] VITALS: BP 119/76; PULSE 91; RESP 16; TEMP 36.4; O2SAT 98; BMI 51.6
--- NOTE | 2025-04-08 06:16 | ED_ITS ---
HPI - General Adult General Chief complaint: Dizziness Stated complaint: Dizziness feels like going to faint Time Seen by Provider: 04/08/25 05:47 Source: patient Mode of arrival: Ambulatory History of Present Illness HPI narrative: 34-year-old woman with no significant medical history and minimal interaction with medical system presents complaining of severe fatigue, dizziness, near- syncope when she stands up to walk. She notes that she is felt sick with a mild cough for the last couple of days, she is had a slight runny nose, hot flashes, low-grade frontal headache no energy at all. She has had her gallbladder removed and frequently has diarrhea has not noticed a change to her overall bowels. She states that she was so dizzy when she woke up this morning that she was having trouble sitting up. No head trauma recently. She was tested for both flu and COVID within the last couple of days and both were negative. Was told that she had a viral syndrome is concerned that she is worsening Related Data Previous Rx's ?Medication ?Instructions ?Recorded hydrocodone 5 mg-acetaminophen 325 1 tab PO Q4-6H PRN pain #14 tabs 01/14/24 mg tablet Allergies Allergy/AdvReac Type Severity Reaction Status Date / Time latex (LATEX) Allergy Severe Hives and Verified 04/08/25 05:52 Rash Review of Systems Review of Systems Narrative: Pertinent positive and negative findings as per HPI Patient History Medical History COVID-19 Migraine (spontaneous vaginal delivery) (~2018) HSV-2 (herpes simplex virus 2) infection Normal spontaneous vaginal delivery Anxiety as acute reaction to exceptional stress Costochondritis Surgical History S/P foot surgery, right (~2011) S/P dilatation and curettage (~01/01/20) Hx of cholecystectomy (~2014) History of dilatation and curettage (~2014) History of dilation and curettage (~2012) Family History Family/Other Stroke Myocardial infarction End stage renal failure on dialysis Grandmother Unknown whether patient has any health problems Family estrangement Grandmother Diabetes mellitus Myocardial infarction Grandfather Unknown whether patient has any health problems Father Family estrangement Unknown whether patient has any health problems Grandmother Unknown whether patient has any health problems Family estrangement Mother Rheumatoid arthritis Social History marital status: number of children: 3 household members: spouse, family and children lives independently: Yes housing: house pets and animals: Yes (outside dog) education level: high school occupational status: employed current occupational exposures/hazards: Yes Previous occupational history: prior employment at [employer] needs: No seatbelt use: always water heater temp set < 120 deg: Yes working smoke detector in home: Yes fire extinguisher in home: Yes carbon monox detector in home: Yes firearms in home: No do you feel safe at home: Yes Tobacco: How many years used: 11 second hand exposure: No alcohol intake: former substance use type: does not use during the past year weight has: increased > 10 lbs well-balanced diet: rarely or never daily servings fruits/ve-1 caffeine: Yes (Aware of 200 mg limit) Type(s) of exercise: none tobacco type: vaping alcohol intake frequency: holidays/special occasions only Exam Initial Vital Signs Initial Vital Signs: Vital Signs Temperature 97.6 F 04/08/25 05:52 Pulse Rate 91 H 04/08/25 05:52 Respiratory Rate 16 04/08/25 05:52 Blood Pressure 119/76 04/08/25 05:52 Pulse Oximetry 98 04/08/25 05:52 Oxygen Delivery Method Room Air 04/08/25 05:52 General: BMI of 52, appears older than stated age and appears to be in acute distress. HEENT: Moist mucous membranes, normal sclera with reactive pupils, she does not have nystagmus with passive movement of the head. Lateral movement does not worsen her dizziness Neck: No JVD, supple Respiratory: Lungs are clear to auscultation, no wheezing no rales no rhonchi. Full and symmetrical air movement Cardiac: Regular rate and rhythm no murmurs no bruits Abdomen: Soft, nontender, no rebound or guarding, no flank pain Skin: Warm and dry, no rashes Neurologic: Globally weak but otherwise Grossly neurologically intact with no obvious asymmetries or abnormalities Extremities: No trauma, well perfused, no edema Psych: Cooperative, appropriate insight and affect Course Vital Signs Vital signs: Vital Signs - 8 hr 04/08/25 05:52 Temperature 97.6 F Pulse Rate 91 H Respiratory Rate 16 Blood Pressure 119/76 Pulse Oximetry 98 Oxygen Delivery Method Room Air Medical Decision Making [facility] Narrative Medical decision making narrative: CC: Progressive weakness to the point she feels she is having trouble getting out of bed and near-syncope when she is walking Complicating co-morbidities: No history diabetes congestive heart failure hypertension or hyperlipidemia Data collected from: patient Medical records reviewed: Medical records are mostly related to minor acute injuries and spontaneous vaginal delivery Differential considered: Viral syndrome, significant electrolyte abnormality, sepsis, cardiomyopathy following viral syndrome, BPV seems less likely given the absence of nystagmus, intracranial pressure secondary to mass or infection Exam documented above, pertinent findings include: Dramatically weak, having trouble even sitting up from the bed, she does not have any provoked nystagmus remainder of exam is otherwise benign without localizing neurologic findings Lab Test results independently reviewed as above. Pertinent findings: CBC shows mild leukocytosis at 12.3 without significant left shift, no anemia Chemistries are reassuring Troponin is undetectable ProBNP is not Procalcitonin is not elevated Independently reviewed EKG: EKG shows sinus rhythm at a rate of 79 without acute ischemic changes Imaging studies independently reviewed: Chest x-ray is unremarkable, no infiltrates or cardiomegaly Treatments: 1 L of fluid Discussion: 34-year-old woman that is significant medical issues presents complaining of severe fatigue for the past 3-4 days increasing dizziness. Recently tested for influenza and COVID which was negative. All other symptoms certainly suggest she clearly has a viral etiology. No evidence of pneumonia, cardiomyopathy, acute coronary syndrome, intra-abdominal infection, cellulitis, sepsis, stroke, otitis media. Clinical exam does not suggest benign positional vertigo. I suspect that she is mildly dehydrated and suffering from her acute virus. All of these findings reviewed with the patient. At this point there was no indication for additional workup or imaging. She is safe for discharge. Discharge Plan Departure Patient Disposition: Home Clinical Impression: Acute viral syndrome, Dizziness Fatigue Qualifiers: Fatigue type: unspecified Qualified Code(s): R53.83 - Other fatigue Instructions: DI for Viral Syndrome Activity Restrictions/Additional Instructions: Thank you for coming in today Your workup was actually very reassuring. There was no evidence of sepsis, severe bacterial infection, pneumonia, heart attack, heart failure, kidney or liver problems. I suspect that you do have a virus which is causing the severe fatigue. Most viruses are going to improve within 7-10 days. I would suggest keeping yourself as hydrated as possible and allow your body the rest that it clearly is telling you that it needs If you find that you are getting worse or develop any new symptoms, please feel free to return to the emergency department for further evaluation. Prescriptions: No Action hydrocodone-acetaminophen 5-325 mg tablet 1 tab PO Q4-6H PRN (Reason: pain) Qty: 14 0RF Referrals: Miscellaneous,Doctor, MD [Primary Care Provider, Medical] Stand Alone Forms: Patient Portal/API
--- NOTE | 2025-04-08 06:22 | DI.RAD.S_ITS ---
PROCEDURE: XR CHEST 1V INDICATIONS: Weakness TECHNIQUE: One view of the chest was acquired. COMPARISON: [facility], , XR CHEST 1V, 06/11/2023, 18:19. [facility], , CHEST 2 VIEW, 02/27/2017, 7:29. FINDINGS: Surgical changes and devices: None. Lungs and pleura: Lungs are clear. No pleural effusions or pneumothorax. Mediastinum: Mediastinal contours appear normal. Heart size is normal. Bones and chest wall: No suspicious bony lesions. Overlying soft tissues appear unremarkable. IMPRESSION: No acute cardiopulmonary abnormality is seen. Dictated by: Dayton Fiore M.D. on 04/08/2025 at 8:23 Approved by: Dayton Fiore M.D. on 04/08/2025 at 8:26
--- NOTE | 2025-04-08 06:22 | EKG_ITS ---
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
[2025-04-08 06:46] LABS: Add Manual Diff / Slide Review NO; Basophils Absolute Auto 100 /uL (0-100); Basophils Percent Auto 0.7 % (0-2); Eosinophils Absolute Auto 500 /uL (0-450); Eosinophils Percent Auto 4.5 % (2-4); Hematocrit 37.4 % (36-46); Hemoglobin 12.5 g/dL (12.0-16.0); Lymphocytes Absolute Auto 3500 /uL (1100-4500); Lymphocytes Percent Auto 28.3 % (25-40); Mean Corpuscular HGB Conc 33.3 % (30-36); Mean Corpuscular Hemoglobin 27.4 PG (26-34); Mean Corpuscular Volume 82.3 fL (80-100); Monocytes Absolute Auto 600 /uL (0-900); Monocytes Percent Auto 5.1 % (3-14); Neutrophils Absolute Auto 7600 /uL (1500-7000); Neutrophils Percent Auto 61.4 % (50-75); Platelet Count 380 X10^3/uL (150-400); Red Blood Cell Count 4.54 X10^6/uL (4.0-5.2); Red Cell Distribution Width 14.8 % (11.6-14.8); White Blood Cell Count 12.3 X10^3/uL (4.5-11.0)
[2025-04-08 07:00] LABS: Alanine Aminotransferase 36 IU/L (<35); Albumin 3.7 g/dL (3.5-5.0); Albumin Globulin Ratio 1.2 (1.0-2.8); Alkaline Phosphatase 125 U/L (38-126); Aspartate Aminotransferase 29 IU/L (14-36); BUN Creatinine Ratio 7.6 (6-22); Bilirubin Total 0.3 mg/dL (0.2-1.3); Blood Urea Nitrogen 6 mg/dL (7-17); Calcium 8.1 mg/dL (8.4-10.2); Carbon Dioxide 26 mmol/L (22-32); Chloride 108 mmol/L (98-107); Estimated Glomerular Filt Rate > 60 mL/min (>60); Globulin 3.2 g/dL (1.7-4.1); Glucose 105 mg/dL (70-99); HEMOLYSIS < 15 (0-50); Lipase 77 U/L (23-300); Magnesium 2.1 mg/dL (1.6-2.3); Potassium 3.7 mmol/L (3.4-5.1); Sodium 139 mmol/L (137-145); Total Protein 6.9 g/dL (6.3-8.2)
[2025-04-08 07:12] LABS: NT-proBNP (BNP-Adult 18+) < 20 pg/mL (<125); Troponin I < 0.012 ng/mL (0.01-0.034)
[2025-04-08 07:17] LABS: Procalcitonin 0.073 ng/mL (<0.5)
[2025-04-08 07:41] VITALS: BP 117/74; PULSE 68; RESP 20; TEMP 36.5; O2SAT 99
== END 2025-04-08 07:42 | disposition home or self-care (01) ==
PROVIDERS: Emergency Provider Emergency Medicine
DX: B34.9 Viral infection, unspecified (principal); R42 Dizziness and giddiness; R53.83 Other fatigue
CPT/HCPCS: 36415; 71045; 80053; 83690; 83735; 83880; 84145; 84484; 85025; 93005; 99283; 99284

== ENCOUNTER 2025-07-26 03:59 | Emergency (ER) | payer SELFPAY ==
[2023-06-11 19:51] VITALS: BMI 47.5
[2025-07-26] VITALS (8 sets, daily range): BP systolic 111–117; BP diastolic 53–56; PULSE 83–93; RESP 18; TEMP 36.8; O2SAT 96–98; BMI 52.8
--- NOTE | 2025-07-26 04:28 | ED.ABDPAIN ---
HPI - Abdominal Pain General Chief Complaint: Abdominal Pain Stated Complaint: uteral pain x1 hour Time Seen by Provider: 07/26/25 04:05 Source: patient Mode of arrival: Ambulatory History of Present Illness HPI narrative: 34-year-old female with a history of tubal ligation presents with suprapubic pain that started approximately an hour prior to arrival. Patient denies any dysuria, hematuria, any symptoms. She has no other GI symptoms as well. Related Data Previous Rx's ?Medication ?Instructions ?Recorded hydrocodone 5 mg-acetaminophen 325 1 tab PO Q4-6H PRN pain #14 tabs 01/14/24 mg tablet cephalexin 500 mg capsule 500 mg PO BID #14 caps 07/26/25 Allergies Allergy/AdvReac Type Severity Reaction Status Date / Time latex (LATEX) Allergy Severe Hives and Verified 07/26/25 04:08 Rash Review of Systems Review of Systems ROS Unobtainable: All systems reviewed & are unremarkable except as noted in HPI and below Patient History Medical History COVID-19 Migraine (spontaneous vaginal delivery) (~2018) HSV-2 (herpes simplex virus 2) infection Normal spontaneous vaginal delivery Anxiety as acute reaction to exceptional stress Costochondritis Surgical History S/P foot surgery, right (~2011) S/P dilatation and curettage (~01/01/20) Hx of cholecystectomy (~2014) History of dilatation and curettage (~2014) History of dilation and curettage (~2012) Family History Family/Other Stroke Myocardial infarction End stage renal failure on dialysis Grandmother Unknown whether patient has any health problems Family estrangement Grandmother Diabetes mellitus Myocardial infarction Grandfather Unknown whether patient has any health problems Father Family estrangement Unknown whether patient has any health problems Grandmother Unknown whether patient has any health problems Family estrangement Mother Rheumatoid arthritis Social History marital status: number of children: 3 household members: spouse, family and children lives independently: Yes housing: house pets and animals: Yes (outside dog) education level: high school occupational status: employed current occupational exposures/hazards: Yes Previous occupational history: prior employment at the [employer] special edy needs: No seatbelt use: always water heater temp set < 120 deg: Yes working smoke detector in home: Yes fire extinguisher in home: Yes carbon monox detector in home: Yes firearms in home: No do you feel safe at home: Yes Smoking Status: Current every day smoker Tobacco: How many years used: 11 second hand exposure: No alcohol intake: former substance use type: does not use during the past year weight has: increased > 10 lbs well-balanced diet: rarely or never daily servings fruits/ve-1 caffeine: Yes (Aware of 200 mg limit) Type(s) of exercise: none Smoking Status: Current every day smoker tobacco type: cigarettes and vaping alcohol intake frequency: holidays/special occasions only Exam Narrative Exam Narrative: General: Patient appears to be in no acute distress, acting appropriately Head: normocephalic, atraumatic, HEENT: Pupils equal round reactive, eyes tracking well, neck supple, no JVD Heart: regular rate and rhythm, no murmurs, rubs, or gallops heard Lungs: clear to auscultation, no adventitious sounds Abdomen: soft , tender to palpation over the suprapubic area, nondistended, positive bowel sounds Neurological: no focal neurological signs, moving all extremities well, alert and oriented x3, Psych: good judgment ,good insight, mood is normal. Initial Vital Signs Initial Vital Signs: Vital Signs Temperature 98.2 F 07/26/25 04:08 Pulse Rate 83 07/26/25 04:08 Respiratory Rate 18 07/26/25 04:08 Blood Pressure 113/55 L 07/26/25 04:08 Pulse Oximetry 96 07/26/25 04:08 Oxygen Delivery Method Room Air 07/26/25 04:08 Course Orders Ordered: ED Orders 07/26/25 04:10 Complete Blood Count AUTO DIFF Stat Comprehensive Metabolic Panel Stat Lipase Stat 07/26/25 04:47 CT abdomen pelvis w con Stat 07/26/25 05:01 UA Complete [Urinalysis and Microscopic] Stat Cefazolin Sodium (Cephalexin 250 Mg Cap Prepack) 1 bottle MISC DIRECTED ONE Stop: 07/26/25 06:05 Ondansetron HCl (Ondansetron 4 Mg/2 Ml Inj) 4 mg IV NOW PRN PRN Reason: Nausea And Vomiting Discontinued Medications Hydrocodone Bitart/Acetaminophen (Hydrocodone/Acet 5/325 Prepack) 1 bottle MISC DIRECTED ONE Stop: 07/26/25 06:04 Ondansetron HCl (Ondansetron 4 Mg Odt Prepack) 1 bottle MISC DIRECTED ONE Stop: 07/26/25 06:04 Reevaluation(s) Reevaluation #1: The upon re-evaluation, patient is resting comfortably but when woken up she claims that the suprapubic pain is still there. Patient is still refusing any pain medications. Time: 05:50 Vital Signs Vital signs: Vital Signs - 8 hr 07/26/25 04:08 07/26/25 04:17 07/26/25 04:30 Temperature 98.2 F Pulse Rate 83 93 H 91 H Respiratory Rate 18 Blood Pressure 113/55 L Pulse Oximetry 96 98 98 Oxygen Delivery Method Room Air 07/26/25 04:30 07/26/25 05:00 Temperature Pulse Rate 91 H Respiratory Rate Blood Pressure 117/53 L Pulse Oximetry 97 Oxygen Delivery Method MDM - Abdominal Pain Lab Data 07/26/25 04:10 07/26/25 04:10 Labs: Lab Results 07/26/25 07/26/25 Range/Units 04:10 05:01 WBC 14.1 H (4.5-11.0) X10^3/uL RBC 4.64 (4.0-5.2) X10^6/uL Hgb 12.7 (12.0-16.0) g/dL Hct 37.7 (36-46) % MCV 81.3 (80-100) fL MCH 27.4 (26-34) PG MCHC 33.7 (30-36) % RDW 14.6 (11.6-14.8) % Plt Count 358 (150-400) X10^3/uL Neut % (Auto) 67.4 (50-75) % Lymph % (Auto) 23.3 L (25-40) % [place] % (Auto) 5.5 (3-14) % Eos % (Auto) 3.3 (2-4) % Baso % (Auto) 0.5 (0-2) % Neut # (Auto) 9500 H (5009-1673) /uL Lymph # (Auto) 3300 (3351-4595) /uL [place] # (Auto) 800 (0-900) /uL Eos # (Auto) 500 H (0-450) /uL Baso # (Auto) 100 (0-100) /uL Sodium 137 (137-145) mmol/L Potassium 3.8 (3.4-5.1) mmol/L Chloride 109 H (98-107) mmol/L Carbon Dioxide 22 (22-32) mmol/L BUN 8 (7-17) mg/dL Creatinine 0.76 (0.52-1.04) mg/dL Estimated GFR > 60 (>60) mL/min BUN/Creatinine Ratio 10.5 (6-22) Glucose 108 H (70-99) mg/dL Calcium 8.2 L (8.4-10.2) mg/dL Total Bilirubin 0.5 (0.2-1.3) mg/dL AST 23 (14-36) IU/L ALT 27 (<35) IU/L Alkaline Phosphatase 116 (38-126) U/L Total Protein 7.4 (6.3-8.2) g/dL Albumin 3.9 (3.5-5.0) g/dL Globulin 3.5 (1.7-4.1) g/dL Albumin/Globulin Ratio 1.1 (1.0-2.8) Lipase 50 (23-300) U/L Urine Color Yellow Urine Appearance Clear Urine pH 6.0 (4.5-8.0) Ur Specific [place] 1.025 (1.000-1.035) Urine Protein Negative (Negative) Urine Glucose (UA) Negative (Negative) g/dL Urine Ketones Negative (NEGATIVE) Urine Occult Blood 2+ H (Negative) Urine Nitrate Negative (Negative) Urine Bilirubin Negative (NEGATIVE) Urine Urobilinogen 0.2 (0.2) E.U./dL Ur Leukocyte Esterase Negative (NEGATIVE) Urine RBC 5-10/hpf H (0-5/HPF) Urine WBC 0-1/hpf (0-5/HPF) Ur Squamous Epith Cells 1-5 /hpf (0-5/HPF) Urine Bacteria Few (2-10) H (None) Urine Mucus 2+ H (Negative) Ur Culture Indicated? Cult not indicated Vol Urine Centrifuged Low vol <10ml (spun) A Point of care testing: Point of Care Testing Test Results Negative Imaging Data CT scan - abdomen/pelvis: Radiologist's Impression: CT showed no definite acute intra-abdominal or pelvic findings. Mild urinary bladder wall thickening which may be partially due to under distention. Small amount of free fluid in the pelvis is nonspecific and likely physiologic. Mild geographic hypoattenuation of the liver likely represents hepatic steatosis. MDM Narrative Medical decision making narrative: 34-year-old female who presents with sudden suprapubic abdominal pain. Workup was negative except for some mild bladder wall thickening that was found on the CT of the abdomen and pelvis. UA showed mild blood so we will go ahead and treat with a UTI since the patient is symptomatic. Patient given take-home packs of Keflex, [place] for pain as needed, and Zofran PRN for nausea. Discharge Plan Departure Patient Disposition: Home Clinical Impression: Urinary tract infection Qualifiers: Urinary tract infection type: acute cystitis Hematuria presence: without hematuria Qualified Code(s): N30.00 - Acute cystitis without hematuria Instructions: DI for Urinary Tract Infection (UTI) Activity Restrictions/Additional Instructions: Take antibiotics as prescribed. Drink plenty of fluids and stay hydrated. Use take-home pack meds as needed as well. Follow up if pain is not improved. Prescriptions: New cephalexin 500 mg capsule 500 mg PO BID Qty: 14 0RF No Action hydrocodone-acetaminophen 5-325 mg tablet 1 tab PO Q4-6H PRN (Reason: pain) Qty: 14 0RF Referrals: Miscellaneous,[facility] [Primary Care Provider, Medical] Stand Alone Forms: Patient Portal/API
[2025-07-26 04:38] LABS: Add Manual Diff / Slide Review NO; Hematocrit 37.7 % (36-46); Hemoglobin 12.7 g/dL (12.0-16.0); Lymphocytes Absolute Auto 3300 /uL (1100-4500); Mean Corpuscular HGB Conc 33.7 % (30-36); Mean Corpuscular Hemoglobin 27.4 PG (26-34); Mean Corpuscular Volume 81.3 fL (80-100); Platelet Count 358 X10^3/uL (150-400)
[2025-07-26 04:43] LABS: Alanine Aminotransferase 27 IU/L (<35); Albumin 3.9 g/dL (3.5-5.0); Albumin Globulin Ratio 1.1 (1.0-2.8); Alkaline Phosphatase 116 U/L (38-126); Blood Urea Nitrogen 8 mg/dL (7-17); Calcium 8.2 mg/dL (8.4-10.2); Carbon Dioxide 22 mmol/L (22-32); Chloride 109 mmol/L (98-107); Estimated Glomerular Filt Rate > 60 mL/min (>60); Globulin 3.5 g/dL (1.7-4.1); Glucose 108 mg/dL (70-99); HEMOLYSIS < 15 (0-50); Lipase 50 U/L (23-300); Potassium 3.8 mmol/L (3.4-5.1); Sodium 137 mmol/L (137-145); Total Protein 7.4 g/dL (6.3-8.2)
--- NOTE | 2025-07-26 04:47 | DI.CT.S_ITS ---
PROCEDURE: CT ABDOMEN PELVIS W CON INDICATIONS: suprapubic pain TECHNIQUE: After the administration of intravenous contrast, axial sections acquired from the lung bases to the pubic symphysis. Coronal and sagittal reformats were performed. For radiation dose reduction, the following was used: automated exposure control, adjustment of mA and/or kV according to patient size. COMPARISON: [facility], CT, CT ABDOMEN PELVIS W CON, 06/11/2023, 19:49. FINDINGS: Image quality: Diagnostic. Lower Chest: No significant findings. ABDOMEN: Liver: No solid mass. Gallbladder: Absent. Biliary ducts: No biliary dilation. Pancreas: No ductal dilation. Spleen: Size is within normal limits. Adrenal Glands: No adrenal nodules. Kidneys and Ureters: No hydronephrosis. No solid mass. No complex renal cystic lesion which requires follow up. Stomach and Bowel: Normal colonic caliber, without significant wall thickening. Colonic diverticulosis without evidence of diverticulitis. Peritoneum: No abnormal intraperitoneal fluid. No free air. Ventral Wall: Small umbilical hernia containing fat. Abdominal Nodes: No retroperitoneal or mesenteric adenopathy by size criteria. Vessels: Aorta and inferior vena cava are normal in size. PELVIS: Pelvic Organs: Unremarkable. Bladder: Mild bladder wall thickening, accounting for underdistention. Pelvic Nodes: No enlarged lymph nodes. Miscellaneous: No inguinal hernias are seen. Bones: No aggressive osseous abnormality. IMPRESSION: Mild bladder wall thickening, which may be artifact of underdistention or indicate infection. Correlate with urinalysis. Agree with preliminary report. Dictated by: Kevin Silver M.D. on 07/26/2025 at 8:46 Approved by: Kevin Silver M.D. on 07/26/2025 at 8:48
[2025-07-26 05:12] LABS: Appearance Urine UA CLEAR; Bilirubin Urine UA NEGATIVE (NEGATIVE); Color Urine UA YELLOW; Glucose Urine UA NEGATIVE (Negative); Ketones Urine UA NEGATIVE (NEGATIVE); Leukocyte Esterase Urine UA NEGATIVE (NEGATIVE); Nitrite Urine UA NEGATIVE (Negative); Occult Blood Urine UA 2+ (Negative); Protein Urine UA NEGATIVE (Negative); Specific Gravity Urine UA 1.025 (1.000-1.035); Urobilinogen Urine UA 0.2 E.U./dL (0.2)
[2025-07-26 05:19] LABS: pH Urine UA 6.0 (4.5-8.0)
[2025-07-26 05:20] LABS: Culture Indicated Urine Cult Not Indicated
[2025-07-26] MEDS: ONDANSETRON 4 MG ODT PREPACK 1 BOTTLE MISC (06:39)
== END 2025-07-26 06:46 | disposition home or self-care (01) ==
PROVIDERS: Emergency Provider Family Medicine
DX: N30.00 Acute cystitis without hematuria (principal); Z98.51 Tubal ligation status
CPT/HCPCS: 74177; 80053; 81001; 81025; 83690; 85025; 99282; 99284; Q9967